=== PATIENT | female | born 1950 | race African-American/Black ===

== ENCOUNTER 2023-04-27 08:23 | Outpatient (AMB) | payer OTHER, SELFPAY ==
--- NOTE | 2023-04-27 08:31 | A.OFFVIS_ITS ---
Intake Vital Signs 04/27/23 08:33 Height 5 ft 5 in Weight 169 lb BMI 28.1 BP 160/74 H Blood Pressure Location Rt brachial Position Sitting Pulse 90 Pulse Source Pulse Oximeter Pulse Oximetry (%) 96 Oxygen Delivery Method Room Air Intake Visit Reasons: ENP-Dementia/Gait/Surred Speech-confirmed Intake Note: Patient presents for dementia,gait and speech evaluation. Patient states Im having A lot of issues walking. (son) I want to know if she had a stroke shes always been a working woman and very independent since her fall last year she's not the same, slurring words, she' very inbalance. she was given a medication for stroke but we were never informed if she had a stroke. Allergies CRAB Allergy (Intermediate, Uncoded 05/04/23 13:39) HIVES, RASH, STOMACH PAINS HPI HPI Comments History of Present Illness Details 72-yr-old female presents for neurologic al evaluation of gait difficulties and slurring speech. Accompanied by her son, Roly. She had a fall a year ago. She fell and hit her forehead. Since, she she has had progressive slurring of speech and gait difficulties. In the last 6 months, she has started to need to walk with a walker. She had another fall in Jan, which per hosp reports was r/t marijuana use- son states mom has always consumed marijuana- but now she uses 1/2 joint at bedtime for sleep as needed. Pt is right handed. ADL status: Needing more assist with dressing, slower. IADL status: Ind Fine-motor skills: Her writing is poor- shaky. Buttons/zippers- can do slow. Needs help to cut her own food. Voice changes: slurring, softer, but sometimes has to almost shout. Hyposmia: Intact Dysphagia: Has coughing with drinking liquids. No issues with solid food. Has not had ROVING MACHINE OPERATOR or MBS. Drooling: Some left sided drooling at night Orthostatic lightheadedness: Some lightheadedness- can persist for a few seconds Constipation: None Slowness: Overall slower Freezing episodes: Occasionally Tremor: Started in LUE w/ action, now has BUE and whole body tremor Stiffness: Feels rigid if she has been sitting for awhile Gait changes: When she stands up, she tends to lose her balance backwards. Her falls have been falling backwards or to the side. Sleep difficulty: More recently she has had difficulty sleep. Denies snoring or parasomnias. Memory impairment: Some STM lapses. Hallucinations: She has had a few episodes where she is waking up and talking to someone who is not there Usual exercise: Has a PT who comes to the house- will be ending soon. Other: She endorses headaches, blurry vision, diplopia, nausea. History of concussion/head injury? After the fall last year, had prolonged dizziness. History of neuroleptic (metoclopramide/antipsychotics) use? Denies History of psychiatric hospitalizations? None History of occupational chemical exposures? None Family history of movement disorders? None Family history of mood disorder or suicide? None 12/2021, [facility], Brain MRI wo: IMPRESSION: 1. No acute infarct. 2. Multifocal supratentorial white matter signal abnormality is nonspecific, but compatible with chronic microangiopathic/small vessel ischemic change. 01/2023, [facility], Head/Neck CTA IMPRESSION: 1. No acute intracranial large vessel occlusion. 2. No hemodynamically-significant stenosis of the extracranial internal carotid and vertebral arteries. 3. 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 ENT outpatient follow-up can be obtained. 01/2023, Head CT: IMPRESSION: 1. No acute intracranial abnormality. 2. No skull fracture. [facility] Medical History (Updated 05/07/23 @ 20:43 by MAINOR Alberto) Rheumatoid arthritis Cervical spinal stenosis HTN (hypertension) Depressive disorder Surgical History H/O: hysterectomy History of partial hysterectomy Family History Mother HTN (hypertension) Hyperlipidemia Father Cancer, colon Social History Alcohol intake: never Patient Tobacco Use Status: Current someday Tobacco user Review of Systems Const All systems reviewed & are unremarkable except as noted in HPI and below Physical Exam Vital Signs: Last Vital Signs Pulse 90 04/27/23 08:33 BP 160/74 H 04/27/23 08:33 Pulse Ox 96 04/27/23 08:33 Oxygen Delivery Method Room Air 04/27/23 08:33 BMI result Body Mass Index 28.1 Const General: cooperative and no acute distress HEENT Head: Yes normocephalic Resp Effort & Inspection: normal respiratory effort and able to speak in complete sentences Neuro Other: A&O Slurred speech Writing tremor Slow to stand, very short steps, needs to hold onto someone/walker. Psych Appearance: grossly normal Mental Status: mental status grossly normal Affect: normal affect Attitude: cooperative Thought process: Normal thought process present Assessment & Plan Assessment & Plan (1) Slurred speech: Code(s): R47.81 - Slurred speech (2) Gait difficulty: Code(s): R26.9 - Unspecified abnormalities of gait and mobility (3) Migraine without aura: Code(s): G43.009 - Migraine without aura, not intractable, without status migrainosus (4) Tremor: Code(s): R25.1 - Tremor, unspecified Plan Discussed in depth that pt's constellation of s/s do persist despite pt being weaned off many of the potentially sedating medications pt was previously on. Discussed that no acute stroke was identified at least on head imaging done in Jan 2023 at [facility]. Reviewed that medications, such as her labettalol and statin, are sued to tx HTN/HLD and thus are for stroke prevention. Pt advised to undergo brain MRI w/wo- to assess for secondary etiologies of slurred speech, gait changes, diplopia. Will refer pt to out-pt PT for vestibualr eval & Tx- may start once her home PT is completed. 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 Pt is not a candidate to try triptans d/t HTN and HLD. f/u on review of above and in 3 months in clinic or sooner prn Coding Level of Care Code New Pt Level 4 (02031) Diagnoses Slurred speech R47.81 Gait difficulty R26.9 Migraine without aura G43.009 Tremor R25.1
[2023-04-27 08:33] VITALS: BP 160/74; PULSE 90; O2SAT 96; BMI 28.1
== END 2023-04-27 10:01 | disposition home or self-care (01) ==
PROVIDERS: Visit Provider Nurse Practitioner Family
DX: R47.81 Slurred speech (principal); R26.9 Unspecified abnormalities of gait and mobility; G43.009 Migraine without aura, not intractable, without status migrainosus; R25.1 Tremor, unspecified
CPT/HCPCS: 99204

== ENCOUNTER → 2023-04-27 08:23 | Outpatient (BNVA) | payer OTHER, SELFPAY | PROVIDERS: Visit Provider Nurse Practitioner Family | DX: G43.009 Migraine without aura, not intractable, without status migrainosus (principal); R47.81 Slurred speech; R26.9 Unspecified abnormalities of gait and mobility; R25.1 Tremor, unspecified | CPT/HCPCS: 99202 ==

== ENCOUNTER 2023-05-04 13:29 | Outpatient (AMB) | payer OTHER, SELFPAY ==
--- NOTE | 2023-05-04 13:38 | HO.NEPHOV_ITS ---
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 Loader Operator Required: No Accompanied by: Self / Same As Patient Allergies CRAB Allergy (Intermediate, Uncoded 05/04/23 13:39) HIVES, RASH, STOMACH PAINS HPI HPI Comments History of Present Illness Details Elderly woman with HTN Here for follow up Tolerating Labetolol She did not tolerate Amlodipine due to edema Dizziness has improved Assessment & Plan Assessment & Plan (1) HTN (hypertension): Code(s): I10 - Essential (primary) hypertension Plan BP is sub optimal Stay on low salt diet Increase LABETOLOL to 200 mg BID Lab work ordered Orders: Orders Blood Urea Nitrogen 6 Weeks I10 - Essential (primary) hypertension Creatinine 6 Weeks I10 - Essential (primary) hypertension Calcium 6 Weeks I10 - Essential (primary) hypertension Electrolytes 6 Weeks I10 - Essential (primary) hypertension Medications: Changed From labetalol 100 mg PO BID To labetalol 200 mg (2 x 100 mg) PO BID 60 tabs 6RF Coding Level of Care Code Est Pt Level 3 (18626) Diagnoses HTN (hypertension) I10 PFSH Medical History (Updated 05/04/23 @ 14:01 by Dc Martin MD) HTN (hypertension) Depressive disorder Surgical History H/O: hysterectomy History of partial hysterectomy Family History Mother HTN (hypertension) Hyperlipidemia Father Cancer, colon Social History Alcohol intake: never Patient Tobacco Use Status: Current someday Tobacco user
[2023-05-04 13:41] VITALS: BP 162/90; PULSE 99; O2SAT 99; BMI 28.1
== END 2023-05-04 14:05 | disposition home or self-care (01) ==
LOC: HO.HKAS 13:29
PROVIDERS: PCP Internal Medicine; Visit Provider Internal Medicine Hypertension Specialist
DX: I12.9 Hypertensive chronic kidney disease with stage 1 through stage 4 chronic kidney disease, or unspecified chronic kidney disease (principal)
CPT/HCPCS: 99214

== ENCOUNTER → 2023-05-04 13:29 | Outpatient (BNVA) | payer OTHER, SELFPAY | PROVIDERS: PCP Internal Medicine; Visit Provider Internal Medicine Hypertension Specialist | DX: I12.9 Hypertensive chronic kidney disease with stage 1 through stage 4 chronic kidney disease, or unspecified chronic kidney disease (principal) | CPT/HCPCS: 99212 ==

== ENCOUNTER 2023-06-14 13:44 | Outpatient (AMB) | payer OTHER, SELFPAY ==
--- NOTE | 2023-06-14 13:50 | HO.NEPHOV ---
HPI HPI Comments History of Present Illness Details Elderly woman with HTN Here for follow up Tolerating Labetolol 200 mg BID She did not tolerate Amlodipine due to edema Dizziness has improved PFSH Medical History Rheumatoid arthritis Cervical spinal stenosis HTN (hypertension) Depressive disorder Surgical History H/O: hysterectomy History of partial hysterectomy Family History Mother HTN (hypertension) Hyperlipidemia Father Cancer, colon Social History Alcohol intake: never Patient Tobacco Use Status: Current someday Tobacco user Vital Signs 06/14/23 13:51 Height 5 ft 5 in Weight 177 lb BMI 29.5 BP 158/80 H Blood Pressure Location Lt brachial Position Sitting Pulse 80 Pulse Source Pulse Oximeter Pulse Oximetry (%) 95 Oxygen Delivery Method Room Air Physical Exam Vital Signs: Last Vital Signs Pulse 80 06/14/23 13:51 BP 158/80 H 06/14/23 13:51 Pulse Ox 95 06/14/23 13:51 Oxygen Delivery Method Room Air 06/14/23 13:51 BMI result Body Mass Index 29.5 Const General: comfortable Nutritional Appearance: well nourished Orientation/consciousness: patient oriented x3 HEENT Head: No normal to inspection Mouth: moist mucous membranes Neck Neck: Yes supple and Yes no JVD Resp Auscultation: clear to auscultation bilaterally, no rales and rub present Cardio Jugular venous distension: no JVD Palpation: no palpable S3 and no palpable S4 Heart sounds: no rubs GI Palpation (GI): Soft to palpation and nontender Percussion: No Fluid wave present General: Yes no CVA tenderness Back/Spine/Pelvis Back: no CVA tenderness Skin General skin exam: no rashes or lesions noted Neuro General: patient oriented x3 Extrem General: Yes no pedal edema and No clubbing Assessment & Plan Assessment & Plan (1) HTN (hypertension): Code(s): I10 - Essential (primary) hypertension Plan BP is still sub optimal Stay on low salt diet keep LABETOLOL 200 mg BID ADD NIFEDIPINE XL 30 mg QPM Labs pending Orders: Orders Electrolytes 3 Months I10 - Essential (primary) hypertension Blood Urea Nitrogen 3 Months I10 - Essential (primary) hypertension Creatinine 3 Months I10 - Essential (primary) hypertension Calcium 3 Months I10 - Essential (primary) hypertension Medications: New nifedipine ER 30 mg PO .evening 30 tabs 3RF Coding Level of Care Code Est Pt Level 3 (27476) Diagnoses HTN (hypertension) I10 Results Reviewed Nephrology Results: No Data to Display
[2023-06-14 13:51] VITALS: BP 158/80; PULSE 80; O2SAT 95; BMI 29.5
== END 2023-06-14 15:39 | disposition home or self-care (01) ==
LOC: HO.HKAS 13:44
PROVIDERS: PCP Internal Medicine; Visit Provider Internal Medicine Hypertension Specialist
DX: I10 Essential (primary) hypertension (principal)
CPT/HCPCS: 99213

== ENCOUNTER → 2023-06-14 13:44 | Outpatient (BNVA) | payer OTHER, SELFPAY | PROVIDERS: PCP Internal Medicine; Visit Provider Internal Medicine Hypertension Specialist | DX: I10 Essential (primary) hypertension (principal) | CPT/HCPCS: 99212 ==

== ENCOUNTER 2023-07-13 14:46 | Outpatient (AMB) | payer OTHER, SELFPAY ==
--- NOTE | 2023-07-13 14:46 | MHC.OFFVIS ---
Intake Intake Visit Reasons: F/u per Inessa #[phone] - Conf Intake Note: Patient presents for follow up I want her to check me because I need a speech therapist,my knee is also hurting me. Allergies CRAB Allergy (Intermediate, Uncoded 07/13/23 14:47) HIVES, RASH, STOMACH PAINS Medication List - Last Reconciled 07/13/23 by Inessa Wilder, MAINOR amitriptyline 25 mg PO BEDTIME calcium carbonate-vitamin D3 600 mg-10 mcg (400 unit) 1 tab PO BID hydroxyzine HCl mg PO labetalol 200 mg (2 x 100 mg) PO BID melatonin mg PO nifedipine ER 30 mg PO .evening omega-3 acid ethyl esters 1 cap PO DAILY ondansetron 4 mg PO Q6H PRN 30 days rosuvastatin 20 mg PO BEDTIME sulfasalazine PO ubrogepant (Ubrelvy) 50 - 100 mg (0.5 - 1 x 100 mg) PO ONCE PRN 30 days HPI HPI Comments History of Present Illness Details 72-yr-old female presents for f/u televideo visit, accompanied by her CORNER CUTTER MACHINE OPERATOR who helps w/ history and later her son joined. She saw ENT- pt states she was told she has a mass in the throat , her son states they were told her dizziness is stable. She saw her customer engagement specialist- her Labetolol was increased. She had a colonoscopy- per pt, was normal. Has not started PT yet. Did lois have brain MRI yet. Her speech is still slurred. She feels her memory is not great- difficulty with details. She is having difficulty walking- has to hold onto something when walking. She states that this is d/t knee pain since a fall last year. Her CORNER CUTTER MACHINE OPERATOR, notes that she needs the walker, as w/o it- she will go to the right and lose her balance. She has difficulty getting up from a chair- either has to try many times or someone has to help her get up. She is shaky when she gets up- in her hands. Her hands shake at rest. Denies hyposmia. Mild drooling. She is often dizzy- described as lightheaded. She does feel stiff overall. She feels anxious- this is newer for her. Denies hallucinations. Denies parasomnias. [facility] Medical History Rheumatoid arthritis Cervical spinal stenosis HTN (hypertension) Depressive disorder Surgical History H/O: hysterectomy History of partial hysterectomy Family History Mother HTN (hypertension) Hyperlipidemia Father Cancer, colon Social History Alcohol intake: never Patient Tobacco Use Status: Current someday Tobacco user Review of Systems Const All systems reviewed & are unremarkable except as noted in HPI and below Physical Exam Const General: cooperative and no acute distress Resp Effort & Inspection: normal respiratory effort and able to speak in complete sentences Neuro Other: A&O x's 3- mild STM lapses and some word finding difficulties, more so when anxious- ie name/location of her recent medical appointments. Anxious at times, easily relaxes. Dysarthritc. 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 Will check right knee x-ray, patient requests at [facility]. Will re-order out-pt PT eval & tx- at [facility] pe rpt request Refer for VEGETABLE FARM MANAGER eval & tx- at [facility]. Monitor tremor- consider movement eval in f/u Will request ENT notes Hold Ubrelvy 100mg prn for migarine headache for now. Pt is not a candidate to try triptans d/t HTN and HLD. f/u in 2-3 months or sooner prn. Orders: Orders XR knee RT 3V Today M25.561 - Pain in right knee Referrals Speech and Hearing Referral Q31.3 - Laryngocele, R13.10 - Dysphagia, unspecified, R47.81 - Slurred speech Telehealth Telehealth Location of provider rendering services: practice address Location of patient: address on file Patient Identification confirmed using: Name, : Yes Telehealth method: video Patient verbally consented to treatment: Yes Patient verbally consented to billing insurance company: Yes Patient informed of any privacy concerns related to visit: Yes Minutes spent on Phone/Video with Pt.: 31 Coding Level of Care Code Tele Est Pt Level 4 (37574) Diagnoses Dizziness R42 Slurred speech R47.81 Right knee pain M25.561 Laryngocele Q31.3 Difficulty swallowing R13.10 Tremor R25.1 Gait difficulty R26.9
== END 2023-07-14 13:21 | disposition home or self-care (01) ==
LOC: HO.HSMS 14:46
PROVIDERS: PCP Internal Medicine; Visit Provider Nurse Practitioner Family
DX: R42 Dizziness and giddiness (principal); R47.81 Slurred speech; M25.561 Pain in right knee; Q31.3 Laryngocele; R13.10 Dysphagia, unspecified; R25.1 Tremor, unspecified; R26.9 Unspecified abnormalities of gait and mobility
CPT/HCPCS: 99214

== ENCOUNTER → 2023-07-13 14:46 | Outpatient (BNVA) | payer OTHER, SELFPAY | PROVIDERS: PCP Internal Medicine; Visit Provider Nurse Practitioner Family ==

== ENCOUNTER 2023-08-09 14:33 | Outpatient (REF) | payer OTHER, SELFPAY ==
--- NOTE | ~2023-08-09 | MR_ITS ---
EXAMINATION: MR BRAIN WITHOUT AND WITH CONTRAST CLINICAL INFORMATION: Slurred speech COMPARISON: None TECHNIQUE: Multiplanar multisequence MR imaging of the brain was obtained without and following the administration of 7.5 mL Gadavist intravenous contrast. FINDINGS: There is no acute infarct on diffusion-weighted imaging. There is no intracranial hemorrhage on iron-sensitive imaging. No extra-axial collection or mass effect/herniation. Patchy periventricular and deep white matter T2 FLAIR hyperintensities consistent with moderate underlying microangiopathy. No hydrocephalus. The ventricles are normal in morphology and size. No abnormal parenchymal or extra-axial enhancement. 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 There is focal dural calcification/ossification along the right aspect of the posterior falx The major flow voids at the skull base are preserved. The midline structures are normal. The cerebellar tonsils are normally positioned. The craniocervical junction is normal. Marrow signal is within normal limits. The visualized soft tissues are without significant abnormality. No signal abnormality within the paranasal sinuses or within the mastoid air cells. MR/MR head/brain wo/w con IMPRESSION: 1. No acute infarct or other acute intracranial abnormality. 2. Moderate chronic white matter microangiopathy.
[2023-08-09] MEDS: gadobutroL 7.5 ML VIAL IVPUSH (15:38)
== END 2023-08-09 14:34 | disposition home or self-care (01) ==
LOC: HO.MRI 14:33
PROVIDERS: PCP Internal Medicine; Visit Provider Nurse Practitioner Family
DX: R47.81 Slurred speech (principal); H53.2 Diplopia; R26.9 Unspecified abnormalities of gait and mobility; R25.1 Tremor, unspecified; I10 Essential (primary) hypertension; Q31.3 Laryngocele
CPT/HCPCS: 70553; A9585

== ENCOUNTER 2023-09-08 09:36 | Outpatient (AMB) | payer OTHER, SELFPAY ==
--- NOTE | 2023-09-08 09:49 | MHC.OFFVIS ---
Intake Vital Signs 09/08/23 09:51 09/08/23 11:02 09/08/23 11:03 09/08/23 11:04 Height 5 ft 5 in Weight 168 lb BMI 28.0 BP 122/82 126/64 96/60 102/58 L Blood Pressure Location Rt brachial Rt brachial Rt brachial Rt brachial Position Sitting Supine Sitting Standing Pulse 81 68 71 76 Pulse Source Pulse Oximeter Pulse Oximeter Pulse Oximeter Pulse Oximeter Pulse Oximetry (%) 98 Oxygen Delivery Method Room Air Intake Visit Reasons: 3M follow up Intake Note: Patient presents for 3 month follow up. I had an MRI done at [facility], I fell last week and hit the back of my head Allergies CRAB Allergy (Intermediate, Uncoded 09/22/23 13:15) HIVES, RASH, STOMACH PAINS Medication List - Last Reconciled 09/08/23 by MAINOR Alberto amitriptyline 25 mg PO BEDTIME calcium carbonate-vitamin D3 600 mg-10 mcg (400 unit) 1 tab PO BID hydroxyzine HCl mg PO labetalol 200 mg (2 x 100 mg) PO BID melatonin mg PO nifedipine ER 30 mg PO .evening omega-3 acid ethyl esters 1 cap PO DAILY ondansetron 4 mg PO Q6H PRN 30 days rosuvastatin 20 mg PO BEDTIME sulfasalazine PO ubrogepant (Ubrelvy) 50 - 100 mg (0.5 - 1 x 100 mg) PO ONCE PRN 30 days HPI HPI Comments History of Present Illness Details 73-yr-old female presents for f/u visit, accompanied by her MARKETING EDUCATION TEACHER. Pt's son had called to move up this appt- as he had questions r/t her medications and whether or not pt has ever had a stroke. She continues to have dysarthria. She is doing VICE PRESIDENT BUSINESS & CORPORATE DEVELOPMENT- she is doing her VICE PRESIDENT BUSINESS & CORPORATE DEVELOPMENT exercises. She feels this has helped with her speech clarity. Can still have episodes of not being able to think of the word or say what she wants to say, and this can make her anxious. She has an ENT f/u for the throat mass. She is feeling room spinning dizziness when she moves, rolls over in bed, and when she stands up. She has a h/o vertigo, but this feels different- deeper than her typical vertigo. She can feel off-balance, tends to hold onto the montesinos. She has had recent falls. She feels this is r/t her medications. She does not check her home BP- but does have a home BP cuff. Her left hand and leg may cramp up. 08/22/23, MR/MR head/brain wo/w con IMPRESSION: 1. No acute infarct or other acute intracranial abnormality. 2. Moderate chronic white matter microangiopathy. [facility] Medical History Rheumatoid arthritis Cervical spinal stenosis HTN (hypertension) Depressive disorder Surgical History H/O: hysterectomy History of partial hysterectomy Family History Mother HTN (hypertension) Hyperlipidemia Father Cancer, colon Social History Alcohol intake: never Patient Tobacco Use Status: Current someday Tobacco user Physical Exam Vital Signs: Last Vital Signs Pulse 76 09/08/23 11:04 BP 102/58 L 09/08/23 11:04 Pulse Ox 98 09/08/23 09:51 Oxygen Delivery Method Room Air 09/08/23 09:51 BMI result Body Mass Index 28.0 Const General: cooperative and no acute distress Resp Effort & Inspection: normal respiratory effort and able to speak in complete sentences Neuro Other: A&O x's 3- mild STM lapses and some word finding difficulties, more so when anxious. Dysarthritc. Rigidity, decreased FFM and Foot taps- more so on left. Slow to stand, very short steps, needs to hold onto someone/walker Psych Appearance: grossly normal Mental Status: mental status grossly normal Speech and movement: Normal speech and movement present Affect: normal affect Attitude: cooperative Assessment & Plan Assessment & Plan (1) Slurred speech: Code(s): R47.81 - Slurred speech (2) Gait difficulty: Code(s): R26.9 - Unspecified abnormalities of gait and mobility (3) Tremor: Code(s): R25.1 - Tremor, unspecified (4) Diplopia: Code(s): H53.2 - Diplopia (5) Dizziness: Code(s): R42 - Dizziness and giddiness (6) Dysarthria: Code(s): R47.1 - Dysarthria and anarthria Plan Reviewed brain MRI results w/ pt: No acute infarct or other acute intracranial abnormality. Moderate chronic white matter microangiopathy. Discussed that her current anti-HTN med regimen is for stroke prevention, as uncontrolled HTN is risk factor for stroke. Reviewed in-office orthostic BP & HR- pt did have > 20mm Hg reduction in BP upon standing at 1 min w/o compensatory HR elevation. Check orthostatic BP & HR x's 3 times- pt's MARKETING EDUCATION TEACHER states she can do this at home- orthostatic BP/HR logs shared w/ pt/MARKETING EDUCATION TEACHER. Continue VICE PRESIDENT BUSINESS & CORPORATE DEVELOPMENT tx, exercises,a nd safe swallowing strategies- at [facility]. Pt advised to undergo DaTscan to assess for neurodegenerative dopaminergic process. Ubrelvy 100mg prn for migraine headache. Pt is not a candidate to try triptans d/t HTN and HLD. ? f/u in 3 months or sooner prn. Advised that if questions or concerns do come up, pt or her caregiver can call us to review their concerns. Coding Level of Care Code Est Pt Level 4 (52227) Diagnoses Slurred speech R47.81 Gait difficulty R26.9 Tremor R25.1 Diplopia H53.2 Dizziness R42 Dysarthria R47.1
[2023-09-08 09:51] VITALS: BP 122/82; PULSE 81; O2SAT 98; BMI 28.0
[2023-09-08 11:02] VITALS: BP 126/64; PULSE 68
[2023-09-08 11:03] VITALS: BP 96/60; PULSE 71
[2023-09-08 11:04] VITALS: BP 102/58; PULSE 76
== END 2023-09-08 14:08 | disposition home or self-care (01) ==
PROVIDERS: PCP Internal Medicine; Visit Provider Nurse Practitioner Family
DX: R47.81 Slurred speech (principal); R26.9 Unspecified abnormalities of gait and mobility; R25.1 Tremor, unspecified; H53.2 Diplopia; R42 Dizziness and giddiness; R47.1 Dysarthria and anarthria
CPT/HCPCS: 99214

== ENCOUNTER → 2023-09-08 09:36 | Outpatient (BNVA) | payer OTHER, SELFPAY | PROVIDERS: PCP Internal Medicine; Visit Provider Nurse Practitioner Family | DX: R47.81 Slurred speech (principal); R26.9 Unspecified abnormalities of gait and mobility; R25.1 Tremor, unspecified; R42 Dizziness and giddiness; R47.1 Dysarthria and anarthria; H53.2 Diplopia | CPT/HCPCS: 99212 ==

== ENCOUNTER 2023-09-13 14:32 | Outpatient (AMB) | payer OTHER, SELFPAY ==
[2023-09-13 14:33] VITALS: BP 138/64; PULSE 71; O2SAT 98; BMI 28.8
--- NOTE | 2023-09-13 14:33 | HO.NEPHOV ---
HPI HPI Comments History of Present Illness Details Elderly woman with HTN Here for follow up Tolerating Labetolol 200 mg BID She did not tolerate Amlodipine due to edema Dizziness has improved c/o Leg and knee pain and has arthritis PFSH Medical History Rheumatoid arthritis Cervical spinal stenosis HTN (hypertension) Depressive disorder Surgical History H/O: hysterectomy History of partial hysterectomy Family History Mother HTN (hypertension) Hyperlipidemia Father Cancer, colon Social History Alcohol intake: never Patient Tobacco Use Status: Current someday Tobacco user Vital Signs 09/13/23 14:33 Height 5 ft 5 in Weight 173 lb BMI 28.8 BP 138/64 Blood Pressure Location Lt brachial Position Sitting Pulse 71 Pulse Source Pulse Oximeter Pulse Oximetry (%) 98 Oxygen Delivery Method Room Air Physical Exam Vital Signs: Last Vital Signs Pulse 71 09/13/23 14:33 BP 138/64 09/13/23 14:33 Pulse Ox 98 09/13/23 14:33 Oxygen Delivery Method Room Air 09/13/23 14:33 BMI result Body Mass Index 28.8 Const General: comfortable Nutritional Appearance: well nourished Orientation/consciousness: patient oriented x3 HEENT Head: No normal to inspection Mouth: moist mucous membranes Neck Neck: Yes supple and Yes no JVD Resp Auscultation: clear to auscultation bilaterally, no rales and rub present Cardio Jugular venous distension: no JVD Palpation: no palpable S3 and no palpable S4 Heart sounds: no rubs GI Palpation (GI): Soft to palpation and nontender Percussion: No Fluid wave present General: Yes no CVA tenderness Back/Spine/Pelvis Back: no CVA tenderness Skin General skin exam: no rashes or lesions noted Neuro General: patient oriented x3 Extrem General: Yes no pedal edema and No clubbing Assessment & Plan Assessment & Plan (1) HTN (hypertension): Code(s): I10 - Essential (primary) hypertension Plan BP is better controlled. Stay low salt diet Keep LABETOLOL 200 mg BID Lab work done at [facility] - will track down Orders: Orders Comprehensive Met. Panel 4 Months I10 - Essential (primary) hypertension, N18.9 - Chronic kidney disease, unspecified Basic Metabolic Panel 4 Months I10 - Essential (primary) hypertension Coding Level of Care Code Est Pt Level 3 (83802) Diagnoses HTN (hypertension) I10 Results Reviewed Nephrology Results: No Data to Display
== END 2023-09-13 14:56 | disposition home or self-care (01) ==
PROVIDERS: PCP Internal Medicine; Visit Provider Internal Medicine Hypertension Specialist
DX: I10 Essential (primary) hypertension (principal)
CPT/HCPCS: 99213

== ENCOUNTER → 2023-09-13 14:32 | Outpatient (BNVA) | payer OTHER, SELFPAY | PROVIDERS: PCP Internal Medicine; Visit Provider Internal Medicine Hypertension Specialist | DX: I10 Essential (primary) hypertension (principal) | CPT/HCPCS: 99212 ==

== ENCOUNTER 2023-09-22 13:02 | Outpatient (AMB) | payer OTHER, SELFPAY ==
--- NOTE | 2023-09-22 13:14 | MHC.OFFVIS ---
Vital Signs 09/22/23 13:17 Height 5 ft 5 in Weight 173 lb BMI 28.8 BP 128/68 Blood Pressure Location Lt brachial Position Sitting Respiration 18 Pulse 89 Pulse Source Pulse Oximeter Pulse Oximetry (%) 98 Oxygen Delivery Method Room Air Intake Visit Reasons: Follow Up Intake Note: Pt presents for follow up for hospital discharge. Stem Shaper Required: No Allergies CRAB Allergy (Intermediate, Uncoded 09/22/23 13:15) HIVES, RASH, STOMACH PAINS HPI Comments Details: 73 y/o female patient presents for follow up of ER visit. Pt was evaluated for dysarthria and referred to speech therapy. Pt's son states that speech therapy sent her ER to r/o CVA. She had brain MRI done in ER. Pt is not sure what was diagnosed, but thinks that she had TIA. Brain MRI report reviewed, no acute findings. CT of brain result also no acute intracranial findings. CT neck angio result was no large vessel occlusion. No hemodynamically significant artherosclerotic stenosis. She also was evaluated for dizziness in the ER. She feeling room spinning dizziness. She has a h/o vertigo, but this feels different- deeper than her typical vertigo. She can feel off-balance, tends to hold onto the montesinos. However, she was using her sister's glasses and recommended to have repeat eye exam and use her own glasses. [facility] Medical History Rheumatoid arthritis Cervical spinal stenosis HTN (hypertension) Depressive disorder Surgical History H/O: hysterectomy History of partial hysterectomy Family History Mother HTN (hypertension) Hyperlipidemia Father Cancer, colon Social History Alcohol intake: never Patient Tobacco Use Status: Current someday Tobacco user Review of Systems Const All systems reviewed & are unremarkable except as noted in HPI and below Physical Exam Vital Signs: Last Vital Signs Pulse 89 09/22/23 13:17 Resp 18 09/22/23 13:17 BP 128/68 09/22/23 13:17 Pulse Ox 98 09/22/23 13:17 Oxygen Delivery Method Room Air 09/22/23 13:17 BMI result Body Mass Index 28.8 Const General: cooperative and no acute distress Resp Effort & Inspection: normal respiratory effort and able to speak in complete sentences Neuro Other: A&O x's 3- mild STM lapses and some word finding difficulties, more so when anxious. Dysarthritc. Rigidity, decreased FFM and Foot taps- more so on left. Slow to stand, very short steps, needs to hold onto someone/walker Psych Appearance: grossly normal Mental Status: mental status grossly normal Speech and movement: Normal speech and movement present Affect: normal affect Attitude: cooperative Assessment & Plan Assessment & Plan (1) Slurred speech: Code(s): R47.81 - Slurred speech Category: Medical (2) Gait difficulty: Code(s): R26.9 - Unspecified abnormalities of gait and mobility Category: Medical (3) Tremor: Code(s): R25.1 - Tremor, unspecified Category: Medical (4) Diplopia: Code(s): H53.2 - Diplopia Category: Medical (5) Dizziness: Code(s): R42 - Dizziness and giddiness Category: Medical (6) Dysarthria: Code(s): R47.1 - Dysarthria and anarthria Category: Medical Plan Advised patient to continue to follow up with speech therapy for dysarthria. Schedule for eye exam for new glasses. Encouraged patient to manage blood pressure well, increase PO fluid to prevent light headedness. Change position slowly to prevent dizziness and orthostatic hypotension. Scribe Plan - Not visible on output: Reviewed possible medication side effects, including but not limited to drowsiness, dizziness.
[2023-09-22 13:17] VITALS: BP 128/68; PULSE 89; RESP 18; O2SAT 98; BMI 28.8
== END 2023-09-22 13:56 | disposition home or self-care (01) ==
LOC: HO.HSMS 13:03
PROVIDERS: PCP Internal Medicine; Visit Provider Nurse Practitioner Family
DX: R47.81 Slurred speech (principal); R26.9 Unspecified abnormalities of gait and mobility; R25.1 Tremor, unspecified; H53.2 Diplopia; R42 Dizziness and giddiness; R47.1 Dysarthria and anarthria
CPT/HCPCS: 99214

== ENCOUNTER → 2023-09-22 13:02 | Outpatient (BNVA) | payer OTHER, SELFPAY | PROVIDERS: PCP Internal Medicine; Visit Provider Nurse Practitioner Family | DX: Z09 Encounter for follow-up examination after completed treatment for conditions other than malignant neoplasm (principal); R47.81 Slurred speech; R47.1 Dysarthria and anarthria; R42 Dizziness and giddiness; R26.9 Unspecified abnormalities of gait and mobility; R25.1 Tremor, unspecified; H53.2 Diplopia | CPT/HCPCS: 99212 ==

== ENCOUNTER 2023-10-27 13:37 | Outpatient (AMB) | payer OTHER, SELFPAY ==
--- NOTE | 2023-10-27 13:41 | MHC.OFFVIS ---
Vital Signs 10/27/23 13:43 Height 5 ft 5 in Weight 165 lb BMI 27.5 Pulse 87 Pulse Source Pulse Oximeter Pulse Oximetry (%) 98 Oxygen Delivery Method Room Air Intake Visit Reasons: F/u to disscuss Brain HUMBERTO Scan Intake Note: Patient follow up to discuss Brain HUMBERTO. Patient here for HUMBERTO [place] results Allergies CRAB Allergy (Intermediate, Uncoded 09/22/23 13:15) HIVES, RASH, STOMACH PAINS Medication List - Last Reconciled 10/27/23 by MAINOR Alberto ascorbic acid (vitamin C) (Vitamin C) PO calcium carbonate-vitamin D3 600 mg-10 mcg (400 unit) 1 tab PO BID ferrous sulfate 325 mg PO DAILY fluticasone propionate 50 mcg/actuation (Children's Flonase Allergy Relief) 1 spray intranasal DAILY hydroxyzine HCl mg PO labetalol 200 mg (2 x 100 mg) PO BID meclizine 12.5 mg PO TID melatonin mg PO BEDTIME PRN nifedipine 10 mg PO BID nifedipine ER 30 mg PO .evening omega-3 acid ethyl esters 1 cap PO DAILY rosuvastatin 20 mg PO BEDTIME sulfasalazine PO DAILY ubrogepant (Ubrelvy) 50 - 100 mg (0.5 - 1 x 100 mg) PO ONCE PRN 30 days HPI Comments Details: 73-yr-old female presents for f/u visit. Pt denies any significant interval medical history changes. Pt's reports that recently one of her home care nurses had her take extra meds, which worsened her dizziness. The family was able to clarify the updated med list, and pt is now on her usual meds and had been feeling better. DaTscan: Decreased activity in bilateral basal ganglia. Differential diagnosis includes Parkinson's disease, multiple system atrophy, progressive supranuclear palsy, dementia with Lewy Bodies, and cortical basal degeneration. ADL's: Needs some help Swallowing: She is working w/ the DEPOSIT CLERK- it helping some Hyposmia: Denies Drooling: At times Orthostatic lightheadedness: She has spinning dizziness upon standing Constipation: Denies Urinary symptoms: Urinary leakage- wears a pad at night Tremor: She notices shaking when standing, Dyskinesia: Denies Stiffness: Hands become stuck Gait changes: Using her walker Freezing: Denies. Her son- does notice this. Falls: She fell 3 weeks ago. She tripped over her own feet, fell to her knees, but family was able to block the fall furtehr. Mood: Anxious at times Hallucinations: Denies Memory: Not as good- she forgets little things Sleep: Not sleeping well. States just lays there and does not sleep. Does take cat naps. Exercise: She has a stepper or uses her bicycle at times. She was doing [facility]- has been held d/t rcenet, but staring in October again. [facility] Medical History Rheumatoid arthritis Cervical spinal stenosis HTN (hypertension) Depressive disorder Surgical History H/O: hysterectomy History of partial hysterectomy Family History Mother HTN (hypertension) Hyperlipidemia Father Cancer, colon Social History Alcohol intake: never Patient Tobacco Use Status: Current someday Tobacco user Review of Systems Const All systems reviewed & are unremarkable except as noted in HPI and below Physical Exam Vital Signs: Last Vital Signs Pulse 87 10/27/23 13:43 Pulse Ox 98 10/27/23 13:43 Oxygen Delivery Method Room Air 10/27/23 13:43 BMI result Body Mass Index 27.5 Const General: cooperative and no acute distress Resp Effort & Inspection: normal respiratory effort and able to speak in complete sentences Neuro Other: General: A&O x's 3 Expression: Decreased Voice: Dysarthria, worse when anxious Tremor: No tremor Tone: BUE L > R rigidity Dyskinesia: None FFM: Bradykinesia, L > R Foot taps: Bradykinesia, L > R Gait: Very wide base and slwo when standing- needs physical assist, once standing, short steps w/ very low floor clearance, steady w/ walker. Psych: Anxious at times. 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 Discussed that pt's slowly progressing s/s including gait changes, rigidity, bradykinesia, even memory and speech changes can be seen in degenerative movement d/o's. At this time, pt's symptoms seem most compatible w/ a Parkinson's dx. Will trial pt on a low dose CD-LD to see if these s/s are dopamine responsive. Reviewed potential s/e's. Concur w/ resuming PT. Continue DEPOSIT CLERK. Continue using walker. Info given on reliable movement d/o resources, such as the APDA. Continue to optimize CV risk factors. Monitor headaches. Medications: New carbidopa-levodopa 25-100 mg take w/ a cracker 30 minutes before breakfast and dinner, 0.5 - 1 tabs PO BID 60 tabs 3RF 30 days Coding Level of Care Code Est Pt Level 4 (39627) Diagnoses Dysarthria R47.1 Difficulty swallowing R13.10 Tremor R25.1 Migraine without aura G43.009 Laryngocele Q31.3
[2023-10-27 13:43] VITALS: PULSE 87; O2SAT 98; BMI 27.5
== END 2023-10-27 14:49 | disposition home or self-care (01) ==
PROVIDERS: PCP Internal Medicine; Visit Provider Nurse Practitioner Family
DX: R47.1 Dysarthria and anarthria (principal); R13.10 Dysphagia, unspecified; R25.1 Tremor, unspecified; G43.009 Migraine without aura, not intractable, without status migrainosus; Q31.3 Laryngocele
CPT/HCPCS: 99214

== ENCOUNTER → 2023-10-27 13:37 | Outpatient (BNVA) | payer OTHER, SELFPAY | PROVIDERS: PCP Internal Medicine; Visit Provider Nurse Practitioner Family | DX: R47.1 Dysarthria and anarthria (principal); R13.10 Dysphagia, unspecified; R25.1 Tremor, unspecified; G43.009 Migraine without aura, not intractable, without status migrainosus; Q31.3 Laryngocele | CPT/HCPCS: 99212 ==

== ENCOUNTER 2024-01-10 11:00 | Outpatient (AMB) | payer OTHER, SELFPAY ==
[2024-01-10 11:02] VITALS: BP 126/68; PULSE 89; O2SAT 96; BMI 27.3
--- NOTE | 2024-01-10 11:02 | HO.NEPHOV ---
Vital Signs 01/10/24 11:02 Height 5 ft 5 in Weight 164 lb BMI 27.3 BP 126/68 Blood Pressure Location Lt brachial Position Sitting Pulse 89 Pulse Source Pulse Oximeter Pulse Oximetry (%) 96 Oxygen Delivery Method Room Air Intake Visit Reasons: 4 mon follow up/ Conf Infrastructure Architect Required: No Accompanied by: JUVENILE DETENTION OFFICER Allergies CRAB Allergy (Intermediate, Uncoded 09/22/23 13:15) HIVES, RASH, STOMACH PAINS HPI Comments Details: Elderly woman with HTN Here for follow up Tolerating Labetolol 200 mg BID She did not tolerate Amlodipine due to edema Dizziness has improved c/o Leg and knee pain and has arthritis PFSH Medical History Rheumatoid arthritis Cervical spinal stenosis HTN (hypertension) Depressive disorder Surgical History H/O: hysterectomy History of partial hysterectomy Family History Mother HTN (hypertension) Hyperlipidemia Father Cancer, colon Social History Alcohol intake: never Patient Tobacco Use Status: Current someday Tobacco user Physical Exam Vital Signs: Last Vital Signs Pulse 89 01/10/24 11:02 BP 126/68 01/10/24 11:02 Pulse Ox 96 01/10/24 11:02 Oxygen Delivery Method Room Air 01/10/24 11:02 BMI result Body Mass Index 27.3 Results Reviewed Nephrology Results: No Data to Display Assessment & Plan Assessment & Plan (1) HTN (hypertension): Code(s): I10 - Essential (primary) hypertension Category: Medical Plan BP is better controlled. Stay low salt diet Keep LABETOLOL 200 mg BID Orders: Orders Basic Metabolic Panel 6 Months I10 - Essential (primary) hypertension Coding Level of Care Code Est Pt Level 3 (96059) Diagnoses HTN (hypertension) I10
== END 2024-01-10 11:23 | disposition home or self-care (01) ==
PROVIDERS: PCP Internal Medicine; Visit Provider Internal Medicine Hypertension Specialist
DX: I10 Essential (primary) hypertension (principal)
CPT/HCPCS: 99213

== ENCOUNTER → 2024-01-10 11:00 | Outpatient (BNVA) | payer OTHER, SELFPAY | PROVIDERS: PCP Internal Medicine; Visit Provider Internal Medicine Hypertension Specialist | DX: I10 Essential (primary) hypertension (principal); Z79.899 Other long term (current) drug therapy | CPT/HCPCS: 99212 ==

== ENCOUNTER 2024-05-07 11:27 | Outpatient (AMB) | payer OTHER, SELFPAY ==
--- NOTE | 2024-05-07 11:32 | A.OFFVIS_ITS ---
Vital Signs 05/07/24 11:33 Height 5 ft 5 in Weight 166 lb BMI 27.6 BP 118/66 Blood Pressure Location Lt brachial Position Sitting Pulse 93 Pulse Source Pulse Oximeter Pulse Oximetry (%) 98 Oxygen Delivery Method Room Air Intake Visit Reasons: 7 month F/U Oil Distributor Tender Required: No Accompanied by: Self / Same As Patient Allergies CRAB Allergy (Intermediate, Uncoded 09/22/23 13:15) HIVES, RASH, STOMACH PAINS Medication List - Last Reconciled 05/07/24 by MAINOR Alberto ascorbic acid (vitamin C) (Vitamin C) PO calcium carbonate-vitamin D3 600 mg-10 mcg (400 unit) 1 tab PO BID carbidopa-levodopa 25-100 mg 0.5 - 1 tabs PO BID 30 days ferrous sulfate 325 mg PO DAILY fluticasone propionate 50 mcg/actuation (Children's Flonase Allergy Relief) 1 spray intranasal DAILY hydroxyzine HCl mg PO labetalol 200 mg (2 x 100 mg) PO BID meclizine 12.5 mg PO TID melatonin mg PO BEDTIME PRN nifedipine ER 30 mg PO .evening omega-3 acid ethyl esters 1 cap PO DAILY rosuvastatin 20 mg PO BEDTIME sulfasalazine PO DAILY ubrogepant (Ubrelvy) 50 - 100 mg (0.5 - 1 x 100 mg) PO ONCE PRN 30 days HPI Comments Details: 73-yr-old female presents for f/u visit of Parkinson's- early, w/ positive DaTscan, headaches. Pt's primary concerns today: Pt reports she often feels drunk, off-balance, and dizzy. She would like to know which of her medications is causing this, as she feels when she wakes up she feels ok, but then she starts feeling dizzy after the nurse brings her her morning meds. She states she is falling a lot- the last fall was a week ago. She fell backwards in the bathroom while standing up and brushing her teeth. Never resumed PT. She does endorse blurry vision. She wears sunglasses inside d/t photophobia. Her last eye exam was 2 months ago. She states she can feel the ground when she is walking, but she is shuffling. She has been having a headache every other day. The headache is a throbbing holocranial a/w photophobia, increased dizziness, fatigue, activity intolerance. She has not yet tried Ubrelvy- states she did not know how to take it. PD meds: she states she tried CD-LD 25-100mg, unsure of effect but ran out. ADL's: Needs some help Swallowing: She states POST ACUTE CARE NURSE is asking for tx's- it helping some but she feels it is worsening. Hyposmia: Denies Drooling: At times Orthostatic lightheadedness: She is not sure. Maybe after she takes her morning meds. Tries not to drink too much to avoid voiding too often. Constipation: Denies Urinary symptoms: Voids 3-4 x's at night. Can feel like she will fall. Urinary leakage- wears a pad at night Tremor: She is not noticing any shaking. Dyskinesia: Denies Stiffness: Hands become stuck. Feels generally stiff. Gait changes: as above. Freezing: Denies. Her son- does notice this. Falls: as above Mood: Anxious at times Hallucinations: Denies Memory: Forgets little things Sleep: Not sleeping well. States just lays there and does not sleep. Does take cat naps. Exercise: She has a stepper or uses her bicycle at times. Previous work-up: 10/13/2023, DaTscan: Decreased activity in bilateral basal ganglia. Differential diagnosis includes Parkinson's disease, multiple system atrophy, progressive supranuclear palsy, dementia with Lewy Bodies, and cortical basal degeneration. 08/22/23, MR/MR head/brain wo/w conIMPRESSION: 1. No acute infarct or other acute intracranial abnormality. 2. Moderate chronic white matter microangiopathy. 12/2021, [facility], Brain MRI wo:IMPRESSION: 1. No acute infarct. 2. Multifocal supratentorial white matter signal abnormality is nonspecific, but compatible with chronic microangiopathic/small vessel ischemic change. 01/2023, [facility], Head/Neck CTAIMPRESSION: 1. No acute intracranial large vessel occlusion. 2. No hemodynamically-significant stenosis of the extracranial internal carotid and vertebral arteries. 3. 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 ENT outpatient follow-up can be obtained. 01/2023, Head CT:IMPRESSION: 1. No acute intracranial abnormality. 2. No skull fracture. [facility] Medical History Rheumatoid arthritis Cervical spinal stenosis HTN (hypertension) Depressive disorder Surgical History H/O: hysterectomy History of partial hysterectomy Family History Mother HTN (hypertension) Hyperlipidemia Father Cancer, colon Social History Alcohol intake: never Patient Tobacco Use Status: Current someday Tobacco user Physical Exam Vital Signs: Last Vital Signs Pulse 93 05/07/24 11:33 BP 118/66 05/07/24 11:33 Pulse Ox 98 05/07/24 11:33 Oxygen Delivery Method Room Air 05/07/24 11:33 BMI result Body Mass Index 27.6 Const General: cooperative and no acute distress Resp Effort & Inspection: normal respiratory effort and able to speak in complete sentences Neuro Other: General: A&O x's 3. Photophobic Expression: Decreased Voice: Dysarthria Tremor: Mild RUE psotural tremor Tone: BUE L > R rigidity Dyskinesia: None FFM: Bradykinesia Foot taps: Bradykinesia Gait: Wide base and slow when standing- needs physical assist, once standing, slight stoop, short steps w/ low floor clearance, steady w/ walker. Psych: Pleasant affect. Less anxious. Assessment & Plan Assessment & Plan (1) Tremor: Comment: DaTscan: Decreased activity in bilateral basal ganglia. Code(s): R25.1 - Tremor, unspecified Category: Medical (2) Dysarthria: Code(s): R47.1 - Dysarthria and anarthria Category: Medical (3) Difficulty swallowing: Code(s): R13.10 - Dysphagia, unspecified Category: Medical (4) Migraine without aura: Code(s): G43.009 - Migraine without aura, not intractable, without status migrainosus Category: Medical (5) Dizziness: Code(s): R42 - Dizziness and giddiness Category: Medical Plan For PD: Previous brain MRI and recent DaTscan results, showing decreased activity in bilateral basal ganglia. Pt's slowly progressing s/s including gait changes, rigidity, bradykinesia, even memory and speech changes can be seen in degenerative movement d/o's. At this time, pt's symptoms seem most compatible w/ a Parkinson's dx. Pt advised to: Increase fluids as tolerated. Resume CD-LD 25-100mg 1 tab bid. PT eval & tx for headache and dizziness. Continue POST ACUTE CARE NURSE exercises. Continue using walker. Continue to optimize CV risk factors- BP normotensive. f/u w/ nephrology as scheduled. For migraine w/o aura prevention: Start Ajovy 225mg/1.5ml autoinjector- injection 225mg subcutaneously once a month. Potential adverse effects of Ajovy include but are not limited to injection site reactions. Pt advised Ajovy will likely require insurance prior authorization. Ajovy should be refrigerated until 1 hr prior use. Once approved and available patient would like in office injection training. Continue Labetolol- used for HTN tx. Previous trials- Amitriptyline- not tolerated. For acute migarine w/o aura tx: Again trial Ubrogepant (Ubrelvy) 100mg tab, 1/2 - 1 tab (50-100mg) at onset of headache, may repeat in 2 hours. Max of 2 tabs (200mg) per 24 hours. May adjunct with OTC Tylenol 650-1000mg q 4-6 hours prn. Acute migraine tx contraindications: all triptans and DHE d/t HTN. Pt to follow-up in 3-6 months or sooner prn. Orders: Orders PT Evaluation and Treatment Today G43.009 - Migraine without aura, not intractable, without status migrainosus, R42 - Dizziness and giddiness Medications: New fremanezumab-vfrm (Ajovy) administer 225mg sc q month 225 mg (1.5 mL) subcut ONCE 30 days 1.5 mL 6RF Refilled carbidopa-levodopa 25-100 mg take w/ a cracker 30 minutes before breakfast and dinner, 0.5 - 1 tabs PO BID 30 days 60 tabs 6RF Coding Level of Care Code Est Pt Level 4 (79166) Diagnoses Tremor R25.1 Dysarthria R47.1 Difficulty swallowing R13.10 Migraine without aura G43.009 Dizziness R42
[2024-05-07 11:33] VITALS: BP 118/66; PULSE 93; O2SAT 98; BMI 27.6
== END 2024-05-07 12:18 | disposition home or self-care (01) ==
LOC: HO.HSMS 11:28
PROVIDERS: PCP Internal Medicine; Visit Provider Nurse Practitioner Family
DX: R25.1 Tremor, unspecified (principal); R47.1 Dysarthria and anarthria; R13.10 Dysphagia, unspecified; G43.009 Migraine without aura, not intractable, without status migrainosus; R42 Dizziness and giddiness
CPT/HCPCS: 99214

== ENCOUNTER → 2024-05-07 11:27 | Outpatient (BNVA) | payer OTHER, SELFPAY | PROVIDERS: PCP Internal Medicine; Visit Provider Nurse Practitioner Family | DX: G43.009 Migraine without aura, not intractable, without status migrainosus (principal); R25.1 Tremor, unspecified; R47.1 Dysarthria and anarthria; R42 Dizziness and giddiness; R13.10 Dysphagia, unspecified | CPT/HCPCS: 99212 ==

== ENCOUNTER 2024-07-24 11:04 | Outpatient (AMB) | payer OTHER, SELFPAY ==
--- NOTE | 2024-07-24 11:07 | HO.NEPHOV ---
Vital Signs 07/24/24 11:08 Height 5 ft 5 in Weight 167 lb BMI 27.8 BP 126/70 Blood Pressure Location Lt brachial Position Sitting Pulse 90 Pulse Source Pulse Oximeter Pulse Oximetry (%) 96 Oxygen Delivery Method Room Air Intake Visit Reasons: 6 mon follow up/ Conf Black Oxide Operator Required: No Accompanied by: Self / Same As Patient Allergies CRAB Allergy (Intermediate, Uncoded 09/22/23 13:15) HIVES, RASH, STOMACH PAINS Medication List - Last Reconciled 07/24/24 by Dc Martin MD ascorbic acid (vitamin C) (Vitamin C) PO calcium carbonate-vitamin D3 600 mg-10 mcg (400 unit) 1 tab PO BID carbidopa-levodopa 25-100 mg 0.5 - 1 tabs PO BID 30 days ferrous sulfate 325 mg PO DAILY fluticasone propionate 50 mcg/actuation (Children's Flonase Allergy Relief) 1 spray intranasal DAILY galcanezumab-gnlm (Emgality Pen) 120 mg subcut ONCE 30 days hydroxyzine HCl mg PO labetalol 200 mg (2 x 100 mg) PO BID meclizine 12.5 mg PO TID melatonin mg PO BEDTIME PRN nifedipine ER 30 mg PO .evening omega-3 acid ethyl esters 1 cap PO DAILY rosuvastatin 20 mg PO BEDTIME sulfasalazine PO DAILY ubrogepant (Ubrelvy) 50 - 100 mg (0.5 - 1 x 100 mg) PO ONCE PRN 30 days HPI Comments Details: Elderly woman with HTN Here for follow up Tolerating Labetolol 200 mg BID She did not tolerate Amlodipine due to edema Dizziness has improved c/o Leg and knee pain and has arthritis 07/24/24 She feels LAbetolol makes her pee a lot ! Overall BP is well controlled Renal function has been stable [facility] Medical History Rheumatoid arthritis Cervical spinal stenosis HTN (hypertension) Depressive disorder Surgical History H/O: hysterectomy History of partial hysterectomy Family History Mother HTN (hypertension) Hyperlipidemia Father Cancer, colon Social History (Reviewed 01/22/25 @ 11:10 by MARKELL Bearden Alcohol intake: never Patient Tobacco Use Status: Current someday Tobacco user Physical Exam Vital Signs: Last Vital Signs Pulse 90 07/24/24 11:08 BP 126/70 07/24/24 11:08 Pulse Ox 96 07/24/24 11:08 Oxygen Delivery Method Room Air 07/24/24 11:08 BMI result Body Mass Index 27.8 Results Reviewed Nephrology Results: No Data to Display Assessment & Plan Assessment & Plan (1) HTN (hypertension): Code(s): I10 - Essential (primary) hypertension Category: Medical Plan BP is well controlled. Stay low salt diet Keep LABETOLOL 200 mg BID I reassured her that LAbetolol does not affect her urination She insisted to change LAbetolol Thereore , at her request, I will stop Labetolol and Start Coreg 6.25 mg BID Dose can be titrated as needed Orders: Orders Basic Metabolic Panel 6 Months I10 - Essential (primary) hypertension Medications: New carvedilol (Coreg) must administer with a meal/food 6.25 mg PO BID 60 tabs 6RF Discontinued labetalol Discontinued Reason: Doctor's Order 200 mg (2 x 100 mg) PO BID 120 tabs 0RF Coding Level of Care Code Est Pt Level 4 (86219) Diagnoses HTN (hypertension) I10
[2024-07-24 11:08] VITALS: BP 126/70; PULSE 90; O2SAT 96; BMI 27.8
--- OUTSIDE RECORDS SUMMARY | 2024-07-24 12:35 | XMS_ITS | Encounter Summary ---
Author Organization [facility] Address [address] [place] [address] Care Team Providers Care Brush Polisher Name Role Phone Leslee Barnes MD Primary Care Provider [phone] Reason for Visit * Reason Onset Date Comments Request For Order(s) 07/19/2024 [facility] Care Cert 06/29/24-08/27/24 Plan Of Care Encounter Details Date Type Department Care Team (Late st Contact Info) Description 07/19/2024 Telephone Internal Medicine - [place] [address] [facility] [address] [place] [address] Do Jones MA Request For Order(s) ([facility] Care Cert 06/29/24-08/27/24 Plan Of Care /) Social History Tobacco Use Types Packs/Day Years Used Date Smoking Tobacco: Some Days Cigarettes Smokeless Tobacco: Never Alcohol Use Standard Drinks/Week Comments Not Currently 0 (1 standard drink = 0.6 oz pur e alcohol) Sex and Gender Information Value Date Recorded Sex Assigned at Not on file Gender Identity Not on file Sexual Orientation Not on file Job Start Date Occupation Industry Not on file Not on file Not on file documented as of this encounter Progress Notes * Do Jones MA - 07/23/2024 10:22 AM EST Scanned into chart and faxed to [facility] [phone] * Do Jones MA - 07/19/2024 9:39 AM EST [facility] 06/29/24-08/27/24 Plan Of Care Please sign & fax [phone] documented in this encounter Plan of Treatment Upcoming Encounters Date Type Department Care Team (Late st Contact Info) Description 08/08/2024 1:15 PM EST Office Visit Internal Medicine - [place] [address] [address] Caitlyn Smith NP [address] [address] 10/25/2024 1:30 PM EDT Office Visit [facility] Hematology Oncology [address] [place] [address] Lisa Perez PA [address] [place] [address] documented as of this encounter Visit Diagnoses Not on filedocumented in this encounter Care Teams Brush Polisher Relationship Specialty Start Date End Date Leslee Barnes MD [address] [phone] PCP - General Internal Medicine 12/15/21 documented as of this encounter
--- OUTSIDE RECORDS SUMMARY | 2024-07-24 12:35 | XMS_ITS | Clinical Summary ---
Author Organization [facility] Address [address] [address] [place] [address] Phone Care Team Providers Care Ecommerce Project Manager Name Role Phone Leslee Barnes MD Primary Care Provider [phone] Allergies Active Allergy Reactions Criticality Noted Date Comments Aspirin Other (see comments) 10/27/2020 Leflunomide Medium 03/17/2022 Rash Penicillins Other (see comments) 10/27/2020 Shellfish Allergy 03/17/2022 Medications acetaminophen (TYLENOL) 325 MG tablet Take 2 tablets by mouth 3 (three) times a day Active Calcium Carbonate-Vitam in D3 600-400 MG-UNIT tablet 09/21/2020 Acti ve clotrimazole-be tamethasone (LOTRISONE) cream 08/14/2020 Active coenzyme Q-10 100 MG capsule 08/28/2020 Acti ve Melatonin 10 MG tablet Take 1 tablet by mouth at bed time Active sulfaSALAzine (AZULFIDINE) 500 MG tablet 07/28/2020 Activ e rosuvastatin (CRESTOR) 20 MG tablet 10/27/2020 Active omega-3 acid ethyl esters (LOVAZA) 1 g capsule Take 2 g by mouth 2 (two) times a day Active Diclofenac Sodium 1 % gel 02/01/2021 Acti ve Multiple Vitamins-Iron (Tab-A-Peggy/Iro n) tablet 02/01/2021 Active meclizine (ANTIVERT) 12.5 MG tablet Take 12.5 mg by mouth in the morning and 12.5 mg at noon and 12.5 mg in the evening. 03/17/2022 Active labetalol (NORMODYNE) 100 MG tablet Take 1 tablet (100 mg total) by mouth in the morning and 1 tablet (100 mg total) in the evening. 60 tablet 11 04/27/2022 Active amitriptyline (ELAVIL) 25 MG tablet Take 25 mg by mouth every night Active Active Problems Problem Noted Date Diagnosed Date Essential hypertension 10/27/2020 Resolved Problems Problem Noted Date Diagnosed Date Resolved Date Increased blood pressure 10/27/202010/2020 Family History Medical History Relation Comments Cancer Father Heart disease Mother pace maker/ hear t disease Hypertension Mother Diabetes Sibling 1 Heart disease Sibling 2 Stroke Sibling 3 NC Relation Status Comments Father Mother Alive Sibling 1 Sibling 2 Sibling 3 Social History Tobacco Use Types Packs/Day Years Used Date Smoking Tobacco: Some Days Smokeless Tobacco: Never Tobacco Cessation:Ready to Q uit: Not Asked; Counseling Given: Not Answered Alcohol Use Standard Drinks/Week Comments Yes 0 (1 standard drink = 0.6 oz pure alcohol) Alcoholic Drinks/day: Occasional social drink Comments Unknown Sex and Gender Information Value Date Recorded Sex Assigned at Not on file Legal Sex Female 4:56 PM EST Gender Identity Not on file Sexual Orientation Not on file Last Filed Vital Signs Vital Sign Reading Time Taken Comments Blood Pressure 138/80 11/02/2022 4:01 PM EDT Pulse 66 11/02/2022 4:01 PM EDT Temperature - - Respiratory Rate - - Oxygen Saturation 98% 11/02/2022 4:01 PM EDT Inhaled Oxygen Concentration - - Weight 76.2 kg (168 lb) 11/02/2022 4:01 PM EDT Height 165.1 cm (5' 5 ) 11/02/2022 4:01 PM EDT Body Mass Index 27.96 11/02/2022 4:01 PM EDT Plan of Treatment Health Maintenance Due Date Last Done Comments Breast Cancer Screening 1950 Pneumococcal Vaccine: 65+ Ye ars (1 of 2 - PCV) 1956 Colorectal Cancer Screening: Annual FOBT 1999 Colorectal Cancer Screening: Colonoscopy 1999 Colorectal Cancer Screening: Sigmoidoscopy 1999 Influenza Vaccine (#1) 2024 Hepatitis B Vaccine Aged Out No longe r eligible based on patient's age to complete this topic Insurance [place] [address] ([id number]) [place] [address] ([id number]) Care Teams Ecommerce Project Manager Relationship Specialty Start Date End Date Leslee Barnes MD [address] [place] [phone] PCP - General Internal Medicine 04/27/22
--- OUTSIDE RECORDS SUMMARY | 2024-07-24 12:35 | XMS_ITS | Encounter Summary ---
Author Organization [facility] Address [address] [place] [address] Care Team Providers Care Area Safety Manager Name Role Phone Leslee Barnes MD Primary Care Provider [phone] Encounter Details Date Type Department Care Team (Late st Contact Info) Description 04/10/2024 4:43 PM EDT Hospital Encounter TH HISTORIC ENCOUNTERS EASTERN CONVERSION ONLY Leslee Barnes MD [address] [address] Social History Tobacco Use Types Packs/Day Years [...] as of this encounter Plan of Treatment Upcoming Encounters Date Type Department Care Team (Late st Contact Info) Description 08/08/2024 1:15 PM EST Office Visit Internal Medicine - [place] [address] [phone] Caitlyn Smith NP [address] [phone] 10/25/2024 1:30 PM EDT Office Visit [facility] Hematology Oncology [address] [place] [phone] Lisa Perez PA [address] [place] [address] documented as of this encounter Visit Diagnoses Not on filedocumented in this encounter Care Teams Area Safety Manager Relationship Specialty Start Date End Date Leslee Barnes MD [address] [phone] PCP - General Internal Medicine 12/15/21 documented as of this encounter
--- OUTSIDE RECORDS SUMMARY | 2024-07-24 12:35 | XMS_ITS | Encounter Summary ---
Author Organization [facility] Address [address] [place] [address] Care Team Providers Care Protection Manager Name Role Phone Leslee Barnes MD Primary Care Provider [phone] Encounter Details Date Type Department Care Team (Late st Contact Info) Description 04/26/2024 2:02 PM EDT Hospital Encounter TH HISTORIC ENCOUNTERS EASTERN CONVERSION ONLY Lisa Perez PA [address] [place] [address] Social History Tobacco Use Types Packs/Day Years [...] 04/12/2024 1:17 PM EDT Body Mass Index 27.29 04/12/2024 2:28 PM EDT documented in this encounter Progress Notes * Lisa Ana, PA - 04/26/2024 2:00 PM EDT Images from the original note were not included. Progress Notes by Lisa Perez PA-C at 04/26/2024 2:00 PM Author: Lisa Perez PA-C Service: -- Author Type: Physician Graphics Edit Technician Filed: 04/29/2024 11:59 AM Encounter Date: 04/26/2024 Status: Signed Crown Buffer: Lisa Perez PA-C (Physician Graphics Edit Technician) Cosigner: Deb Paige MD at 04/29/2024 12:12 [...] Take by mouth., Disp: , Rfl: ? [id number] Eth Est, Dietary, 1 g CAPS, Take [...] Barnes MD Sign: Lisa Perez PA-C Hematology/Oncology [facility] [phone] documented in this encounter Plan of Treatment Upcoming Encounters Date Type Department Care Team (Late st Contact Info) Description 08/08/2024 1:15 PM EST Office Visit Internal Medicine - [place] [address] [phone] Caitlyn Smith NP 175 [facility] [address] [place] [address] 10/25/2024 1:30 PM EDT Office Visit [facility] Hematology Oncology [address] [place] [phone] Lisa Perez PA [address] [place] [address] documented as of this encounter Procedures Procedure Name Priority Date/Time Associated Diagnosis Comments ..MISCELLANEOUS REFERENCE LAB TEST 04/26/2024 ..MISCELLANEOUS REFERENCE LAB TEST 04/26/2024 documented in this encounter Results * Miscellaneous reference lab test (04/26/2024) Provider Onbase MD LAB BLOOD ORDERABLES * Miscellaneous reference lab test (04/26/2024) Provider Onbase LAB BLOOD ORDERABLES documented in this encounter Visit Diagnoses Not on filedocumented in this encounter Care Teams Protection Manager Relationship Specialty Start Date End Date Leslee Barnes MD [address] [place] [phone] PCP - General Internal Medicine 12/15/21 documented as of this encounter
--- OUTSIDE RECORDS SUMMARY | 2024-07-24 12:35 | XMS_ITS | Encounter Summary ---
Author Organization [facility] Address [address] [place] [address] Care Team Providers Care Feather Curling Machine Operator Name Role Phone Leslee Barnes MD Primary Care Provider [phone] Encounter Details Date Type Department Care Team (Late st Contact Info) Description 04/12/2024 12:40 PM EDT Hospital Encounter TH HISTORIC ENCOUNTERS EASTERN CONVERSION ONLY Lisa Perez PA [address] [place] [address] Social History Tobacco Use Types Packs/Day Years [...] Perez PA-C Service: -- Author Type: Physician Road Hogger Operator Filed: 04/12/2024 2:08 PM Encounter Date: 04/12/2024 Status: Addendum Unindentured Apprentice: Lisa Perez PA-C (Physician Road Hogger Operator) Related Notes: Original Note by Lisa Perez PA-C (Physician Road Hogger Operator) filed at 04/12/2024 2:[address] [...] Take by mouth., Disp: , Rfl: ? [id number] Eth Est, Dietary, 1 g CAPS, Take [...] Lisa Perez PA-C Hematology/Oncology [facility] [phone] documented in this encounter Plan of Treatment Upcoming Encounters Date Type Department Care Team (Late st Contact Info) Description 08/08/2024 1:15 PM EST Office Visit Internal Medicine [facility] [address] [phone] Caitlyn Smith NP [address] [address] 10/25/2024 1:30 PM EDT Office Visit [facility] Hematology Oncology [address] [place] [phone] Lisa Perez PA [address] [place] [address] documented as of this encounter Procedures Procedure Name Priority Date/Time Associated Diagnosis Comments ..MISCELLANEOUS REFERENCE LAB TEST 04/12/2024 documented in this encounter Results * Miscellaneous reference lab test (04/12/2024) Provider Onbase LAB BLOOD ORDERABLES documented in this encounter Visit Diagnoses Not on filedocumented in this encounter Care Teams Feather Curling Machine Operator Relationship Specialty Start Date End Date Leslee Barnes MD [address] [phone] PCP - General Internal Medicine 12/15/21 documented as of this encounter
--- OUTSIDE RECORDS SUMMARY | 2024-07-24 12:35 | XMS_ITS | Encounter Summary ---
Author Organization [facility] Address [address] [place] [address] Care Team Providers Care Enterprise Engineer Name Role Phone Leslee Barnes MD Primary Care Provider [phone] Encounter Details Date Type Department Care Team (Late Contact Info) Description 04/26/2024 2:00 PM EDT Hospital Encounter TH HISTORIC ENCOUNTERS EASTERN CONVERSION ONLY Lisa Perez PA [address] [place] [address] Social History Tobacco Use Types Packs/Day Years [...] Encounters Date Type Department Care Team (Late Contact Info) Description 08/08/2024 1:15 PM EST Office Visit Internal Medicine - [place] [address] [phone] Caitlyn Smith NP [address] [address] 10/25/2024 1:30 PM EDT Office Visit [facility] Hematology Oncology [address] [place] [phone] Lisa Perez PA [address] [place] [address] documented as of this encounter Visit Diagnoses Not on filedocumented in this encounter Care Teams Enterprise Engineer Relationship Specialty Start Date End Date Leslee Branes MD [address] [phone] PCP - General Internal Medicine 12/15/21 documented as of this encounter
--- OUTSIDE RECORDS SUMMARY | 2024-07-24 12:35 | XMS_ITS | Encounter Summary ---
Author Organization [facility] Address [address] [place] [address] Care Team Providers Care Automatic Mounter Name Role Phone Leslee Barnes MD Primary Care Provider [phone] Encounter Details Date Type Department Care Team (Late st Contact Info) Description 07/08/2024 Telephone Internal Medicine [facility] [address] [phone] Leslee Barnes MD [address] [phone] Social History Tobacco Use Types Packs/Day Years [...] 1:15 PM EST Office Visit Internal Medicine [facility] [address] [phone] Caitlyn Smith NP [address] [address] 10/25/2024 1:30 PM EDT Office Visit [facility] Hematology Oncology [address] [place] [phone] Lisa Perez PA [address] [place] [address] documented as of this encounter Visit Diagnoses Not on filedocumented in this encounter Care Teams Automatic Mounter Relationship Specialty Start Date End Date Leslee Barnes MD [address] [phone] PCP - General Internal Medicine 12/15/21 documented as of this encounter
--- OUTSIDE RECORDS SUMMARY | 2024-07-24 12:35 | XMS_ITS | Clinical Summary ---
Author Organization [facility] Address [address] [place] [address] Care Team Providers Care Certified Ophthalmic Medical Technician Name Role Phone Leslee Barnes MD Primary Care Provider [phone] Allergies Active Allergy Reactions Criticality Noted Date Comments Aspirin 04/11/2024 Leflunomide Rash Low 04/11/2024 Penicillins 04/11/2024 Shellfish Allergy 04/11/2024 Medications Medication Sig Dispensed Refills Start Date End Date Status Calcium Carb-Cholecalciferol 600-10 MG-MCG TABS Take by mouth. 0 Ac tive acetaminophen (TYLENOL) 325 MG tablet Take 2 tablets (650 mg total) by mouth every 6 (six) hours as needed. 0 Active amitriptyline (ELAVIL) tablet 25 mg Take 1 tablet (25 mg total) by mouth every night at bedtime. 0 Active clotrimazole-betameth asone (LOTRISONE) cream Apply topically 2 (two) times a day. 0 Active Coenzyme Q10 100 MG capsule Take 100 mg by mouth daily. 0 Active Diclofenac Sodium 1 % GEL Apply topically. 0 Active labetalol (NORMODYNE) 100 MG tablet Take 1 tablet (100 mg total) by mouth 2 (two) times a day. 0 Active Melatonin 10 MG TABS Take by mouth. 0 Active MULTIPLE VITAMINS-IRON PO Take by mouth. 0 Acti ve Sdwls-9-[id number] Eth Est, Dietary, 1 g CAPS Take by mouth. 0 Act meme meclizine (ANTIVERT) 12.5 MG tablet Take 1 tablet (12.5 mg total) by mouth daily. 0 Active triamcinolone acetonide (KENALOG-40) 40 MG/ML injection Inject 1 mL (40 mg total) into the articular space once. 0 Active ascorbic acid (VITAMIN C) 250 MG tablet Take 1 tablet (250 mg total) by mouth daily. 0 Active ferrous sulfate 325 (65 FE) MG tablet Take 1 tablet (325 mg total) by mouth every morning with breakfast. 0 Active rosuvastatin (CRESTOR) tablet 20 mg Take 1 tablet (20 mg total) by mouth daily. 0 Active sulfaSALAzine (AZULFIDINE) 500 MG tablet Take 1 tablet (500 mg total) by mouth 2 (two) times a day. 0 Active Encounters Date Type Department Care Team Description 04/26/2024 2:00 PM EDT Follow-Up [facility] Oncology Services [address] [place] [address] Lisa Perez PA-C Anemia of chronic disease (Primary Dx); Rheumatoid arthritis with positive rheumatoid factor, involving unspecified site (HCC) 04/26/2024 Travel from Last 3 Months Social History Tobacco Use Types Packs/Day Years Used Date Smoking Tobacco: Some Days Cigarettes 0.3 Smokeless Tobacco: Never Tobacco Cessation:Ready to Q uit: Not Asked; Counseling Given: Not Answered Alcohol Use Standard Drinks/Week Comments Not Currently 0 (1 standard drink = 0.6 oz pur e alcohol) Sex and Gender Information Value Date Recorded Sex Assigned at Not on file Gender Identity Not on file Sexual Orientation Not on file Job Start Date Occupation Industry Not on file Not on file Not on file Last Filed Vital Signs Vital Sign Reading Time Taken Comments Blood Pressure 142/68 04/26/2024 2:12 PM EDT Pulse 84 04/26/2024 2:12 PM EDT Temperature 36.5 ??C (97.7 ??F) 04/26/2024 2:12 PM ED T Respiratory Rate - - Oxygen Saturation 100% 04/26/2024 2:12 PM EDT Inhaled Oxygen Concentration - - Weight 74.4 kg (164 lb) 04/26/2024 2:12 PM EDT Height 165.1 cm (5' 5 ) 04/12/2024 1:17 PM EDT Body Mass Index 27.29 04/12/2024 1:17 PM EDT Plan of Treatment Health Maintenance Due Date Last Done Comments Hepatitis C Screening 1950 Pneumococcal Vaccine (1 of 2 - PCV) 1956 Depression Screening 1962 Preventative Health Evaluation 1968 DTap / Tdap / Td (1 - Tdap) 1969 Colon Cancer Screening (Colonoscopy) 1995 Breast Cancer Screening (Mammogram) 2000 Shingrix-Zoster Vaccine (1 of 2) 2000 Fall Risk Assessment 2015 Osteoporosis Screening (DEXA Scan) 2015 COVID-19 Vaccine ( season) 2024 04/19/2022, 10/11/2021, 03/27/2021, Additional history exists Influenza Vaccine (#1) 2024 , 04/19/2022, 04/22/2019, Additional history exists RSV Adult > 60+ Yrs or (1 - 1-dose 75+ series) 2025 Hepatitis B Vaccines Aged Out No long er eligible based on patient's age to complete this topic RSV Ped < 20 months Aged Out No longe r eligible based on patient's age to complete this topic Care Teams Certified Ophthalmic Medical Technician Relationship Specialty Start Date End Date Leslee Barnes MD [address] [place] [phone] PCP - General Internal Medicine 01/29/24
--- OUTSIDE RECORDS SUMMARY | 2024-07-24 12:35 | XMS_ITS | Encounter Summary ---
Author Organization [facility] Address [address] [place] [address] Care Team Providers Care Bulk Loader Name Role Phone Leslee Barnes MD Primary Care Provider [phone] Encounter Details Date Type Department Care Team (Late Contact Info) Description 06/24/2024 Telephone Internal Medicine - [place] [address] [phone] Do Jones [place] Social History Tobacco Use Types Packs/Day Years [...] Progress Notes * Do Jones MA - 06/24/2024 10:28 AM EST Patient is all set with services start date 03/07/24 documented in this encounter Plan of Treatment Upcoming Encounters Date Type Department Care Team (Late Contact Info) Description 08/08/2024 1:15 PM EST Office Visit Internal Medicine [facility] [address] [phone] Caitlyn Smith NP [address] [address] 10/25/2024 1:30 PM EDT Office Visit [facility] Hematology Oncology [address] [place] [phone] Lisa Perez PA [address] [place] [address] documented as of this encounter Visit Diagnoses Not on filedocumented in this encounter Care Teams Bulk Loader Relationship Specialty Start Date End Date Leslee Barnes MD [address] [phone] PCP - General Internal Medicine 12/15/21 documented as of this encounter
--- OUTSIDE RECORDS SUMMARY | 2024-07-24 12:35 | XMS_ITS | Clinical Summary ---
Author Organization 175 [facility] Address [address] [place] [address] Phone Care Team Providers Care Social Worker Masters Name Role Phone Heena Barnes MD Primary Care Provider [phone] Allergies Active Allergy Reactions Criticality Noted Date Comments Aspirin Other 10/27/2020 Leflunomide Medium 03/17/2022 Rash Rash Penicillins Nausea And Vomiting,Other 10/27/2020 Shellfish Containing Products 03/28/2024 Medications Medication Sig Dispensed Refills Start Date End Date Status amitriptyline (ELAVIL) 25 mg tablet Take 1 tablet (25 mg total) by mouth. Active calcium carbonate-vit D3-min 600 mg calcium- 400 unit tablet 09/21/2020 Active clotrimazole-be tamethasone (LOTRISONE) 1-0.05 % cream 08/14/2020 Active diclofenac (VOLTAREN) 1 % topical gel 02/01/2021 Active ferrous sulfate 325 mg (65 mg elemental iron) tablet Take 1 tablet (325 mg total) by mouth 1 (one) time each day. 09/17/2023 03/30/20 25 Active labetaloL (NORMODYNE) 100 mg tablet Take 2 Tablets by mouth 2 times daily., Disp-60 Tablet, R-5, Historic From nephrology Aguila Castro 04/27/2022 Active meclizine (ANTIVERT) 12.5 mg tablet Take 1 tablet (12.5 mg total) by mouth. 03/17/2022 Active triamcinolone acetonide (KENALOG-40) 40 mg/mL injection Inject 1 mL (40 mg total) into the joint. 10/17/2023 Active underpads 30 X 36 pad 1 each by Not Applicable route. Incontinence Supply Disposable (Disposable Underpads 30 x36 ) Misc 1 Each by Does not apply route daily. 03/27/2024 Active petrolatum,whit e (BALMEX, PETROLATUM, TOP) Apply 1 each topically 1 (one) time each day. 03/27/2024 Active melatonin 10 mg tablet Take 1 tablet (10 mg total) by mouth. Active multivitamin with iron (MULTIPLE VITAMINS WITH IRON ORAL) Take by mouth. Active DICLOFENAC SODIUM TOP Diclofenac Sodium 1 % Cream Apply 4 g topically 2 times daily as needed for Other. 06/29/2023 Active sulfaSALAzine (AZULFIDINE) 500 mg tablet Take 1 tablet (500 mg total) by mouth 2 (two) times a day. 07/28/2020 Active multivitamin (Tab-A-Peggy) tablet Take 1 tablet by mouth 1 (one) time each day. Take 1 Tablet by mouth daily 30 tablet 2 07/04/2024 Active omega-3 acid ethyl esters (LOVAZA) 1 gram capsule Take 2 capsules (2 g total) by mouth 1 (one) time each day. 90 capsule 3 07/16/2024 Active ascorbic acid (Vitamin C) 250 mg tablet Take 1 tablet (250 mg total) by mouth 1 (one) time each day. for 90 days 30 tablet 07/16/2024 Active coenzyme Q-10 100 mg capsule Take 1 capsule (100 mg total) by mouth 1 (one) time each day. 90 capsule 3 07/16/2024 Active rosuvastatin (CRESTOR) 20 mg tablet Take 1 tablet (20 mg total) by mouth at bedtime. 60 tablet 1 07/17/2024 Active acetaminophen (TYLENOL) 325 mg tablet Take 2 tablets (650 mg total) by mouth every 8 (eight) hours if needed for mild pain. 30 tablet 1 07/23/2024 Active calcium carbonate-vitam in D 600 mg-10 mcg (400 unit) per tablet Take 1 tablet by mouth 2 (two) times a day. 60 tablet 1 07/23/2024 Active acetaminophen (TYLENOL) 325 mg tablet Take 2 tablets (650 mg total) by mouth every 8 (eight) hours if needed for mild pain. 02/07/2024 07/16/19 Discontinued(Reo rder) calcium carbonate-vitam in D 600 mg-10 mcg (400 unit) per tablet Take 1 tablet by mouth 2 (two) times a day. 02/24/2023 07/23/19 25 Discontinued(Reo rder) omega-3 acid ethyl esters (LOVAZA) 1 gram capsule Take 2 capsules (2 g total) by mouth. 07/16/19 Discontinued(Reo rder) rosuvastatin (CRESTOR) 20 mg tablet Take 1 tablet (20 mg total) by mouth at bedtime. 10/27/2020 07/17/19 25 Discontinued(Reo rder) coenzyme Q-10 100 mg capsule 08/28/2020 07/16/19 Discontinued(Reo rder) Tab-A-Peggy 400 mcg tablet Take 1 Tablet by mouth daily 03/25/2024 07/04/19 Discontinued Vitamin C 250 mg tablet TAKE 1 TABLET BY MOUTH DAILY FOR 90 DAYS. 30 tablet 05/20/2024 07/16/19 25 Discontinued(Reo rder) acetaminophen (TYLENOL) 325 mg tablet Take 2 tablets (650 mg total) by mouth every 8 (eight) hours if needed for mild pain. 30 tablet 1 07/16/2024 07/23/19 Discontinued(Reo rder) Active Problems Problem Noted Date Diagnosed Date Depression, unspecified 06/03/2024 Altered mental status, unspecified 06/03/2024 Other toxic encephalopathy 06/03/2024 Anxiety disorder, unspecified 06/03/2024 Rheumatoid arthritis, unspecified 06/03/2024 Essential (primary) hypertension 06/03/2024 Severe obesity 07/28/2023 Gait instability 07/18/2023 Primary osteoarthritis of left knee 07/18/2023 Primary osteoarthritis of right knee 07/18/2023 Hyperlipidemia 07/17/2023 Osteopenia 07/17/2023 Rheumatoid arthritis 07/17/2023 Cervical spinal stenosis 12/05/2022 Overview (03/28/2024): Last Assessment & Plan: Patient was seen back in December 2022, she had cervical stenosis and Dr. Funes recommended C5, C6 laminectomies. Patient did not want surgery at that time, follows up today to again go over symptoms, surgery discussion. She feels her dexterity is poor, balance progressively worsens, she had a fall a couple months ago, went to rehab. She used to have good handwriting, states now she cannot write well at all, this has been worsening for a year. Her son had noticed back around October last year she was having mental status changes, was groggy had slurred speech, was acting like a zombie. She had some meds discontinued, seem to improve, but still is not back to her baseline. He states she was very independent, interactive, fluent and 2 languages. She has become more dependent, getting help to pay bills, etc. She still has some slurred/slowed speech, patient states she still feels her thinking is slow, mild confusion at times.Patient was in the emergency room approximately 4 months ago after a fall, workup was negative for stroke, patient's son states she is having slurred speech since the fall, patient was referred to neurology and was supposed to get an updated brain MRI but has not yet gone for the appointment. I gave Dr. Inessa Wilder's number to the patient's son. Patient had cervical spine MRI in October 2022, I reviewed the MRI images in detail with the patient and her son on the computer, explained C5, C6 laminectomies, surgery, risk and benefits in detail, including but not limited to need for general anesthesia with risk of stroke or GA, risk for hematoma, infection, damage to the nerve roots or spinal cord, spinal fluid leak. Explained patient would have to use Hibiclens body wash preop. However patient first needs to see neurology, I asked patient's son Roly to call to schedule appointment as soon as possible. Patient would need medical clearance if she had recent stroke, it is unclear but some notes mention recent CVA. Patient also has had issues recently with dysphagia, barium swallow 07/06/2023 [facility] showed deep/laryngeal penetration occurring with thin barium only, no tati aspiration. She is going for speech therapy. All questions answered. Abnormal CT scan, neck 11/23/2022 Impairment of balance 11/23/2022 Essential hypertension 10/27/2020 Encounters Date Type Department Care Team Description 07/19/2024 Telephone Internal Medicine - [place] [address] [address] Do Jones [place] Request For Order(s) ([facility] Cert 06/29/24-08/27/24 Plan Of Care /) 07/08/2024 Telephone Internal [facility] [address] [phone] Heena Barnes MD 06/24/2024 Telephone Internal Medicine [address] [address] Do Jones [place] 06/05/2024 [place] [facility] [address] [phone] Heena Barnes MD DME 06/03/2024 Billing Patient Not Present [address] [address] Heena Barnes MD Depression, unspecified depression type (Primary Dx); Altered mental status, unspecified altered mental status type; Other toxic encephalopathy; Anxiety disorder, unspecified type; Rheumatoid arthritis, involving unspecified site, unspecified whether rheumatoid factor present ([facility]); Essential (primary) hypertension 05/21/2024 [place] [facility] [address] [phone] Heena Barnes MD [place]- faxed order 05/21/2024 [place] [facility] [address] [address] Heena Barnes MD Fitting for DME 05/10/2024 [place] [facility] [address] [address] Do Jones [place] Request For Order(s) ([facility] Cert 04/30/24-06/28/24 Plan Of Care ) 04/26/2024 2:02 PM EDT Hospital Encounter TH HISTORIC ENCOUNTERS EASTERN CONVERSION ONLY Lisa Perez PA 04/26/2024 2:00 PM EDT Hospital Encounter TH HISTORIC ENCOUNTERS [facility]ASTERN CONVERSION ONLY Lisa Perez PA from Last 3 Months Immunizations Name Administration Dates Next Due Influenza Quadravalent, MDCK , 0.5ml, preservative free (Flucelvax) 6mo and older 06/29/2023 Influenza trivalent, 0.5mL ( Fluad) 65yo and older 04/19/2022,04/22/2019,04/04/2016 Influenza trivalent, 0.5mL, preservative free (Fluarix; FluLaval; Fluzone) ages 6mo and older (Afluria) 3 years and older 04/10/2015 Influenza, Unspecified 04/11/2024 Pfizer (ages 12 & older) Bivalent, COVID-19 04/02 Surgical History Surgery Date Site/Laterality Comments HYSTERECTOMY 1991 PROCEDURE: HISTORICAL HYSTERECTOMY; COMMENT: Partial hysterectomy HYSTERECTOMY PROCEDURE:HYSTERECTOMY Medical History Medical History Date Comments Rheumatoid arthritis (CMS/HCC) D X:Rheumatoid arthritis (HCC) Essential (primary) hypertension DX:Essential (primary) hypertension Mixed hyperlipidemia DX:Mixed hy perlipidemia Hypertension DX:Hypertension Hyperlipidemia DX:Hyperlipidemi a Osteopenia DX:Osteopenia Cervical spinal stenosis DX:Cerv ical spinal stenosis Social History Tobacco Use Types Packs/Day Years [...] file Not on file Not on file Obstetrics History Last Filed Vital Signs Vital Sign Reading Time Taken Comments Blood Pressure 142/68 04/26/2024 2:12 PM EDT Sit ting Left arm Pulse 84 04/26/2024 2:12 PM EDT Temperature - - Respiratory Rate - - Oxygen Saturation - - Inhaled Oxygen Concentration - - Weight 74.4 kg (164 lb) 04/26/2024 2:12 PM EDT Height 165.1 cm (5' 5 ) 04/12/2024 2:28 PM EDT Body Mass Index 27.29 04/12/2024 2:28 PM EDT Plan of Treatment Upcoming Encounters Date Type Department Care Team (Late st Contact Info) Description 08/08/2024 1:15 PM EST Office Visit Internal Medicine - [place] 175 [facility] [address] [place] [phone] [place] 175 [facility] [address] [place] [address] 10/25/2024 1:30 PM EDT Office Visit [facility] Oncology [address] [place] [phone] Lisa Perez PA [address] [place] [address] Health Maintenance Due Date Last Done Comments Pneumococcal Vaccine: 65+ Years (1 of 2 - PCV) 1956 DTaP,Tdap,and Td Vaccines (1 - Tdap) 1969 Zoster Vaccines (1 of 2) 2000 RSV Immunization Patients 60+ Years Old (1 - Risk 60-74 years 1-dose series) 2010 Depression Screening 06/12/2022 Falls Risk Assessment 06/12/2022 Hepatitis C Screening 06/12/2022 Medicare Annual Wellness Visit 06/12/2022 Social Influencers of Health Screening 06/12/2022 COVID-19 Vaccine ( season) 2024 03/22/2023, 04/19/2022, 10/11/2021, Additional history exists Breast Cancer Screening 12/07/2024 12/08/19, 11/01/2021, 03/25/2020, Additional history exists Hypertension/CHF/CAD Annual BMP Blood Test 07/23/2025 07/23/2024, 03/05/2024, 03/05/2024 Cholesterol Screening (Lipid Panel) 09/10/2028 09/11/2023 Osteoporosis Screening (Bone Density Screening) 04/07/2032 04/07/2022, 01/11/2019 Colorectal Cancer Screening: Colonoscopy 06/08/2033 06/08/2023 Influenza Vaccine Completed 04/11/2024, , 04/19/2022, Additional history exists HIB Vaccines Aged Out No longer eligi ble based on patient's age to complete this topic HPV Vaccines Aged Out No longer eligi ble based on patient's age to complete this topic Hepatitis A Vaccines Aged Out No long er eligible based on patient's age to complete this topic Hepatitis B Vaccines Aged Out No long er eligible based on patient's age to complete this topic IPV Vaccines Aged Out No longer eligi ble based on patient's age to complete this topic MMR Vaccines Aged Out No longer eligi ble based on patient's age to complete this topic Meningococcal ACWY Vaccine Aged Out N o longer eligible based on patient's age to complete this topic RSV Immunization Patients Under 20 months Aged Out No longer eligible based on patient's age to complete this topic Varicella Vaccines Aged Out No longer eligible based on patient's age to complete this topic Procedures Procedure Name Priority Date/Time Associated Diagnosis Comments BASIC METABOLIC PANEL Routine 07/23/2024 1:01 PM EST Primary hypertension ..MISCELLANEOUS REFERENCE LAB TEST 04/26/2024 ..MISCELLANEOUS REFERENCE LAB TEST 04/26/2024 LIPID PANEL Routine 09/11/2023 COLONOSCOPY Routine 06/08/2023 [facility] SCREENING DIGITAL Routine 12/07/2022 11:16 AM EDT Encounter for screening mammogram for malignant neoplasm of breast [facility] DEXA AXIAL SKELETON Routine 04/07/2022 11:05 AM EDT Encounter for screening for osteoporosis from Last 3 Months or Most Recently Relevant to Health Maintenance Results * Basic metabolic panel (07/23/2024 1:01 PM EST) Sodium 140 133 - 145 mmol/L LAB CHEMISTRY METHOD 07/23/2024 2:33 PM EST [facility] Potassium 3.8 3.5 - 5.5 mmol/L LAB CHEMISTRY METHOD 07/23/2024 2:33 PM EST [facility] Chloride 108 96 - 110 mmol/L LAB CHEMISTRY METHOD 07/23/2024 2:33 PM EST [facility] CO2 28 21 - 32 mmol/L LAB CHEMISTRY METHOD 07/23/2024 2:33 PM EST [facility] Anion Gap 4 3 - 11 LAB CHEMISTRY METHOD 07/23/2024 2:33 PM [facility] Glucose 96 70 - 100 mg/dL LAB CHEMISTRY METHOD 07/23/2024 2:33 PM [facility] BUN 11 5 - 25 mg/dL LAB CHEMISTRY METHOD 07/23/2024 2:33 PM [facility] Creatinine 0.81 0.50 - 1.10 mg/dL LAB CHEMISTRY METHOD 07/23/2024 2:33 PM [facility] eGFR 77 >=60 mL/min/1. 73m2 LAB CHEMISTRY METHOD 07/23/2024 2:33 PM [facility] Comment:Calculation based on the??Chronic Kidney Disease Epidemiology Collaboration (CKD-EPI) equation refit??without adjustment for race. BUN/Creatinine Ratio 13.6 LAB CHEMISTRY METHOD 07/23/2024 2:33 PM [facility] Calcium 9.4 8.5 - 10.5 mg/dL LAB CHEMISTRY METHOD 07/23/2024 2:33 PM [facility] Blood Venous blood specimen / Unknown Venipuncture / Unknown 07/23/2024 1:01 PM EST 07/23/2024 1:01 PM EST Dc Martin MD LAB BLOOD ORDERABLES [facility] [address] [place] [address], * Miscellaneous reference lab test (04/26/2024) Only the most recent of2 resultswithin the time period is included. Provider Onbase LAB BLOOD ORDERABLES * Lipid panel (09/11/2023) LDL/HDL Ratio 3 0 - 4 Triglycerides 88 0 - 150 mg/dL Cholesterol 137 0 - 200 mg/dL HDL 55 40 mg/dL LDL Cholesterol 65 0 - 100 mg/dL Blood Venous blood specimen / Unknown Historical Provider LAB BLOOD ORDERAB LES * Hm Colonoscopy (06/08/2023) HM Colonoscopy No Interpretation , Abstracted Anatomical Region Laterality Modality Other Historical Provider [facility]TE[facility] E * BUZZ SCREENING DIGITAL (12/07/2022 11:16 AM EDT) Anatomical Region Laterality Modality Mammography 12/07/2022 10:1 7 AM EDT Narrative 12/07/2022 11:16 AM EDT [facility] Diagnostic Imaging Department [address] [place], [place] [id number] Patient: ??LINDA SAEG ?/Age/Sex: 1950 - 72 - F Unit#: ??[id number] ? Location/Status: ??SPDIMAM/REG CLI ? Mnemonic/Ordering Site: ??DIGSC/SPMAM Ordering Physician: ??HEENA BARNES MD Buzz Screening Digital - 12/07/22 - 1041 EXAM: Buzz Screening Digital EXAM DATE AND TIME: 12/07/2022 10:43 AM HISTORY: ??Screening. COMPARISON: ??11/01/21, 03/25/20, 02/19/19 TECHNIQUE: CC and MLO views of both breasts were obtained using full field digital mammography. Bilateral digital breast tomosynthesis was performed in the MLO projection. Computer aided detection with [employer] 7.2-H and [employer]ME[employer] 3D 3.1 was employed. TISSUE DENSITY: b. There are scattered areas of fibroglandular density. FINDINGS: No suspicious masses, grouped microcalcifications, or areas of architectural distortion are seen. Round asymmetries in the left breast remains stable, considered benign. The skin and vascularity are unremarkable. IMPRESSION: Stable mammographic appearance of the breasts. ??No evidence of malignancy is seen. A negative mammogram in the presence of a clinically suspicious palpable abnormality does not preclude the possibility of malignancy or alter the indications for biopsy. BI-RADS: ??Category 2: Benign RECOMMENDATION(S): 1: Routine screening mammogram BILATERAL in 1 year. [address]309, [address]207 3342F, 7025F Dictating Physician: ??SALIMA MARINA MD Electronically Signed by: ??SALIMA MARINA MD Dic Date/Time: ??12/07/22 1116 Sign date/Time: ??12/07/22 1116 Procedure Note Salima Marina MD - 08/04/2023 [facility] Diagnostic Imaging Department [address] [place] [address] Patient: SILAS SAGEKatia Mccain /Age/Sex: 1950 - 72 - F Unit#: [id number] Location/Status: [facility] CLI Mnemonic/Ordering Site: [facility] Ordering Physician: HEENA BARNES MD [facility] Screening Digital - 12/07/22 - 1041 EXAM: [facility] Screening Digital EXAM DATE AND TIME: 12/07/2022 10:43 AM HISTORY: Screening. COMPARISON: 11/01/21, 03/25/20, 02/19/19 TECHNIQUE: CC and MLO views of both breasts were obtained using fullfield digital mammography. Bilateral digital breast tomosynthesis was performedin the MLO projection. Computer aided detection with [employer] 7.2-H and[employer]ME[employer] 3D 3.1 was employed. TISSUE DENSITY: b. There are scattered areas of fibroglandular density. FINDINGS: No suspicious masses, grouped microcalcifications, or areas ofarchitectural distortion are seen. Round asymmetries in the left breast remainsstable, considered benign. The skin and vascularity are unremarkable. IMPRESSION: Stable mammographic appearance of the breasts. No evidence of malignancyis seen. A negative mammogram in the presence of a clinically suspicious palpable abnormality does not preclude the possibility of malignancy or alter the indications for biopsy. BI-RADS: Category 2: Benign RECOMMENDATION(S): 1: Routine screening mammogram BILATERAL in 1 year. 81319, 62066 3342F, 7025F Dictating Physician: SALIMA MARINA MD Electronically Signed by: SALIMA MARINA MD Dic Date/Time: 12/07/22 1116 Sign date/Time: 12/07/22 111 Heena Barnes MD IMG BI PROCEDURES * [facility] DEXA AXIAL SKELETON (04/07/2022 11:05 AM EDT) Anatomical Region Laterality Modality Mammography 04/07/2022 10:1 9 AM EDT Narrative 04/07/2022 11:05 AM EDT [facility] Diagnostic Imaging Department [address] [place] [id number] Patient: ??LINDA SAGE ?/Age/Sex: 1950 - 71 - F Unit#: ??[id number] ? Location/Status: ??SPDIMAM/REG CLI ? Mnemonic/Ordering Site: ??MAMDEXAAX/SPMAM Ordering Physician: ??HEENA BARNES MD Buzz Dexa Axial Skeleton - 04/07/221056 HISTORY: ??The patient is a 71-year-old postmenopausal female with clinical concern for metabolic bone disease. FINDINGS: ??Dual energy x-ray absorptiometry of the lumbar spine and femurs is performed. The mean bone mineral density at L1-2 is 1.151 gm/cm2 which is 99% of that of young normals and 115% of that of age matched controls. This yields a T- score of -0.1 and a Z-score of 1.3 and there is therefore no evidence of osteoporosis or osteopenia here. The mean bone mineral density of the femurs bilaterally is 0.964 gm/cm2 which is 96% of that of young normals and 115% of that of age matched controls. ??This yields a T-score of -0.3 and a Z-score of 1.0 and there is therefore no evidence of osteoporosis or osteopenia here. ??However, the T-score of the right femoral neck is -1.5 and that of the left femoral neck is -1.5 which is diagnostic of osteopenia. IMPRESSION: 1. Osteopenia. ??There has been an increase of 2.4% in bone mineral density in the lumbar spine since the prior examination of 01/11/2019. ??There has been a decrease of 4.0% in bone mineral density in the right femur and an increase of 3.7% in bone mineral density in the left femur. 2. FRAX analysis yields a 10-year probability of major osteoporotic fracture of 9.3% and a 10-year probability of hip fracture of 2.2%. Code 38783 Dictating Physician: ??DAVID RANDALL MD Electronically Signed by: ??DAVID RANDALL MD Dic Date/Time: ??04/07/22 110 Sign date/Time: ??04/07/22 1108 Procedure Note David Randall MD - 06/22/2022 [facility] Diagnostic Imaging Department [address] [place] [address] Patient: LINDA SAGE D.O.B./Age/Sex: 1950 - 71 - F Unit#: [id number] [facility] Ordering Physician: HEENA BARNES MD [facility] Dexa Axial Skeleton - 04/07/226 HISTORY: The patient is a 71-year-old postmenopausal female withclinical concern for metabolic bone disease. FINDINGS: Dual energy x-ray absorptiometry of the lumbar spine and femursis performed. The mean bone mineral density at L1-2 is 1.151 gm/cm2 which is99% of that of young normals and 115% of that of age matched controls. Thisyields a T- score of -0.1 and a Z-score of 1.3 and there is therefore no evidence of osteoporosis or osteopenia here. The mean bone mineral density of the femurs bilaterally is 0.964 gm/ls7fjyrb is 96% of that of young normals and 115% of that of age matched controls.This yields a T-score of -0.3 and a Z-score of 1.0 and there is therefore noevidence of osteoporosis or osteopenia here. However, the T-score of the rightfemoral neck is -1.5 and that of the left femoral neck is -1.5 which is diagnosticof osteopenia. IMPRESSION: 1. Osteopenia. There has been an increase of 2.4% in bone mineral densityin the lumbar spine since the prior examination of 01/11/2019. There has ophelia decrease of 4.0% in bone mineral density in the right femur and anincrease of 3.7% in bone mineral density in the left femur. 2. FRAX analysis yields a 10-year probability of major osteoporoticfracture of 9.3% and a 10-year probability of hip fracture of 2.2%. Code 27540 Dictating Physician: DAVID RANDALL MD Electronically Signed by: DAVID RANDALL MD Dic Date/Time: 04/07/22 1104 Sign date/Time: 04/07/22 1105 Heena Barnes MD IMG BI PROCEDURES from Last 3 Months or Most Recently Relevant to Health Maintenance Care Teams Social Worker Masters Relationship Specialty Start Date End Date Heena Barnes MD [address] [place] [address] [place] [address] PCP - General Internal Medicine 12/15/21
== END 2024-07-24 11:26 | disposition home or self-care (01) ==
PROVIDERS: PCP Internal Medicine; Visit Provider Internal Medicine Hypertension Specialist
DX: I10 Essential (primary) hypertension (principal)
CPT/HCPCS: 99214

== ENCOUNTER → 2024-07-24 11:04 | Outpatient (BNVA) | payer OTHER, SELFPAY | PROVIDERS: PCP Internal Medicine; Visit Provider Internal Medicine Hypertension Specialist | DX: I10 Essential (primary) hypertension (principal) | CPT/HCPCS: 99212 ==

== ENCOUNTER 2024-08-29 14:32 | Outpatient (AMB) | payer OTHER, SELFPAY ==
--- NOTE | 2024-08-29 14:34 | A.OFFVIS_ITS ---
Vital Signs 08/29/24 14:43 Height 5 ft 5 in Weight 163 lb BMI 27.1 BP 110/70 Blood Pressure Location Lt brachial Position Sitting Pulse 87 Pulse Source Pulse Oximeter Pulse Oximetry (%) 97 Oxygen Delivery Method Room Air Intake Visit Reasons: Follow up Intake Note: Patient presents follow up Tremor/migraine. PT report in chart Game Room Attendant Required: No Allergies CRAB Allergy (Intermediate, Uncoded 08/29/24 14:42) HIVES, RASH, STOMACH PAINS Medication List - Last Reconciled 08/29/24 by MAINOR Alberto ascorbic acid (vitamin C) (Vitamin C) PO calcium carbonate-vitamin D3 600 mg-10 mcg (400 unit) 1 tab PO BID carbidopa-levodopa 25-100 mg 0.5 - 1 tabs PO BID 30 days carvedilol (Coreg) 6.25 mg PO BID ferrous sulfate 325 mg PO DAILY fluticasone propionate 50 mcg/actuation (Children's Flonase Allergy Relief) 1 spray intranasal DAILY galcanezumab-gnlm (Emgality Pen) 120 mg subcut ONCE 30 days hydroxyzine HCl mg PO meclizine 12.5 mg PO TID melatonin mg PO BEDTIME PRN nifedipine ER 30 mg PO .evening omega-3 acid ethyl esters 1 cap PO DAILY rosuvastatin 20 mg PO BEDTIME sulfasalazine PO DAILY ubrogepant (Ubrelvy) 50 - 100 mg (0.5 - 1 x 100 mg) PO ONCE PRN 30 days HPI Comments Details: The patient is a 74-year-old female presenting with Parkinson's Disease- early, w/ positive DaTscan, and migraine headaches. She reports persistent dizziness, exacerbated by standing and walking, causing falls. Halving correspondence school teacher-prescribed medication did not alleviate dizziness. She experiences difficulty swallowing, requiring effort for solids and liquids, with chokings. 07/06/2023 M[facility] showed deep/laryngeal penetration occurring with thin barium only, no tati aspiration.? Daily assistance is necessary. Memory challenges and hallucinations present. Stiffness and freezing reported. Rheumatoid arthritis managed by roofing applicator. Bladder nocturia affects sleep, without day symptoms. Light sensitivity is noted, requiring sunglasses outdoors and currently worn indoors despite advice. No new headaches; Emgality injections have helped to stop throbbing migraine headache. Review of Systems- Neurological: Reports memory impairment. - Musculoskeletal: Reports stiffness affecting mobility. - ENT: Reports difficulty swallowing, worsened by all food types. - Ophthalmologic: Reports significant light sensitivity. - Urologic: Reports nocturia; denies daytime frequency. - General: Denies new headaches. - Psychological: Reports visual hallucinations. 05/07/2024 HPI: Pt's primary concerns today: Pt reports she often feels drunk, off-balance, and dizzy. She would like to know which of her medications is causing this, as she feels when she wakes up she feels ok, but then she starts feeling dizzy after the nurse brings her her morning meds. She states she is falling a lot- the last fall was a week ago. She fell backwards in the bathroom while standing up and brushing her teeth. Never resumed PT. She does endorse blurry vision. She wears sunglasses inside d/t photophobia. Her last eye exam was 2 months ago. She states she can feel the ground when she is walking, but she is shuffling. She has been having a headache every other day. The headache is a throbbing holocranial a/w photophobia, increased dizziness, fatigue, activity intolerance. She has not yet tried Ubrelvy- states she did not know how to take it. PD meds: she states she tried CD-LD 25-100mg, unsure of effect but ran out. ADL's: Needs some help Swallowing: She states MACHINE TECH is asking for tx's- it helping some but she feels it is worsening. Hyposmia: Denies Drooling: At times Orthostatic lightheadedness: She is not sure. Maybe after she takes her morning meds. Tries not to drink too much to avoid voiding too often. Constipation: Denies Urinary symptoms: Voids 3-4 x's at night. Can feel like she will fall. Urinary leakage- wears a pad at night Tremor: She is not noticing any shaking. Dyskinesia: Denies Stiffness: Hands become stuck. Feels generally stiff. Gait changes: as above. Freezing: Denies. Her son- does notice this. Falls: as above Mood: Anxious at times Hallucinations: Denies Memory: Forgets little things Sleep: Not sleeping well. States just lays there and does not sleep. Does take cat naps. Exercise: She has a stepper or uses her bicycle at times. Previous work-up: 10/13/2023, DaTscan: Decreased activity in bilateral basal ganglia. Differential diagnosis includes Parkinson's disease, multiple system atrophy, progressive supranuclear palsy, dementia with Lewy Bodies, and cortical basal degeneration. 08/22/23, MR/MR head/brain wo/w conIMPRESSION: 1. No acute infarct or other acute intracranial abnormality. 2. Moderate chronic white matter microangiopathy. 12/2021, [facility], Brain MRI wo:IMPRESSION: 1. No acute infarct. 2. Multifocal supratentorial white matter signal abnormality is nonspecific, but compatible with chronic microangiopathic/small vessel ischemic change. 01/2023, [facility], Head/Neck CTAIMPRESSION: 1. No acute intracranial large vessel occlusion. 2. No hemodynamically-significant stenosis of the extracranial internal carotid and vertebral arteries. 3. 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 ENT outpatient follow-up can be obtained. 01/2023, Head CT:IMPRESSION: 1. No acute intracranial abnormality. 2. No skull fracture. [facility] Medical History Rheumatoid arthritis Cervical spinal stenosis HTN (hypertension) Depressive disorder Surgical History H/O: hysterectomy History of partial hysterectomy Family History Mother HTN (hypertension) Hyperlipidemia Father Cancer, colon Social History Alcohol intake: never Patient Tobacco Use Status: Current someday Tobacco user Physical Exam Vital Signs: Last Vital Signs Pulse 87 08/29/24 14:43 BP 110/70 08/29/24 14:43 Pulse Ox 97 08/29/24 14:43 Oxygen Delivery Method Room Air 08/29/24 14:43 BMI result Body Mass Index 27.1 Const General: cooperative and no acute distress Resp Effort & Inspection: normal respiratory effort and able to speak in complete sentences Neuro Other: General: A&O x's 3. Photophobic Expression: Decreased Voice: Dysarthria- mildly improved today Tremor: Mild RUE postural tremor Tone: BUE L > R rigidity Dyskinesia: None FFM: Bradykinesia Foot taps: Bradykinesia Gait: Wide base and slow when standing- stands easier today once standing, slight stoop, short steps w/ low floor clearance, steady w/ walker. Psych: Pleasant affect. Less anxious. Assessment & Plan Assessment & Plan (1) Tremor: Comment: DaTscan: Decreased activity in bilateral basal ganglia. Code(s): R25.1 - Tremor, unspecified Category: Medical (2) Dysarthria: Code(s): R47.1 - Dysarthria and anarthria Category: Medical (3) Difficulty swallowing: Code(s): R13.10 - Dysphagia, unspecified Category: Medical (4) Migraine without aura: Code(s): G43.009 - Migraine without aura, not intractable, without status migrainosus Category: Medical (5) Dizziness: Code(s): R42 - Dizziness and giddiness Category: Medical (6) Nocturia: Code(s): R35.1 - Nocturia Category: Medical Plan Discussion Notes I discussed the ongoing management of Parkinson?s Disease and associated symptoms, emphasizing current medication adherence and strategic hydration to alleviate dizziness. Referrals to a urologist for nocturia and potential follow- up with speech therapy for swallowing issues were proposed. I proposed exploring eyewear options to mitigate light sensitivity. Stressed the importance of continuing discussions with rheumatology for arthritis management. Addressing memory and hallucination concerns, I advised on monitoring symptoms and considering medication adjustments. We reviewed the need for a comprehensive review of all medications and further observational plans for dizziness and stiffness. Patient was informed and verbally consented to the use of an ambient scribe for clinic note documentation during this visit. For PD: Previous brain MRI and recent DaTscan results, showing decreased activity in bilateral basal ganglia. Pt's slowly progressing s/s including gait changes, rigidity, bradykinesia, even memory and speech changes can be seen in degenerative movement d/o's. Pt has had a positive response to levodopa. At this time, pt's symptoms seem most compatible w/ a Parkinson's dx. * Stay hydrated during the day. * Continue CD-LD 25-100mg 1 tab bid. * Continue PT exercises. * Continue MACHINE TECH exercises. * Continue using walker. * Follow up with rheumatology for arthritis. * Continue to optimize CV risk factors, including follow-up w/ nephrology as scheduled. * Will request urology consult * Report any falls or significant changes in dizziness to healthcare providers. For migraine w/o aura prevention: Ajovy was denied by insurance. Continue Emgality 120mg sc monthly- as pt has had good clinical effect from use. Continue coreg/carvedilol- used for HTN tx. Previous trials- Amitriptyline- not tolerated. Labetolol- pt felt caused dizziness. For acute migraine w/o aura tx: Continue Ubrogepant (Ubrelvy) 100mg tab, 1/2 - 1 tab (50-100mg) at onset of headache, may repeat in 2 hours. Max of 2 tabs (200mg) per 24 hours. May adjunct with OTC Tylenol 650-1000mg q 4-6 hours prn. Acute migraine tx contraindications: all triptans and DHE d/t HTN. Pt to follow-up in 3-6 months or sooner prn. Orders: Referrals Urology Referral R35.0 - Frequency of micturition, R35.1 - Nocturia Coding Level of Care Code Est Pt Level 4 (65329) Complex EM visit Add On G2211 Diagnoses Tremor R25.1 Dysarthria R47.1 Difficulty swallowing R13.10 Migraine without aura G43.009 Dizziness R42 Nocturia R35.1
[2024-08-29 14:43] VITALS: BP 110/70; PULSE 87; O2SAT 97; BMI 27.1
--- OUTSIDE RECORDS SUMMARY | 2024-08-29 17:46 | XMS_ITS | Encounter Summary ---
Author Organization [facility] Address [address] [place] [address] Care Team Providers Care Registered Nurse Renal Name Role Phone Leslee Barnes MD Primary Care Provider [phone] Encounter Details Date Type Department Care Team (Late st Contact Info) Description 04/26/2024 2:02 PM EDT Hospital Encounter TH HISTORIC ENCOUNTERS [facility]ASTERN CONVERSION ONLY Lisa Perez PA [address] [place] [address] Social History Tobacco Use Types Packs/Day Years [...] this encounter Progress Notes * ROSHAN Sanchez - 04/26/2024 2:00 PM EDT Images from the original note were not included. Progress Notes by Lisa Perez PA-C at 04/26/2024 2:00 PM Author: Lisa Perez PA-C Service: -- Author Type: Physician Edi Architect Filed: 04/29/2024 11:59 AM Encounter Date: 04/26/2024 Status: Signed Restrooms Or Lounges Maid: Lisa Perez PA-C (Physician Edi Architect) Cosigner: Deb Paige MD at 04/29/2024 12:12 [...] Take by mouth., Disp: , Rfl: ? [id number] Eth Est, Dietary, 1 g CAPS, Take [...] MD Sign: Lisa Perez PA-C Hematology/Oncology [facility] [phone] documented in this encounter Plan of Treatment Upcoming Encounters Date Type Department Care Team (Late st Contact Info) Description 09/19/2024 2:00 PM EDT Evaluation [facility] Speech Therapy [address] [address] Mira Goode, MILLINERY SALESPERSON 10/09/2024 1:30 PM EDT Office Visit Internal Medicine - [place] [address] [facility] [address] [place] [address] Leslee Barnes MD 175 [facility] [address] [place] [address] 10/25/2024 1:30 PM EDT Office Visit [facility] Hematology Oncology [address] [place] [phone] Lisa Perez PA [address] [place] [address] documented as of this encounter Procedures Procedure Name Priority Date/Time Associated Diagnosis Comments ..MISCELLANEOUS REFERENCE LAB TEST 04/26/2024 ..MISCELLANEOUS REFERENCE LAB TEST 04/26/2024 documented in this encounter Results * Miscellaneous reference lab test (04/26/2024) Provider Onbase MD LAB BLOOD ORDERABLES Final Re sult * Miscellaneous reference lab test (04/26/2024) Provider Onbase MD LAB BLOOD ORDERABLES Final Re sult documented in this encounter Visit Diagnoses Not on filedocumented in this encounter Care Teams Registered Nurse Renal Relationship Specialty Start Date End Date Leslee Barnes MD [address] [phone] PCP - General Internal Medicine 12/15/21 documented as of this encounter
--- OUTSIDE RECORDS SUMMARY | 2024-08-29 17:46 | XMS_ITS | Encounter Summary ---
Author Organization [facility] Address [address] [place] [address] Phone Care Team Providers Care Lever Miller Name Role Phone Leslee Barnes MD Primary Care Provider [phone] Reason for Visit * Reason Onset Date Comments Med Refill 08/14/2024 Encounter Details Date Type Department Care Team ([facility] st Contact Info) Description 08/14/2024 Refill [facility] [address] [place] [phone] Tracy Berrios MA [address] [facility] [address] [place] [phone] Social History Tobacco Use Types Packs/Day Years Used Date Smoking Tobacco: Some Days Smokeless Tobacco: Never Alcohol Use Standard Drinks/Week Comments Yes 0 [...] on filedocumented in this encounter Care Teams Lever Miller Relationship Specialty Start Date End Date Leslee Barnes MD 175 [facility] [address] [place] [phone] PCP - General Internal Medicine 04/27/22 documented as of this encounter
--- OUTSIDE RECORDS SUMMARY | 2024-08-29 17:46 | XMS_ITS | Encounter Summary ---
Author Organization [facility] Address [address] [place] [address] Care Team Providers Care Costume Rental Clerk Name Role Phone Leslee Barnes MD Primary Care Provider [phone] Reason for Visit * Reason Comments Follow-up Encounter Details Date Type Department Care Team (Latest Contact Info) Description 08/08/2024 1:15 PM EST Office Visit Internal Medicine - [place] 175 [facility] 200 [place] [phone] Caitlyn Smith NP 175 [facility] 200 [place] [address] Anemia, unspecified type (Primary Dx); Multiple falls; Osteoarthritis of both knees, unspecified osteoarthritis type; Rheumatoid arthritis, involving unspecified site, unspecified whether rheumatoid factor present (CMS/[facility]); Cervical spinal stenosis; Essential (primary) hypertension; Gait instability; Slurred speech Social History Tobacco Use Types Packs/Day Years [...] Sign Reading Time Taken Comments Blood Pressure 128/69 08/08/2024 1:04 PM EST Pulse 93 08/08/2024 1:03 PM EST Temperature 36.4 ??C (97.5 ??F) 08/08/2024 1:03 PM ES T Respiratory Rate - - Oxygen Saturation 96% 08/08/2024 1:03 PM EST Inhaled Oxygen Concentration - - Weight 73.2 kg (161 lb 6.4 oz) 08/08/2024 1:03 P M EST Height 165.1 cm (5' 5 ) 08/08/2024 1:03 PM EST Body Mass Index 26.86 08/08/2024 1:03 PM EST documented in this encounter Progress Notes * Caitlyn Smith, [place] - 08/08/2024 1:15 PM EST CHIEF COMPLAINT: Follow-up IDENTIFIER: Linda Sage is a 74 y.o. old female. HPI: Hypertension, hyperlipidemia, gait instability, rheumatoid arthritis supposed to be on salfasalazine By , osteopenia, b/l knee osteoarthritis. - Linda is a 73-year-old female who presents today for a follow up visit. Endorses concerns about spikes in blood pressure, attributes it to stress. Taking labetalol 200 mg twice daily. Patient is following nephrology Dr. Martin, blood pressure is stable. - Seeing hematology in 2 months for anemia. - Degenerative disc disease present at L4-5 and L5-S1. Grade 1, 6.1 mm anterior spondylolisthesis of L3 and relative to L4. - Patient seems to be very unsteady, using a walker, speech is slurred, MRI brain seems to be negative. - Patient is following orthopedic for the bilateral knee arthritis - Following arthritis treatment center for rheumatoid arthritis, supposed to be on sulfasalazine per packing floor worker note, she is not sure if she is taking it. - Patient was recommended C5-C6 laminectomies by neurosurgery Dr. Funes, patient declined. Not following neurosurgery anymore. - Following neurology Meño Villagomez at [facility], notes not available to me to review. ROS: See HPI. 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 Anxiety disorder, unspecified 06/03/2024 Rheumatoid arthritis, unspecified (CMS/HCC) 06/03/2024 Essential (primary) hypertension 06/03/2024 Severe obesity ([facility]) 07/28/2023 Gait instability 07/18/2023 Primary osteoarthritis of left knee 07/18/2023 Primary osteoarthritis of right knee 07/18/2023 Hyperlipidemia 07/17/2023 Osteopenia 07/17/2023 Rheumatoid arthritis ([facility]) 07/17/2023 Cervical spinal stenosis 12/05/[address] scan, neck 11/23/2022 Impairment of balance 11/23/2022 Essential hypertension 10/27/2020 Past Surgical History: Procedure Laterality Date HYSTERECTOMY 1991 PROCEDURE: HISTORICAL HYSTERECTOMY; COMMENT: Partial hysterectomy HYSTERECTOMY PROCEDURE:HYSTERECTOMY SOCIAL HISTORY: Social History Tobacco Use Smoking status: Some Days Current packs/day: 0.25 Types: Cigarettes Smokeless tobacco: Never Substance Use Topics Alcohol use: Not Currently FAMILY HISTORY: No family history on file. No family status information on file. MEDICATIONS DISCONTINUED/REORDERED: There are no discontinued medications. ACTIVE MEDICATIONS: Outpatient Medications Marked as Taking for the 08/08/24 encounter (Office Visit) with Caitlyn Smith NP Medication Sig Dispense Refill acetaminophen (TYLENOL) 325 mg tablet Take 2 tablets (650 mg total) by mouth every 8 (eight) hours if needed for mild pain. 30 tablet 1 amitriptyline (ELAVIL) 25 mg tablet Take 1 tablet (25 mg total) by mouth. ascorbic acid (Vitamin C) 250 mg tablet Take 1 tablet (250 mg total) by mouth 1 (one) time each day. for 90 days 30 tablet 0 calcium carbonate-vit D3-min 600 mg calcium- 400 unit tablet calcium carbonate-vitamin D 600 mg-10 mcg (400 unit) per tablet Take 1 tablet by mouth 2 (two) times a day. 60 tablet 1 clotrimazole-betamethasone (LOTRISONE) 1-0.05 % cream coenzyme Q-10 100 mg capsule Take 1 capsule (100 mg total) by mouth 1 (one) time each day. 90 capsule 3 diclofenac (VOLTAREN) 1 % topical gel DICLOFENAC SODIUM TOP Diclofenac Sodium 1 % Cream Apply 4 g topically 2 times daily as needed for Other. ferrous sulfate 325 mg (65 mg elemental iron) tablet Take 1 tablet (325 mg total) by mouth 1 (one) time each day. labetaloL (NORMODYNE) 100 mg tablet Take 2 Tablets by mouth 2 times daily., Disp-60 Tablet, R-5, Historic From nephrology Dc Castro meclizine (ANTIVERT) 12.5 mg tablet Take 1 tablet (12.5 mg total) by mouth. melatonin 10 mg tablet Take 1 tablet (10 mg total) by mouth. multivitamin (Tab-A-Peggy) tablet Take 1 tablet by mouth 1 (one) time each day. Take 1 Tablet by mouth daily 30 tablet 2 multivitamin with iron (MULTIPLE VITAMINS WITH IRON ORAL) Take by mouth. omega-3 acid ethyl esters (LOVAZA) 1 gram capsule Take 2 capsules (2 g total) by mouth 1 (one) timeeach day. 90 capsule 3 petrolatum,white (BALMEX, PETROLATUM, TOP) Apply 1 each topically 1 (one) time each day. rosuvastatin (CRESTOR) 20 mg tablet Take 1 tablet (20 mg total) by mouth at bedtime. 60 tablet 1 sulfaSALAzine (AZULFIDINE) 500 mg tablet Take 1 tablet (500 mg total) by mouth 2 (two) times a day. triamcinolone acetonide (KENALOG-40) 40 mg/mL injection Inject 1 mL (40 mg total) into the joint. underpads 30 X 36 pad 1 each by Not Applicable route. Incontinence Supply Disposable (Disposable Underpads 30 x36 ) Misc 1 Each by Does not apply route daily. ALLERGIES: Allergies Allergen Reactions Leflunomide Rash Rash Aspirin Other Penicillins Nausea And Vomiting and Other Shellfish Containing Products PHYSICAL EXAM: Visit Vitals BP 128/69 (BP Location: Left arm, Patient Position: Sitting, BP Cuff Size: Adult) Pulse 93 Temp 36.4 ??C (97.5 ??F) (Temporal) Ht 1.651 m (65 ) Wt 73.2 kg (161 lb 6.4 oz) SpO2 96% BMI 26.86 kg/m?? Smoking Status Some Days BSA 1.81 m?? Physical Exam Constitutional: Appearance: Normal appearance. Cardiovascular: Rate and Rhythm: Normal rate and regular rhythm. Pulses: Normal pulses. Heart sounds: Normal heart sounds. Pulmonary: Effort: Pulmonary effort is normal. Breath sounds: Normal breath sounds. Neurological: Mental Status: She is alert and oriented to person, place, and time. Mental status is at baseline. Motor: Weakness present. Gait: Gait abnormal (Uses walker with seat.). Psychiatric: Mood and Affect: Mood normal. Speech: Speech is delayed and slurred. Behavior: Behavior is slowed. LABS/IMAGING: Appointment on 07/23/2024 Component Date Value Ref Range Status Sodium 07/23/2024 140 133 - 145 mmol/L Final Potassium 07/23/2024 3.8 3.5 - 5.5 mmol/L Final Chloride 07/23/2024 108 96 - 110 mmol/L Final CO2 07/23/2024 28 21 - 32 mmol/L Final Anion Gap 07/23/2024 4 3 - 11 Final Glucose 07/23/2024 96 70 - 100 mg/dL Final BUN 07/23/2024 11 5 - 25 mg/dL Final Creatinine 07/23/2024 0.81 0.50 - 1.10 mg/dL Final eGFR 07/23/2024 77 >=60 mL/min/1.73m2 Final BUN/Creatinine Ratio 07/23/2024 13.6 Final Calcium 07/23/2024 9.4 8.5 - 10.5 mg/dL Final Abstract on 05/16/2024 Component Date Value Ref Range Status HM Colonoscopy 06/08/2023 No Interpretation, Abstracted Final LDL/HDL Ratio 09/11/2023 3 0 - 4 Final Triglycerides 09/11/2023 88 0 - 150 mg/dL Final Cholesterol 09/11/2023 137 0 - 200 mg/dL Final HDL 09/11/2023 55 40 mg/dL Final LDL Cholesterol 09/11/2023 65 0 - 100 mg/dL Final Annual BMP Blood Test 03/05/2024 Abstracted Final Hemoglobin A1C 03/24/2022 5.6 6.5 % Final IMPRESSION: 1. Rheumatoid arthritis, involving unspecified site, unspecified whether rheumatoid factor present ([facility]) 2. Cervical spinal stenosis 3. Essential (primary) hypertension 4. Gait instability 5. Slurred speech 6. Multiple falls 7. Anemia, unspecified type PLAN: 1. Rheumatoid arthritis, involving unspecified site, unspecified whether rheumatoid factor present ([facility]) 2. Cervical spinal stenosis 3. Essential (primary) hypertension 4. Gait instability 5. Slurred speech 6. Multiple falls 7. Anemia, unspecified type 1. Anemia: Continue following up with hematology. 2. Multiple falls: Seeing physical therapy to improve gait. 3. Slurred speech: Following speech therapy. 4. Patient is following orthopedic for the bilateral knee arthritis 5. Rheumatoid arthritis : Following arthritis treatment center for rheumatoid arthritis, supposed to be on sulfasalazine per packing floor worker note, she is not sure if she is taking it 6. Cervical stenosis: Patient was recommended C5-C6 laminectomies by neurosurgery Dr. Funes, patient declined. Not following neurosurgery anymore. 7. Hypertension: Patient is following nephrology Dr. Martin, blood pressure is stable 8. Unsteady gait and slurred speech: Patient referred to home care. She requires more assistance athome. Following neurology Meño Villagomez at [facility], notes not available to me to review. Patient seems to be very unsteady, using a walker, speech is slurred, MRI brain seems to be negative. Recommend follow-up in 2 months. Advised the patient to call me if any problems. Patient understands the plan. Patient is in agreement with the plan. Caitlyn Smith NP on 08/08/2024 at 1:59 PM EST documented in this encounter Plan of Treatment Upcoming Encounters Date Type Department Care Team (Late st Contact Info) Description 09/19/2024 2:[address] [facility] Speech Therapy [address] [phone] Mira Goode, ROLL ICER 10/09/2024 1:30 PM EDT Office Visit Internal Medicine - [place] 175 [facility] 200 [place] [phone] Leslee Banres MD 175 [facility] 200 [place] [phone] 10/25/2024 1:30 PM EDT Office Visit [facility] Hematology Oncology [address] [place] [phone] Lisa Perez PA [address] [place] [address] documented as of this encounter Visit Diagnoses Diagnosis Anemia, unspecified type- Primary Multiple falls Osteoarthritis of both knees, unspecified osteoarthritis type Rheumatoid arthritis, involving unspecified site, unspecified whether rheumatoid factor present ([facility]) Cervical spinal stenosis Spinal stenosis in cervical region Essential (primary) hypertension Unspecified essential hypertension Gait instability Abnormality of gait Slurred speech Other speech disturbance documented in this encounter Care Teams Costume Rental Clerk Relationship Specialty Start Date End Date Leslee Barnes MD [address] [phone] PCP - General Internal Medicine 12/15/21 documented as of this encounter
--- OUTSIDE RECORDS SUMMARY | 2024-08-29 17:46 | XMS_ITS | Encounter Summary ---
Author Organization [facility] Address [address] [place] [address] Care Team Providers Care Back Facer Name Role Phone Leslee Barnes MD Primary Care Provider [phone] Reason for Visit * Reason Onset Date Comments Request For Order(s) 07/29/2024 [facility] Care - Order QHFX Encounter Details Date Type Department Care Team (Late st Contact Info) Description 07/29/2024 Telephone Internal Medicine - [place] 175 [facility] [address] [place] [address] Do Jones MA Request For Order(s) ([facility] - Order QHFX/) Social History Tobacco Use Types Packs/Day Years [...] Progress Notes * Do Jones MA - 08/01/2024 7:13 AM EST Scanned into chart and faxed to [facility] [phone] * Do Jones MA - 07/29/2024 11:37 AM EST [facility] - Order QHFX Please sign & fax [phone] documented in this encounter Plan of Treatment Upcoming Encounters Date Type Department Care Team (Late st Contact Info) Description 09/19/2024 2:00 PM EDT Evaluation [facility] Speech Therapy [address] [phone] Mira Goode, DEPUTY DIRECTOR OF NURSING 10/09/2024 1:30 PM EDT Office Visit Internal Medicine - [place] [address] [phone] Leslee Barnes MD [address] [phone] 10/25/2024 1:30 PM EDT Office Visit [facility] Hematology Oncology [address] [place] [phone] Lisa Perez PA [address] [place] [address] documented as of this encounter Visit Diagnoses Not on filedocumented in this encounter Care Teams Back Facer Relationship Specialty Start Date End Date Leslee Barnes MD [address] [phone] PCP - General Internal Medicine 12/15/21 documented as of this encounter
--- OUTSIDE RECORDS SUMMARY | 2024-08-29 17:46 | XMS_ITS | Encounter Summary ---
Author Organization [facility] Address [address] [place] [address] Care Team Providers Care Paper Counter Name Role Phone Leslee Barnes MD Primary Care Provider [phone] Reason for Referral * Consultation (Routine) - Authorized Specialty Diagnoses / Procedures Referred By Fei bryant Referred To Contact Speech Pathology / Speech Therapy Diagnoses Speech disturbance, unspecified type Leslee Barnes MD [address] [address] Phone: tel: fax: Referral ID Status Reason Start Date Expiration Date Visits Requested Visits Authorized [id number] Authorized Specialty Services Required 08/13/2024 08/13/2025 35 35 Reason for Visit * Reason Onset Date Comments [place] - Referral 08/13/2024 Encounter Details Date Type Department Care Team (Late st Contact Info) Description 08/13/2024 Telephone Internal Medicine - [place] [address] [address] Leslee Barnes MD 175 [facility] 200 [place] [address] [place] - Referral Social History Tobacco Use Types Packs/Day Years [...] as of this encounter Progress Notes * Leslee Barnes MD - 08/13/2024 10:05 PM EST Referral placed * Tamara Springer MA - 08/13/2024 10:48 AM EST Please advise requesting referral to speech therapy due to speech impediment * Fiorella Bourgeois - 08/13/2024 10:26 AM EST Patient called and requested a referral for speech therapy because of her speech impediment. Pleaseadvise. documented in this encounter Plan of Treatment Upcoming Encounters Date Type Department Care Team (Late st Contact Info) Description 09/19/2024 2:00 PM EDT Evaluation [facility] Speech Therapy [address] [phone] Mira Goode, WOODS BOSS 10/09/2024 1:30 PM EDT Office Visit Internal Medicine - [place] 175 [facility] 200 [place] [phone] Leslee Barnes MD [address] [phone] 10/25/2024 1:30 PM EDT Office Visit [facility] Hematology Oncology [address] [place] [phone] Lisa Perez PA [address] [place] [address] Scheduled Referrals Name Type Priority Associated Diagnoses Order Schedule Ambulatory referral to Speech Therapy Outpatient Referral Routine Speech disturbance, unspecified type 1 Occurrences starting 08/13/2024 until 08/13/2025 documented as of this encounter Visit Diagnoses Diagnosis Speech disturbance, unspecified type- Primary documented in this encounter Care Teams Paper Counter Relationship Specialty Start Date End Date Leslee Barnes MD [address] [phone] PCP - General Internal Medicine 12/15/21 documented as of this encounter
--- OUTSIDE RECORDS SUMMARY | 2024-08-29 17:46 | XMS_ITS | Encounter Summary ---
Author Organization [facility] Address [address] [place] [address] Care Team Providers Care Bottom Sander Name Role Phone Leslee Barnes MD Primary Care Provider [phone] Reason for Visit * Reason Onset Date Comments DME 08/08/2024 Encounter Details Date Type Department Care Team (Late st Contact Info) Description 08/08/2024 Telephone Internal Medicine - [place] [address] [facility] [address] [place] [phone] Leslee Barnes MD [address] [facility] [address] [place] [address] DME Social History Tobacco Use Types Packs/Day Years [...] as of this encounter Progress Notes * Irina Mathew [place] - 08/13/2024 8:04 AM EST Faxed to [employer] [phone] * Irina Mathew [place] - 08/09/2024 8:41 AM EST Pended. Shopping cart is not covered by insurance. * Cherry Ryan - 08/08/2024 4:45 PM EST Name of Product: commode , shopping cart Specific information about product # Needed 1 Reason patient is asking for this supply? Has a lot of falls can barley walk Have you received this supply before? If yes , when?: no. Has Patient been seen in the last 6 months yes If NO, Please book appt before DME can be ordered Have you discussed the need for this supply with a provider at a recent visit? Yes today If yes, with who and when? No Child Life Appt necessary When completed, SHIPPING ADDRESS: [address] [place] [phone] Have you told the patient it will take 7-10 days for completion of this request? yes documented in this encounter Plan of Treatment Upcoming Encounters Date Type Department Care Team (Late st Contact Info) Description 09/19/2024 2:00 PM EDT Evaluation [facility] Speech Therapy 175 [facility] [address] [place] [address] Mira Goode, BOAT HOIST OPERATOR 10/09/2024 1:30 PM EDT Office Visit Internal Medicine - [place] 175 [facility] 200 [place] [phone] Leslee Barnes MD 175 [facility] 200 [place] [phone] 10/25/2024 1:30 PM EDT Office Visit [facility] Hematology Oncology [address] [place] [phone] Lisa Perez PA [address] [place] [address] documented as of this encounter Visit Diagnoses Diagnosis Osteoarthritis of both knees, unspecified osteoarthritis type- Primary Gait instability Abnormality of gait documented in this encounter Orders General Supply Count Last Ordered Date First Or dered Date COMMODE CHAIR 1 08/12/2024 documented in this encounter Care Teams Bottom Sander Relationship Specialty Start Date End Date Leslee Barnes MD 175 [facility] 200 [place] [address] PCP - General Internal Medicine 12/15/21 documented as of this encounter
--- OUTSIDE RECORDS SUMMARY | 2024-08-29 17:46 | XMS_ITS | Encounter Summary ---
Author Organization [facility] Address [address] [place] [address] Care Team Providers Care Charm Filter Operator Helper Name Role Phone Leslee Barnes MD Primary Care Provider Reason for Visit * Reason Onset Date Comments Request For Order(s) 08/15/2024 [facility] Care - Order [id number] Encounter Details Date Type Department Care Team (Late st Contact Info) Description 08/15/2024 Telephone Internal Medicine - [place] 175 [facility] [address] [place] [address] Do Jones MA Request For Order(s) ([facility] - Order K1BM/) Social History Tobacco Use Types Packs/Day Years [...] Progress Notes * Do Jones MA - 08/19/2024 8:14 AM EST Scanned into chart and faxed to [facility] [phone] * Do Jones MA - 08/15/2024 12:08 PM EST [facility] - Order K1BM Please sign & fax [phone] documented in this encounter Plan of Treatment Upcoming Encounters Date Type Department Care Team (Late st Contact Info) Description 09/19/2024 2:[address] [facility] Speech Therapy [address] [phone] Mira Goode, MOUTHPIECE MAKER 10/09/2024 1:30 PM EDT Office Visit Internal Medicine - [place] [address] [phone] Leslee Barnes MD [address] [phone] 10/25/2024 1:30 PM EDT Office Visit [facility] Hematology Oncology [address] [place] [phone] Lisa Perez PA [address] [place] [address] documented as of this encounter Visit Diagnoses Not on filedocumented in this encounter Care Teams Charm Filter Operator Helper Relationship Specialty Start Date End Date Leslee Barnes MD [address] [phone] PCP - General Internal Medicine 12/15/21 documented as of this encounter
--- OUTSIDE RECORDS SUMMARY | 2024-08-29 17:46 | XMS_ITS | Encounter Summary ---
Author Organization [facility] Address [address] [place] [address] Care Team Providers Care Client Development Manager Name Role Phone Leslee Barnes MD Primary Care Provider [phone] Encounter Details Date Type Department Care Team (Late st Contact Info) Description 04/12/2024 12:40 PM EDT Hospital Encounter TH HISTORIC ENCOUNTERS EASTERN CONVERSION ONLY Lisa Perez PA [address] [place] [address] Social History Tobacco Use Types Packs/Day Years [...] Perez PA-C Service: -- Author Type: Physician Construction Helper Filed: 04/12/2024 2:08 PM Encounter Date: 04/12/2024 Status: Addendum Linux Consultant: Lisa Perez PA-C (Physician Construction Helper) Related Notes: Original Note by Lisa Perez PA-C (Physician Construction Helper) filed at 04/12/2024 2:[address] [...] Take by mouth., Disp: , Rfl: ? [id number] Eth Est, Dietary, 1 g CAPS, Take [...] brain imaging studies. She does have a historyof multiple TIAs though. She has been referred to speech therapy. Lisa Perez PA-C Cc: Leslee Barnes MD Sign: Lisa Perez PA-C Hematology/Oncology [facility] [phone] documented in this encounter Plan of Treatment Upcoming Encounters Date Type Department Care Team (Late st Contact Info) Description 09/19/2024 2:00 PM EDT Evaluation [facility] Speech Therapy [address] [phone] Mira Goode, PASTE MIXER 10/09/2024 1:30 PM EDT Office Visit Internal Medicine - [place] 175 [facility] 200 [place] [phone] Leslee Barnes MD 175 [facility] 200 [place] [phone] 10/25/2024 1:30 PM EDT Office Visit [facility] Hematology Oncology [address] [place] [phone] Lisa Perez PA [address] [place] [address] documented as of this encounter Procedures Procedure Name Priority Date/Time Associated Diagnosis Comments ..MISCELLANEOUS REFERENCE LAB TEST 04/12/2024 documented in this encounter Results * Miscellaneous reference lab test (04/12/2024) us Provider Onbase LAB BLOOD ORDERABLES Final Re sult documented in this encounter Visit Diagnoses Not on filedocumented in this encounter Care Teams Client Development Manager Relationship Specialty Start Date End Date Leslee Barnes MD [address] [place] [phone] PCP - General Internal Medicine 12/15/21 documented as of this encounter
--- OUTSIDE RECORDS SUMMARY | 2024-08-29 17:46 | XMS_ITS | Encounter Summary ---
Author Organization [facility] Address [address] [place] [address] Care Team Providers Care Carrier Associate Name Role Phone Leslee Barnes MD Primary Care Provider [phone] Reason for Visit * Reason Onset Date Comments Request For Order(s) 08/28/2024 [facility] Care - Order 21X6 Encounter Details Date Type Department Care Team (Late st Contact Info) Description 08/28/2024 Telephone Internal Medicine - [place] 175 [facility] [address] [place] [address] Do Jones [place] Request For Order(s) ([facility] - Order 21X6/) Social History Tobacco Use Types Packs/Day Years [...] Progress Notes * Do Jones MA - 08/29/2024 8:17 AM EST Scanned into chart and faxed to [facility] [phone] * Do Jones MA - 08/28/2024 8:08 AM EST [facility] - Order 21X6 Please sign & fax [phone] documented in this encounter Plan of Treatment Upcoming Encounters Date Type Department Care Team (Late st Contact Info) Description 09/19/2024 2:00 PM EDT Evaluation [facility] Speech Therapy [address] [phone] Mira Goode, MEAT STUFFER 10/09/2024 1:30 PM EDT Office Visit Internal Medicine - [place] [address] [phone] Leslee Barnes MD [address] [phone] 10/25/2024 1:30 PM EDT Office Visit [facility] Hematology Oncology [address] [place] [phone] Lisa Perez PA [address] [place] [address] documented as of this encounter Visit Diagnoses Not on filedocumented in this encounter Care Teams Carrier Associate Relationship Specialty Start Date End Date Leslee Barnes MD [address] [phone] PCP - General Internal Medicine 12/15/21 documented as of this encounter
--- OUTSIDE RECORDS SUMMARY | 2024-08-29 17:46 | XMS_ITS | Clinical Summary ---
Author Organization 175 [facility] Address [address] [place] [address] Phone Care Team Providers Care Molecular Modeler Name Role Phone Heena Barnes MD Primary Care Provider [phone] Allergies Active Allergy Reactions Criticality Noted Date Comments Aspirin Other 10/27/2020 Leflunomide Medium 03/17/2022 Rash Rash Penicillins Nausea And Vomiting,Other 10/27/2020 Shellfish Containing Products 03/28/2024 Medications amitriptyline (ELAVIL) 25 mg tablet Take 1 tablet (25 mg total) by mouth. Active calcium carbonate-vit D3-min 600 mg calcium- 400 unit tablet 1 Active clotrimazole-b etamethasone (LOTRISONE) 1-0.05 % cream 1 Active diclofenac (VOLTAREN) 1 % topical gel 1 Active ferrous sulfate 325 mg (65 mg elemental iron) tablet Take 1 tablet (325 mg total) by mouth 1 (one) time each day. 4 03/30/20 25 Active labetaloL (NORMODYNE) 100 mg tablet Take 2 Tablets by mouth 2 times daily., Disp-60 Tablet, R-5, Historic From nephrology Chang Castro 2 Active meclizine (ANTIVERT) 12.5 mg tablet Take 1 tablet (12.5 mg total) by mouth. 2 Active triamcinolone acetonide (KENALOG-40) 40 mg/mL injection Inject 1 mL (40 mg total) into the joint. 4 Active underpads 30 X 36 pad 1 each by Not Applicable route. Incontinence Supply Disposable (Disposable Underpads 30 x36 ) Misc 1 Each by Does not apply route daily. 4 Active petrolatum,whi te (BALMEX, PETROLATUM, TOP) Apply 1 each topically 1 (one) time each day. 4 Active melatonin 10 mg tablet Take 1 tablet (10 mg total) by mouth. Active multivitamin with iron (MULTIPLE VITAMINS WITH IRON ORAL) Take by mouth. Acti ve DICLOFENAC SODIUM TOP Diclofenac Sodium 1 % Cream Apply 4 g topically 2 times daily as needed for Other. 3 Active sulfaSALAzine (AZULFIDINE) 500 mg tablet Take 1 tablet (500 mg total) by mouth 2 (two) times a day. 1 Active omega-3 acid ethyl esters (LOVAZA) 1 gram capsule Take 2 capsules (2 g total) by mouth 1 (one) time each day. 90 capsule 3 5 Active coenzyme Q-10 100 mg capsule Take 1 capsule (100 mg total) by mouth 1 (one) time each day. 90 capsule 3 5 Active rosuvastatin (CRESTOR) 20 mg tablet Take 1 tablet (20 mg total) by mouth at bedtime. 60 tablet 1 5 Active acetaminophen (TYLENOL) 325 mg tablet Take 2 tablets (650 mg total) by mouth every 8 (eight) hours if needed for mild pain. 30 tablet 1 5 Active calcium carbonate-portillo min D 600 mg-10 mcg (400 unit) per tablet Take 1 tablet by mouth 2 (two) times a day. 60 tablet 1 5 Active multivitamin (Tab-A-Peggy) tablet Take 1 tablet by mouth 1 (one) time each day. Take 1 Tablet by mouth daily 30 tablet 2 5 Active ascorbic acid (Vitamin C) 250 mg tablet Take 1 tablet (250 mg total) by mouth 1 (one) time each day. for 90 days 30 tablet 2 5 Active multivitamin (Tab-A-Peggy) tablet Take 1 tablet by mouth 1 (one) time each day. Take 1 Tablet by mouth daily 30 tablet 2 5 08/12/19 25 Discontinu ed(Reorder ) ascorbic acid (Vitamin C) 250 mg tablet Take 1 tablet (250 mg total) by mouth 1 (one) time each day. for 90 days 30 tablet 5 08/12/19 25 Discontinu ed(Reorder ) Active Problems Problem Noted Date Diagnosed Date [...] general anesthesia with risk of stroke or MT, risk for hematoma, infection, damage to the [...] Encounters Date Type Department Care Team Description 08/28/2024 Telephone Internal Medicine [address] [phone] Do Jones [place] Request For Order(s) ([facility] - Order 21X6/) 08/26/2024 Telephone Internal Medicine [address] [address] Heena Barnes MD VNA 08/15/2024 Telephone Internal Medicine [address] [phone] Do Jones [place] Request For Order(s) ([facility] - Order K1BM/) 08/13/2024 Telephone Internal Medicine [address] [phone] Heena Barnes MD [place] - Referral 08/08/2024 1:15 PM EST Office Visit Internal Medicine [address] [address] Caitlyn Smith NP Anemia, unspecified type (Primary Dx); Multiple falls; Osteoarthritis of both knees, unspecified osteoarthritis type; Rheumatoid arthritis, involving unspecified site, unspecified whether rheumatoid factor present ([facility]); Cervical spinal stenosis; Essential (primary) hypertension; Gait instability; Slurred speech 08/08/2024 [facility] [address] [address] Heena Barnes MD DME 07/29/2024 [facility] [address] [phone] Do Jones [place] Request For Order(s) ([facility] - Order QHFX/) 07/19/2024 [facility] [address] [phone] Do Jones [place] Request For Order(s) ([facility] Cert 06/29/24-08/27/24 Plan Of Care /) 07/08/2024 [facility] [address] [phone] Heena Barnes MD 06/24/2024 Telephone Internal Medicine [address] [address] Do Jones [place] 06/05/2024 Telephone Internal Medicine [address] [address] Heena Barnes MD DME 06/03/2024 Billing Patient Not Present Internal [address] [phone] Heena Barnes MD Depression, unspecified depression type (Primary Dx); Altered mental status, unspecified altered mental status type; Other toxic encephalopathy; Anxiety disorder, unspecified type; Rheumatoid arthritis, involving unspecified site, unspecified whether rheumatoid factor present ([facility]); Essential (primary) hypertension from Last 3 Months Immunizations Name Administration [...] on file Sexual Orientation Not on file Obstetrics History Last Filed [...] Mass Index 26.86 08/08/2024 1:03 PM EST Plan of Treatment Upcoming Encounters Date Type Department Care Team (Late st Contact Info) Description 09/19/2024 2:00 PM EDT Evaluation [facility] Speech Therapy 175 [facility] [address] [place] [phone] Mira Goode, MANAGER OF NETWORK 10/09/2024 1:30 PM EDT Office Visit Internal Medicine - [place] 175 [facility] 200 [place] [phone] Heena Barnes MD 175 [facility] 200 [place] [phone] 10/25/2024 1:30 PM EDT Office Visit [facility] Hematology Oncology [address] [place] [phone] Lisa Perez PA [address] [place] [address] Health Maintenance Due Date Last Done Comments DTaP,Tdap,and Td Vaccines (1 - Tdap) 1969 Pneumococcal Vaccine: 50+ Years (1 of 2 - PCV) 1969 Zoster Vaccines (1 of 2) 2000 [...] patient's age to complete this topic Meningococcal B Vacine Aged Out No lo nger eligible based on patient's age to complete this topic RSV Immunization Patients Under 20 months Aged Out No longer eligible based on patient's age to complete this topic Varicella Vaccines Aged Out No longer eligible based on patient's age to complete this topic Procedures Procedure Name Priority Date/Time Associated Diagnosis Comments BASIC METABOLIC PANEL Routine 07/23/2024 1:01 PM EST Primary hypertension LIPID PANEL Routine 09/11/2023 COLONOSCOPY Routine 06/08/2023 [facility] SCREENING DIGITAL Routine 12/07/2022 11:16 AM EDT Encounter for screening mammogram for malignant neoplasm of breast [facility] DEXA AXIAL SKELETON Routine 04/07/2022 11:05 AM EDT Encounter for screening for osteoporosis from Last 3 Months or Most Recently Relevant to Health Maintenance Results * Basic metabolic panel (07/23/2024 1:01 PM EST) Sodium 140 133 - 145 mmol/L LAB CHEMISTRY METHOD 07/23/2024 2:33 PM EST [facility] Potassium 3.8 3.5 - 5.5 mmol/L LAB CHEMISTRY METHOD 07/23/2024 2:33 PM EST [facility] Chloride 108 96 - 110 mmol/L LAB CHEMISTRY METHOD 07/23/2024 2:33 PM [facility] CO2 28 21 - 32 mmol/L LAB CHEMISTRY METHOD 07/23/2024 2:33 PM [facility] Anion Gap 4 3 - 11 LAB CHEMISTRY METHOD 07/23/2024 2:33 PM [facility] Glucose 96 70 - 100 mg/dL LAB CHEMISTRY METHOD 07/23/2024 2:33 PM [facility] BUN 11 5 - 25 mg/dL LAB CHEMISTRY METHOD 07/23/2024 2:33 PM [facility] Creatinine 0.81 0.50 - 1.10 mg/dL LAB CHEMISTRY METHOD 07/23/2024 2:33 PM [facility] eGFR 77 >=60 mL/min/1. 73m2 LAB CHEMISTRY METHOD 07/23/2024 2:33 PM [facility] Comment:Calculation based on the??Chronic Kidney Disease Epidemiology Collaboration (CKD-EPI) equation refit??without adjustment for race. BUN/Creatinine Ratio 13.6 LAB CHEMISTRY METHOD 07/23/2024 2:33 PM [facility] Calcium 9.4 8.5 - 10.5 mg/dL LAB CHEMISTRY METHOD 07/23/2024 2:33 PM [facility] Blood Venous blood specimen / Unknown Venipuncture / Unknown 07/23/2024 1:01 PM EST 07/23/2024 1:01 PM EST Dc Martin MD LAB BLOOD ORDERABL ES Final Result [facility] [address] [place] [address], * Lipid panel (09/11/2023) LDL/HDL Ratio 3 0 - 4 Triglycerides 88 0 - 150 mg/dL Cholesterol 137 0 - 200 mg/dL HDL 55 >=40 mg/dL LDL Cholesterol 65 0 - 100 mg/dL Blood Venous blood specimen / Unknown Historical Provider LAB BLOOD ORDERABLES Mariana l Result * Colonoscopy (06/08/2023) Colonoscopy No Interpretation , Abstracted Anatomical Region Laterality Modality Other Historical Provider HEALTH MAINTENANCE Final Result * BUZZ SCREENING DIGITAL (12/07/2022 11:16 AM EDT) Anatomical Region Laterality Modality Mammography 12/07/2022 10:1 7 AM EDT Narrative 12/07/2022 11:16 AM EDT [facility] Diagnostic Imaging Department [address] [place] [address] Patient: ??LINDA SAGE ?/Age/Sex: 1950 - 72 - F Unit#: ??[id number] ? Location/Status: ??SPDIMAM/REG CLI ? Mnemonic/Ordering Site: [...] the MLO projection. Computer aided detection with SafedoX 7.2-H and [employer] 3D 3.1 was employed. TISSUE DENSITY: b. [...] Routine screening mammogram BILATERAL in 1 year. 39394, 84971 3342F, 7014F Dictating Physician: ??SALIMA MARINA MD Electronically Signed by: ??SALIMA MARINA MD Dic Date/Time: ??12/07/22 1116 Sign date/Time: ??12/07/22 1116 Procedure Note Salima Marina MD - 08/04/2023 [facility] Diagnostic Imaging Department [address] [place], [place] [id number] Patient: SHIRINLINDA /Age/Sex: 1950 - 72 - F Unit#: [id number] [facility]onic/Ordering Site: [facility] Ordering Physician: HEENA BARNES MD [facility] Screening Digital - 12/07/22 - 1041 EXAM: [facility] Screening Digital EXAM DATE AND TIME: 12/07/2022 10:43 AM HISTORY: Screening. COMPARISON: 11/01/21, 03/25/20, 02/19/19 TECHNIQUE: CC and MLO views of both breasts were obtained using fullfield digital mammography. Bilateral digital breast tomosynthesis was performedin the MLO projection. Computer aided detection with SafedoX 7.2-H and[employer]ik[employer] 3D 3.1 was employed. TISSUE DENSITY: b. [...] Routine screening mammogram BILATERAL in 1 year. 58497, 06519 3342F, 7025F Dictating Physician: SALIMA MARINA MD Electronically Signed by: SALIMA MARINA MD Dic Date/Time: 12/07/22 1116 Sign date/Time: 12/07/22 1116 Heena Barnes MD IMG BI PROCEDURES Final Result * [facility] DEXA AXIAL SKELETON (04/07/2022 11:05 AM EDT) Anatomical Region Laterality Modality Mammography 04/07/2022 10:1 9 AM EDT Narrative 04/07/2022 11:05 AM EDT [facility] Diagnostic Imaging Department [address] [place] [id number] Patient: ??LINDA SAGE ?/Age/Sex: 1950 - 71 - F Unit#: ??[id number] ? Location/Status: ??SPDIMAM/REG CLI ? Mnemonic/Ordering Site: [...] probability of hip fracture of 2.2%. Code 65858 Dictating Physician: ??DAVID RANDALL MD Electronically Signed by: ??DAVID RANDALL MD Dic Date/Time: ??04/07/22 1104 Sign date/Time: ??04/07/22 1105 Procedure Note David Randall MD - 06/22/2022 [facility] Diagnostic Imaging Department [address] [place] [address] Patient: LINDA SAGE Kalyn /Age/Sex: 1950 71 - F Unit#: [id number] Location/Status: [facility] Mnemonic/[facility] Ordering Physician: HEENA BARNES MD Buzz Dexa Axial Skeleton - 04/07/22 4210 HISTORY: The patient is a 71-year-old postmenopausal [...] density of the femurs bilaterally is 0.964 gm/bb8coypi is 96% of that of young normals [...] probability of hip fracture of 2.2%. Code 63249 Dictating Physician: DAVID RANDALL MD Electronically Signed by: DAVID RANDALL MD Dic Date/Time: 04/07/22 1104 Sign date/Time: 04/07/22 110 Heena Barnes MD IMG BI PROCEDURES Final Result from Last 3 Months or Most Recently Relevant to Health Maintenance Insurance [facility] MEDICARE Member Subscriber Plan / Payer (Ef fective 2021-Present) Name:Linda Sage Relation to Subscriber:Self Name:Linda Sage Payer ID:[id number] Group ID:[id number] Type:Not on file Address: [facility] [address] [address] Care Teams Molecular Modeler Relationship Specialty Start Date End Date Heena Barnes MD [address] [address] PCP - General Internal Medicine 12/15/21
--- OUTSIDE RECORDS SUMMARY | 2024-08-29 17:46 | XMS_ITS | Encounter Summary ---
Author Organization [facility] Address [address] [place] [address] Care Team Providers Care Pattern Chain Maker Supervisor Name Role Phone Leslee Barnes MD Primary Care Provider [phone] Encounter Details Date Type Department Care Team (Late st Contact Info) Description 04/10/2024 4:43 PM EDT Hospital Encounter TH HISTORIC ENCOUNTERS EASTERN CONVERSION ONLY Leslee Barnes MD 175 [facility] 200 [place] [address] Social History Tobacco Use Types Packs/Day [...] Department Care Team (Late Contact Info) Description 09/19/2024 2:00 PM EDT [facility] 175 [facility] 350 [place] [address] Mira Goode, DRENCHER 10/09/2024 1:30 PM EDT Office Visit Internal Medicine - [place] 175 [facility] 200 [place] [address] Leslee Barnes MD [address] [phone] 10/25/2024 1:30 PM EDT Office Visit [facility] Hematology Oncology [address] [place] [phone] Lisa Perez PA [address] [place] [address] documented as of this encounter Visit Diagnoses Not on filedocumented in this encounter Care Teams Pattern Chain Maker Supervisor Relationship Specialty Start Date End Date Leslee Barnes MD [address] [phone] PCP - General Internal Medicine 12/15/21 documented as of this encounter
--- OUTSIDE RECORDS SUMMARY | 2024-08-29 17:46 | XMS_ITS | Clinical Summary ---
Author Organization [facility] Address [address] [place] [address] Care Team Providers Care Facilities Administrator Name Role Phone Leslee Barnes MD Primary Care Provider [phone] Allergies Active Allergy Reactions Criticality Noted Date [...] PO Take by mouth. 0 Acti ve Jvgmb-2-Efdk Eth Est, Dietary, 1 g CAPS Take [...] 2 (two) times a day. 0 Active Social History Tobacco Use Types Packs/Day Years [...] Additional history exists Influenza Vaccine (#1) 2024 3, 04/19/2022, 04/22/2019, Additional history exists RSV Adult > 60+ Yrs or (1 - 1-dose 75+ series) 2025 Hepatitis B Vaccines Aged Out No long er eligible based on patient's age to complete this topic RSV Ped < 20 months Aged Out No longe r eligible based on patient's age to complete this topic Care Teams Facilities Administrator Relationship Specialty Start Date End Date Leslee Barnes MD [address] [place] [phone] PCP - General Internal Medicine 01/29/24
--- OUTSIDE RECORDS SUMMARY | 2024-08-29 17:46 | XMS_ITS | Encounter Summary ---
Author Organization [facility] Address [address] [place] [address] Care Team Providers Care Ground Water Contractor Name Role Phone Leslee Barnes MD Primary Care Provider [phone] Reason for Visit * Reason Onset Date Comments VNA 08/26/2024 Encounter Details Date Type Department Care Team (Late st Contact Info) Description 08/26/2024 Telephone Internal Medicine - [place] [address] [facility] [address] [place] [phone] Leslee Barnes MD [address] [facility] [address] [place] [phone] VNA Social History Tobacco Use Types Packs/Day Years [...] as of this encounter Progress Notes * Susan Forbes RN - 08/26/2024 4:29 PM EST [facility] [phone] spoke to her Gave verbal orders for SN * Cherry Ryan - 08/26/2024 3:18 PM EST [facility] called and requested verbal orders for prison services for the patient. Please advise Cb# [phone] documented in this encounter Plan of Treatment Upcoming Encounters Date Type Department Care Team (Late st Contact Info) Description 09/19/2024 2:00 PM EDT Evaluation [facility] Speech Therapy [address] [phone] Mira Goode, CRAYON PAINTER 10/09/2024 1:30 PM EDT Office Visit Internal Medicine - [place] 175 [facility] 200 [place] [phone] Leslee Barnes MD [address] [phone] 10/25/2024 1:30 PM EDT Office Visit [facility] Hematology Oncology [address] [place] [phone] Lisa Perez PA [address] [place] [address] documented as of this encounter Visit Diagnoses Not on filedocumented in this encounter Care Teams Ground Water Contractor Relationship Specialty Start Date End Date Leslee Barnes MD [address] [phone] PCP - General Internal Medicine 12/15/21 documented as of this encounter
--- OUTSIDE RECORDS SUMMARY | 2024-08-29 17:46 | XMS_ITS | Encounter Summary ---
Author Organization [facility] Address [address] [place] [address] Care Team Providers Care Liquid Hydrogen Plant Operator Name Role Phone Leslee Barnes MD Primary Care Provider [phone] Encounter Details Date Type Department Care Team (Late Contact Info) Description 07/08/2024 Telephone Internal Medicine [facility] 175 [facility] 200 [place] [phone] Leslee Barnes MD 175 [facility] 200 [place] [address] Social History Tobacco Use Types [...] Info) Description 09/19/2024 2:00 PM EDT Evaluation [facility] Speech Therapy 175 [facility] [address] [place] [address] Mira Goode, CAREER DISCOVERY TEACHER 10/09/2024 1:30 PM EDT Office Visit Internal Medicine [facility] 175 [facility] 200 [place] [address] Leslee Barnes MD [address] [phone] 10/25/2024 1:30 PM EDT Office Visit [facility] Hematology Oncology [address] [place] [phone] Lisa Perez PA [address] [place] [address] documented as of this encounter Visit Diagnoses Not on filedocumented in this encounter Care Teams Liquid Hydrogen Plant Operator Relationship Specialty Start Date End Date Leslee Barnes MD [address] [phone] PCP - General Internal Medicine 12/15/21 documented as of this encounter
--- OUTSIDE RECORDS SUMMARY | 2024-08-29 17:46 | XMS_ITS | Encounter Summary ---
Author Organization [facility] Address [address] [place] [address] Care Team Providers Care Talent Associate Name Role Phone Leslee Barnes MD Primary Care Provider [phone] Encounter Details Date Type Department Care Team (Late st Contact Info) Description 04/26/2024 2:00 PM EDT Hospital Encounter TH HISTORIC ENCOUNTERS EASTERN CONVERSION ONLY Lisa Perez PA [address] [place] [address] Social History Tobacco Use Types Packs/Day Years [...] Info) Description 09/19/2024 2:00 PM EDT Evaluation [facility] 175 [facility] 350 [place] [address] Mira Goode, FLOWER ARRANGER 10/09/2024 1:30 PM EDT Office Visit Internal Medicine - [place] 175 [facility] [address] [place] [address] Leslee Barnes MD 175 [facility] 200 [place] [phone] 10/25/2024 1:30 PM EDT Office Visit [facility] Hematology Oncology [address] [place] [phone] Lisa Perez PA [address] [place] [address] documented as of this encounter Visit Diagnoses Not on filedocumented in this encounter Care Teams Talent Associate Relationship Specialty Start Date End Date Leslee Barnes MD 175 [facility] 200 [place] [phone] PCP - General Internal Medicine 12/15/21 documented as of this encounter
--- OUTSIDE RECORDS SUMMARY | 2024-08-29 17:46 | XMS_ITS | Clinical Summary ---
Author Organization [facility] Address [address] [address] [place] [address] Phone Care Team Providers Care Planting Supervisor Name Role Phone Leslee Barnes MD Primary Care Provider [phone] Allergies Active Allergy Reactions Criticality Noted Date [...] Date Resolved Date Increased blood pressure 10/27/202010/2020 Encounters Date Type Department Care Team Description 08/14/2024 Refill [facility] [address] [facility] [address] [place] [address] Tracy Berrios MA from Last 3 Months Family History Medical History Relation Comments Cancer Father Heart disease Mother pace maker/ hear t disease Hypertension Mother Diabetes Sibling 1 Heart disease Sibling 2 Stroke Sibling 3 [place] Relation Status Comments Father Mother Alive Sibling [...] Breast Cancer Screening 1950 Pneumococcal Vaccine: 65+ Years (1 of 2 - PCV) 1956 Colorectal Cancer Screening: Annual FOBT 1999 Colorectal Cancer Screening: Colonoscopy 1999 Colorectal Cancer Screening: Sigmoidoscopy 1999 Influenza Vaccine Completed 04/11/2024, , 04/19/2022, Additional history exists Hepatitis B Vaccine Aged Out No longe r eligible based on patient's age to complete this topic Insurance [facility] ([id number]) [facility] ([id number]) Care Teams Planting Supervisor Relationship Specialty Start Date End Date Leslee Barnes MD [address] [phone] PCP - General Internal Medicine 04/27/22
== END 2024-08-29 15:29 | disposition home or self-care (01) ==
PROVIDERS: PCP Internal Medicine; Visit Provider Nurse Practitioner Family
DX: R25.1 Tremor, unspecified (principal); R47.1 Dysarthria and anarthria; R13.10 Dysphagia, unspecified; G43.009 Migraine without aura, not intractable, without status migrainosus; R42 Dizziness and giddiness; R35.1 Nocturia
CPT/HCPCS: 99214; G2211

== ENCOUNTER → 2024-08-29 14:32 | Outpatient (BNVA) | payer OTHER, SELFPAY | PROVIDERS: PCP Internal Medicine; Visit Provider Nurse Practitioner Family | DX: R25.1 Tremor, unspecified (principal); R47.1 Dysarthria and anarthria; R42 Dizziness and giddiness; R35.1 Nocturia; R13.10 Dysphagia, unspecified; G43.009 Migraine without aura, not intractable, without status migrainosus | CPT/HCPCS: 99212 ==

== ENCOUNTER 2024-10-24 12:07 | Outpatient (AMB) | payer OTHER, SELFPAY ==
--- NOTE | 2024-10-24 13:03 | A.OFFVIS_ITS ---
Intake Visit Reasons: nocturia Intake Note: New Patient presents for initial visit for nocturia Urology Medications: none Blood Thinner: none PVR: 204ml's Manager Of Warehouse Required: No Accompanied by: Self / Same As Patient Allergies CRAB Allergy (Intermediate, Uncoded 10/24/24 13:40) HIVES, RASH, STOMACH PAINS Medication List - Last Reconciled 10/24/24 by MAINOR Nguyen-MEGHNA ascorbic acid (vitamin C) (Vitamin C) PO calcium carbonate-vitamin D3 600 mg-10 mcg (400 unit) 1 tab PO BID carbidopa-levodopa 25-100 mg 0.5 - 1 tabs PO BID 30 days carvedilol (Coreg) 6.25 mg PO BID ferrous sulfate 325 mg PO DAILY fluticasone propionate 50 mcg/actuation (Children's Flonase Allergy Relief) 1 spray intranasal DAILY galcanezumab-gnlm (Emgality Pen) 120 mg subcut ONCE 30 days hydroxyzine HCl mg PO melatonin mg PO BEDTIME PRN nifedipine ER 30 mg PO .evening omega-3 acid ethyl esters 1 cap PO DAILY rosuvastatin 20 mg PO BEDTIME sulfasalazine PO DAILY ubrogepant (Ubrelvy) 50 - 100 mg (0.5 - 1 x 100 mg) PO ONCE PRN 30 days HPI Comments Details: Linda is a very pleasant 74-year-old female patient of Dr. Barnes. ?She has a past medical history of rheumatoid arthritis, depression, cervical spinal stenosis, and hypertension. She presents to the office today as a new patient for nocturia. In discussion with the patient today she reports having followed up with her PCP in discussing ongoing issues with nocturia over the last 5-8 months at which time recommendations were made for urology referral for further assessment evaluation. In office urinalysis results reviewed with the patient today PVR 204 mL. She otherwise denies any urinary issues throughout the day. She denies urinary urgency, urinary frequency, incontinence, hematuria, dysuria, foul smelling urine, changes to urinary stream, flank pain, fever, and or chills. We discussed potential causes of nocturia as well as incomplete bladder emptying as evidenced by today's postvoid residual. She denies any history of sleep apnea and or snoring. We discussed obtaining retroperitoneal ultrasound for further assessment evaluation. We also discussed lifestyle modifications such as double voiding to assist with decreasing postvoid residuals. Plan An ultrasound of the kidneys and bladder will be conducted to exclude anatomical issues. We will re-evaluate the bladder's residual urine numbers at the next visit to assess effectiveness, potentially considering pharmacotherapy if non- invasive techniques are insufficient. Patient was informed and verbally consented to the use of an ambient scribe for clinic note documentation during this visit. Discussion Notes I discussed with the patient the possibility that her nocturnal urinary symptoms are due to incomplete bladder emptying. The recommendation is to initially try double voiding and limiting fluids prior to bed to see if it alleviates symptoms. We discussed the potential risks and benefits, with the patient expressing understanding and a preference for trying lifestyle modifications first. An ultrasound study of her bladder is planned to investigate further any structural causes. We will follow up to compare bladder volumes over time, a ssessing if surgical or medical interventions are warranted later. REPLACED BY [facility] Medical History Rheumatoid arthritis Cervical spinal stenosis HTN (hypertension) Depressive disorder Surgical History H/O: hysterectomy History of partial hysterectomy Family History Mother HTN (hypertension) Hyperlipidemia Father Cancer, colon Social History Alcohol intake: never Patient Tobacco Use Status: Current someday Tobacco user Review of Systems Const All systems reviewed & are unremarkable except as noted in HPI and below Physical Exam Const General: cooperative, healthy appearing, comfortable, no acute distress, well developed, alert and awake Orientation/consciousness: patient oriented x3 Limitations: ambulation with walker HEENT Head: Yes normal to inspection, Yes normocephalic and Yes atraumatic Ears: hearing grossly normal bilaterally Eyes General: appearance normal, both eyes and all related structures Neck Neck: Yes normal visual inspection and Yes trachea midline Chest Chest palpation & inspection: normal inspection of the chest Resp Effort & Inspection: normal respiratory effort and able to speak in complete sentences Cardio Rate: regular rate GI Inspection: Yes normal to inspection General: Yes no CVA tenderness Back/Spine/Pelvis Back: no CVA tenderness Skin General skin exam: no rashes or lesions noted Neuro General: patient oriented x3 Extrem General: Yes normal to inspection Psych Appearance: grossly normal and well kempt Mental Status: mental status grossly normal Speech and movement: Normal speech and movement present and Clear speech present Affect: normal affect Attitude: cooperative Thought process: Normal thought process present Thought content: Normal thought content present Insight: Fair insight present (Psych) Judgement: Fair judgement present (Psych) Office Procedures Post Void Residual Post Residual Void Post Void Residual (PVR): 204 [id number]-[id number] Void Residual by ultrasound Results AMB Urinalysis, Automated UA Leukoctes 0 Bam/uL Last Edit by Sravnikupi on 10/24/24 13:28 UA Nitrite Last Edit by Sravnikupi on 10/24/24 13:28 UA Urobilinogen 0.2 mg/dL Last Edit by Sravnikupi on 10/24/24 13:28 UA Protein 0 mg/dL Last Edit by Sravnikupi on 10/24/24 13:28 UA pH 7.0 Last Edit by Sravnikupi on 10/24/24 13:28 UA Blood 0 Jareth/uL Last Edit by Sravnikupi on 10/24/24 13:28 UA Specific Lamar 1.010 Last Edit by Sravnikupi on 10/24/24 13:28 UA Ketone Negative Last Edit by Sravnikupi on 10/24/24 13:28 UA Bilirubin 0 mg/dL Last Edit by Sravnikupi on 10/24/24 13:28 UA Glucose 0 mg/dL Last Edit by Sravnikupi on 10/24/24 13:28 Results Reviewed Results Reviewed: Laboratory Last Values Urine pH (Auto) 7.0 10/24/24 13:26 Specific Lamar (Auto) 1.010 10/24/24 13:26 Urine Protein (Auto) 0 mg/dL 10/24/24 13:26 Glucose (UA)(Auto) 0 mg/dL 10/24/24 13:26 Urine Ketones (Auto) Negative 10/24/24 13:26 Urine Blood (Auto) 0 Jareth/uL 10/24/24 13:26 Urine Bilirubin (Auto) 0 mg/dL 10/24/24 13:26 Urine Urobilinogen (Auto) 0.2 mg/dL 10/24/24 13:26 Leukocyte Esterase (Auto) 0 Bam/uL 10/24/24 13:26 Assessment & Plan Assessment & Plan (1) Nocturia: Code(s): R35.1 - Nocturia Category: Medical (2) Incomplete bladder emptying: Code(s): R33.9 - Retention of urine, unspecified Category: Medical Plan In office urinalysis results reviewed with the patient today; as noted above. PVR 204 mL We discussed potential causes of nocturia as well as further treatment options and risks and benefits of these treatment options We discussed incomplete bladder emptying We discussed double voiding to assist We discussed importance of limiting fluids 2-3 hours prior to bed to decrease episodes of nocturia. Will obtain retroperitoneal ultrasound for further assessment evaluation. Follow-up in 1-3 months with PVR and imaging; or sooner with any issues, concerns, and or questions. Orders: Orders US retroperitoneal comp Today R33.9 - Retention of urine, unspecified, R35.1 - Nocturia AMB Post Void Residual by ultrasound Today R35.0 - Frequency of micturition AMB Urinalysis Automated Today Z13.9 - Encounter for screening, unspecified Patient Instructions: The patient had an opportunity to ask questions regarding the treatment plan. All questions were answered. Physical exam, labs, and imaging were discussed and reviewed in detail. As well as risks, benefits, and discussion of treatment choices. No major barriers to understanding were identified. The patient expressed understanding and agreement with the above treatment plan. The patient was made aware they should contact our office by phone for worsening of their current condition, the appearance of new symptoms, or with any questions or concerns. Compliance is encouraged with any medications and follow up testing that is ordered. It is a privilege to be allowed the opportunity to participate in? your urological care.? Again, if you have any questions or concerns If you have any questions or concerns please do not hesitate to contact me. The office is [phone]. This note is constructed using voice recognition software. While every effort has been made to ensure accuracy peer educator errors may have been included. Yours sincerely, LINDSEY Nguyen Coding Level of Care Code New Pt Level 3 (72720) Diagnoses Nocturia R35.1 Incomplete bladder emptying R33.9 CPT Codes Post Residual Void - PVR CPT Code: 11575-[id number] Void Residual by ultrasound ([id number])
--- OUTSIDE RECORDS SUMMARY | 2024-10-24 14:23 | XMS_ITS | Clinical Summary ---
Author Organization [facility] Address [address] [facility] [address] [place] [address] Phone Care Team Providers Care Immigration Attorney Name Role Phone Leslee Barnes MD Primary Care Provider [phone] Allergies Active Allergy Reactions Criticality Noted Date [...] 08/14/2024 Refill [facility] [address] [facility] [address] [place] [address] Tracy Berrios MA from Last 3 Months Family History Medical History Relation Comments Cancer Father Heart disease Mother pace maker/ hear t disease Hypertension Mother Diabetes Sibling 1 Heart disease Sibling 2 Stroke Sibling 3 [place] Relation Status Comments Father Mother Alive Sibling [...] Comments Breast Cancer Screening 1950 Pneumococcal Vaccine: 50+ Years (1 of 2 - PCV) 1969 Colorectal Cancer Screening: Annual FOBT 1999 Colorectal Cancer Screening: Colonoscopy 1999 Colorectal Cancer Screening: Sigmoidoscopy 1999 Influenza Vaccine Completed 04/11/2024, , 04/19/2022, Additional history exists Hepatitis B Vaccine Aged Out No longe r eligible based on patient's age to complete this topic [place] [address] ([id number]) [facility] ([id number]) Care Teams Immigration Attorney Relationship Specialty Start Date End Date Leslee Barnes MD [address] [facility] [address] [place] [phone] PCP - General Internal Medicine 04/27/22
--- OUTSIDE RECORDS SUMMARY | 2024-10-24 14:24 | XMS_ITS | Encounter Summary ---
Author Organization [facility] Address [address] [place] [address] Care Team Providers Care Robotics Technologist Name Role Phone Leslee Barnes MD Primary Care Provider [phone] Reason for Referral * Consultation (Routine) - Pending Review Specialty Diagnoses / Procedures Referred By Fei bryant Referred To Contact Neurology Diagnoses Gait instability Slurred speech Dizziness Caitlyn Smith NP [address] [address] Phone: tel: fax: Referral ID Status Reason Start Date Expiration Date Visits Requested Visits Authorized [id number] Pending Review Specialty Services Required 10/24/2024 10/24/2025 1 1 Reason for Visit * Reason Comments Follow-up Encounter Details Date Type Department Care Team (Late st Contact Info) Description 10/24/2024 11:00 AM EDT Office Visit Internal Medicine - [place] [address] [phone] Caitlyn Smith NP [address] [address] Rheumatoid arthritis, involving unspecified site, unspecified whether rheumatoid factor present (CMS/HCC V24, CMS/HCC V28) (Primary Dx); Cervical spinal stenosis; Essential (primary) hypertension; Gait instability; Slurred speech; Dizziness; Wheezing Social History Tobacco Use Types Packs/Day Years [...] Sign Reading Time Taken Comments Blood Pressure 120/60 10/24/2024 11:19 AM EDT Pulse 115 10/24/2024 11:19 AM EDT Temperature 36.4 ??C (97.5 ??F) 10/24/2024 11:19 AM E DT Respiratory Rate - - Oxygen Saturation 98% 10/24/2024 11:19 AM EDT Inhaled Oxygen Concentration - - Weight 71.7 kg (158 lb) 10/24/2024 11:19 AM EDT Height 165.1 cm (5' 5 ) 10/24/2024 11:19 AM EDT Body Mass Index 26.29 10/24/2024 11:19 AM EDT documented in this encounter Ordered Prescriptions Prescription Sig Dispense Quantity Refills Last Filled Start Date End Date albuterol HFA (Ventolin HFA) 90 mcg/actuation inhalerIndications :Wheezing Inhale 2 puffs by mouth every 4 (four) hours if needed for wheezing or shortness of breath. 8 g 5 10/24/2024 documented in this encounter Progress Notes * Caitlyn Smith NP - 10/24/2024 11:00 AM EDT CHIEF COMPLAINT: Follow-up IDENTIFIER: Linda Sage is a 74 y.o. old female. HPI: back in December 2022, she had cervical stenosis and Dr. Funes recommended C5, C6 laminectomies. Patient did not want surgery at that time.Hypertension, hyperlipidemia, gait instability, rheumatoid arthritis supposed to be on salfasalazine By , osteopenia, b/l knee osteoarthritis. - Linda is a 74-year-old female who presents today for frequent falls, thinks it may be due to hermedication but cannot say which one. Medications were reviewed, she does not want to increase the dose of meclizine for dizziness. Requesting to see neurology to evaluate for Parkinson's disease. - Discussed hydration throughout the day. However, patient expressed that when she drinks too much water, she has to get up around 6 times a night to void, which disrupts her sleep. It is very difficult for her to get up and go to the bathroom so frequently because her gait is extremely unstable. ROS: See HPI. 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 Anxiety disorder, unspecified 06/03/2024 Rheumatoid arthritis, unspecified ([facility] V24, [facility] V28) 06/03/2024 Essential (primary) hypertension 06/03/2024 Severe obesity ([facility] V24, [facility] V28) 07/28/2023 Gait instability 07/18/2023 Primary osteoarthritis of left knee 07/18/2023 Primary osteoarthritis of right knee 07/18/2023 Hyperlipidemia 07/17/2023 Osteopenia 07/17/2023 Rheumatoid arthritis ([facility] V24, [facility] V28) 07/17/2023 Cervical spinal stenosis 12/05/[address] scan, neck 11/23/2022 Impairment of balance 11/23/2022 Essential hypertension 10/27/2020 Past Surgical History: Procedure Laterality Date HYSTERECTOMY 1992 PROCEDURE: HISTORICAL HYSTERECTOMY; COMMENT: Partial hysterectomy HYSTERECTOMY PROCEDURE:HYSTERECTOMY SOCIAL HISTORY: Social History Tobacco Use Smoking status: Some Days Current packs/day: 0.25 Types: Cigarettes Smokeless tobacco: Never Substance Use Topics Alcohol use: Not Currently FAMILY HISTORY: No family history on file. No family status information on file. MEDICATIONS DISCONTINUED/REORDERED: There are no discontinued medications. ACTIVE MEDICATIONS: Outpatient Medications Marked as Taking for the 10/24/24 encounter (Office Visit) with Caitlyn Smith NP [...] day. for 90 days 30 tablet 2 calcium carbonate-vit D3-min 600 mg calcium- 400 [...] 2 times daily as needed for Other. FeroSuL 325 mg (65 mg iron) tablet TAKE 1 TABLET BY MOUTH ONCE DAILY 30 tablet 1 meclizine (ANTIVERT) 12.5 mg tablet Take 1 tablet (12.5 mg total) by mouth. melatonin 10 mg tablet Take 1 tablet (10 mg total) by mouth. multivitamin (Tab-A-Peggy) tablet Take 1 tablet by mouth 1 (one) time each day. Take 1 Tablet by mouth daily 30 tablet 2 multivitamin with iron (MULTIPLE VITAMINS WITH IRON ORAL) Take by mouth. NIFEdipine (ADALAT CC) 30 mg 24 hr tablet Take 1 tablet (30 mg total) by mouth 1 (one) time each day before breakfast. 90 tablet 3 omega-3 acid ethyl esters (LOVAZA) 1 gram [...] Containing Products PHYSICAL EXAM: Visit Vitals BP 120/60 (BP Location: Right arm, Patient Position: Sitting, BP Cuff Size: Adult) Pulse (!) 115 Temp 36.4 ??C (97.5 ??F) (Temporal) Ht 1.651 m (65 ) Wt 71.7 kg (158 lb) SpO2 98% BMI 26.29 kg/m?? Smoking Status Some Days BSA 1.79 m?? Physical Exam Constitutional: Appearance: Normal appearance. Cardiovascular: Rate and Rhythm: Normal rate and regular rhythm. Pulses: Normal pulses. Heart sounds: Normal heart sounds. Pulmonary: Effort: Pulmonary effort is normal. Breath sounds: Wheezing present. Neurological: Mental Status: She is alert and oriented to person, place, and time. Motor: Weakness (uses walker with seat) present. Gait: Gait abnormal (Patient struggled getting up from the chair displaying balance issues). Psychiatric: Mood and Affect: Mood normal. Behavior: Behavior normal. LABS/IMAGING: Appointment on 07/23/2024 Component Date Value [...] - 200 mg/dL Final HDL 09/11/2023 55 >=40 mg/dL Final LDL Cholesterol 09/11/2023 65 0 - 100 mg/dL Final Annual BMP Blood Test 03/05/2024 Abstracted Final Hemoglobin A1C 03/24/2022 5.6 <=6.5 % Final IMPRESSION: 1. Rheumatoid arthritis, involving unspecified site, unspecified whether rheumatoid factor present ([facility] V24, [facility] V28) 2. Cervical spinal stenosis 3. Essential (primary) hypertension 4. Gait instability 5. Slurred speech 6. Dizziness 7. Wheezing PLAN: 1. Rheumatoid arthritis, involving unspecified site, unspecified whether rheumatoid factor present ([facility] V24, [facility] V28) 2. Cervical spinal stenosis 3. Essential (primary) hypertension 4. Gait instability Ambulatory referral to Neurology 5. Slurred speech Ambulatory referral to Neurology 6. Dizziness Ambulatory referral to Neurology 7. Wheezing albuterol HFA (Ventolin HFA) 90 mcg/actuation inhaler Rheumatoid arthritis: following arthritis treatment jay for rheumatoid arthritis, supposed to beon sulfasalazine per helicopter engineer note, she is not sure if she is taking it 2. Cervical stenosis: patient was recommended C5-C6 laminectomies by neurosurgery Dr. Funes, patient declined. Not following neurosurgery anymore 3. Hypertension: patient is following nephrology Dr. Martin, blood pressure is stable 4. Unsteady gait, dizziness, slurred speech: patient referred to neurology to be evaluated for Parkinson's disease. Patient seems to be very unsteady, using a walker, speech is slurred, MRI brain seems to be negative. Declined increase in meclizine. 5. Wheezing: take albuterol inhaler as needed. Colonoscopy June 2023. Mammogram December 2022. Patient scheduled to follow up with PCP next month. Advised the patient to call me if any problems. Patient understands the plan. Patient is in agreement with the plan. Caitlyn Smith NP on 10/24/2024 at 12:33 PM EDT documented in this encounter Plan of Treatment Upcoming Encounters Date Type Department Care Team (Late st Contact Info) Description 10/25/2024 1:30 PM EDT Office Visit [facility] Hematology Oncology [address] [place] [phone] Lisa Perez PA [address] [place] [address] 11/20/2024 1:00 PM EDT Office Visit Orthopedic Surgery - [place] [address] [phone] Wandy Aviles NP [address] [address] 11/21/2024 1:00 PM EDT Office Visit Internal Medicine - [place] [address] [phone] Leslee Barnes MD [address] [phone] Scheduled Referrals Name Type Priority Associated Diagnoses Order Schedule Ambulatory referral to Neurology Outpatient Referral Routine Gait instability Slurred speech Dizziness 1 Occurrences starting 10/24/2024 until 10/24/2025 documented as of this encounter Visit Diagnoses Diagnosis Rheumatoid arthritis, involving unspecified site, unspecified whether rheumatoid factor present ([facility] V24, [facility] V28)- Primary Cervical spinal stenosis Spinal stenosis in cervical region Essential (primary) hypertension Unspecified essential hypertension Gait instability Abnormality of gait Slurred speech Other speech disturbance Dizziness Dizziness and giddiness Wheezing documented in this encounter Care Teams Robotics Technologist Relationship Specialty Start Date End Date Leslee Barnes MD [address] [phone] PCP - General Internal Medicine 12/15/21 documented as of this encounter
--- OUTSIDE RECORDS SUMMARY | 2024-10-24 14:24 | XMS_ITS | Clinical Summary ---
Author Organization 175 [facility] Address 175 [place] [address] Phone Care Team Providers Care Economic Development Director Name Role Phone Heena Barnes MD Primary Care Provider [phone] Allergies Active Allergy Reactions Criticality Noted Date [...] (VOLTAREN) 1 % topical gel 1 Active meclizine (ANTIVERT) 12.5 mg tablet Take [...] each day. 90 capsule 3 5 Active acetaminophen (TYLENOL) 325 mg tablet [...] 90 days 30 tablet 2 5 Active FeroSuL 325 mg (65 mg iron) tablet TAKE 1 TABLET BY MOUTH ONCE DAILY 30 tablet 1 5 Active rosuvastatin (CRESTOR) 20 mg tablet Take 1 tablet (20 mg total) by mouth at bedtime. 60 tablet 1 5 Active NIFEdipine (ADALAT CC) 30 mg 24 hr tablet Take 1 tablet (30 mg total) by mouth 1 (one) time each day before breakfast. 90 tablet 3 5 Active albuterol HFA (Ventolin HFA) 90 mcg/actuation inhalerIndicat ions:Wheezing Inhale 2 puffs by mouth every 4 (four) hours if needed for wheezing or shortness of breath. 8 g 5 5 10/25/19 Active labetaloL (NORMODYNE) 100 mg tablet Take 2 Tablets by mouth 2 times daily., Disp-60 Tablet, R-5, Historic From nephrology Chang Castro 2 10/10/19 Discontinu ed( ) rosuvastatin (CRESTOR) 20 mg tablet Take 1 tablet (20 mg total) by mouth at bedtime. 60 tablet 1 5 10/10/19 Discontinu ed(Reorder ) NIFEdipine (ADALAT CC) 30 mg 24 hr tablet Take 1 tablet (30 mg total) by mouth 1 (one) time each day before breakfast. 5 10/10/19 Discontinu ed(Reorder ) Active Problems Problem Noted Date Diagnosed Date Depression, unspecified 06/03/2024 Altered mental status, unspecified 06/03/2024 Other toxic encephalopathy 06/03/2024 Anxiety disorder, unspecified 06/03/2024 Rheumatoid arthritis, unspec ified ([facility] V24, [facility] V28) 06/03/2024 Essential (primary) hypertension 06/03/2024 Severe obesity ([facility] V24, [facility] V28) 2023 Gait instability 07/18/2023 Primary osteoarthritis of left knee 07/18/2023 Primary osteoarthritis of right knee 07/18/2023 Hyperlipidemia 07/17/2023 Osteopenia 07/17/2023 Rheumatoid arthritis ([facility] V24, [facility] V28) 07/17/2023 Cervical spinal stenosis 12/05/2022 Overview (03/28/2024): [...] general anesthesia with risk of stroke or SC, risk for hematoma, infection, damage to the [...] Encounters Date Type Department Care Team Description 10/24/2024 11:00 AM EDT Office Visit Internal Medicine - [address] [place] [address] Caitlyn Smith NP Rheumatoid arthritis, involving unspecified site, unspecified whether rheumatoid factor present ([facility] V24, [facility] V28) (Primary Dx); Cervical spinal stenosis; Essential (primary) hypertension; Gait instability; Slurred speech; Dizziness; Wheezing 10/15/2024 Telephone Internal Medicine - [place] [address] [address] Heena Barnes MD Hypotension 10/09/2024 1:30 PM EDT Office Visit Internal Medicine [address] [address] Heena Barnes MD Chronic pain of right knee (Primary Dx); Mixed hyperlipidemia; Essential hypertension; Rheumatoid arthritis, involving unspecified site, unspecified whether rheumatoid factor present (CMS/HCC V24, CMS/HCC V28); Depression, unspecified depression type 10/09/2024 Telephone Internal Medicine [address] [phone] Court [place] 10/08/2024 Telephone Internal Medicine [address] [address] Heena Barnes MD [place]: Referral 10/02/2024 Telephone Internal Medicine [address] [address] Heena Barnes MD Prior Auth 09/19/2024 Telephone Internal [address] [address] Do Jones [place] Request For Order(s) (/[facility] - Order [id number]/) 09/10/2024 Telephone Internal Medicine [address] [address] Do Jones [place] Request For Order(s) ([facility] - Order [id number]/) 09/05/2024 Telephone Internal Medicine [address] [address] Heena Barnes MD Referral 09/02/2024 Telephone Internal [address] [address] Do Jones [place] Request For Order(s) ([facility] Cert 08/28/24-10/26/24 Plan Of Care /) 08/28/2024 Telephone Internal Medicine [address] [phone] Do Jones [place] Request For Order(s) ([facility] - Order [id number]/) 08/26/2024 Telephone Internal [address] [phone] Heena Barnes MD VNA 08/15/2024 Telephone Internal Medicine [address] [address] Do Jones [place] Request For Order(s) ([facility] - Order [id number]/) 08/13/2024 [place] Internal [address] [address] Heena Barnes MD [place] - Referral 08/08/2024 1:15 PM EST Office Visit Internal Medicine [address] [phone] Caitlyn Smith NP Anemia, unspecified type (Primary Dx); Multiple falls; Osteoarthritis of both knees, unspecified osteoarthritis type; Rheumatoid arthritis, involving unspecified site, unspecified whether rheumatoid factor present (CMS/HCC V24, CMS/HCC V28); Cervical spinal stenosis; Essential (primary) hypertension; Gait instability; Slurred speech 08/08/2024 [place] Internal Medicine [address] [phone] Heena Barnes MD DME 07/29/2024 Telephone Internal Medicine [address] [phone] Do Jones [place] Request For Order(s) ([facility] - Order QHFX/) from Last 3 Months Immunizations Name Administration [...] History Medical History Date Comments Rheumatoid arthritis (CMS/HC C V24, CMS/HCC V28) DX:Rheumatoid arthritis (HCC ) Essential (primary) hypertension DX:Essential (primary) hypertension Mixed hyperlipidemia DX:Mixed hy perlipidemia Hypertension DX:Hypertension Hyperlipidemia DX:Hyperlipidemi a Osteopenia DX:Osteopenia Cervical spinal stenosis DX:Cerv ical spinal stenosis Social History Tobacco Use Types Packs/Day Years Used Date Smoking Tobacco: Some Days Cigarettes Smokeless Tobacco: Never Tobacco Cessation:Ready to Q [...] Mass Index 26.29 10/24/2024 11:19 AM EDT Plan of Treatment Upcoming Encounters Date Type Department Care Team (Late st Contact Info) Description 10/25/2024 1:30 PM EDT Office Visit [facility] Hematology Oncology [address] [place] [phone] Lisa Perez PA [address] [place] [address] 11/20/2024 1:00 PM EDT Office Visit Orthopedic Surgery - [place] [address] [phone] Wandy Aviles NP 175 [facility] [address] [place] [address] 11/21/2024 1:00 PM EDT Office Visit Internal Medicine - [place] 175 [facility] 200 [place] [phone] Heena Barnes MD [address] [phone] Health Maintenance Due Date Last Done Comments DTaP,Tdap,and Td Vaccines (1 - Tdap) 1969 Pneumococcal Vaccine: 50+ Years (1 of 2 - PCV) 1969 Zoster Vaccines (1 of 2) 2000 RSV Immunization Adult Patients (1 - Risk 60-74 years 1-dose series) [...] age to complete this topic Meningococcal B Vaccine Aged Out No l onger eligible based on patient's age to complete [...] LIPID PANEL Routine 09/11/2023 COLONOSCOPY Routine 06/08/2023 [facility] SCREENING DIGITAL Routine 12/07/2022 11:16 AM EDT Encounter for screening mammogram for malignant neoplasm of breast [facility] DEXA AXIAL SKELETON Routine 04/07/2022 11:05 AM EDT Encounter for screening for osteoporosis from Last 3 Months or Most Recently Relevant to Health Maintenance Results * Basic metabolic panel (07/23/2024 1:01 PM EST) Sodium 140 133 - 145 mmol/L LAB CHEMISTRY METHOD 07/23/2024 2:33 PM EST [facility] Potassium 3.8 3.5 - 5.5 mmol/L LAB CHEMISTRY METHOD 07/23/2024 2:33 PM [facility] Chloride 108 96 - 110 mmol/L LAB CHEMISTRY METHOD 07/23/2024 2:33 PM [facility] CO2 28 21 - 32 mmol/L LAB CHEMISTRY METHOD 07/23/2024 2:33 PM [facility] Anion Gap 4 3 - 11 LAB CHEMISTRY METHOD 07/23/2024 2:33 PM [facility] Glucose 96 70 - 100 mg/dL LAB CHEMISTRY METHOD 07/23/2024 2:33 PM [facility] BUN 11 5 - 25 mg/dL LAB CHEMISTRY METHOD 07/23/2024 2:33 PM [facility] Creatinine 0.81 0.50 - 1.10 mg/dL LAB CHEMISTRY METHOD 07/23/2024 2:33 PM [facility] eGFR 77 >=60 mL/min/1. 73m2 LAB CHEMISTRY METHOD 07/23/2024 2:33 PM [facility] Comment:Calculation based on the??Chronic Kidney Disease Epidemiology Collaboration (CKD-EPI) equation refit??without adjustment for race. BUN/Creatinine Ratio 13.6 LAB CHEMISTRY METHOD 07/23/2024 2:33 PM [facility] Calcium 9.4 8.5 - 10.5 mg/dL LAB CHEMISTRY METHOD 07/23/2024 2:33 PM [facility] Blood Venous blood specimen / Unknown Venipuncture / Unknown 07/23/2024 1:01 PM EST 07/23/2024 1:01 PM EST Dc Martin MD LAB BLOOD ORDERABL ES Final Result [facility] [address] [place] [address], [place] [phone] * Lipid panel (09/11/2023) LDL/HDL Ratio 3 [...] AM EDT Narrative 12/07/2022 11:16 AM EDT [facility] Diagnostic Imaging Department [address] [place] [address] Patient: ??LINDA SAGE ?/Age/Sex: 1950 - 72 - F Unit#: ??[id number] ? Location/Status: ??SPDIMAM/REG CLI ? Mnemonic/Ordering Site: ??DIGSC/SPMAM Ordering Physician: ??HEENA BARNES MD Buzz Screening Digital - 12/07/221041 EXAM: Buzz Screening Digital EXAM DATE AND TIME: 12/07/2022 10:43 AM HISTORY: ??Screening. COMPARISON: ??11/01/21, 03/25/20, 02/19/19 TECHNIQUE: CC and MLO views of both breasts were obtained using full field digital mammography. Bilateral digital breast tomosynthesis was performed in the MLO projection. Computer aided detection with FamilyID 7.2-H and [facility] 3D 3.1 was employed. TISSUE DENSITY: b. [...] Routine screening mammogram BILATERAL in 1 year. 59433, 46772 3342F, 7025F Dictating Physician: ??SALIMA MARINA MD Electronically Signed by: ??SALIMA MARINA MD Dic Date/Time: ??12/07/22 1116 Sign date/Time: ??12/07/22 1116 Procedure Note Salima Marina MD - 08/04/2023 [facility] Diagnostic Imaging Department [address] [place], [place] [id number] Patient: SHIRINLINDA L /Age/Sex: 1950 - 72 - F Unit#: [id number] [facility] Ordering Physician: HEENA BARNES MD [facility] Screening Digital - 12/07/22 - 1042 EXAM: [facility] Screening Digital EXAM DATE AND TIME: 12/07/2022 10:43 AM HISTORY: Screening. COMPARISON: 11/01/21, 03/25/20, 02/19/19 TECHNIQUE: CC and MLO views of both breasts were obtained using fullfield digital mammography. Bilateral digital breast tomosynthesis was performedin the MLO projection. Computer aided detection with FamilyID 7.2-H and[facility] 3D 3.1 was employed. TISSUE DENSITY: b. [...] Routine screening mammogram BILATERAL in 1 year. 25025, 13367 3342F, 7025F Dictating Physician: SALIMA MARINA MD Electronically Signed by: SALIMA MARINA MD Dic Date/Time: 12/07/22 1116 Sign date/Time: 12/07/22 1116 us Heena Barnes MD IMG BI PROCEDURES Final Result * [facility] DEXA AXIAL SKELETON (04/07/2022 11:05 AM EDT) Anatomical Region Laterality Modality Mammography 04/07/2022 10:1 9 AM EDT Narrative 04/07/2022 11:05 AM EDT [facility] Diagnostic Imaging Department [address] [place] [address] Patient: ??LINDA SAGE ?/Age/Sex: 1950 71 - F Unit#: ??[id number] ? Location/Status: ??SPDIMAM/REG CLI ? Mnemonic/Ordering Site: ??MAMDEXAAX/SPMAM Ordering Physician: ??HEENA BARNES MD [facility] Dexa Axial Skeleton - 04/07/221056 HISTORY: ??The [...] probability of hip fracture of 2.2%. Code 92890 Dictating Physician: ??DAVID PERRY MD Electronically Signed by: ??DAVID PERRY MD Dic Date/Time: ??04/07/22 1104 Sign date/Time: ??04/07/22 1105 Procedure Note David Perry MD - 06/22/2022 [facility] Diagnostic Imaging Department [address] [place], [place] [address] Patient: LINDA SAGE Kalyn /Age/Sex: 1950 - 71 - F Unit#: [id number] Location/Status: [facility] Mnemonic[facility] Ordering Physician: HEENA BARNES MD Buzz Dexa Axial Skeleton - 04/07/22 - 3260 HISTORY: The patient is a 71-year-old postmenopausal [...] density of the femurs bilaterally is 0.964 gm/wl5oihgj is 96% of that of young normals [...] probability of hip fracture of 2.2%. Code 47436 Dictating Physician: DAVID PERRY MD Electronically Signed by: DAVID PERRY MD Dic Date/Time: 04/07/22 1104 Sign date/Time: 04/07/22 1105 Heena Barnes MD IMG BI PROCEDURES Final Result from Last 3 Months or Most Recently Relevant to Health Maintenance Insurance [facility] MEDICARE Member Subscriber Plan / Payer (Ef fective 2021-Present) Name:Linda Sage Relation to Subscriber:Self Name:Linda Sage Payer ID:[id number] Group ID:[id number] Type:Not on file Address: [address] [place] [address] Care Teams Economic Development Director Relationship Specialty Start Date End Date Heena Barnes MD [address] [place] [phone] PCP - General Internal Medicine 12/15/21
--- OUTSIDE RECORDS SUMMARY | 2024-10-24 14:24 | XMS_ITS | Encounter Summary ---
Author Organization [facility] Address [address] [place] [address] Care Team Providers Care Cat Hooker Name Role Phone Leslee Barnes MD Primary Care Provider [phone] Encounter Details Date Type Department Care Team (Late st Contact Info) Description 04/26/2024 2:00 PM EDT Hospital Encounter TH HISTORIC ENCOUNTERS EASTERN CONVERSION ONLY Lisa Perez PA [address] [place] [address] Social History Tobacco Use Types Packs/Day Years [...] Description 10/25/2024 1:30 PM EDT Office Visit [facility] Hematology Oncology [address] [place] [phone] Lisa Perez PA [address] [place] [address] 11/20/2024 1:00 PM EDT Office Visit Orthopedic Surgery - [place] 250 175 [facility] 250 [place] [address] Wandy Aviles NP [address] [address] 11/21/2024 1:00 PM EDT Office Visit Internal Medicine - [place] 175 [facility] 200 [place] [phone] Leslee Barnes MD [address] [address] documented as of this encounter Visit Diagnoses Not on filedocumented in this encounter Care Teams Cat Hooker Relationship Specialty Start Date End Date Leslee Barnes MD [address] [phone] PCP - General Internal Medicine 12/15/21 documented as of this encounter
--- OUTSIDE RECORDS SUMMARY | 2024-10-24 14:24 | XMS_ITS | Clinical Summary ---
Author Organization [facility] Address [address] [place] [address] Care Team Providers Care Legal Officer Name Role Phone Leslee Barnes MD Primary Care Provider [phone] Allergies Active Allergy Reactions Criticality Noted Date [...] PO Take by mouth. 0 Acti ve Gztrs-3-Ftvq Eth Est, Dietary, 1 g CAPS Take [...] age to complete this topic Care Teams Legal Officer Relationship Specialty Start Date End Date Leslee Barnes MD [address] [place] [address] PCP - General Internal Medicine 01/29/24
--- OUTSIDE RECORDS SUMMARY | 2024-10-24 14:24 | XMS_ITS | Encounter Summary ---
Author Organization [facility] Address [address] [place] [address] Care Team Providers Care Sales Director Name Role Phone Leslee Barnes MD Primary Care Provider [phone] Encounter Details Date Type Department Care Team (Late st Contact Info) Description 04/12/2024 12:40 PM EDT Hospital Encounter TH HISTORIC ENCOUNTERS EASTERN CONVERSION ONLY Lisa Perez PA [address] [place] [address] Social History Tobacco Use Types Packs/Day Years [...] Perez PA-C Service: -- Author Type: Physician Sewing Machine Assembler Filed: 04/12/2024 2:08 PM Encounter Date: 04/12/2024 Status: Addendum Hand Braille Transcriber: Lisa Perez PA-C (Physician Sewing Machine Assembler) Related Notes: Original Note by Lisa Perez PA-C (Physician Sewing Machine Assembler) filed at 04/12/2024 2:[address] [...] Take by mouth., Disp: , Rfl: ? Dhfph-5-Jqug Eth Est, Dietary, 1 g CAPS, Take [...] MD Sign: Lisa Perez PA-C Hematology/Oncology [facility] [phone] documented in this encounter Plan of Treatment Upcoming Encounters Date Type Department Care Team (Late st Contact Info) Description 10/25/2024 1:30 PM EDT Office Visit [facility] Hematology Oncology [address] [place] [phone] Lisa Perez PA [address] [place] [address] 11/20/2024 1:00 PM EDT Office Visit Orthopedic Surgery - [place] [address] [phone] Wandy Aviles NP [address] [address] 11/21/2024 1:00 PM EDT Office Visit Internal Medicine - [place] [address] [phone] Leslee Barnes MD [address] [phone] documented as of this encounter Procedures Procedure Name Priority Date/Time Associated Diagnosis Comments ..MISCELLANEOUS REFERENCE LAB TEST 04/12/2024 documented in this encounter Results * Miscellaneous reference lab test (04/12/2024) us Provider Onbase MD LAB BLOOD ORDERABLES Final Re sult documented in this encounter Visit Diagnoses Not on filedocumented in this encounter Care Teams Sales Director Relationship Specialty Start Date End Date Leslee Barnes MD [address] [place] [phone] PCP - General Internal Medicine 12/15/21 documented as of this encounter
--- OUTSIDE RECORDS SUMMARY | 2024-10-24 14:24 | XMS_ITS | Encounter Summary ---
Author Organization [facility] Address [address] [place] [address] Care Team Providers Care Infection Control Preventionist Name Role Phone Leslee Barnes MD Primary Care Provider [phone] Reason for Visit * Reason Onset Date Comments Hypotension 10/15/2024 Encounter Details Date Type Department Care Team (Late st Contact Info) Description 10/15/2024 Telephone Internal Medicine - [place] [address] [facility] [address] [place] [phone] Leslee Barnes MD [address] [facility] [address] [place] [address] Hypotension Social History Tobacco Use Types Packs/Day Years [...] as of this encounter Progress Notes * Mally Moreland RN - 10/16/2024 9:01 AM EDT Call to pt # [phone], spoke w/ pt's son Roly. 2 days ago a [facility] RN came to the house to give the pt her medications and take her vitals - the pt says the BP was low, but is unsure what the actual number was, says the BP was at 10 but the son didn't know what that meant and the pt did not give any further information The pt says the BP was normal yesterday, does not know the numbers. Says the pt is having ongoing issues with some dizziness over the past couple months. Back on 10/09 did have an appt w/ Dr. Barnes and BP was normal 130s/70s The son wants to have the pt's medications changed. I told him we can't do anything without any actual information. He is going to call the [facility] and get the numbers. I told him the pt has an appt coming up 10/24 with Caitlyn and that a larger med rec can be done during that appt with discussion aboutany meds that can be d/c'd, as he wants to review all of her medications. He says he will call backwith the BP numbers * Susan Forbes RN - 10/15/2024 11:52 AM EDT Call to pt # [phone], this number is busy. Called pt # [phone] , left message to call back * Cherry Ryan - 10/15/2024 11:49 AM EDT Patients patient care manager called and is very concerned about patient BP because it has been dangerously low and he does not know If it is due to the medication changes and is worried. Please advise Cb# [phone] documented in this encounter Plan of Treatment Upcoming Encounters Date Type Department Care Team (Late st Contact Info) Description 10/25/2024 1:30 PM EDT Office Visit [facility] Hematology Oncology [address] [place] [phone] Lisa Perez PA [address] [place] [address] 11/20/2024 1:00 PM EDT Office Visit Orthopedic Surgery - [place] [address] [phone] Wandy Aviles NP [address] [address] 11/21/2024 1:00 PM EDT Office Visit Internal Medicine - [place] [address] [phone] eLslee Barnes MD [address] [phone] documented as of this encounter Visit Diagnoses Not on filedocumented in this encounter Care Teams Infection Control Preventionist Relationship Specialty Start Date End Date Leslee Barnes MD [address] [phone] PCP - General Internal Medicine 12/15/21 documented as of this encounter
--- OUTSIDE RECORDS SUMMARY | 2024-10-24 14:24 | XMS_ITS | Encounter Summary ---
Author Organization [facility] Address [address] [place] [address] Care Team Providers Care Boring And Filling Machine Operator Name Role Phone Leslee Barnes MD Primary Care Provider [phone] Encounter Details Date Type Department Care Team (Late st Contact Info) Description 04/10/2024 4:43 PM EDT Hospital Encounter TH HISTORIC ENCOUNTERS EASTERN CONVERSION ONLY Leslee Barnes MD 175 [facility] [address] [place] [phone] Social History Tobacco Use Types Packs/Day Years [...] 10/25/2024 1:30 PM EDT Office Visit [facility] Hematology Oncology [address] [place] [phone] Lisa Perez PA [address] [place], [place] [phone] 11/20/2024 1:00 PM EDT Office Visit Orthopedic Surgery [facility] [address] [phone] Wandy Aviles NP [address] [address] 11/21/2024 1:00 PM EDT Office Visit Internal Medicine - [place] 175 [facility] 200 [place] [address] Leslee Barnes MD [address] [phone] documented as of this encounter Visit Diagnoses Not on filedocumented in this encounter Care Teams Boring And Filling Machine Operator Relationship Specialty Start Date End Date Leslee Barnes MD [address] [phone] PCP - General Internal Medicine 12/15/21 documented as of this encounter
--- OUTSIDE RECORDS SUMMARY | 2024-10-24 14:24 | XMS_ITS | Encounter Summary ---
Author Organization [facility] Address [address] [place] [address] Care Team Providers Care Mortgage Loan Officer Name Role Phone Leslee Barnes MD Primary Care Provider [phone] Encounter Details Date Type Department Care Team (Late st Contact Info) Description 04/26/2024 2:02 PM EDT Hospital Encounter TH HISTORIC ENCOUNTERS EASTERN CONVERSION ONLY Lisa Perez PA [address] [place] [address] Social History Tobacco Use Types Packs/Day Years [...] Perez PA-C Service: -- Author Type: Physician Emu Farmer Filed: 04/29/2024 11:59 AM Encounter Date: 04/26/2024 Status: Signed Supervisor Counseling And Guidance: Lisa Perez PA-C (Physician Emu Farmer) Cosigner: Deb Paige MD at 04/29/2024 12:12 [...] Take by mouth., Disp: , Rfl: ? Zndsy-2-Ezwj Eth Est, Dietary, 1 g CAPS, Take [...] MD Sign: Lisa Perez PA-C Hematology/Oncology [facility] [phone] documented in this encounter Plan of Treatment Upcoming Encounters Date Type Department Care Team (Late st Contact Info) Description 10/25/2024 1:30 PM EDT Office Visit [facility] Hematology Oncology [address] [place] [phone] Lisa Perez PA [address] [place] [address] 11/20/2024 1:00 PM EDT Office Visit Orthopedic Surgery - [place] [address] [phone] Wandy Aviles NP [address] [phone] 11/21/2024 1:00 PM EDT Office Visit Internal Medicine - [place] 175 [facility] [address] [place] [phone] Leslee Barnes MD 175 [facility] [address] [place] [phone] documented as of this encounter Procedures Procedure Name Priority Date/Time Associated Diagnosis Comments ..MISCELLANEOUS REFERENCE LAB TEST 04/26/2024 ..MISCELLANEOUS REFERENCE LAB TEST 04/26/2024 documented in this encounter Results * Miscellaneous reference lab test (04/26/2024) us Provider Onbase MD LAB BLOOD ORDERABLES Final Re sult * Miscellaneous reference lab test (04/26/2024) us Provider Onbase MD LAB BLOOD ORDERABLES Final Re sult documented in this encounter Visit Diagnoses Not on filedocumented in this encounter Care Teams Mortgage Loan Officer Relationship Specialty Start Date End Date Leslee Barnes MD [address] [phone] PCP - General Internal Medicine 12/15/21 documented as of this encounter
== END 2024-10-24 13:59 | disposition home or self-care (01) ==
LOC: HO.HUSH 12:07
PROVIDERS: PCP Internal Medicine; Visit Provider Nurse Practitioner Family
DX: R35.1 Nocturia (principal); R33.9 Retention of urine, unspecified; Z13.9 Encounter for screening, unspecified
CPT/HCPCS: 99203

== ENCOUNTER → 2024-10-24 12:07 | Outpatient (BNVA) | payer OTHER, SELFPAY | PROVIDERS: PCP Internal Medicine; Visit Provider Nurse Practitioner Family | DX: R35.1 Nocturia (principal); R33.9 Retention of urine, unspecified | CPT/HCPCS: 51798; 81003; 99202 ==

== ENCOUNTER 2024-11-19 13:30 | Outpatient (AMB) | payer OTHER, SELFPAY ==
[2024-11-19 13:34] VITALS: BP 144/76; PULSE 83; O2SAT 98; BMI 27.1
--- NOTE | 2024-11-19 13:34 | MHC.OFFVIS ---
Vital Signs 11/19/24 13:34 Height 5 ft 5 in Weight 163 lb BMI 27.1 BP 144/76 H Blood Pressure Location Rt brachial Position Sitting Pulse 83 Pulse Source Pulse Oximeter Pulse Oximetry (%) 98 Oxygen Delivery Method Room Air Intake Visit Reasons: Follow Up 6mo Intake Note: Patient presents 6 month follow up for migraines/tremors. 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 Required: No Accompanied by: Self / Same As Patient Allergies CRAB Allergy (Intermediate, Uncoded 11/19/24 13:39) HIVES, RASH, STOMACH PAINS Medication List - Last Reconciled 11/19/24 by MAINOR Alberto ascorbic acid (vitamin C) (Vitamin C) PO calcium carbonate-vitamin D3 600 mg-10 mcg (400 unit) 1 tab PO BID carbidopa-levodopa 25-100 mg 0.5 - 1 tabs PO BID 30 days carvedilol (Coreg) 6.25 mg PO BID ferrous sulfate 325 mg PO DAILY fluticasone propionate 50 mcg/actuation (Children's Flonase Allergy Relief) 1 spray intranasal DAILY galcanezumab-gnlm (Emgality Pen) 120 mg subcut ONCE 30 days hydroxyzine HCl mg PO melatonin mg PO BEDTIME PRN nifedipine ER 30 mg PO .evening omega-3 acid ethyl esters 1 cap PO DAILY rosuvastatin 20 mg PO BEDTIME sulfasalazine PO DAILY ubrogepant (Ubrelvy) 50 - 100 mg (0.5 - 1 x 100 mg) PO ONCE PRN 30 days HPI Comments Details: 74-year-old female presenting for follow-up of Parkinson's Disease- early, w/ positive DaTscan, and migraine headaches. Patient reports she had [facility] ER eval a few days ago- after falling and hitting her head in her bathroom- she had been standing brushing her teeth when she became lightheaded and fell to the floor. ER workup including head CT was unremarkable. Her gait appeared unsteady, and Ear note indicates that patient was advised to have subacute rehab tx. However, patient states she was discharged home with home care services instead. She continues to have chronic dizziness. She previously denied orthostatic dizziness, but today states that the dizziness is worse when she stands up. She states that a nurse asked her to ask us about having a tilt-table test. Her BP treatment was changed from labetalol to carvedilol in July. BP is 144/76 today. She states she takes about 2 16-20 oz bottles of fluid per day- tries to avoid drinking more, to avoid urinary frequency. Patient's primary concern today is bothersome nocturia. She has recently seen [facility] urology, who has ordered additional workup to be completed. Patient today does endorse snoring, fragmented sleep, and now daytime sleepiness. She has not previously had a sleep study. She continues to need assistance with ADLs She experiences difficulty swallowing with solids and liquids- she is trying to use safe swallowing strategies, she is always eating in an upright position. 07/06/2023 [facility] showed deep/laryngeal penetration occurring with thin barium only, no tati aspiration.? She continues to have stiffness. She continues to have some memory issues and hallucinations. Rheumatoid arthritis managed by video control engineer. Patient reports that she did not receive her Emgality injection last month, and since her migraine attacks have increased to 3 times per week. She does continue to be photophobic, and does continue to wear sunglasses throughout the day. She is using Ubrelvy with generally good effect. 05/07/2024 HPI: Pt's primary concerns today: Pt reports she often feels drunk, off-balance, and dizzy. She would like to know which of her medications is causing this, as she feels when she wakes up she feels ok, but then she starts feeling dizzy after the nurse brings her her morning meds. She states she is falling a lot- the last fall was a week ago. She fell backwards in the bathroom while standing up and brushing her teeth. Never resumed PT. She does endorse blurry vision. She wears sunglasses inside d/t photophobia. Her last eye exam was 2 months ago. She states she can feel the ground when she is walking, but she is shuffling. She has been having a headache every other day. The headache is a throbbing holocranial a/w photophobia, increased dizziness, fatigue, activity intolerance. She has not yet tried Ubrelvy- states she did not know how to take it. PD meds: she states she tried CD-LD 25-100mg, unsure of effect but ran out. ADL's: Needs some help Swallowing: She states INCOME TAX INVESTIGATOR is asking for tx's- it helping some but she feels it is worsening. Hyposmia: Denies Drooling: At times Orthostatic lightheadedness: She is not sure. Maybe after she takes her morning meds. Tries not to drink too much to avoid voiding too often. Constipation: Denies Urinary symptoms: Voids 3-4 x's at night. Can feel like she will fall. Urinary leakage- wears a pad at night Tremor: She is not noticing any shaking. Dyskinesia: Denies Stiffness: Hands become stuck. Feels generally stiff. Gait changes: as above. Freezing: Denies. Her son- does notice this. Falls: as above Mood: Anxious at times Hallucinations: Denies Memory: Forgets little things Sleep: Not sleeping well. States just lays there and does not sleep. Does take cat naps. Exercise: She has a stepper or uses her bicycle at times. Previous work-up: 10/13/2023, DaTscan: Absence of activity is noted within the putamen bilaterally. Additionally, decreased activity seen in the right caudate nucleus. Impression: Decreased activity in bilateral basal ganglia. Differential diagnosis includes Parkinson's disease, multiple system atrophy, progressive supranuclear palsy, dementia with Lewy Bodies, and cortical basal degeneration. 08/22/23, MR/MR head/brain wo/w conIMPRESSION: 1. No acute infarct or other acute intracranial abnormality. 2. Moderate chronic white matter microangiopathy. 12/2021, [facility], Brain MRI wo:IMPRESSION: 1. No acute infarct. 2. Multifocal supratentorial white matter signal abnormality is nonspecific, but compatible with chronic microangiopathic/small vessel ischemic change. 01/2023, [facility], Head/Neck CTAIMPRESSION: 1. No acute intracranial large vessel occlusion. 2. No hemodynamically-significant stenosis of the extracranial internal carotid and vertebral arteries. 3. 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 ENT outpatient follow-up can be obtained. 01/2023, Head CT:IMPRESSION: 1. No acute intracranial abnormality. 2. No skull fracture. [facility] Medical History Rheumatoid arthritis Cervical spinal stenosis HTN (hypertension) Depressive disorder Surgical History H/O: hysterectomy History of partial hysterectomy Family History Mother HTN (hypertension) Hyperlipidemia Father Cancer, colon Social History Alcohol intake: never Patient Tobacco Use Status: Current someday Tobacco user Physical Exam Vital Signs: Last Vital Signs Pulse 83 11/19/24 13:34 BP 144/76 H 11/19/24 13:34 Pulse Ox 98 11/19/24 13:34 Oxygen Delivery Method Room Air 11/19/24 13:34 BMI result Body Mass Index 27.1 Const General: cooperative and no acute distress Resp Effort & Inspection: normal respiratory effort and able to speak in complete sentences Neuro Other: General: A&O x's 3. Photophobic Expression: Decreased Voice: Dysarthria- less noticeable today Tremor: Mild RUE postural tremor Tone: BUE L > R rigidity Dyskinesia: None FFM: Bradykinesia Foot taps: Bradykinesia Gait: Standing and gait overall better today. Wide base and slow to stand, slight stoop, short steps w/ low floor clearance, steady w/ walker. Psych: Pleasant affect. No noticeable anxiety symptoms. Assessment & Plan Assessment & Plan (1) Parkinson's disease without dyskinesia: Comment: Positive DaTSCAN Code(s): G20.A1 - Parkinson's disease without dyskinesia, without mention of fluctuations Category: Medical Qualifiers: Fluctuating manifestations: without fluctuating manifestations Qualified Code(s): G20.A1 - Parkinson's disease without dyskinesia, without mention of fluctuations (2) Dizziness: Code(s): R42 - Dizziness and giddiness Category: Medical (3) Nocturia: Code(s): R35.1 - Nocturia Category: Medical (4) Excessive daytime sleepiness: Code(s): G47.19 - Other hypersomnia Category: Medical (5) Snoring: Code(s): R06.83 - Snoring Category: Medical (6) Sleep difficulties: Code(s): G47.9 - Sleep disorder, unspecified Category: Medical (7) Tremor: Comment: DaTscan: Decreased activity in bilateral basal ganglia. Code(s): R25.1 - Tremor, unspecified Category: Medical (8) Dysarthria: Code(s): R47.1 - Dysarthria and anarthria Category: Medical (9) Difficulty swallowing: Code(s): R13.10 - Dysphagia, unspecified Category: Medical Qualifiers: Dysphagia type: unspecified Qualified Code(s): R13.10 - Dysphagia, unspecified (10) Migraine without aura: Code(s): G43.009 - Migraine without aura, not intractable, without status migrainosus Category: Medical Qualifiers: Intractability: not intractable Status migrainosus presence: without status migrainosus Qualified Code(s): G43.009 - Migraine without aura, not intractable, without status migrainosus Plan For recent fall secondary to lightheadedness: Reviewed interval [facility] ER notes, head CT results unremarkable. Patient encouraged to increase fluid intake to at least 64 oz per day, however limiting fluids 2-3 hours before bedtime. Patient advised to undergo in-lab PSG to assess for sleep apnea, which if present, may be contributing to nocturia symptoms. Continue to stand slowly. We will reach out to nephrology, to see if they would consider ordering a 24 hour blood pressure monitor, rather than tilt-table testing, as I am not confident she would tolerate this well. For PD: Previous brain MRI and DaTscan results, showing decreased activity in bilateral basal ganglia. Pt's slowly progressing s/s including gait changes, rigidity, bradykinesia, memory and speech changes. Pt has had a positive response to levodopa. Continue CD-LD 25-100mg 1 tab bid. Continue PT exercises. Continue INCOME TAX INVESTIGATOR exercises. Again emphasized importance of staying hydrated during the day. Continue to stand slowly and walk with walker. Continue to optimize CV risk factors, including follow-up w/ nephrology as scheduled. Follow-up with urology as scheduled Follow-up with Rheumatology for arthritis as scheduled Report any falls or significant changes in dizziness to healthcare providers. For migraine w/o aura prevention: Resume Emgality 120mg sc monthly- as pt has had good clinical effect from use- and unfortunately migraine frequency has increased since she did not receive Emgality injection last month. Continue coreg/carvedilol- used for HTN tx. Previous trials- Amitriptyline- not tolerated. Labetolol- pt felt caused dizziness. For acute migraine w/o aura tx: Continue Ubrogepant (Ubrelvy) 100mg tab, 1/2 - 1 tab (50-100mg) at onset of headache, may repeat in 2 hours. Max of 2 tabs (200mg) per 24 hours. May adjunct with OTC Tylenol 650-1000mg q 4-6 hours prn. Acute migraine tx contraindications: all triptans and DHE d/t variable in uncontrolled HTN. Pt to follow-up in 3-6 months or sooner prn. Orders: Orders RT PSG in-lab sleep study 11/19/24 R35.1 - Nocturia, G47.19 - Other hypersomnia, R06.83 - Snoring, G47.9 - Sleep disorder, unspecified Medications: Changed From carbidopa-levodopa 25-100 mg take w/ a cracker 30 minutes before breakfast and dinner, 0.5 - 1 tabs PO BID 30 days 60 tabs 6RF To carbidopa-levodopa 25-100 mg take w/ a cracker 30 minutes before breakfast and dinner, 0.5 - 1 tabs PO BID 60 tabs 6RF 30 days Refilled galcanezumab-gnlm (Emgality Pen) maintenance dose of 120 mg subcu q.month. 120 mg subcut ONCE 1 mL 6RF 30 days Coding Level of Care Code Est Pt Level 4 (05334) Diagnoses Parkinson's disease without dyskinesia or fluctuating manifestations G20.A1 Fluctuating manifestations: without fluctuating manifestations Dizziness R42 Nocturia R35.1 Excessive daytime sleepiness G47.19 Snoring R06.83 Sleep difficulties G47.9 Tremor R25.1 Dysarthria R47.1 Dysphagia, unspecified type R13.10 Dysphagia type: unspecified Migraine without aura and without status migrainosus, not intractable G43.009 Intractability: not intractable Status migrainosus presence: without status migrainosus [place] Sleepiness Scale Questions Sitting and reading: high chance of dozing Watching TV: high chance of dozing Sitting inactive in a theater, movie etc.: slight chance of dozing As a passenger in a car for an hour without break: would never doze Lying down in the afternoon when circumstances permit: high chance of dozing Sitting and talking to someone: would never doze Sitting quietly after lunch without alcohol: high chance of dozing In a car, while stopped for a few minutes in the traffic: would never doze ESS < 10: normal, ESS > 12: pathologic: 13
--- OUTSIDE RECORDS SUMMARY | 2024-11-19 14:40 | XMS_ITS | Clinical Summary ---
Author Organization [facility] Address [address] [facility] [address] [place] [address] Phone Care Team Providers Care Business Applications Analyst Name Role Phone Leslee Barnes MD Primary Care Provider Allergies Active Allergy Reactions Criticality Noted Date [...] Heart disease Sibling 2 Stroke Sibling 3 [place] Relation Status Comments Father Mother Alive Sibling [...] patient's age to complete this topic [place] [address] ([id number]) [facility] ([id number]) Care Teams Business Applications Analyst Relationship Specialty Start Date End Date Leslee Barnes MD [address] [place] [phone] PCP - General Internal Medicine 04/27/22
--- OUTSIDE RECORDS SUMMARY | 2024-11-19 14:40 | XMS_ITS | Encounter Summary ---
Author Organization [facility] Address [address] [place] [address] Care Team Providers Care Auto Body Service Mechanic Name Role Phone Leslee Barnes MD Primary Care Provider [phone] Encounter Details Date Type Department Care Team (Late st Contact Info) Description 04/10/2024 4:43 PM EDT Hospital Encounter TH HISTORIC ENCOUNTERS EASTERN CONVERSION ONLY Leslee Barnes MD 175 [facility] [address] [place] [phone] Social History Tobacco Use Types Packs/Day Years [...] Department Care Team (Late Contact Info) Description 11/20/2024 1:00 PM EDT Office Visit Orthopedic Surgery - [place] 250 175 [facility] 250 [place] [phone] Wandy Aviles NP 175 [facility] [address] [place] [address] 11/21/2024 1:00 PM EDT Office Visit Internal Medicine - [place] [address] [phone] Leslee Barnes MD [address] [phone] documented as of this encounter Visit Diagnoses Not on filedocumented in this encounter Care Teams Auto Body Service Mechanic Relationship Specialty Start Date End Date Leslee Barnes MD [address] [phone] PCP - General Internal Medicine 12/15/21 documented as of this encounter
--- OUTSIDE RECORDS SUMMARY | 2024-11-19 14:40 | XMS_ITS | Clinical Summary ---
Author Organization [facility] Address [address] [place] [address] Phone Care Team Providers Care Foot And Ankle Surgeon Name Role Phone Heena Barnes MD Primary Care Provider [phone] Allergies Active Allergy Reactions Criticality Noted Date Comments Aspirin Other 10/27/2020 Leflunomide Medium 03/17/2022 Rash Rash Penicillins Nausea And Vomiting,Other 10/27/2020 Shellfish Containing Products 03/28/2024 Medications amitriptyline (ELAVIL) 25 mg tablet Take 1 tablet (25 mg total) by mouth. Active calcium carbonate-vit D3-min 600 mg calcium- 400 unit tablet 09/22/19 21 Active clotrimazole-b etamethasone (LOTRISONE) 1-0.05 % cream 08/14/19 21 Active diclofenac (VOLTAREN) 1 % topical gel 02/02/20 21 Active meclizine (ANTIVERT) 12.5 mg tablet Take 1 tablet (12.5 mg total) by mouth 3 (three) times a day if needed for dizziness. 03/17/20 22 Active triamcinolone acetonide (KENALOG-40) 40 mg/mL injection Inject 1 mL (40 mg total) into the joint. 10/17/19 24 Active underpads 30 X 36 pad 1 each by Not Applicable route. Incontinence Supply Disposable (Disposable Underpads 30 x36 ) Misc 1 Each by Does not apply route daily. 03/27/20 24 Active petrolatum,whi te (BALMEX, PETROLATUM, TOP) Apply 1 each topically 1 (one) time each day. 03/27/20 24 Active melatonin 10 mg tablet Take 1 tablet (10 mg total) by mouth. Active multivitamin with iron (MULTIPLE VITAMINS WITH IRON ORAL) Take by mouth. Acti ve DICLOFENAC SODIUM TOP Diclofenac Sodium 1 % Cream Apply 4 g topically 2 times daily as needed for Other. 06/29/20 23 Active sulfaSALAzine (AZULFIDINE) 500 mg tablet Take 1 tablet (500 mg total) by mouth 2 (two) times a day. 07/28/19 21 Active omega-3 acid ethyl esters (LOVAZA) 1 gram capsule Take 2 capsules (2 g total) by mouth 1 (one) time each day. 90 capsule 3 07/16/19 25 Active coenzyme Q-10 100 mg capsule Take 1 capsule (100 mg total) by mouth 1 (one) time each day. 90 capsule 3 07/16/19 25 Active acetaminophen (TYLENOL) 325 mg tablet Take 2 tablets (650 mg total) by mouth every 8 (eight) hours if needed for mild pain. 30 tablet 1 07/23/19 25 Active calcium carbonate-portillo min D 600 mg-10 mcg (400 unit) per tablet Take 1 tablet by mouth 2 (two) times a day. 60 tablet 1 07/23/19 25 Active ascorbic acid (Vitamin C) 250 mg tablet Take 1 tablet (250 mg total) by mouth 1 (one) time each day. for 90 days 30 tablet 2 08/12/19 25 Active FeroSuL 325 mg (65 mg iron) tablet TAKE 1 TABLET BY MOUTH ONCE DAILY 30 tablet 1 09/17/19 25 Active rosuvastatin (CRESTOR) 20 mg tablet Take 1 tablet (20 mg total) by mouth at bedtime. 60 tablet 1 10/10/19 25 Active NIFEdipine (ADALAT CC) 30 mg 24 hr tablet Take 1 tablet (30 mg total) by mouth 1 (one) time each day before breakfast. 90 tablet 3 10/10/19 25 Active albuterol HFA (Ventolin HFA) 90 mcg/actuation inhalerIndicat ions:Wheezing Inhale 2 puffs by mouth every 4 (four) hours if needed for wheezing or shortness of breath. 8 g 5 10/25/19 25 026 Active Daily-Peggy, with folic acid, 400 mcg tablet TAKE 1 TABLET BY MOUTH ONCE DAILY 30 tablet 2 11/13/19 25 Active multivitamin (Tab-A-Peggy) tablet Take 1 tablet by mouth 1 (one) time each day. 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 Anxiety disorder, unspecified 06/03/2024 Rheumatoid arthritis, unspec ified ([facility] V24, [facility] V28) 06/03/2024 Essential (primary) hypertension 06/03/2024 Severe obesity ([facility] V24, [facility] V28) 2023 Gait instability 07/18/2023 Primary osteoarthritis of left knee 07/18/2023 Primary osteoarthritis of right knee 07/18/2023 Hyperlipidemia 07/17/2023 Osteopenia 07/17/2023 Rheumatoid arthritis ([facility] V24, [facility] V28) 07/17/2023 Cervical spinal stenosis 12/05/2022 Overview [...] general anesthesia with risk of stroke or IN, risk for hematoma, infection, damage to the [...] Encounters Date Type Department Care Team Description 11/19/2024 Telephone Internal Medicine - [address] [phone] Court Marie [place] verbal orders 11/13/2024 9:04 PM EDT - 11/14/2024 11:00 AM EDT Emergency [facility] Emergency [address] [place] [address] Michael Zayas, DO Fall, initial encounter (Primary Dx); Weakness Discharge Disposition: Home-Health Care [facility] [place] [place] 10/24/2024 11:00 AM EDT Office Visit Internal Medicine - [address] [phone] Caitlyn Smith NP Rheumatoid arthritis, involving unspecified site, unspecified whether rheumatoid factor present ([facility] V24, [facility] V28) (Primary Dx); Cervical spinal stenosis; Essential (primary) hypertension; Gait instability; Slurred speech; Dizziness; Wheezing 10/24/2024 Telephone Internal Medicine [address] [phone] Do Jones [place] Request For Order(s) ([facility] Cert 10/27/24-12/25/24 Plan Of Care /) 10/15/2024 Telephone Internal Medicine [address] [phone] Heena Barnes MD Hypotension 10/09/2024 1:30 PM EDT Office Visit Internal [address] [phone] Heena Barnes MD Chronic pain of right knee (Primary Dx); Mixed hyperlipidemia; Essential hypertension; Rheumatoid arthritis, involving unspecified site, unspecified whether rheumatoid factor present (CMS/HCC V24, CMS/HCC V28); Depression, unspecified depression type 10/09/2024 Telephone Internal Medicine [address] [phone] [address] Marie [place] 10/08/2024 Telephone Internal Medicine [address] [phone] Heena Barnes MD [place]: Referral 10/02/2024 Telephone Internal [address] [phone] Heena Barnes MD Prior Auth 09/19/2024 Telephone Internal Medicine [address] [phone] Do Jones [place] Request For Order(s) (/[facility] - Order [id number]/) 09/10/2024 Telephone Internal Medicine [address] [phone] Do Jones [place] Request For Order(s) ([facility] - Order [id number]/) 09/05/2024 Telephone Internal Medicine [address] [phone] Heena Barnes MD Referral 09/02/2024 Telephone Internal Medicine [address] [phone] Do Jones [place] Request For Order(s) ([facility] Cert 08/28/24-10/26/24 Plan Of Care /) 08/28/2024 Telephone Internal Medicine [address] [phone] Do Jones [place] Request For Order(s) ([facility] - Order [id number]/) 08/26/2024 Telephone Internal Medicine [address] [phone] Heena Barnes MD VNA from Last 3 Months Immunizations Name Administration [...] Surgical History Surgery Date Site/Laterality Comments HYSTERECTOMY 1992 PROCEDURE: HISTORICAL HYSTERECTOMY; COMMENT: Partial [...] Sign Reading Time Taken Comments Blood Pressure 132/59 11/14/2024 7:58 AM EDT Pulse 64 11/14/2024 7:58 AM EDT Temperature 37.1 ??C (98.7 ??F) 11/14/2024 12:34 AM E DT Respiratory Rate 18 11/14/2024 7:58 AM EDT Oxygen Saturation 99% 11/14/2024 7:58 AM EDT Inhaled Oxygen Concentration - - Weight 74.8 kg (165 lb) 11/13/2024 9:14 PM EDT Height 165.1 cm (5' 5 ) 11/13/2024 9:14 PM EDT Body Mass Index 27.46 11/13/2024 9:14 PM EDT Plan of Treatment Upcoming Encounters Date Type Department Care Team (Late st Contact Info) Description 11/20/2024 1:00 PM EDT Office Visit Orthopedic Surgery - [place] [id number] [phone] Wandy Aviles NP [address] [phone] 11/21/2024 1:00 PM EDT Office Visit Internal Medicine - [place] [address] [phone] Heena Barnes MD [address] [phone] Health Maintenance Due Date Last Done Comments [...] history exists Hypertension/CHF/CAD Annual BMP Blood Test 11/13/2025 11/13/2024, 07/23/2024, 03/05/2024, Additional history exists Cholesterol Screening (Lipid Panel) 09/10/2028 09/11/2023 Osteoporosis [...] Procedure Name Priority Date/Time Associated Diagnosis Comments ECG ANNOTATED 11/15/2024 XR CHEST 2 VIEWS STAT 11/14/2024 3:03 AM EDT GARRETT URINE CULTURE TUBE STAT 11/14/2024 2:57 AM EDT URINALYSIS WITH REFLEX MICROSCOPIC AND CULTURE STAT 11/14/2024 2:57 AM EDT URINALYSIS WITH REFLEX MICROSCOPIC AND CULTURE STAT 11/14/2024 2:57 AM EDT CULTURE URINE STAT 11/14/2024 2:57 AM EDT ECG 12-LEAD STAT 11/14/2024 12:35 AM EDT TROPONIN I HIGH SENSITIVITY STAT 11/14/2024 12:20 AM EDT TROPONIN I HIGH SENSITIVITY STAT 11/13/2024 10:[address] HEAD WO CONTRAST STAT 11/13/2024 1 0:[address] CERVICAL SPINE WO CONTRAST STAT 11/13/2024 10:30 PM EDT CREATINE KINASE STAT Add-on 11/13/2024 10:21 PM EDT CBC WITH AUTO DIFFERENTIAL STAT 11/13/2024 10:21 PM EDT MAGNESIUM STAT 11/13/2024 10:21 PM EDT BASIC METABOLIC PANEL STAT 11/13/2024 10:21 PM EDT CBC AND DIFFERENTIAL STAT 11/13/2024 10:21 PM EDT ECG 12-LEAD STAT 11/13/2024 9:35 PM EDT LIPID PANEL Routine 09/11/2023 [facility] COLONOSCOPY Routine 06/08/2023 [facility] SCREENING DIGITAL Routine 12/07/2022 11:16 AM EDT Encounter for screening mammogram for malignant neoplasm of breast [facility] DEXA AXIAL SKELETON Routine 04/07/2022 11:05 AM EDT Encounter for screening for osteoporosis from Last 3 Months or Most Recently Relevant to Health Maintenance Results * ECG-Annotated (11/15/2024) us Provider Onbase ECG ORDERABLES Final Result * XR Chest 2 Views (11/14/2024 3:03 AM EDT) Anatomical Region Laterality Modality Body Radiographic Bisi ging 11/14/2024 9:12 AM EDT Impressions 11/14/2024 9:13 AM EDT No evidence of active pulmonary disease. No significant change from the prior study. -------- FINAL REPORT -------- Dictated By: Daryl Snow Dictated Date: 11/14/2024 09:12 ET Assigned Physician: Daryl Snow Reviewed and Electronically Signed By: Daryl Snow Signed Date: 11/14/2024 09:13 ET Workstation ID: [id number] Transcribed By: Self Edit Transcribed Date: 11/14/2024 09:12 ET Narrative 11/14/2024 9:13 AM EDT INDICATION: Syncope FINDINGS: Two views of the chest were obtained. Compared to multiple prior studies most recent from February 20, 2024. Lung mccallum are clear. Cardiomediastinal silhouette is normal in size and shape. Bony structures are within normal limits for the patient's age. Procedure Note Daryl Snow MD - 11/14/2024 INDICATION: Syncope FINDINGS: Two views of the chest were obtained. Compared to multiple priorstudies most recent from February 20, 2024. Lung mccallum are clear. Cardiomediastinal silhouette is normal in size and shape. Bony structures are within normal limits for the patient's age. IMPRESSION: No evidence of active pulmonary disease. No significant change from theprior study. -------- FINAL REPORT -------- Dictated By: Daryl Snow Dictated Date: 11/14/2024 09:12 ET Assigned Physician: Daryl Snow Reviewed and Electronically Signed By: Daryl Snow Signed Date: 11/14/2024 09:13 ET Workstation ID: [id number] Transcribed By: Self Edit Transcribed Date: 11/14/2024 09:12 ET us Dario ISLAS IMG XR PROCEDURES Final R esult * (ABNORMAL) Urinalysis with reflex microscopic and culture (11/14/2024 2:57 AM EDT) Specific [place] Urine 1.014 1.003 - 1.030 LAB URINALYSIS - AUTOMATED METHOD 11/14/2024 4:23 AM [facility] pH, Urine 7.0 5.0 - 8.0 pH LAB URINALYSIS - AUTOMATED METHOD 11/14/2024 4:23 AM [facility] Leukocytes, Urine Trace(A) Negative LAB URINALYSIS - AUTOMATED METHOD 11/14/2024 4:23 AM [facility] Nitrite, Urine Negative Negative LAB URINALYSIS - AUTOMATED METHOD 11/14/2024 4:23 AM [facility] Protein, Urine Negative <=Trace mg/dL LAB URINALYSIS - AUTOMATED METHOD 11/14/2024 4:23 AM [facility] Glucose, Urine Negative Negative mg/dL LAB URINALYSIS - AUTOMATED METHOD 11/14/2024 4:23 AM [facility] Ketones, Urine Negative Negative mg/dL LAB URINALYSIS - AUTOMATED METHOD 11/14/2024 4:23 AM [facility] Urobilinogen, Urine 0.2 0.2 - 1.0 mg/dL LAB URINALYSIS - AUTOMATED METHOD 11/14/2024 4:23 AM [facility] Bilirubin, Urine Negative Negative LAB URINALYSIS - AUTOMATED METHOD 11/14/2024 4:23 AM [facility] Blood, Urine Negative Negative LAB URINALYSIS - AUTOMATED METHOD 11/14/2024 4:23 AM EDT [facility] RBC, Urine 0.6 0 - 4 /HPF LAB URINALYSIS - AUTOMATED METHOD 11/14/2024 4:23 AM EDT [facility] WBC, Urine 0.7 0 - 4 /HPF LAB URINALYSIS - AUTOMATED METHOD 11/14/2024 4:23 AM EDT [facility] Squamous Epithelial, Urine 7 0 - 60 /LPF LAB URINALYSIS - AUTOMATED METHOD 11/14/2024 4:23 AM EDT [facility] Bacteria, Urine Negative Negative /HPF LAB URINALYSIS - AUTOMATED METHOD 11/14/2024 4:23 AM EDT [facility] Hyaline Casts, Urine 0.4 0 - 3 /LPF LAB URINALYSIS - AUTOMATED METHOD 11/14/2024 4:23 AM T [facility] Urine Urine specimen obtained by clean catch procedure / Unknown Non-blood Collection / Unknown 11/14/2024 2:57 AM EDT 11/14/2024 3:53 AM EDT us Dario ISLAS LAB URINE ORDERABLES Mariana l Result Performing Organization Address City/[facility]/ZIP Co de Phone Number [facility] [address] [place] [address], [place] [phone] * Garrett urine culture tube (11/14/2024 2:57 AM EDT) Extra Tube Hold for add-ons. 11/14/2024 5:01 AM EDT [facility] Comment:Auto resulted. Urine Urine specimen obtained by clean catch procedure / Unknown Non-blood Collection / Unknown 11/14/2024 2:57 AM EDT 11/14/2024 3:52 AM EDT Dario ISLAS LAB URINE ORDERABLES Mariana l Result [facility] [address] [place] [address], [place] [phone] * Culture urine (11/14/2024 2:57 AM EDT) Pathologist [facility] Culture, Urine 10,000-49,000 CFU/mL Mixed urogenital yeimi, no uropathogens present. Suggest repeat specimen if clinically indicated. 11/15/2024 10:03 AM EDT [facility] Urine Urine specimen obtained by clean catch procedure / Unknown Non-blood Collection / Unknown 11/14/2024 2:57 AM EDT 11/14/2024 4:23 AM EDT Dario ISLAS LAB MICROBIOLOGY - GENERA L ORDERABLES Final Result Performing Organization Address [facility] de Phone Number [facility] [address] [place] [address], [place] [phone] * ECG 12 lead (11/14/2024 12:35 AM EDT) Only the most recent of2 resultswithin the time period is included. Ventricular Rate ECG 64 BPM GEMUSE Atrial Rate 64 BPM GEMUSE P-R Interval 182 ms GEMUSE QRS Duration 68 ms GEMUSE Q-T Interval 408 ms GEMUSE QTc 420 ms GEMUSE P Wave [place] 58 degrees GEMUSE R [place] 50 degrees GEMUSE T [place] 39 degrees GEMUSE ECG Interpretation Normal sinus rhythm Normal ECG When compared with ECG of 13-NOV-2024 21:35, (unconfirmed) No significant change was found Confirmed by PETAR SEARS ([id number]) on 11/14/2024 11:19:12 AM GEMUSE 11/14/2024 12:3 5 AM EDT 11/14/2024 11:19 AM EDT Dario ISLAS ECG ORDERABLES Final Res ult Performing Organization Address [facility] de Phone Number GEMUSE * Troponin I high sensitivity (NOW and then in 1 hour) (11/14/2024 12:20 AM EDT) Only the most recent of2 resultswithin the time period is included. High Sensitivity Troponin I 6 <=54 ng/L LAB CHEMISTRY METHOD 11/14/2024 1:08 AM EDT [facility] Blood Venous blood specimen / Unknown Venipuncture / Unknown 11/14/2024 12:20 AM EDT 11/14/2024 12:36 AM EDT Narrative [facility] - 11/14/2024 1:08 AM EDT High levels of biotin in samples may falsely decrease hsTroponin values. ??Use caution when interpreting hsTroponin results in patients taking biotin who exhibit renal impairment (eGFR <60) or in patients taking more than 20 mg/day of biotin. us Dario ISLAS LAB BLOOD ORDERABLES Mariana hemphill Result [facility] [address] [place] [address], * CT Cervical Spine wo Contrast (11/13/2024 10:30 PM EDT) Anatomical Region Laterality Modality Spine, C-spine Computed Tomogra phy 11/14/2024 12:0 2 AM EDT Impressions 11/14/2024 12:02 AM EDT 1. No acute findings. 2. Multilevel degenerative changes. This document has been electronically signed by: Trinidad Schrader MD on 11/14/2024 00:02:20 Narrative 11/14/2024 12:02 AM EDT INDICATION: Polytrauma, critical, head/C-spine injury suspected CT cervical spine without contrast Comparison: None Findings: Cervical alignment is maintained. No subluxation. Vertebral body height is maintained. No acute fracture in the cervical spine. Craniocervical junction is intact. Multilevel degenerative disc disease and facet arthropathy especially at C4-5, C5-6 and C6-7 levels resulting mild foraminal stenosis. Prevertebral soft tissues within normal limits Mild cystic change in right lung apex. Procedure Note Trinidad Schrader MD - 11/14/2024 INDICATION: Polytrauma, critical, head/C-spine injury suspected CT cervical spine without contrast Comparison: None Findings: Cervical alignment is maintained. No subluxation. Vertebral body height is maintained. No acute fracture in the cervical spine. Craniocervical junction is intact. Multilevel degenerative disc disease and facet arthropathy especially at C4-5, C5-6 and C6-7 levels resulting mild foraminal stenosis. Prevertebral soft tissues within normal limits Mild cystic change in right lung apex. IMPRESSION: 1. No acute findings. 2. Multilevel degenerative changes. This document has been electronically signed by: Trinidad Schrader MD on 11/14/2024 00:02:20 Michael Zayas DO IMG CT PROCEDURES Final Res ult * CT Head wo Contrast (11/13/2024 10:30 PM EDT) Anatomical Region Laterality Modality Head and Neck Computed Tomogra phy 11/14/2024 12:0 6 AM EDT Impressions 11/14/2024 12:06 AM EDT 1. No acute intracranial findings. This document has been electronically signed by: Trinidad Schrader MD on 11/14/2024 00:06:39 Narrative 11/14/2024 12:06 AM EDT INDICATION: Polytrauma, critical, head/C-spine injury suspected CT head without contrast Comparison: None Findings: No intra-axial mass, midline shift, hydrocephalus, or acute hemorrhage. No significant atrophy. Mild nonspecific supratentorial white matter hypodensities most suggestive of chronic small-vessel ischemic changes. Atherosclerotic vascular disease. There is no sinus or mastoid fluid. The orbits are unremarkable. There is no acute skull fracture. Procedure Note Trinidad Schrader MD - 11/14/2024 INDICATION: Polytrauma, critical, head/C-spine injury suspected CT head without contrast Comparison: None Findings: No intra-axial mass, midline shift, hydrocephalus, or acute hemorrhage. No significant atrophy. Mild nonspecific supratentorial white matter hypodensities most suggestive of chronic small-vessel ischemic changes. Atherosclerotic vascular disease. There is no sinus or mastoid fluid. The orbits are unremarkable. There is no acute skull fracture. IMPRESSION: 1. No acute intracranial findings. This document has been electronically signed by: Trinidad Schrader MD on 11/14/2024 00:06:39 Michael Ramsay Chana DO IMG CT PROCEDURES Final Res ult * (ABNORMAL) CBC auto differential (11/13/2024 10:21 PM EDT) WBC 6.2 4.8 - 10.8 K/mcL LAB HEMETOLOGY METHOD [facility] RBC 3.30(L) 3.80 - 4.80 M/mcL LAB HEMETOLOGY METHOD 11/13[facility]2024 11[facility] Hemoglobin 10.2(L) 11.5 - 16.0 g/dL LAB HEMETOLOGY METHOD 11/13/2024 11:[facility] Hematocrit 29.1(L) 35.0 - 47.0 % LAB HEMETOLOGY METHOD 11/13/2024 11:[facility] MCV 89.0 79.0 - 98.0 FL LAB HEMETOLOGY METHOD 11/13/2024 11:[facility] MCH 31.2 27.0 - 32.0 pcg LAB HEMETOLOGY METHOD 11/13/2024 11:[facility] MCHC 35.1 32.0 - 37.0 g/dL LAB HEMETOLOGY METHOD 11/13/2024 11:15 [facility] RDW 14.8 11.0 - 15.0 % LAB HEMETOLOGY METHOD 11/13/2024 11:[facility] Platelets 212 130 - 400 K/mcL LAB HEMETOLOGY METHOD 11/13/2024 11:15 PM EDT [facility] MPV 10.2 7.0 - 11.0 FL LAB HEMETOLOGY METHOD 11/13[facility]2024 11[facility] NRBC 0.0 <1.0 % LAB HEMETOLOGY METHOD 11/13/2024 11:15 PM [facility] NRBC Absolute 0.00 <0.10 K/mcL LAB HEMETOLOGY METHOD 11/13/2024 11:15 PM [facility] Neutrophils Relative 47.5 % LAB HEMETOLOGY METHOD 11/13/2024 11:15 PM [facility] Lymphocytes Relative 42.5 % LAB HEMETOLOGY METHOD 11/13/2024 11:15 PM [facility] Monocytes Relative 7.3 % LAB HEMETOLOGY METHOD 11/13/2024 11:15 PM [facility] Eosinophils Relative 1.9 % LAB HEMETOLOGY METHOD 11/13/2024 11:15 PM [facility] Basophils Relative 0.6 % LAB HEMETOLOGY METHOD 11/13/2024 11:15 PM [facility] Immature Granulocytes Relative 0.2 % LAB HEMETOLOGY METHOD 11/13/2024 11:15 PM [facility] Neutrophils Absolute 2.93 1.50 - 7.00 K/mcL LAB HEMETOLOGY METHOD 11/13[facility]2024 [facility] Lymphocytes Absolute 2.62 1.00 - 5.00 K/mcL LAB HEMETOLOGY METHOD 11/13/2024 11[facility] Monocytes Absolute 0.45 0.20 - 1.00 K/mcL LAB HEMETOLOGY METHOD 11/13/2024 11:15 PM [facility] Eosinophils Absolute 0.12 0.00 - 0.50 K/mcL LAB HEMETOLOGY METHOD 11/13/2024 11:15 PM EDT [facility] Basophils Absolute 0.04 0.00 - 0.20 K/[facility] LAB HEMETOLOGY METHOD 11/13/2024 11:15 PM EDT [facility] Immature Granulocytes Absolute 0.01 0.00 - 0.03 K/[facility] LAB HEMETOLOGY METHOD 11/13/2024 11:15 PM EDT [facility] Blood Venous blood specimen / Unknown Venipuncture / Unknown 11/13/2024 10:21 PM EDT 11/13/2024 11:10 PM EDT Michael Zayas DO LAB BLOOD ORDERABLES Final Result Performing Organization Address [facility]/ZIP Co de Phone Number [facility] [address] [place] [address], [place] [phone] * (ABNORMAL) Magnesium (11/13/2024 10:21 PM EDT) Magnesium 1.8(L) 1.9 - 2.6 mg/dL LAB CHEMISTRY METHOD 11/13/2024 11:42 PM EDT [facility] Blood Venous blood specimen / Unknown Venipuncture / Unknown 11/13/2024 10:21 PM EDT 11/13/2024 11:10 PM EDT Michael Zayas DO LAB BLOOD ORDERABLES Final Result [facility] [address] [place] [address], [place] [phone] * Creatine kinase (11/13/2024 10:21 PM EDT) Total CK 206 22 - 269 unit/L LAB CHEMISTRY METHOD 11/13/2024 11:42 PM EDT [facility] Blood Venous blood specimen / Unknown Venipuncture / Unknown 11/13/2024 10:21 PM EDT 11/13/2024 11:10 PM EDT us Dario ISLAS LAB BLOOD ORDERABLES Mariana hemphill Result [facility] [address] [place] [address], [place] [phone] * (ABNORMAL) Basic metabolic panel (11/13/2024 10:21 PM EDT) Sodium 144 133 - 145 mmol/L LAB CHEMISTRY METHOD 11/13/2024 11:49 PM EDT [facility] Potassium 3.6 3.5 - 5.5 mmol/L LAB CHEMISTRY METHOD 11/13/2024 11:49 PM [facility] Chloride 112(H) 96 - 110 mmol/L LAB CHEMISTRY METHOD 11/13/2024 11:49 PM [facility] CO2 27 21 - 32 mmol/L LAB CHEMISTRY METHOD 11/13/2024 11:49 PM [facility] Anion Gap 5 3 - 11 LAB CHEMISTRY METHOD 11/13/2024 11:49 PM [facility] Glucose 85 70 - 100 mg/dL LAB CHEMISTRY METHOD 11/13/2024 11:49 PM [facility] BUN 19 5 - 25 mg/dL LAB CHEMISTRY METHOD 11/13/2024 11:49 PM [facility] Creatinine 0.77 0.50 - 1.10 mg/dL LAB CHEMISTRY METHOD 11/13/2024 11:49 PM [facility] eGFR 81 >=60 mL/min/1. 73m2 LAB CHEMISTRY METHOD 11/13/2024 11:49 PM [facility] Comment:Calculation based on the Chronic Kidney Disease Epidemiology Collaboration (CKD-EPI) equation refit without adjustment for race. BUN/Creatinine Ratio 24.7 LAB CHEMISTRY METHOD 11/13/2024 11:49 PM EDT [facility] Calcium 8.3(L) 8.5 - 10.5 mg/dL LAB CHEMISTRY METHOD 11/13/2024 11:49 PM EDT [facility] Blood Venous blood specimen / Unknown Venipuncture / Unknown 11/13/2024 10:21 PM EDT 11/13/2024 11:10 PM EDT Michael Zayas DO LAB BLOOD ORDERABLES Final Result [facility] [address] [place] [address], * Lipid panel (09/11/2023) LDL/HDL Ratio 3 0 - 4 Triglycerides 88 0 - 150 mg/dL Cholesterol 137 0 - 200 mg/dL HDL 55 >=40 mg/dL LDL Cholesterol 65 0 - 100 mg/dL Blood Venous blood specimen / Unknown Historical Provider LAB BLOOD ORDERABLES Mariana l Result * Colonoscopy (06/08/2023) Pathologist [facility] Colonoscopy No Interpretation , Abstracted Anatomical Region Laterality Modality Other Historical Provider HEALTH MAINTENANCE Final Result * BUZZ SCREENING DIGITAL (12/07/2022 11:16 AM EDT) Anatomical Region Laterality Modality Mammography 12/07/2022 10:1 7 AM EDT Narrative 12/07/2022 11:16 AM EDT [facility] Diagnostic Imaging Department [address] [place] [address] [id number] Patient: ??LINDA SAGE ?/Age/Sex: 1950 - 72 - F Unit#: ??[id number] ? Location/Status: ??SPDIMAM/REG CLI ? Mnemonic/Ordering Site: ??DIGSC/SPMAM Ordering Physician: ??HEENA BARNES MD [facility] Screening Digital - 12/07/22 - 104 EXAM: [facility] Screening Digital EXAM DATE AND TIME: 12/07/2022 10:43 AM HISTORY: ??Screening. COMPARISON: ??11/01/21, 03/25/20, 02/19/19 TECHNIQUE: CC and MLO views of both breasts were obtained using full field digital mammography. Bilateral digital breast tomosynthesis was performed in the MLO projection. Computer aided detection with [employer] 7.2-H and [employer] 3D 3.1 was employed. TISSUE DENSITY: b. [...] Routine screening mammogram BILATERAL in 1 year. 22088, 17852 3342F, 7025F Dictating Physician: ??SALIMA MARINA MD Electronically Signed by: ??SALIMA MARINA MD Dic Date/Time: ??12/07/22 1116 Sign date/Time: ??12/07/22 1116 Procedure Note Salima Marina MD - 08/04/2023 [facility] Diagnostic Imaging Department [address] [place] [id number] Patient: LINDA SAGE Kayln /Age/Sex: 1950 - 72 - F Unit#: [id number] [facility]/Ordering [facility] Ordering Physician: HEENA BARNES MD [facility] Screening Digital - 12/07/22 - 1042 EXAM: [facility] Screening Digital EXAM DATE AND TIME: 12/07/2022 10:43 AM HISTORY: Screening. COMPARISON: 11/01/21, 03/25/20, 02/19/19 TECHNIQUE: CC and MLO views of both breasts were obtained using fullfield digital mammography. Bilateral digital breast tomosynthesis was performedin the MLO projection. Computer aided detection with [employer] 7.2-H and[employer] 3D 3.1 was employed. TISSUE DENSITY: b. [...] Routine screening mammogram BILATERAL in 1 year. 83357, 05440 3342F, 7021F Dictating Physician: SALIMA MARINA MD Electronically Signed by: SALIMA MARINA MD Dic Date/Time: 12/07/22 1116 Sign date/Time: 12/07/22 1116 Heena Barnes MD IMG BI PROCEDURES Final Result * [facility] DEXA AXIAL SKELETON (04/07/2022 11:05 AM EDT) Anatomical Region Laterality Modality Mammography 04/07/2022 10:1 9 AM EDT Narrative 04/07/2022 11:05 AM EDT [facility] Diagnostic Imaging Department [address] [place] [id number] Patient: ??SHIRINLINAD L ?/Age/Sex: 1950 - 71 - F Unit#: ??[id number] ? Location/Status: ??SPDIMAM/REG CLI ? Mnemonic/Ordering Site: ??MAMDEXAAX/SPMAM Ordering Physician: ??HEENA BARNSE MD [facility] Dexa Axial Skeleton - 04/07/222 HISTORY: ??The patient is a 71-year-old postmenopausal [...] probability of hip fracture of 2.2%. Code 94532 Dictating Physician: ??DAVID PERRY MD Electronically Signed by: ??DAVID PERRY MD Dic Date/Time: ??04/07/22 1104 Sign date/Time: ??04/07/22 1105 Procedure Note David Perry MD - 06/22/2022 [facility] Diagnostic Imaging Department [address] [place] [address] Patient: LINDA SAGE D.O.B./Age/Sex: 1950 - 71 - F Unit#: [id number] Location/Status: SPDIMAM/REG CLI [facility] Ordering Physician: HEENA BARNES MD [facility] Dexa Axial Skeleton - 04/07/221056 HISTORY: The patient is a 71-year-old postmenopausal [...] density of the femurs bilaterally is 0.964 gm/ed8evnlx is 96% of that of young normals [...] probability of hip fracture of 2.2%. 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 Do not modify or discontinue any currently active code status orders. Care Teams Foot And Ankle Surgeon Relationship Specialty Start Date End Date Heena Barnes MD [address] [place] [phone] PCP - General Internal Medicine 12/15/21
--- OUTSIDE RECORDS SUMMARY | 2024-11-19 14:40 | XMS_ITS | Encounter Summary ---
Author Organization [facility] Address [address] [place] [address] Care Team Providers Care President & Ceo Name Role Phone Leslee Barnes MD Primary Care Provider [phone] Reason for Referral * Home Health (Routine) - Closed Specialty Diagnoses / Procedures Referred By Fei bryant Referred To Contact Home Health Services Michael Zayas DO [address] [place] [address] Phone: tel: fax: [address] [place] [address] Phone: tel: fax: Referral ID Status Reason Start Date Expiration Date V isits Requested Visits Authorized [id number] Closed Consult and Treat 11/14/2024 11/14/2025 1 1 Reason for Visit * Reason Comments Weakness - Generalized Encounter Details Date Type Department Care Team (Late st Contact Info) Description 11/13/2024 9:04 PM EDT - 11/14/2024 11:00 AM EDT Emergency [facility] Emergency [address] [place] [address] Michael Zayas DO [address] [place] [address] Fall, initial encounter (Primary Dx); Weakness Discharge Disposition: Home-Health Care Svc Social History Tobacco Use Types Packs/Day Years [...] Mass Index 27.46 11/13/2024 9:14 PM EDT documented in this encounter Discharge Instructions * Attachments The following attachments cannot be sent through Care Everywhere. * Fall Prevention (Tajik) documented in this encounter Medications at Time of Discharge acetaminophen (TYLENOL) 325 mg tablet Take 2 tablets (650 mg total) by mouth every 8 (eight) hours if needed for mild pain. 30 tablet 1 07/23/2024 albuterol HFA (Ventolin HFA) 90 mcg/actuation inhalerIndicatio ns:Wheezing Inhale 2 puffs by mouth every 4 (four) hours if needed for wheezing or shortness of breath. 8 g 5 10/24/2024 amitriptyline (ELAVIL) 25 mg tablet Take 1 tablet (25 mg total) by mouth. ascorbic acid (Vitamin C) 250 mg tablet Take 1 tablet (250 mg total) by mouth 1 (one) time each day. for 90 days 30 tablet 2 08/12/2024 calcium carbonate-vit D3-min 600 mg calcium- 400 unit tablet 09/21/2020 calcium carbonate-vitami n D 600 mg-10 mcg (400 unit) per tablet Take 1 tablet by mouth 2 (two) times a day. 60 tablet 1 07/23/2024 clotrimazole-bet amethasone (LOTRISONE) 1-0.05 % cream 08/14/2020 coenzyme Q-10 100 mg capsule Take 1 capsule (100 mg total) by mouth 1 (one) time each day. 90 capsule 3 07/16/2024 Daily-Peggy, with folic acid, 400 mcg tablet TAKE 1 TABLET BY MOUTH ONCE DAILY 30 tablet 2 11/12/2024 diclofenac (VOLTAREN) 1 % topical gel 02/01/2021 DICLOFENAC SODIUM TOP Diclofenac Sodium 1 % Cream Apply 4 g topically 2 times daily as needed for Other. 06/29/2023 FeroSuL 325 mg (65 mg iron) tablet TAKE 1 TABLET BY MOUTH ONCE DAILY 30 tablet 1 09/16/2024 meclizine (ANTIVERT) 12.5 mg tablet Take 1 tablet (12.5 mg total) by mouth 3 (three) times a day if needed for dizziness. 03/17/2022 melatonin 10 mg tablet Take 1 tablet (10 mg total) by mouth. multivitamin with iron (MULTIPLE VITAMINS WITH IRON ORAL) Take by mouth. NIFEdipine (ADALAT CC) 30 mg 24 hr tablet Take 1 tablet (30 mg total) by mouth 1 (one) time each day before breakfast. 90 tablet 3 10/09/2024 omega-3 acid ethyl esters (LOVAZA) 1 gram capsule Take 2 capsules (2 g total) by mouth 1 (one) time each day. 90 capsule 3 07/16/2024 petrolatum,white (BALMEX, PETROLATUM, TOP) Apply 1 each topically 1 (one) time each day. 03/27/2024 rosuvastatin (CRESTOR) 20 mg tablet Take 1 tablet (20 mg total) by mouth at bedtime. 60 tablet 1 10/09/2024 sulfaSALAzine (AZULFIDINE) 500 mg tablet Take 1 tablet (500 mg total) by mouth 2 (two) times a day. 07/28/2020 triamcinolone acetonide (KENALOG-40) 40 mg/mL injection Inject 1 mL (40 mg total) into the joint. 10/17/2023 underpads 30 X 36 pad 1 each by Not Applicable route. Incontinence Supply Disposable (Disposable Underpads 30 x36 ) Misc 1 Each by Does not apply route daily. 03/27/2024 documented as of this encounter Discharge Disposition Disposition Code Departure Means Destination Comment s Home-Health Care Svc documented in this encounter Progress Notes * Michael Zayas DO - 11/14/2024 9:46 AM EDT ED Course as of 11/14/24 0947 Gladis November 14, 2024 0606 I received transfer of care and sign of this patient approximately 300 hours pending completion of workup. This is a 74-year-old female presenting status post fall with head strike, has had multiple recent falls over the last month. Negative imaging, negative laboratory workup. Not orthostatic. Chest x- ray is unremarkable. She unfortunately was unable to ambulate steadily with ambulatory trial, recommended that she stay on a subacute hold. Patient does confirm that she is a full code. [EN] 0946 Case management complete. Patient will go home with [facility] [] ED Course User Index [EN] ROSHAN Read [MC] Michael Zayas DO Clinical Impressions as of 11/14/24 0947 Fall, initial encounter Weakness Discharge 1. Fall, initial encounter 2. Weakness Procedures * Jenny Nuno RN - 11/14/2024 9:45 AM EDT 11/14/24 0944 ED Transition Plan ED Transition Plan Home with Home Care Anticipated Discharge Needs Home Health RN;PT Transportation Transportation at discharge Family Final Discharge Disposition Home Health Care Services ([facility]) Per PT Chantal recommendation is home PT. Pt will discharge home with services through [facility] for SN, PT visits. Updated pts son Roly Stallings he will provide transportation home between 11-12 pm today. 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 Updated Dr. Zayas and nurse requesteda F2F be completed. * Chantal Germain, PT - 11/14/2024 8:45 AM EDT [facility] Physical Therapy Evaluation & Treatment PT Discharge Recommendations: Home PT Staff Recommendations for safe patient handling: supervision with walker Modified [place] Scale Score: AM-PAC 6 Clicks Scoring Form: Unable: 1 A Lot: 2 A Little: 3 None: 4 How much difficulty does the patient currently have? Turning over in bed (including adjustment of bedclothes, sheets, and blankets) [] [] [] [x] Sitting down on and standing up from a chair with arms (wheelchair, bedside commode etc [] [] [] [x] Moving from lying on back to sitting on the side of the bed [] [] [] [x] How much help from another person does the patient currently need? Moving to and from a bed to a chair ( including a wheelchair) [] [] [] [x] To walk in hospital room [] [] [x] [] Climbing 3-5 steps with a railing [x] [] [] [] Score: 20 /24 score indicates the pt is appropriate for discharge home with therapy recommendation above Precautions Medical Precautions: Fall Risk Safety Interventions: Call yu within reach, ID band on RUE Weight Bearing Status: Full LUE Weight Bearing Status: Full RLE Weight Bearing Status: Full LLE Weight Bearing Status: Full Fall prevention education provided including use of call light in hospital, use of appropriate assistive device, safe mobility techniques, and safety measures at home. PT Received On: 11/14/24 PT Start Time: 0845 PT Stop Time: 15 PT Time Calculation (min): 30 min General Family/Caregiver Present: No Precautions Medical Precautions: Fall Risk Safety Interventions: Call yu within reach, ID band on RUE Weight Bearing Status: Full LUE Weight Bearing Status: Full RLE Weight Bearing Status: Full LLE Weight Bearing Status: Full Cognition Overall Cognitive Status: Within Functional Limits Arousal/Alertness: Appropriate responses to stimuli Orientation Level: Oriented X4 Following Commands: Follows all commands and directions without difficulty Hearing: Intact Vision: the pt reports decreased vision B eyes 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 female admitted to [facility] on 11/13/2024. Patient Active Problem List Diagnosis Abnormal CT scan, neck Cervical spinal stenosis Essential hypertension Gait instability Hyperlipidemia Impairment of balance Osteopenia Primary osteoarthritis of left knee Primary osteoarthritis of right knee Rheumatoid arthritis ([facility] V24, [facility] V28) Severe obesity ([facility] V24, [facility] V28) Depression, unspecified Altered mental status, unspecified Other toxic encephalopathy Anxiety disorder, unspecified Rheumatoid arthritis, unspecified ([facility] V24, [facility] V28) Essential (primary) hypertension Past Medical History: Diagnosis Date Cervical spinal stenosis DX:Cervical spinal stenosis Essential (primary) hypertension DX:Essential (primary) hypertension Hyperlipidemia DX:Hyperlipidemia Hypertension DX:Hypertension Mixed hyperlipidemia DX:Mixed hyperlipidemia Osteopenia DX:Osteopenia Rheumatoid arthritis ([facility] V24, [facility] V28) DX:Rheumatoid arthritis ([facility]) Past Surgical History: Procedure Laterality Date HYSTERECTOMY 1991 PROCEDURE: HISTORICAL HYSTERECTOMY; COMMENT: Partial hysterectomy HYSTERECTOMY PROCEDURE:HYSTERECTOMY Social History Home Living Environment: Home Living Type of Home: Apartment Lives With: Alone Home Adaptive Equipment: Walker - rolling Home Layout: One level Home Access: Elevator Prior Function Level of Gray: Independent with mobility and functional transfers Ambulation Status: Household ambulator Receives Help From: Family, building attendant (She states she has a 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 : No 11/14/24 0845 PT Last Visit PT Received On 11/14/24 General Family/Caregiver Present No PT Time Calculation PT Start Time 0845 PT Stop Time 0915 PT Time Calculation (min) 30 min Precautions Medical Precautions Fall Risk Safety Interventions Call yu within reach;ID band on RUE Weight Bearing Status Full LUE Weight Bearing Status Full RLE Weight Bearing Status Full LLE Weight Bearing Status Full Cognition Overall Cognitive Status WFL Arousal/Alertness Appropriate responses to stimuli Orientation Level Oriented X4 Following Commands Follows all commands and directions without difficulty Home Living Type of Home Apartment Lives With Alone Home Adaptive Equipment Walker - rolling Home Layout One level Home Access Elevator Prior Function Level of Gray Independent with mobility and functional transfers Ambulation Status Household ambulator Receives Help From Family;building attendant (She states she has a 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 No Which is your dominant hand? Right Static Sitting Balance Static Sitting-Level of Assistance Independent Static Sitting-Balance Support Feet supported Dynamic Sitting Balance Dynamic Sitting-Level of Assistance Independent Dynamic Sitting-Balance Forward lean Dynamic Sitting-Balance Support Feet supported;No upper extremity supported Static Standing Balance Static Standing-Level of Assistance Supervision Static Standing-Balance Support Right upper extremity supported;Left upper extremity supported Dynamic Standing Balance Dynamic Standing-Level of Assistance Supervision Dynamic Standing-Balance Ambulation Dynamic Standing-Balance Support Right upper extremity supported;Left upper extremity supported Bed Mobility Sitting to Lying Assistance Independent Lying to Sitting Assistance Independent Transfers Sit to Stand Assistance Supervision Chair/Bed to Chair/Bed Transfer Assistance Supervision (cues to keep feet within the parameters of the walker) Toilet Transfer Assistance Modified independent Transfer Comments the pt needed ot use the bathroom and she was able to transfer to the toilet withno assistance. She would only squat over the toilet . She was able to complete all clothign management and hygiene with no UE support and no loss of balance Ambulation Walking Assistance Supervision Walking Deficit (the pt appears ot have mild ataxia in B LE with minimal knee flexion during the gait cycle. She needs cues to keep her feet within the parameters of the walker during ambulation especially during turns.) Device Rolling walker Distance Ambulated (ft) 40 (she was able to amb 40' x 2) RUE Assessment RUE Assessment Impaired LUE Assessment LUE Assessment Impaired LUE Assessment Comments B UE strength grossly 3-/5 RLE Assessment RLE Assessment Impaired LLE Assessment LLE Assessment Impaired LLE Assessment Comments strength grossly 4/5 and mild decrease in gross coordination PT Assessment PT Assessment Results Decreased strength;Decreased endurance Prognosis Good Evaluation/Treatment Tolerance Patient tolerated treatment well Medical Staff Made Aware Yes Plan PT Discharge Recommendations Home PT PT - Evaluation Status Complete PT Evaluation Time Entry PT Evaluation (Moderate) Time Entry 30 Treatment performed during evaluation: None performed ADDITIONAL COMMENTS: Chart reviewed. RN clears pt for session. Pt agrees to participate and presented in supine upon PT arrival. All lines in place. Gait belt utilized throughout treatment to maximize safety. Medical precautions observed appropriately. Initiated education on the importance of PT, bed mobility safety, Transfer Safety, Ambulation Safety , Therapy Plan of Care, Home Safety, Energy Conservations strategies, and importance of OOB activity . Pt verbalized understanding. EXIT STATUS: Session ended with patient supine, tray table and call light within reach, and RN made aware. Physical Therapy Assessment/Plan Linda Sage is a 74 y.o. female admitted to [facility] on 11/13/2024 for No admission diagnoses are documented for this encounter. Pt performed bed mobility Independent, HOB elevated, Transfers with Supervision, FWW and ambulates Supervision with FWW 40 ft .PT recommends Home PT when me dically stable for safe discharge and to optimize functional mobility and independence. Goals Education Documentation Mobility Training, taught by Chantal Germain PT at 11/14/2024 10:43 AM. Learner: Patient Readiness: Eager Method: Explanation Response: Verbalizes Understanding Comment: Discussed home with home PT servcies and the pt is in agreement Education Comments No comments found. Chantal Germain PT * Jenny Nuno RN - 11/14/2024 8:17 AM EDT 11/14/24 0816 Initial Transition Plan Initial Transition Plan Home Health Care Discharge Planning Contact (Name, Phone #, Relationship) for DC Planning Roly Stallings son [phone] Living Arrangements Alone Type of Residence Private residence (apartment with elevator access) Assistive Devices Walker;Cane Support Systems Children Medication Coverage Has Med Coverage Under Insurance Plan Yes Medication Affordability No concerns related to payment for meds Anticipated Discharge Needs Home Health RN;PT Met with pt in regards to discharge planning, demographics, PCP, insurance reviewed. Pt is not a . Reports daily SN visits from [facility]. 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 Provided pt list of area facilities. Pt reports she would want a facility close to [facility] if rehab is needed. * Lucina Calderon RN - 11/13/2024 9:08 PM EDT BIBA, from home, per EMS, patient lives alone at her apartment and has visiting nurse comes everyday. Family noted that patient had a fall earlier at unknown time. Family then called 911, a non-associate professor of literacy came to check on the patient and found that patient had slurred speech with unsteady gait, concerning for a stroke, the staff then called 911. Upon EMS arrival, patient stated that she had a fall, landed on the back of the head, denies LOC, was able to get herself up. EMS was able to call patient family en route and family stated that patient has slurred speech at baseline. Patient A&Ox3 per EMS. Patient c/o headache. * ROSHAN Loya - 11/13/2024 8:56 PM EDT [facility] Emergency Department Encounter Note Patient Name: Linda Sage Initial Evaluation: 11/13/2024 : 1950 Patient's PCP: Leslee Barnes MD Emergency Physician: ROSHAN Field History of Present Illness Chief Complaint: Chief Complaint Patient presents with Weakness - Generalized HPI: Linda is a pleasant 74-year-old female with documented history of HTN, HLD, RA, osteopenia, cervical spinal stenosis, chronically slurred speech; presents for evaluation s/p fall. States she was standing in the bathroom looking at the mirror when she suddenly felt lightheaded and fell to the floor. Reports head strike, uncertain regarding LOC. Uncertain as to how long she was on the floor but reports she got herself up. Per EMS report, EMS discussed patient's condition over the phone with family who report her slurredspeech to be chronic. Patient herself only reports a generalized headache without present lightheadedness, dizziness, visual changes or loss. Denies any chest pain or dyspnea preceding or following the incident. No documented history of anticoagulation. ROS: I have performed a ROS with the pertinent positives and negatives documented in the history ofpresent illness. Previous History Past Medical History: Diagnosis Date Cervical spinal stenosis DX:Cervical spinal stenosis Essential (primary) hypertension DX:Essential (primary) hypertension Hyperlipidemia DX:Hyperlipidemia Hypertension DX:Hypertension Mixed hyperlipidemia DX:Mixed hyperlipidemia Osteopenia DX:Osteopenia Rheumatoid arthritis ([facility]24, [facility] V28) DX:Rheumatoid arthritis ([facility]) Past Surgical History: Procedure Laterality Date HYSTERECTOMY 1991 PROCEDURE: HISTORICAL HYSTERECTOMY; COMMENT: Partial hysterectomy HYSTERECTOMY PROCEDURE:HYSTERECTOMY Social History Tobacco Use Smoking status: Some Days Current packs/day: 0.25 Types: Cigarettes Smokeless tobacco: Never Substance Use Topics Alcohol use: Not Currently Drug use: Never No family history on file. is allergic to leflunomide, aspirin, penicillins, and shellfish containing products. No current facility-administered medications on file prior to encounter. Current Outpatient Medications on File Prior to Encounter Medication Sig Dispense Refill acetaminophen (TYLENOL) 325 mg tablet Take 2 tablets (650 mg total) by mouth every 8 (eight) hours if needed for mild pain. 30 tablet 1 albuterol HFA (Ventolin HFA) 90 mcg/actuation inhaler Inhale 2 puffs by mouth every 4 (four) hours if needed for wheezing or shortness of breath. 8 g 5 amitriptyline (ELAVIL) 25 mg tablet Take 1 tablet (25 mg total) by mouth. (Patient not taking: Reported on 11/14/2024) ascorbic acid (Vitamin C) 250 mg tablet [...] (one) time each day. 90 capsule 3 Daily-Peggy, with folic acid, 400 mcg tablet TAKE 1 TABLET BY MOUTH ONCE DAILY 30 tablet 2 diclofenac (VOLTAREN) 1 % topical gel DICLOFENAC SODIUM TOP Diclofenac Sodium 1 % Cream Apply 4 g topically 2 times daily as needed for Other. FeroSuL 325 mg (65 mg iron) tablet TAKE 1 TABLET BY MOUTH ONCE DAILY 30 tablet 1 meclizine (ANTIVERT) 12.5 mg tablet Take 1 tablet (12.5 mg total) by mouth 3 (three) times a day ifneeded for dizziness. melatonin 10 mg tablet Take 1 tablet (10 mg total) by mouth. multivitamin with iron (MULTIPLE VITAMINS WITH IRON [...] total) by mouth 2 (two) times a day.(Patient not taking: Reported on 11/14/2024) triamcinolone acetonide (KENALOG-40) 40 mg/mL injection Inject 1 mL (40 mg total) into the joint. (Patient not taking: Reported on 11/14/2024) underpads 30 X 36 pad 1 each by Not Applicable route. Incontinence Supply Disposable (Disposable Underpads 30 x36 ) Misc 1 Each by Does not apply route daily. (Patient not taking: Reported on 11/14/2024) [DISCONTINUED] multivitamin (Tab-A-Peggy) tablet Take 1 tablet by mouth 1 (one) time each day. Take 1 Tablet by mouth daily 30 tablet 2 Physical Exam ED Triage Vitals [11/13/242122] Temp Heart Rate Resp BP 37.1 ??C (98.7 ??F) 65 18 125/68 SpO2 Temp Source Heart Rate Source Patient Position 98 % Oral Monitor Lying BP Location FiO2 (%) Left arm -- GENERAL: Non-toxic appearing, no acute distress. SKIN: [place], warm, dry. HEENT: EOMI. NECK: Supple, full ROM. CARDIOVASCULAR: Heart regular rate and rhythm. No discernible MRG. PULMONARY: Breathing adequately on room air. CTAB. ABDOMINAL: Soft, nondistended, nontender throughout. MUSCULOSKELETAL: RUE: Nontender to palpation about the length of the limb. Nonpainful and purposeful movements alongall aspects. Grossly NVI. LUE: Nontender to palpation about the length of the limb. Nonpainful and purposeful movements alongall aspects. Grossly NVI. RLE: Nontender to palpation about the length of the limb. Nonpainful and purposeful movements alongall aspects. Calf supple/nontender. Active dorsiflexion/plantarflexion ability. Grossly NVI. LLE: Nontender to palpation about the length of the limb. Nonpainful and purposeful movements alongall aspects. Calf supple/nontender. Active dorsiflexion/plantarflexion ability. Grossly NVI. NEURO: AOx3 PSYCHIATRIC: Normal affect, fluid speech, good eye contact and appropriate demeanor. Results Labs Reviewed BASIC METABOLIC PANEL - Abnormal Result Value Sodium 144 Potassium 3.6 Chloride 112 (*) CO2 27 Anion Gap 5 Glucose 85 BUN 19 Creatinine 0.77 eGFR 81 BUN/Creatinine Ratio 24.7 Calcium 8.3 (*) MAGNESIUM - Abnormal Magnesium 1.8 (*) CBC WITH AUTO DIFFERENTIAL - Abnormal WBC 6.2 RBC 3.30 (*) Hemoglobin 10.2 (*) Hematocrit 29.1 (*) MCV 89.0 MCH 31.2 MCHC 35.1 RDW 14.8 Platelets 212 MPV 10.2 NRBC 0.0 NRBC Absolute 0.00 Neutrophils Relative 47.5 Lymphocytes Relative 42.5 Monocytes Relative 7.3 Eosinophils Relative 1.9 Basophils Relative 0.6 Immature Granulocytes Relative 0.2 Neutrophils Absolute 2.93 Lymphocytes Absolute 2.62 Monocytes Absolute 0.45 Eosinophils Absolute 0.12 Basophils Absolute 0.04 Immature Granulocytes Absolute 0.01 URINALYSIS WITH REFLEX MICROSCOPIC AND CULTURE - Abnormal Specific [place] Urine 1.014 pH, Urine 7.0 Leukocytes, Urine Trace (*) Nitrite, Urine Negative Protein, Urine Negative Glucose, Urine Negative Ketones, Urine Negative Urobilinogen, Urine 0.2 Bilirubin, Urine Negative Blood, Urine Negative RBC, Urine 0.6 WBC, Urine 0.7 Squamous Epithelial, Urine 7 Bacteria, Urine Negative Hyaline Casts, Urine 0.4 TROPONIN I HIGH SENSITIVITY - Normal High Sensitivity Troponin I 7 Narrative: High levels of biotin in samples may falsely decrease hsTroponin values. Use caution when interpreting hsTroponin results in patients taking biotin who exhibit renal impairment (eGFR <60) or in patients taking more than 20 mg/day of biotin. TROPONIN I HIGH SENSITIVITY - Normal High Sensitivity Troponin I 6 Narrative: High levels of biotin in samples may falsely decrease hsTroponin values. Use caution when interpreting hsTroponin results in patients taking biotin who exhibit renal impairment (eGFR <60) or in patients taking more than 20 mg/day of biotin. CREATINE KINASE - Normal Total CK 206 CULTURE URINE CBC AND DIFFERENTIAL Narrative: The following orders were created for panel order CBC and differential. Procedure Abnormality Status --------- ------ CBC auto differential[[id number]] Abnormal Final result Please view results for these tests on the individual orders. URINALYSIS WITH REFLEX MICROSCOPIC AND CULTURE Narrative: The following orders were created for panel order Urinalysis with reflex microscopic and culture. Procedure Abnormality Status --------- ------ Urinalysis with reflex ...[[id number]] Abnormal Final result Garrett urine culture tube[[id number]] Final result Please view results for these tests on the individual orders. Abnormal Labs Reviewed BASIC METABOLIC PANEL - Abnormal; Notable for the following components: Result Value Chloride 112 (*) Calcium 8.3 (*) All other components within normal limits MAGNESIUM - Abnormal; Notable for the following components: Magnesium 1.8 (*) All other components within normal limits CBC WITH AUTO DIFFERENTIAL - Abnormal; Notable for the following components: RBC 3.30 (*) Hemoglobin 10.2 (*) Hematocrit 29.1 (*) All other components within normal limits URINALYSIS WITH REFLEX MICROSCOPIC AND CULTURE - Abnormal; Notable for the following components: Leukocytes, Urine Trace (*) All other components within normal limits XR Chest 2 Views Final Result No evidence of active pulmonary disease. No significant change from the prior study. -------- FINAL REPORT -------- Dictated By: Daryl Snow Dictated Date: 11/14/2024 09:12 ET Assigned Physician: Daryl Snow Reviewed and Electronically Signed By: Daryl Snow Signed Date: 11/14/2024 09:13 ET Workstation ID: [id number] Transcribed By: Self Edit Transcribed Date: 11/14/2024 09:[address] Cervical Spine wo Contrast Final Result 1. No acute findings. 2. Multilevel degenerative changes. This document has been electronically signed by: Trinidad Schrader MD on 11/14/2024 00:02:20 CT Head wo Contrast Final Result 1. No acute intracranial findings. This document has been electronically signed by: Trinidad Schrader MD on 11/14/2024 00:06:39 I have discussed the incidental/abnormal imaging and/or lab abnormalities with the patient and haveinstructed them the need for further evaluation and workup with their primary care doctor. I have provided the patient with a paper copy of the abnormality. The laboratory results, imaging results and other diagnostic exam results were reviewed in the EMR. EKG Interpretation Critical Care Time None Differential Diagnosis Syncope Near syncope Closed head injury Intracranial hemorrhage ACS/NJ Bacterial pneumonia UTI Metabolic derangement Orthostasis Dehydration ? Medical Decision Making ED Course as of 11/14/241729 Gladis November 14, 2024 0606 I received transfer of care and sign of this patient approximately 300 hours pending completion of workup. This is a 74-year-old female presenting status post fall with head strike, has had multiple recent falls over the last month. Negative imaging, negative laboratory workup. Not orthostatic. Chest x- ray is unremarkable. She unfortunately was unable to ambulate steadily with ambulatory trial, recommended that she stay on a subacute hold. Patient does confirm that she is a full code. [EN] 4005 Case management complete. Patient will go [facility] with [facility] [] ED Course User Index [EN] ROSHAN Read [MC] Michael Zayas, Clinical Impressions as of 11/14/241729 Fall, initial encounter Weakness Medications sodium chloride 0.9 % bolus 500 mL (0 mL intravenous Stopped 11/14/24 0842) magnesium oxide (MAG-OX) tablet 400 mg (400 mg oral Given 11/14/24 0235) Procedures Procedures Diagnosis 1. Fall, initial encounter 2. Weakness Disposition Discharge ED Prescriptions None Physician Attestation Electronically signed by ROSHAN Field PA 11/13/242244 ROSHAN Loya 11/14/241729 Cosigned by Renaldo Da Silva MD at 11/15/2024 3:53 PM EDT Associated attestation - Renaldo Da Silva MD - 11/15/2024 3:53 PM EDT I have reviewed and I agree with the Nurse practitioner's/Physician engineer second assistant's note and plan by ROSHAN Loya dated 11/13/2024, except as noted: None Renaldo Da Silva MD 11/15/24 3:53 PM EDT documented in this encounter Plan of Treatment Upcoming Encounters Date Type Department Care Team (Late st Contact Info) Description 11/20/2024 1:00 PM EDT Office Visit Orthopedic Surgery - [place] [address] [phone] Wandy Aviles NP [address] [address] 11/21/2024 1:00 PM EDT Office Visit Internal Medicine - [place] 175 [facility] 200 [place] [address] Leslee Barnes MD [address] [facility] [address] [place] [address] Scheduled Referrals Name Type Priority Associated Diagnoses Order Schedule Ambulatory referral to Home Health Outpatient Referral Routine Expected: 11/14/2024, Expires: 11/14/2025 documented as of this encounter Procedures Procedure Name Priority Date/Time Associated Diagnosis Comments ECG ANNOTATED 11/15/2024 XR CHEST 2 VIEWS STAT 11/14/2024 3:03 AM EDT URINALYSIS WITH REFLEX MICROSCOPIC AND CULTURE STAT 11/14/2024 2:57 AM EDT GARRETT URINE CULTURE TUBE STAT 11/14/2024 2:57 AM EDT URINALYSIS WITH REFLEX MICROSCOPIC AND CULTURE STAT 11/14/2024 2:57 AM EDT CULTURE URINE STAT 11/14/2024 2:57 AM EDT ECG 12-LEAD STAT 11/14/2024 12:35 AM EDT TROPONIN I HIGH SENSITIVITY STAT 11/14/2024 12:20 AM EDT TROPONIN I HIGH SENSITIVITY STAT 11/13/2024 10:[address] CERVICAL SPINE WO CONTRAST STAT 11/13/2024 10:[address] HEAD WO CONTRAST STAT 11/13/2024 1 0:30 PM EDT CBC WITH AUTO DIFFERENTIAL STAT 11/13/2024 10:21 PM EDT CBC AND DIFFERENTIAL STAT 11/13/2024 10:21 PM EDT MAGNESIUM STAT 11/13/2024 10:21 PM EDT CREATINE KINASE STAT Add-on 11/13/2024 10:21 PM EDT BASIC METABOLIC PANEL STAT 11/13/2024 10:21 PM EDT ECG 12-LEAD STAT 11/13/2024 9:35 PM EDT documented in this encounter Results * ECG-Annotated (11/15/2024) us Provider Onbase MD ECG ORDERABLES Final Result * XR Chest [...] Signed Date: 11/14/2024 09:13 ET Workstation ID: [id number] Transcribed By: Self Edit Transcribed Date: 11/14/2024 [...] Signed Date: 11/14/2024 09:13 ET Workstation ID: [id number] Transcribed By: Self Edit Transcribed Date: 11/14/2024 09:12 ET Dario ISLAS IMG XR PROCEDURES Final R esult * Culture urine (11/14/2024 2:57 AM EDT) Culture, Urine 10,000-49,000 CFU/mL Mixed urogenital yeimi, no uropathogens present. Suggest repeat specimen if clinically indicated. 11/15/2024 10:03 AM EDT [facility] Urine Urine specimen obtained by clean catch procedure / Unknown Non-blood Collection / Unknown 11/14/2024 2:57 AM EDT 11/14/2024 4:23 AM EDT Dario ISLAS LAB MICROBIOLOGY - GENERA L ORDERABLES Final Result Performing Organization Address [facility]/ZIP Co de Phone Number [facility] [address] [place] [address], [place] [phone] * Garrett urine culture tube (11/14/2024 2:57 AM EDT) [facility] Extra Tube Hold for add-ons. 11/14/2024 5:01 AM EDT [facility] Comment:Auto resulted. Urine Urine specimen obtained by clean catch procedure / Unknown Non-blood Collection / Unknown 11/14/2024 2:57 AM EDT 11/14/2024 3:52 AM EDT [facility] LAB URINE ORDERABLES Mariana l Result Performing Organization Address [facility]/ZIP Co de Phone Number [facility] [address] [place] [address], [place] [phone] * (ABNORMAL) Urinalysis with reflex microscopic and culture (11/14/2024 2:57 AM EDT) [facility] Specific [place]berg Urine 1.014 1.003 - 1.030 LAB URINALYSIS - AUTOMATED METHOD 11/14/2024 4:23 AM [facility] pH, Urine 7.0 5.0 - 8.0 pH LAB URINALYSIS - AUTOMATED METHOD 11/14/2024 4:23 AM [facility] Leukocytes, Urine Trace(A) Negative LAB URINALYSIS - AUTOMATED METHOD 11/14/2024 4:23 AM [facility] Nitrite, Urine Negative Negative LAB URINALYSIS - AUTOMATED METHOD 11/14/2024 4:23 AM [facility] Protein, Urine Negative <=Trace mg/dL LAB URINALYSIS - AUTOMATED METHOD 11/14/2024 4:23 AM [facility] Glucose, Urine Negative Negative mg/dL LAB URINALYSIS - AUTOMATED METHOD 11/14/2024 4:23 AM [facility] Ketones, Urine Negative Negative mg/dL LAB URINALYSIS - AUTOMATED METHOD 11/14/2024 4:23 AM [facility] Urobilinogen, Urine 0.2 0.2 - 1.0 mg/dL LAB URINALYSIS - AUTOMATED METHOD 11/14/2024 4:23 AM [facility] Bilirubin, Urine Negative Negative LAB URINALYSIS - AUTOMATED METHOD 11/14/2024 4:23 AM [facility] Blood, Urine Negative Negative LAB URINALYSIS - AUTOMATED METHOD 11/14/2024 4:23 AM [facility] RBC, Urine 0.6 0 - 4 /HPF LAB URINALYSIS - AUTOMATED METHOD 11/14/2024 4:23 AM [facility] WBC, Urine 0.7 0 - 4 /HPF LAB URINALYSIS - AUTOMATED METHOD 11/14/2024 4:23 AM [facility] Squamous Epithelial, Urine 7 0 - 60 /LPF LAB URINALYSIS - AUTOMATED METHOD 11/14/2024 4:23 AM [facility] Bacteria, Urine Negative Negative /HPF LAB URINALYSIS - AUTOMATED METHOD 11/14/2024 4:23 AM [facility] Hyaline Casts, Urine 0.4 0 - 3 /LPF LAB URINALYSIS - AUTOMATED METHOD 11/14/2024 4:23 AM [facility] Urine Urine specimen obtained by clean catch procedure / Unknown Non-blood Collection / Unknown 11/14/2024 2:57 AM EDT 11/14/2024 3:53 AM EDT us [facility] URINE ORDERABLES Mariana l Result [facility] [address] [place] [address], [place] [phone] * ECG 12 lead (11/14/2024 12:35 AM EDT) Pathologist [facility] Ventricular Rate ECG 64 BPM GEMUSE Atrial Rate 64 BPM GEMUSE P-R Interval 182 ms GEMUSE QRS Duration 68 ms GEMUSE Q-T Interval 408 ms GEMUSE QTc 420 ms GEMUSE P Wave Malvern 58 degrees GEMUSE R [place] 50 degrees GEMUSE T [place] 39 degrees GEMUSE ECG Interpretation Normal sinus rhythm Normal ECG When compared with ECG of 13-NOV-2024 21:35, (unconfirmed) No significant change was found Confirmed by PETAR SEARS ([id number]) on 11/14/2024 11:19:12 AM GEMUSE 11/14/2024 12:3 5 AM EDT 11/14/2024 11:19 AM EDT us Dario ISLAS ECG ORDERABLES Final Res ult Performing Organization Address [facility]/ZIP Co de Phone Number GEMUSE * Troponin I high sensitivity (NOW and then in 1 hour) (11/14/2024 12:20 AM EDT) [facility] High Sensitivity Troponin I 6 <=54 ng/L LAB CHEMISTRY METHOD 11/14/2024 1:08 AM EDT [facility] Blood Venous blood specimen / Unknown Venipuncture / Unknown 11/14/2024 12:20 AM EDT 11/14/2024 12:36 AM EDT Narrative [facility] - 11/14/2024 1:08 AM EDT High levels of biotin in samples may falsely decrease hsTroponin values. ??Use caution when interpreting hsTroponin results in patients taking biotin who exhibit renal impairment (eGFR <60) or in patients taking more than 20 mg/day of biotin. [facility] LAB BLOOD ORDERABLES Mariana l Result Performing Organization Address City/[facility]/ZIP Co de Phone Number [facility] [address] [place] [address], [place] [phone] * Troponin I high sensitivity (NOW and then in 1 hour) (11/13/2024 10:57 PM EDT) High Sensitivity Troponin I 7 <=54 ng/L LAB CHEMISTRY METHOD 11/13/2024 11:36 PM EDT [facility] Blood Venous blood specimen / Unknown Venipuncture / Unknown 11/13/2024 10:57 PM EDT 11/13/2024 11:10 PM EDT Narrative [facility] - 11/13/2024 11:36 PM EDT High levels of biotin in samples may falsely decrease hsTroponin values. ??Use caution when interpreting hsTroponin results in patients taking biotin who exhibit renal impairment (eGFR <60) or in patients taking more than 20 mg/day of biotin. [facility] LAB BLOOD ORDERABLES Mariana hemphill Result [facility] [address] [place] [address], [place] [phone] * CT Head wo Contrast (11/13/2024 10:30 [...] Trinidad Schrader MD on 11/14/2024 00:06:39 Michael Zayas DO IMG CT PROCEDURES Final Res ult * CT Cervical Spine wo Contrast (11/13/2024 10:30 PM EDT) Anatomical Region Laterality Modality Spine, C-spine Computed Tomogra phy 11/14/2024 12:0 2 AM EDT Impressions 11/14/2024 12:02 AM EDT 1. No acute findings. 2. Multilevel degenerative changes. This document has been electronically signed by: Trinidad Schrdaer MD on 11/14/2024 00:02:20 Narrative 11/14/2024 12:02 [...] IMG CT PROCEDURES Final Res ult * Creatine kinase (11/13/2024 10:21 PM EDT) [facility] Total CK 206 22 - 269 unit/L LAB CHEMISTRY METHOD 11/13/2024 11:42 PM EDT [facility] Blood Venous blood specimen / Unknown Venipuncture / Unknown 11/13/2024 10:21 PM EDT 11/13/2024 11:10 PM EDT [facility] LAB BLOOD ORDERABLES Mariana l Result [facility] [address] [place] [address], [place] [phone] * (ABNORMAL) CBC auto differential (11/13/2024 10:21 PM EDT) [facility] WBC 6.2 4.8 - 10.8 K/mcL LAB HEMETOLOGY METHOD 11/13/2024 11:15 PM EDT [facility] RBC 3.30(L) 3.80 - 4.80 M/mcL LAB HEMETOLOGY METHOD 11/13/2024 11:15 PM EDT [facility] Hemoglobin 10.2(L) 11.5 - 16.0 g/dL LAB HEMETOLOGY METHOD 11/13/2024 11:15 PM EDT [facility] Hematocrit 29.1(L) 35.0 - 47.0 % LAB HEMETOLOGY METHOD 11/13/2024 11:[facility] MCV 89.0 79.0 - 98.0 FL LAB HEMETOLOGY METHOD 11/13/2024 11:15 PM [facility] MCH 31.2 27.0 - 32.0 pcg LAB HEMETOLOGY METHOD 11/13/2024 11:15 PM [facility] MCHC 35.1 32.0 - 37.0 g/dL LAB HEMETOLOGY METHOD 11/13/2024 11:15 PM [facility] RDW 14.8 11.0 - 15.0 % LAB HEMETOLOGY METHOD 11/13/2024 11:15 PM [facility] Platelets 212 130 - 400 K/mcL LAB HEMETOLOGY METHOD 11/13/2024 11:15 PM [facility] MPV 10.2 7.0 - 11.0 FL LAB HEMETOLOGY METHOD 11/13/2024 11:15 PM [facility] NRBC 0.0 <1.0 % LAB HEMETOLOGY METHOD 11/13/2024 11:15 PM [facility] NRBC Absolute 0.00 <0.10 K/mcL LAB HEMETOLOGY METHOD 11/13/2024 11:15 PM [facility] Neutrophils Relative 47.5 % LAB HEMETOLOGY METHOD 11/13/2024 11:15 PM [facility] Lymphocytes Relative 42.5 % LAB HEMETOLOGY METHOD 11/13/2024 11:15 PM [facility] Monocytes Relative 7.3 % LAB HEMETOLOGY METHOD 11/13/2024 11:15 PM [facility] Eosinophils Relative 1.9 % LAB HEMETOLOGY METHOD 11/13/2024 11:15 PM [facility] Basophils Relative 0.6 % LAB HEMETOLOGY METHOD 11/13/2024 11:15 PM EDT [facility] Immature Granulocytes Relative 0.2 % LAB HEMETOLOGY METHOD 11/13/2024 11:15 PM EDT [facility] Neutrophils Absolute 2.93 1.50 - 7.00 K/[facility] LAB HEMETOLOGY METHOD 11/13/2024 11:15 PM EDT [facility] Lymphocytes Absolute 2.62 1.00 - 5.00 K/mcL LAB HEMETOLOGY METHOD 11/13/2024 11:15 PM EDT [facility] Monocytes Absolute 0.45 0.20 - 1.00 K/[facility] LAB HEMETOLOGY METHOD 11/13/2024 11:15 PM EDT [facility] Eosinophils Absolute 0.12 0.00 - 0.50 K/[facility] LAB HEMETOLOGY METHOD 11/13/2024 11:15 PM EDT [facility] Basophils Absolute 0.04 0.00 - 0.20 K/mcL LAB HEMETOLOGY METHOD 11/13/2024 11:15 PM EDT [facility] Immature Granulocytes Absolute 0.01 0.00 - 0.03 K/mcL LAB HEMETOLOGY METHOD 11/13/2024 11:15 PM EDT [facility] Blood Venous blood specimen / Unknown Venipuncture / Unknown 11/13/2024 10:21 PM EDT 11/13/2024 11:10 PM EDT Michael Zayas DO LAB BLOOD ORDERABLES Final Result [facility] [address] [place] [address], * (ABNORMAL) Magnesium (11/13/2024 10:21 PM EDT) Magnesium 1.8(L) 1.9 - 2.6 mg/dL LAB CHEMISTRY METHOD 11/13/2024 11:42 PM EDT [facility] Blood Venous blood specimen / Unknown Venipuncture / Unknown 11/13/2024 10:21 PM EDT 11/13/2024 11:10 PM EDT Michael Sobia Zayas DO LAB BLOOD ORDERABLES Final Result [facility] [address] [place] [address], * (ABNORMAL) Basic metabolic panel (11/13/2024 10:21 PM EDT) Sodium 144 133 - 145 mmol/L LAB CHEMISTRY METHOD 11/13/2024 11:49 PM [facility] Potassium 3.6 3.5 - 5.5 mmol/L LAB CHEMISTRY METHOD 11/13/2024 11:49 PM [facility] Chloride 112(H) 96 - 110 mmol/L LAB CHEMISTRY METHOD 11/13/2024 11:49 PM [facility] CO2 27 21 - 32 mmol/L LAB CHEMISTRY METHOD 11/13/2024 11:49 PM [facility] Anion Gap 5 3 - 11 LAB CHEMISTRY METHOD 11/13/2024 11:49 PM [facility] Glucose 85 70 - 100 mg/dL LAB CHEMISTRY METHOD 11/13/2024 11:49 PM [facility] BUN 19 5 - 25 mg/dL LAB CHEMISTRY METHOD 11/13/2024 11:49 PM [facility] Creatinine 0.77 0.50 - 1.10 mg/dL LAB CHEMISTRY METHOD 11/13/2024 11:49 PM [facility] eGFR 81 >=60 mL/min/1. 73m2 LAB CHEMISTRY METHOD 11/13/2024 11:49 PM [facility] Comment:Calculation based on the Chronic Kidney Disease Epidemiology Collaboration (CKD-EPI) equation refit without adjustment for race. BUN/Creatinine Ratio 24.7 LAB CHEMISTRY METHOD 11/13/2024 11:49 PM EDT [facility] Calcium 8.3(L) 8.5 - 10.5 mg/dL LAB CHEMISTRY METHOD 11/13/2024 11:49 PM EDT [facility] Blood Venous blood specimen / Unknown Venipuncture / Unknown 11/13/2024 10:21 PM EDT 11/13/2024 11:10 PM EDT Michael Zayas DO LAB BLOOD ORDERABLES Final Result [facility] [address] [place] [address], [place] [phone] * ECG 12 lead (11/13/2024 9:35 PM EDT) Ventricular Rate ECG 63 BPM GEMUSE Atrial Rate 63 BPM GEMUSE P-R Interval 170 ms GEMUSE QRS Duration 86 ms GEMUSE Q-T Interval 394 ms GEMUSE QTc 403 ms GEMUSE P Wave Malvern 33 degrees GEMUSE R [place] 31 degrees GEMUSE T [place] 29 degrees GEMUSE ECG Interpretation Normal sinus rhythm Normal ECG When compared with ECG of 20-FEB-2024 01:04, No significant change was found Confirmed by PETAR SEARS ([id number]) on 11/14/2024 11:18:46 AM GEMUSE 11/13/2024 9:35 PM EDT 11/14/2024 11:18 AM EDT us Michael Zayas DO ECG ORDERABLES Final Resul t GEMUSE documented in this encounter Visit Diagnoses Diagnosis Fall, initial encounter- Primary Weakness Other malaise and fatigue documented in this encounter Administered Medications Inactive Administered Medications - up to 3 most recent administrations Medication Order MAR Action Action Date Dose Rate Site enoxaparin (LOVENOX) injection 40 mg 40 mg, subcutaneous, Daily, First dose on Gladis 11/14/24 at 0900, For 7 days, Indication: VTE/PE Prophylaxis Given 11/14/2024 9:48 AM EDT 40 mg Left Lower Abdomen magnesium oxide (MAG-OX) tablet 400 mg 400 mg, oral, Once, On Gladis 11/14/24 at 0122, For 1 dose Given 11/14/2024 2:35 AM EDT 400 mg sodium chloride 0.9 % bolus 500 mL 500 mL, intravenous, at 1,000 mL/hr, Administer over 30 Minutes, Once, On Mon11/13/24 at 2242, For 1 dose New Bag 11/13/2024 11:16 PM EDT 500 mL 1000 mL/hr documented in this encounter Active and Recently Administered Medications Times are shown in EDT. Scheduled Medication Order 11/12/2024 11/13/2024 11/14/2024 atorvastatin (LIPITOR) tablet 20 mg 20 mg, oral, Nightly, First dose on Gladis 11/14/24 at 2100 enoxaparin (LOVENOX) injection 40 mg 40 mg, subcutaneous, Daily, First dose on Gladis 11/14/24 at 0900, For 7 days, Indication: VTE/PE Prophylaxis 0948 (Given - Provid er: Mira Singer RN) magnesium oxide (MAG-OX) tablet 400 mg (COMPLETED) 400 mg, oral, Once, On [place]is 11/14/24 at 0122, For 1 dose 0235 (Given - Provid er: Chip Pfeiffer RN) melatonin tablet 10.5 mg 10.5 mg (rounded from 10 mg), oral, Nightly, First dose on Gladis 11/14/24 at 2100 NIFEdipine XL (PROCARDIA XL) 24 hr tablet 30 mg 30 mg, oral, Every morning before breakfast, First dose on Mon11/15/24 at 0700, Do not crush, chew, or split. sodium chloride 0.9 % bolus 500 mL (COMPLETED) 500 mL, intravenous, at 1,000 mL/hr, Administer over 30 Minutes, Once, On Mon11/13/24 at 2242, For 1 dose 2316 (New Bag - Provider: Chip Pfeiffer, EDIN) 0842 (Stopped - Provider: Mira Singer RN) PRN Medication Order 11/12/2024 11/13/2024 11/14/2024 albuterol 2.5 mg /3 mL (0.083 %) nebulizer solution 2.5 mg 2.5 mg, nebulization, Every 8 hours PRN, wheezing, Starting on Gladis 11/14/24 at 0913 documented in this encounter Orders Medications Ordered That Jose Eduardo ht Not Have Been Administered Count Last Ordered Date First Ordered Date albuterol 2.5 mg /3 mL (0.08 3 %) nebulizer solution 2.5 mg 1 11/14/2024 atorvastatin (LIPITOR) tablet 20 mg 1 11/14 melatonin tablet 10.5 mg 1 11/14/2024 NIFEdipine XL (PROCARDIA XL) 24 hr tablet 30 mg 1 11/14/2024 Nursing Count Last Ordered Date First Orde red Date ORTHOSTATIC BLOOD PRESSURE 1 11/13/2024 VITAL SIGNS 1 11/13/2024 documented in this encounter Care Teams President & Ceo Relationship Specialty Start Date End Date Leslee Barnes MD [address] [phone] PCP - General Internal Medicine 12/15/21 documented as of this encounter
--- OUTSIDE RECORDS SUMMARY | 2024-11-19 14:41 | XMS_ITS | Clinical Summary ---
Author Organization [facility] Address [address] [place] [address] Care Team Providers Care Manager Of Quality Name Role Phone Leslee Barnes MD Primary Care Provider [phone] Allergies Active Allergy Reactions Criticality Noted Date [...] PO Take by mouth. 0 Acti ve [id number] Eth Est, Dietary, 1 g CAPS Take [...] age to complete this topic Care Teams Manager Of Quality Relationship Specialty Start Date End Date Leslee Barnes MD [address] [place] [address] PCP - General Internal Medicine 01/29/24
--- OUTSIDE RECORDS SUMMARY | 2024-11-19 14:41 | XMS_ITS | Encounter Summary ---
Author Organization [facility] Address [address] [place] [address] Care Team Providers Care Stencil Maker Name Role Phone Leslee Barnes MD Primary Care Provider Encounter Details Date Type Department Care Team (Late st Contact Info) Description 04/26/2024 2:00 PM EDT Hospital Encounter TH HISTORIC ENCOUNTERS EASTERN CONVERSION ONLY Lisa Perez PA [address] [place] [address] Social History Tobacco Use Types Packs/Day Years [...] PM EDT Office Visit Orthopedic Surgery - [place] [address] [phone] Wandy Aviles NP [address] [address] 11/21/2024 1:00 PM EDT Office Visit Internal Medicine - [place] 175 [facility] [address] [place] [phone] Leslee Barnes MD 175 [facility] [address] [place] [phone] documented as of this encounter Visit Diagnoses Not on filedocumented in this encounter Care Teams Stencil Maker Relationship Specialty Start Date End Date Leslee Barnes MD 175 [facility] [address] [place] [phone] PCP - General Internal Medicine 12/15/21 documented as of this encounter
--- OUTSIDE RECORDS SUMMARY | 2024-11-19 14:41 | XMS_ITS | Encounter Summary ---
Author Organization [facility] Address [address] [place] [address] Care Team Providers Care Modern Dancer Name Role Phone Leslee Barnes MD Primary Care Provider [phone] Encounter Details Date Type Department Care Team (Late st Contact Info) Description 04/26/2024 2:02 PM EDT Hospital Encounter TH HISTORIC ENCOUNTERS EASTERN CONVERSION ONLY Lisa Perez PA [address] [place] [address] Social History Tobacco Use Types Packs/Day Years [...] Perez PA-C Service: -- Author Type: Physician Conductor Pullman Filed: 04/29/2024 11:59 AM Encounter Date: 04/26/2024 Status: Signed Radio Communications Mechanician: Lisa Perez PA-C (Physician Conductor Pullman) Cosigner: Deb Paige MD at 04/29/2024 12:12 [...] Take by mouth., Disp: , Rfl: ? [id number]-8-[id number] Eth Est, Dietary, 1 g CAPS, Take [...] MD Sign: Lisa Perez PA-C Hematology/Oncology [facility] [phone] documented in this encounter Plan of Treatment Upcoming Encounters Date Type Department Care Team (Late st Contact Info) Description 11/20/2024 1:00 PM EDT Office Visit Orthopedic Surgery - [place] [address] [phone] Wandy Aviles NP [address] [address] 11/21/2024 1:00 PM EDT Office Visit Internal Medicine - [place] 175 [facility] 200 [place] [phone] Leslee Barnes MD [address] [phone] documented as of this encounter Procedures Procedure [...] on filedocumented in this encounter Care Teams Modern Dancer Relationship Specialty Start Date End Date Leslee Barnes MD [address] [place] [phone] PCP - General Internal Medicine 12/15/21 documented as of this encounter
--- OUTSIDE RECORDS SUMMARY | 2024-11-19 14:41 | XMS_ITS | Encounter Summary ---
Author Organization [facility] Address [address] [place] [address] Care Team Providers Care Manager Customer Service Name Role Phone Leslee Barnes MD Primary Care Provider [phone] Reason for Visit * Reason Onset Date Comments Hypotension 10/15/2024 Encounter Details Date Type Department Care Team (Late st Contact Info) Description 10/15/2024 Telephone Internal Medicine - [place] [address] [place] [phone] Leslee Barnes MD [address] [place] [address] Hypotension Social History Tobacco Use [...] 9:01 AM EDT Call to pt # [phone], spoke w/ pt's son Roly. 2 days [...] 11:52 AM EDT Call to pt # [phone], this number is busy. Called pt # [phone] , left message to call back * Cherry Ryan - 10/15/2024 11:49 AM EDT Patients care professional called and is very concerned about patient BP because it has been dangerously low and he does not know If it is due to the medication changes and is worried. Please advise Cb# [phone] documented in this encounter Plan of Treatment Upcoming Encounters Date Type Department Care Team (Late st Contact Info) Description 11/20/2024 1:00 PM EDT Office Visit Orthopedic Surgery - [place] [address] [phone] Wandy Aviles NP [address] [address] 11/21/2024 1:00 PM EDT Office Visit Internal Medicine - [place] [address] [phone] Leslee Barnes MD [address] [phone] documented as of this encounter Visit Diagnoses Not on filedocumented in this encounter Care Teams Manager Customer Service Relationship Specialty Start Date End Date Leslee Barnes MD [address] [phone] PCP - General Internal Medicine 12/15/21 documented as of this encounter
--- OUTSIDE RECORDS SUMMARY | 2024-11-19 14:41 | XMS_ITS | Encounter Summary ---
Author Organization [facility] Address [address] [place] [address] Care Team Providers Care Extension Course Counselor Name Role Phone Leslee Barnes MD Primary Care Provider [phone] Reason for Visit * Reason Onset Date Comments verbal orders 11/19/2024 Encounter Details Date Type Department Care Team (Late st Contact Info) Description 11/19/2024 Telephone Internal Medicine - [place] [address] [address] [place] [address] [address] Marie [place] verbal orders Social History Tobacco Use Types Packs/Day Years [...] Progress Notes * Susan Forbes RN - 11/19/2024 11:45 AM EDT Call to Ronda from [facility] # [phone], spoke to her [facility] 11/14 for fall at home due to lightheadedness Gave verbal orders for home PT * Court Marie MA - 11/19/2024 11:41 AM EDT Ronda from [facility] called for verbal orders for home care PT therapy? Pls advise? documented in this encounter Plan of Treatment Upcoming Encounters Date Type Department Care Team (Late st Contact Info) Description 11/20/2024 1:00 PM EDT Office Visit Orthopedic Surgery - [place] [address] [phone] Wandy Aviles NP [address] [address] 11/21/2024 1:00 PM EDT Office Visit Internal Medicine - [place] [address] [phone] Leslee Barnes MD [address] [phone] documented as of this encounter Visit Diagnoses Not on filedocumented in this encounter Care Teams Extension Course Counselor Relationship Specialty Start Date End Date Leslee Barnes MD [address] [phone] PCP - General Internal Medicine 12/15/21 documented as of this encounter
--- OUTSIDE RECORDS SUMMARY | 2024-11-19 14:41 | XMS_ITS | Encounter Summary ---
Author Organization [facility] Address [address] [place] [address] Care Team Providers Care Art Gilder Name Role Phone Leslee Barnes MD Primary Care Provider [phone] Encounter Details Date Type Department Care Team (Late st Contact Info) Description 04/12/2024 12:40 PM EDT Hospital Encounter TH HISTORIC ENCOUNTERS EASTERN CONVERSION ONLY Lisa Perez PA [address] [place] [address] Social History Tobacco Use Types Packs/Day Years [...] Perez PA-C Service: -- Author Type: Physician Db2 Dba Filed: 04/12/2024 2:08 PM Encounter Date: 04/12/2024 Status: Addendum Glass Cutting Machine Feeder: Lisa Perez PA-C (Physician Db2 Dba) Related Notes: Original Note by Lisa Perez PA-C (Physician Db2 Dba) filed at 04/12/2024 2:[address] [...] has history of gait imbalance. She also reportsongoing dizziness and fatigue. She has an appointment [...] Take by mouth., Disp: , Rfl: ? Stfri-9-Olnh Eth Est, Dietary, 1 g CAPS, Take [...] Sign: Lisa Perez PA-C Hematology/Oncology [facility] [phone] documented in this encounter Plan of Treatment Upcoming Encounters Date Type Department Care Team (Late st Contact Info) Description 11/20/2024 1:00 PM EDT Office Visit Orthopedic Surgery - [place] [address] [phone] Wandy Aviles NP [address] [address] 11/21/2024 1:00 PM EDT Office Visit Internal Medicine - [place] [address] [phone] Leslee Barnes MD [address] [phone] documented as of this encounter Procedures Procedure Name Priority Date/Time Associated Diagnosis Comments ..MISCELLANEOUS REFERENCE LAB TEST 04/12/2024 documented in this encounter Results * Miscellaneous reference lab test (04/12/2024) us Provider Onbase LAB BLOOD ORDERABLES Final Re sult documented in this encounter Visit Diagnoses Not on filedocumented in this encounter Care Teams Art Gilder Relationship Specialty Start Date End Date Leslee Barnes MD [address] [place] [phone] PCP - General Internal Medicine 12/15/21 documented as of this encounter
== END 2024-11-19 14:44 | disposition home or self-care (01) ==
LOC: HO.HSMS 13:30
PROVIDERS: PCP Internal Medicine; Visit Provider Nurse Practitioner Family
DX: G20.A1 Parkinson's disease without dyskinesia, without mention of fluctuations (principal); R42 Dizziness and giddiness; R35.1 Nocturia; G47.19 Other hypersomnia; R06.83 Snoring; G47.9 Sleep disorder, unspecified; R25.1 Tremor, unspecified; R47.1 Dysarthria and anarthria; R13.10 Dysphagia, unspecified; G43.009 Migraine without aura, not intractable, without status migrainosus
CPT/HCPCS: 99214

== ENCOUNTER → 2024-11-19 13:30 | Outpatient (BNVA) | payer OTHER, SELFPAY | PROVIDERS: PCP Internal Medicine; Visit Provider Nurse Practitioner Family | DX: G20.A1 Parkinson's disease without dyskinesia, without mention of fluctuations (principal); G47.19 Other hypersomnia; G47.9 Sleep disorder, unspecified; R42 Dizziness and giddiness; R35.1 Nocturia; R06.83 Snoring; R47.1 Dysarthria and anarthria; R13.10 Dysphagia, unspecified; G43.009 Migraine without aura, not intractable, without status migrainosus | CPT/HCPCS: 99212 ==

== ENCOUNTER → 2024-11-27 13:34 | Outpatient (BNVA) | payer OTHER, SELFPAY | PROVIDERS: PCP Internal Medicine; Visit Provider Internal Medicine Hypertension Specialist ==

== ENCOUNTER → 2024-12-03 14:37 | Outpatient (BNVA) | payer OTHER, SELFPAY | PROVIDERS: PCP Internal Medicine; Visit Provider Internal Medicine Hypertension Specialist ==

== ENCOUNTER → 2024-12-04 14:07 | Outpatient (BNVA) | payer OTHER, SELFPAY | PROVIDERS: PCP Internal Medicine; Visit Provider Internal Medicine Hypertension Specialist | DX: Z01.30 Encounter for examination of blood pressure without abnormal findings (principal) | CPT/HCPCS: 93786; 93788 ==

== ENCOUNTER → 2025-01-06 19:30 | Outpatient (REF) | payer OTHER, SELFPAY | LOC: HO.SL 19:30 | PROVIDERS: PCP Hospitalist; Visit Provider Nurse Practitioner Family | DX: G47.19 Other hypersomnia (principal); R35.1 Nocturia; R06.83 Snoring; Z53.9 Procedure and treatment not carried out, unspecified reason | CPT/HCPCS: 95810 ==

== ENCOUNTER → 2025-01-06 19:30 | Outpatient (BNV) | payer OTHER, SELFPAY | PROVIDERS: PCP Hospitalist; Visit Provider Psychiatry & Neurology Neurology | DX: R06.83 Snoring (principal); G47.19 Other hypersomnia; R35.1 Nocturia | CPT/HCPCS: 95810 ==

== ENCOUNTER 2025-01-27 14:21 | Outpatient (REF) | payer OTHER, SELFPAY ==
--- OUTSIDE RECORDS SUMMARY | 2025-01-27 15:05 | XMS_ITS | Clinical Summary ---
Author Organization [facility] Address [address] [address] [place] [address] Phone Care Team Providers Care Construction Administrator Name Role Phone Leslee Barnes MD Primary Care Provider [phone] Allergies Active Allergy Reactions Criticality Noted Date [...] Heart disease Sibling 2 Stroke Sibling 3 [place] Relation Status Comments Father Mother Alive Sibling [...] Cancer Screening: Sigmoidoscopy 1999 Influenza Vaccine (#1) 2025 , 06/29/2023, 04/19/2022, Additional history exists Hepatitis B Vaccine Aged Out No longe r eligible based on patient's age to complete this topic Insurance ([id number]) [facility] ([id number]) Care Teams Construction Administrator Relationship Specialty Start Date End Date Leslee Barnes MD [address] [place] [phone] PCP - General Internal Medicine 04/27/22
--- OUTSIDE RECORDS SUMMARY | 2025-01-27 15:05 | XMS_ITS | Clinical Summary ---
Author Organization 175 [facility] Address [address] [place] [address] Phone Care Team Providers Care Ambulance Driver Paramedic Name Role Phone Heena Barnes MD Primary Care Provider [phone] Allergies Active Allergy Reactions Criticality Noted Date Comments Aspirin Other 10/27/2020 Leflunomide Medium 03/17/2022 Rash Rash Penicillins Nausea And Vomiting,Other 10/27/2020 Shellfish Containing Products 03/28/2024 Medications amitriptyline (ELAVIL) 25 mg tablet Take 1 tablet (25 mg total) by mouth. Active calcium carbonate-vit D3-min 600 mg calcium- 400 unit tablet 09/22/19 21 Active clotrimazole-b etamethasone (LOTRISONE) 1-0.05 % cream 08/14/19 21 Active meclizine (ANTIVERT) 12.5 mg tablet [...] pain. 30 tablet 1 07/23/19 25 Active rosuvastatin (CRESTOR) 20 mg tablet [...] DAILY 30 tablet 2 11/13/19 25 Active ascorbic acid (VITAMIN C) 250 mg tablet TAKE 1 TABLET BY MOUTH ONCE DAILY 30 tablet 2 12/03/19 25 Active FeroSuL 325 mg (65 mg iron) tablet TAKE 1 TABLET BY MOUTH ONCE DAILY 30 tablet 1 12/03/19 25 Active diclofenac (VOLTAREN) 1 % topical gel Apply 4 g topically 2 (two) times a day. 100 g 1 12/26/19 25 Active calcium carbonate-portillo min D 600 mg-10 mcg (400 unit) per tablet Take 1 tablet by mouth 2 (two) times a day. 60 tablet 1 01/14/20 25 Active calcium carbonate-portillo min D 600 mg-10 mcg (400 unit) per tablet Take 1 tablet by mouth 2 (two) times a day. 60 tablet 1 07/23/19 25 025 Discontinued Active Problems Problem Noted Date Diagnosed Date Depression, unspecified 06/03/2024 Altered mental status, unspecified 06/03/2024 Other toxic encephalopathy 06/03/2024 Anxiety disorder, unspecified 06/03/2024 Rheumatoid arthritis, unspec ified ([facility] V24, [facility] V28) 06/03/2024 Essential (primary) hypertension 06/03/2024 Severe obesity ([facility] V24, [facility] V28) 2023 Gait instability 07/18/2023 Primary osteoarthritis of left knee 07/18/2023 Primary osteoarthritis of right knee 07/18/2023 Hyperlipidemia 07/17/2023 Osteopenia 07/17/2023 Rheumatoid arthritis ([facility] V24, [facility] V28) 07/17/2023 Cervical spinal stenosis 12/05/2022 Overview [...] general anesthesia with risk of stroke or [place], risk for hematoma, infection, damage to the [...] Encounters Date Type Department Care Team Description 01/21/2025 Telephone Internal Medicine - [address] [phone] Do Jones [place] Request For Order(s) ([facility] - Order MGZW/) 01/20/2025 Telephone Internal Medicine - [address] [phone] Heena Barnes MD ER follow up 01/07/2025 2:24 AM EDT - 01/07/2025 8:36 AM EDT Emergency [facility] Emergency [address] [place] [phone] Dung Magallon MD Acute COVID-19 (Primary Dx) Discharge Disposition: Home or Self Care 12/31/[address] [facility] 175 [facility] [address] [place] [phone] Irina Mathew [place] Form (RMV) 12/25/[address] [facility] [address] [phone] Heena Barnes MD 12/24/[address] [facility] [address] [phone] [address] Marie [place] verbal orders 12/02/2024 Telephone Internal [facility] [address] [phone] Do Jones [place] Request For Order(s) ([facility] - Order 98GN/) 11/19/2024 [place] [facility] [address] [phone] [address] Marie [place] verbal orders 11/13/2024 9:04 PM EDT - 11/14/2024 11:00 AM EDT Emergency [facility] Emergency [address] [place] [address] Michael Zayas, DO Fall, initial encounter (Primary Dx); Weakness Discharge Disposition: Home-Health Care Svc from Last 3 Months Immunizations Name Administration [...] Sign Reading Time Taken Comments Blood Pressure 118/69 01/07/2025 8:30 AM EDT Pulse 82 01/07/2025 8:30 AM EDT Temperature 37 C (98.6 F) 01/07/2025 8:30 AM EDT Respiratory Rate 18 01/07/2025 8:30 AM EDT Oxygen Saturation 97% 01/07/2025 8:30 AM EDT Inhaled Oxygen Concentration - - Weight 74.8 kg (165 lb) 11/13/2024 9:14 PM EDT Height 165.1 cm (5' 5 ) 11/13/2024 9:14 PM EDT Body Mass Index 27.46 11/13/2024 9:14 PM EDT Plan of Treatment Health Maintenance Due Date Last Done Comments DTaP,Tdap,and Td Vaccines (1 - Tdap) 1969 Pneumococcal Vaccine: 50+ Years (1 of 2 - PCV) 1969 Zoster Vaccines (1 of 2) 2000 RSV Immunization Adult Patients (1 - Risk 60-74 years 1-dose series) 2010 Hepatitis C Screening 06/12/2022 Medicare Annual Wellness Visit 06/12/2022 Social Influencers of Health Screening 06/12/2022 COVID-19 Vaccine ( season) 2024 03/22/2023, 04/19/2022, 10/11/2021, Additional history exists Depression Screening 07/03/2024 Breast Cancer Screening 12/07/2024 12/08/19, 11/01/2021, 03/25/2020, Additional history exists Influenza Vaccine (#1) 2025 , 06/29/2023, 04/19/2022, Additional history exists Hypertension/CHF/CAD Annual BMP Blood Test 11/13/2025 11/13/2024, 07/23/2024, 03/05/2024, Additional history exists Falls Risk Assessment 01/07/2026 01/07/2025 Cholesterol Screening (Lipid Panel) 09/10/2028 09/11/2023 Osteoporosis Screening (Bone Density Screening) 04/07/2032 04/07/2022, 01/11/2019 Colorectal Cancer Screening: Colonoscopy 06/08/2033 06/08/2023 HIB Vaccines Aged Out No longer eligi [...] Procedure Name Priority Date/Time Associated Diagnosis Comments XR CHEST 2 VIEWS STAT 01/07/2025 6:21 AM EDT RESPIRATORY VIRUS PANEL MOLECULAR STUDY STAT 01/07/2025 3:01 AM EDT ECG ANNOTATED 11/15/2024 XR CHEST 2 VIEWS [...] 9:35 PM EDT LIPID PANEL Routine 09/11/2023 COLONOSCOPY Routine 06/08/2023 [facility] SCREENING DIGITAL Routine 12/07/2022 11:16 AM EDT Encounter for screening mammogram for malignant neoplasm of breast [facility] DEXA AXIAL SKELETON Routine 04/07/2022 11:05 AM EDT Encounter for screening for osteoporosis from Last 3 Months or Most Recently Relevant to Health Maintenance Results * XR Chest 2 Views (01/07/2025 6:21 AM EDT) Only the most recent of2 resultswithin the time period is included. Anatomical Region Laterality Modality Body Radiographic Bisi ging 01/07/2025 8:00 AM EDT Impressions 01/07/2025 8:01 AM EDT Impression: Stable radiographic appearance of the chest. No active pulmonary process identified. Telerad PA ([id number]) -------- FINAL REPORT -------- Dictated By: Salima Marina Dictated Date: 01/07/2025 08:00 ET Assigned Physician: Salima Marina Reviewed and Electronically Signed By: Salima Marina Signed Date: 01/07/2025 08:01 ET Workstation ID: [id number] Transcribed By: Self Edit Transcribed Date: 01/07/2025 08:00 ET Narrative 01/07/2025 8:01 AM EDT History: Dyspnea. Comparison: 11/14/24, 12/26/23 Findings: Upright AP and lateral views. The cardiac silhouette remains normal in size. Atherosclerotic calcification of the thoracic aorta is seen. Hilar and mediastinal contours are stable. The pulmonary vascularity is within normal limits. The lungs are clear. The costophrenic angles are sharp. Thoracic vertebral endplate spurring is seen. Procedure Note Salima Marina MD - 01/07/2025 History: Dyspnea. Comparison: 11/14/24, 12/26/23 Findings: Upright AP and lateral views. The cardiac silhouette remains normal insize. Atherosclerotic calcification of the thoracic aorta is seen. Hilarand mediastinal contours are stable. The pulmonary vascularity is withinnormal limits. The lungs are clear. The costophrenic angles are sharp. Thoracic vertebral endplate spurring is seen. IMPRESSION: Impression: Stable radiographic appearance of the chest. No active pulmonary processidentified. Telerad PA ([id number]) -------- FINAL REPORT -------- Dictated By: Salima Marina Dictated Date: 01/07/2025 08:00 ET Assigned Physician: Salima Marina Reviewed and Electronically Signed By: Salima Marina Signed Date: 01/07/2025 08:01 ET Workstation ID: [id number] Transcribed By: Self Edit Transcribed Date: 01/07/2025 08:00 ET Dung Magallon MD IMG XR PROCEDURES Final Result * (ABNORMAL) Respiratory virus panel molecular study (01/07/2025 3:01 AM EDT) Pathologist [facility] Adenovirus Detection by PCR Not Detected Not Detected LAB MICROBIOLOGY METHOD 01/07/2025 4:38 AM EDT [facility] Influenza A PCR Not Detected Not Detected LAB MICROBIOLOGY METHOD 01/07/2025 4:38 AM EDT [facility] Influenza B PCR Not Detected Not Detected LAB MICROBIOLOGY METHOD 01/07/2025 4:38 AM EDT [facility] Coronavirus 229E Not Detected Not Detected LAB MICROBIOLOGY METHOD 01/07/2025 4:38 AM EDT [facility] Coronavirus HKU1 Not Detected Not Detected LAB MICROBIOLOGY METHOD 01/07/2025 4:38 AM EDT [facility] Coronavirus OC43 Not Detected Not Detected LAB MICROBIOLOGY METHOD 01/07/2025 4:38 AM EDT [facility] Coronavirus NL63 Not Detected Not Detected LAB MICROBIOLOGY METHOD 01/07/2025 4:38 AM EDT [facility] Parainfluenza Virus 1 Not Detected Not Detected LAB MICROBIOLOGY METHOD 01/07/2025 4:38 AM EDT [facility] Parainfluenza Virus 2 Not Detected Not Detected LAB MICROBIOLOGY METHOD 01/07/2025 4:38 AM EDT [facility] Parainfluenza Virus 3 Not Detected Not Detected LAB MICROBIOLOGY METHOD 01/07/2025 4:38 AM EDT [facility] Parainfluenza Virus 4 Not Detected Not Detected LAB MICROBIOLOGY METHOD 01/07/2025 4:38 AM EDT [facility] RSV PCR Not Detected Not Detected LAB MICROBIOLOGY METHOD 01/07/2025 4:38 AM EDT [facility] Human Metapneumovirus A and B Not Detected Not Detected LAB MICROBIOLOGY METHOD 01/07/2025 4:38 AM EDT [facility] Rhinovirus/Entero virus Not Detected Not Detected LAB MICROBIOLOGY METHOD 01/07/2025 4:38 AM EDT [facility] Bordetella pertussis Not Detected Not Detected LAB MICROBIOLOGY METHOD 01/07/2025 4:38 AM EDT [facility] Bordetella parapertussis Not Detected Not Detected LAB MICROBIOLOGY METHOD 01/07/2025 4:38 AM EDT [facility] Mycoplasma pneumo by PCR Not Detected Not Detected LAB MICROBIOLOGY METHOD 01/07/2025 4:38 AM EDT [facility] Chlamydia pneumoniae Not Detected Not Detected LAB MICROBIOLOGY METHOD 01/07/2025 4:38 AM EDT [facility] SARS COV-2 Detected(A ) Not Detected LAB MICROBIOLOGY METHOD 01/07/2025 4:38 AM EDT [facility] Swab Both anterior nares / Unknown Non-blood Collection / Unknown 01/07/2025 3:01 AM EDT 01/07/2025 3:17 AM EDT [facility] - 01/07/2025 4:38 AM EDT Testing was performed using the [employer] Respiratory Pathogen PCR Assay. All results must be correlated with the clinical findings. Results should not be used as the sole basis for diagnosis. False Negative results may occur from the presence of sequence variants in the region targeted by the assay or the presence of inhibitors. Results may be affected by concurrent antiviral/antimicrobial therapy or levels of organisms that are below the limit of detection. us Dung Magallon MD LAB MICROBIOLOGY - GENERAL LEYLA ELDRIDGE Final Result [facility] [address] [place] [address], [place] [phone] * ECG-Annotated (11/15/2024) us Provider Onbase MD ECG ORDERABLES Final Result * (ABNORMAL) Urinalysis with reflex microscopic and culture (11/14/2024 2:57 AM EDT) Specific [place] Urine 1.014 1.003 - 1.030 LAB URINALYSIS - AUTOMATED METHOD 11/14/2024 4:23 AM [facility] pH, Urine 7.0 5.0 - 8.0 pH LAB URINALYSIS - AUTOMATED METHOD 11/14/2024 4:23 AM [facility] Leukocytes, Urine Trace(A) Negative LAB URINALYSIS - AUTOMATED METHOD 11/14/2024 4:23 AM [facility] Nitrite, Urine Negative Negative LAB URINALYSIS - AUTOMATED METHOD 11/14/2024 4:23 AM [facility] Protein, Urine Negative <=Trace mg/dL LAB URINALYSIS - AUTOMATED METHOD 11/14/2024 4:23 AM [facility] Glucose, Urine Negative Negative mg/dL LAB URINALYSIS - AUTOMATED METHOD 11/14/2024 4:23 AM [facility] Ketones, Urine Negative Negative mg/dL LAB URINALYSIS - AUTOMATED METHOD 11/14/2024 4:23 AM [facility] Urobilinogen, Urine 0.2 0.2 - 1.0 mg/dL LAB URINALYSIS - AUTOMATED METHOD 11/14/2024 4:23 AM [facility] Bilirubin, Urine Negative Negative LAB URINALYSIS - AUTOMATED METHOD 11/14/2024 4:23 AM [facility] Blood, Urine Negative Negative LAB URINALYSIS - AUTOMATED METHOD 11/14/2024 4:23 AM [facility] RBC, Urine 0.6 0 - 4 /HPF LAB URINALYSIS - AUTOMATED METHOD 11/14/2024 4:23 AM EDT [facility] WBC, Urine 0.7 0 - 4 /HPF LAB URINALYSIS - AUTOMATED METHOD 11/14/2024 4:23 AM EDT [facility] Squamous Epithelial, Urine 7 0 - 60 /LPF LAB URINALYSIS - AUTOMATED METHOD 11/14/2024 4:23 AM EDT [facility] Bacteria, Urine Negative Negative /HPF LAB URINALYSIS - AUTOMATED METHOD 11/14/2024 4:23 AM EDT [facility] Hyaline Casts, Urine 0.4 0 - 3 /LPF LAB URINALYSIS - AUTOMATED METHOD 11/14/2024 4:[facility] Urine Urine specimen obtained by clean catch procedure / Unknown Non-blood Collection / Unknown 11/14/2024 2:57 AM EDT 11/14/2024 3:53 AM EDT Dario ISLAS LAB URINE ORDERABLES Mariana l Result [facility] [address] [place] [address], [place] [phone] * Garrett urine culture tube (11/14/2024 2:57 AM EDT) Extra Tube Hold for add-ons. 11/14/2024 5:01 AM EDT [facility] Comment:Auto resulted. Urine Urine specimen obtained by clean catch procedure / Unknown Non-blood Collection / Unknown 11/14/2024 2:57 AM EDT 11/14/2024 3:52 AM EDT Dario ISLAS LAB URINE ORDERABLES Mariana l Result [facility] [address] [place] [address], [place] [phone] * Culture urine (11/14/2024 2:57 AM EDT) Culture, Urine 10,000-49,000 CFU/mL Mixed urogenital yeimi, no uropathogens present. Suggest repeat specimen if clinically indicated. 11/15/2024 10:03 AM EDT [facility] Urine Urine specimen obtained by clean catch procedure / Unknown Non-blood Collection / Unknown 11/14/2024 2:57 AM EDT 11/14/2024 4:23 AM EDT Dario ISLAS LAB MICROBIOLOGY - GENERA L ORDERABLES Final Result Performing Organization Address City/[facility]/ZIP Co de Phone Number [facility] [address] [place] [address], [place] [phone] * ECG 12 lead (11/14/2024 12:35 AM EDT) Only the most recent of2 resultswithin the time period is included. Ventricular Rate ECG 64 BPM GEMUSE Atrial Rate 64 BPM GEMUSE P-R Interval 182 ms GEMUSE QRS Duration 68 ms GEMUSE Q-T Interval 408 ms GEMUSE QTc 420 ms GEMUSE P Wave [place] 58 degrees GEMUSE R [place] 50 degrees GEMUSE T [place] 39 degrees GEMUSE ECG Interpretation Normal sinus rhythm Normal ECG When compared with ECG of 13-NOV-2024 21:35, (unconfirmed) No significant change was found Confirmed by PETAR SEARS ([id number]) on 11/14/2024 11:19:12 AM GEMUSE 11/14/2024 12:3 5 AM EDT 11/14/2024 11:19 AM EDT Dario ISLAS ECG ORDERABLES Final Res ult GEMUSE * Troponin I high sensitivity (NOW and then in 1 hour) (11/14/2024 12:20 AM EDT) Only the most recent of2 resultswithin the time period is included. High Sensitivity Troponin I 6 <=54 ng/L LAB CHEMISTRY METHOD 11/14/2024 1:08 AM EDT [facility] Blood Venous blood specimen / Unknown Venipuncture / Unknown 11/14/2024 12:20 AM EDT 11/14/2024 12:36 AM EDT Narrative [facility] - 11/14/2024 1:08 AM EDT High levels of biotin in samples may falsely decrease hsTroponin values. Use caution when interpreting hsTroponin results in patients taking biotin who exhibit renal impairment (eGFR <60) or in patients taking more than 20 mg/day of biotin. us Dario ISLAS LAB BLOOD ORDERABLES Mariana hemphill Result [facility] [address] [place] [address], * CT Cervical Spine wo Contrast (11/13/2024 [...] by: Trinidad Schrader MD on 11/14/2024 00:02:20 us Michael Zayas DO IMG CT PROCEDURES Final [...] LAB HEMETOLOGY METHOD 11/13/2024 11:15 PM EDT [facility] RBC 3.30(L) 3.80 - 4.80 M/mcL LAB HEMETOLOGY METHOD 11/13/2024 11:[facility] Hemoglobin 10.2(L) 11.5 - 16.0 g/dL LAB HEMETOLOGY METHOD 11/13/2024 11:15 PM [facility] Hematocrit 29.1(L) 35.0 - 47.0 % LAB HEMETOLOGY METHOD 11/13/2024 11:15 PM [facility] MCV 89.0 79.0 - 98.0 FL LAB HEMETOLOGY METHOD 11/13/2024 11:15 PM [facility] MCH 31.2 27.0 - 32.0 pcg LAB HEMETOLOGY METHOD 11/13/2024 11:15 PM [facility] MCHC 35.1 32.0 - 37.0 g/dL LAB HEMETOLOGY METHOD 11/13/2024 11:15 PM [facility] RDW 14.8 11.0 - 15.0 % LAB HEMETOLOGY METHOD 11/13/2024 11:15 PM [facility] Platelets 212 130 - 400 K/mcL LAB HEMETOLOGY METHOD 11/13/2024 11:15 PM [facility] MPV 10.2 7.0 - 11.0 FL LAB HEMETOLOGY METHOD 11/13/2024 11:15 PM EDT [facility] NRBC 0.0 <1.0 % LAB HEMETOLOGY METHOD 11/13/2024 11:15 PM [facility] NRBC Absolute 0.00 <0.10 K/mcL LAB HEMETOLOGY METHOD 11/13/2024 11:15 PM [facility] Neutrophils Relative 47.5 % LAB HEMETOLOGY METHOD 11/13/2024 11:15 PM [facility] Lymphocytes Relative 42.5 % LAB HEMETOLOGY METHOD 11/13/2024 11:15 PM [facility] Monocytes Relative 7.3 % LAB HEMETOLOGY METHOD 11/13/2024 11:15 PM [facility] Eosinophils Relative 1.9 % LAB HEMETOLOGY METHOD 11/13/2024 11:15 PM [facility] Basophils Relative 0.6 % LAB HEMETOLOGY METHOD 11/13/2024 11:15 PM [facility] Immature Granulocytes Relative 0.2 % LAB HEMETOLOGY METHOD 11/13/2024 11:15 PM [facility] Neutrophils Absolute 2.93 1.50 - 7.00 K/mcL LAB HEMETOLOGY METHOD 11/13/2024 11:15 PM [facility] Lymphocytes Absolute 2.62 1.00 - 5.00 K/mcL LAB HEMETOLOGY METHOD 11/13/2024 11:15 PM [facility] Monocytes Absolute 0.45 0.20 - 1.00 K/mcL LAB HEMETOLOGY METHOD 11/13/2024 11:15 PM [facility] Eosinophils Absolute 0.12 0.00 - 0.50 K/mcL LAB HEMETOLOGY METHOD 11/13/2024 11:15 PM [facility] Basophils Absolute 0.04 0.00 - 0.20 K/mcL LAB HEMETOLOGY METHOD 11/13/2024 11:15 PM EDT [facility] Immature Granulocytes Absolute 0.01 0.00 - 0.03 K/[facility] LAB HEMETOLOGY METHOD 11/13/2024 11:15 PM EDT [facility] Blood Venous blood specimen / Unknown Venipuncture / Unknown 11/13/2024 10:21 PM EDT 11/13/2024 11:10 PM EDT [facility] BLOOD ORDERABLES Final Result Performing Organization Address City/[facility]/ZIP Co de Phone Number [facility] [address] [place] [address], [place] [phone] * (ABNORMAL) Magnesium (11/13/2024 10:21 PM EDT) Magnesium 1.8(L) 1.9 - 2.6 mg/dL LAB CHEMISTRY METHOD 11/13/2024 11:42 PM EDT [facility] Blood Venous blood specimen / Unknown Venipuncture / Unknown 11/13/2024 10:21 PM EDT 11/13/2024 11:10 PM EDT Michael Sobia Zayas LAB BLOOD ORDERABLES Final Result [facility] [address] [place] [address], [place] [phone] * Creatine kinase (11/13/2024 10:21 PM EDT) Total CK 206 22 - 269 unit/L LAB CHEMISTRY METHOD 11/13/2024 11:42 PM EDT [facility] Blood Venous blood specimen / Unknown Venipuncture / Unknown 11/13/2024 10:21 PM EDT 11/13/2024 11:10 PM EDT us Dario ISLAS LAB BLOOD ORDERABLES Mariana l Result [facility] [address] [place] [address], * (ABNORMAL) Basic metabolic panel (11/13/2024 10:21 PM EDT) Sodium 144 133 - 145 mmol/L LAB CHEMISTRY METHOD 11/13/2024 11:49 PM EDT [facility] Potassium 3.6 3.5 - 5.5 mmol/L LAB CHEMISTRY METHOD 11/13/2024 11:49 PM [facility] Chloride 112(H) 96 - 110 mmol/L LAB CHEMISTRY METHOD 11/13/2024 11:49 PM [facility] CO2 27 21 - 32 mmol/L LAB CHEMISTRY METHOD 11/13/2024 11:49 PM [facility] Anion Gap 5 3 - 11 LAB CHEMISTRY METHOD 11/13/2024 11:49 PM [facility] Glucose 85 70 - 100 mg/dL LAB CHEMISTRY METHOD 11/13/2024 11:49 PM [facility] BUN 19 5 - 25 mg/dL LAB CHEMISTRY METHOD 11/13/2024 11:49 PM [facility] Creatinine 0.77 0.50 - 1.10 mg/dL LAB CHEMISTRY METHOD 11/13/2024 11:49 PM [facility] eGFR 81 >=60 mL/min/1. 73m2 LAB CHEMISTRY METHOD 11/13/2024 11:49 PM [facility] Comment:Calculation based on the Chronic Kidney Disease Epidemiology Collaboration (CKD-EPI) equation refit without adjustment for race. BUN/Creatinine Ratio 24.7 LAB CHEMISTRY METHOD 11/13/2024 11:49 PM [facility] Calcium 8.3(L) 8.5 - 10.5 mg/dL LAB CHEMISTRY METHOD 11/13/2024 11:49 PM EDT [facility] Blood Venous blood specimen / Unknown Venipuncture / Unknown 11/13/2024 10:21 PM EDT 11/13/2024 11:10 PM EDT Michael Zayas DO LAB BLOOD ORDERABLES Final Result [facility] [address] [place] [address], * Lipid panel (09/11/2023) LDL/HDL Ratio 3 [...] AM EDT Narrative 12/07/2022 11:16 AM EDT [facility] Diagnostic Imaging Department [address] [place] [id number] Patient: LINDA SAGE Kalyn /Age/Sex: 1950 - 72 - F Unit#: [id number] Location/Status: SPDIMAM/REG CLI Mnemonic/Ordering Site: [facility] Ordering Physician: HEENA BARNES MD [facility] Screening Digital - 12/07/221041 EXAM: Buzz Screening Digital EXAM DATE AND TIME: 12/07/2022 10:43 AM HISTORY: Screening. COMPARISON: 11/01/21, 03/25/20, 02/19/19 TECHNIQUE: CC and MLO views of both breasts were obtained using full field digital mammography. Bilateral digital breast tomosynthesis was performed in the MLO projection. Computer aided detection with [employer] 7.2-H and [employer] 3D 3.1 was employed. TISSUE DENSITY: b. There are scattered areas of fibroglandular density. FINDINGS: No suspicious masses, grouped microcalcifications, or areas of architectural distortion are seen. Round asymmetries in the left breast remains stable, considered benign. The skin and vascularity are unremarkable. IMPRESSION: Stable mammographic appearance of the breasts. No evidence of malignancy is seen. A negative mammogram in the presence of a clinically suspicious palpable abnormality does not preclude the possibility of malignancy or alter the indications for biopsy. BI-RADS: Category 2: Benign RECOMMENDATION(S): 1: Routine screening mammogram BILATERAL in 1 year. [id number], [id number], [id number] Dictating Physician: SALIMA MARINA MD Electronically Signed by: SALIMA MARINA MD Dic Date/Time: 12/07/22 1116 Sign date/Time: 12/07/22 111 Procedure Note Salima Marina MD - 08/04/2023 [facility] Diagnostic Imaging Department [address] [place] [address] [id number] Patient: LINDA SAGE /Age/Sex: 1950 - 72 - F Unit#: [id number] Location/Status: SPDIMAM/REG CLI Mnemonic/Ordering Site: [facility] Ordering Physician: HEENA BARNES MD [facility] Screening Digital - 12/07/22 - 1042 EXAM: [facility] Screening Digital EXAM DATE AND TIME: 12/07/2022 10:43 AM HISTORY: Screening. COMPARISON: 11/01/21, 03/25/20, 02/19/19 TECHNIQUE: CC and MLO views of both breasts were obtained using fullfield digital mammography. Bilateral digital breast tomosynthesis was performedin the MLO projection. Computer aided detection with [employer] 7.2-H and[employer] 3D 3.1 was employed. TISSUE DENSITY: b. [...] Routine screening mammogram BILATERAL in 1 year. 12185, 05023 3342F, 7006F Dictating Physician: SALIMA MARINA MD Electronically Signed by: SALIMA MARINA MD Dic Date/Time: 12/07/22 1116 Sign date/Time: 12/07/22 1116 us Heena Barnes MD IMG BI PROCEDURES Final Result * BUZZ DEXA AXIAL SKELETON (04/07/2022 11:05 AM EDT) Anatomical Region Laterality Modality Mammography 04/07/2022 10:1 9 AM EDT Narrative 04/07/2022 11:05 AM EDT [facility] Diagnostic Imaging Department [address] [place], [place] [id number] Patient: LINDA SAGE Kalyn /Age/Sex: 1950 - 71 - F Unit#: [id number] [facility] Ordering Physician: HEENA BARNES MD [facility] Dexa Axial Skeleton - 04/07/221056 HISTORY: The patient is a 71-year-old postmenopausal female with clinical concern for metabolic bone disease. FINDINGS: Dual [...] of age matched controls. This yields a T-score of -0.3 and a Z-score of 1.0 and there is therefore no evidence of osteoporosis or osteopenia here. However, the T-score of the right femoral neck is -1.5 and that of the left femoral neck is -1.5 which is diagnostic of osteopenia. IMPRESSION: 1. Osteopenia. There has been an increase of 2.4% in bone mineral density in the lumbar spine since the prior examination of 01/11/2019. There has been a decrease of 4.0% in bone mineral density in the right femur and an increase of 3.7% in bone mineral density in the left femur. 2. FRAX analysis yields a 10-year probability of major osteoporotic fracture of 9.3% and a 10-year probability of hip fracture of 2.2%. Code 00717 Dictating Physician: DAVID PERRY MD Electronically Signed by: DAVID PERRY MD Dic Date/Time: 04/07/221103 Sign date/Time: 04/07/22 110 Procedure Note David Perry MD - 06/22/2022 [facility] Diagnostic Imaging Department [address] [place] [address] Patient: SILAS SAGEKatia Hemphill /Age/Sex: 1950 - 71 - F Unit#: [id number] Location/Status: [facility]/REG CLI Mnemonic[facility] Ordering Physician: HEENA BARNES MD Buzz Dexa Axial Skeleton - 04/07/22 - 1057 HISTORY: The patient is a 71-year-old postmenopausal [...] density of the femurs bilaterally is 0.964 gm/[id number] is 96% of that of young normals [...] probability of hip fracture of 2.2%. Code 87136 Dictating Physician: DAVID PERRY MD Electronically Signed by: DAVID PERRY MD Dic Date/Time: 04/07/22 1104 Sign date/Time: 04/07/22 110 Heena Barnes MD IMG BI PROCEDURES Final Result from Last 3 Months or Most Recently Relevant to Health Maintenance Additional Health Concerns Infection Onset Date Last Indicated COVID-19 01/07/2025 01/07/2025 Insurance [facility] MEDICARE Member Subscriber Plan / Payer (Ef fective 2021-Present) Name:Linda Sage Relation to Subscriber:Self Name:Linda Sage Payer ID:[id number] Group ID:[id number] Type:Not on file Address: [place] [address] [address] [id number] Advance Directives Documents on File Type Date Recorded Patient Building Mover Expl anation Advance Directives and Livin g [...] currently active code status orders. Care Teams Ambulance Driver Paramedic Relationship Specialty Start Date End Date Heena Barnes MD [address] [place] [address] [address] [place] [id number] PCP - General Internal Medicine 12/15/21
--- OUTSIDE RECORDS SUMMARY | 2025-01-27 15:06 | XMS_ITS | Data Portability ---
Author Organization [facility] Address [address] [place] [address] Care Team Providers Care Mangle Tender Name Role Phone HIM CCA OTHER HEENA BRUMFIELD Primary Care Provider [phone] Assessment Encounter Date Assessment Date Assessment LastModified by Organization Details LastModified Time 11/13/2024 11/13/2024 As noted, we dilia murdock called to see this patient regarding concerns of fall. Evaluation in the field was performed by my minute clerk colleague, as noted above, I provided real-time direction and supervision for this visit. The evaluation revealed 74y F wth symptoms concerning for CVA and no caregiver present. Patient referred to ER by medic, discussed only after patient departed due to medic working to secure access to son, ambulance. VSS exhibit hypertension, CBG wnl, neg FAST. Patient transported by ambulance. Son, who placed referral, was not reachable by medic. CRC alerted. Impression: fall, slurred speech, dysequilibrium Plan: ER referral Primary care, consider ER follow up atilhou Not available 11/13/2024 21:01:02 Plan of Treatment Reminders Order Date Submit Date Provider Last Modified By Organization Details Last Modified Time Details Appointments None recorded. Lab None recorded. Referral None recorded. Procedures None recorded. Surgeries None recorded. Imaging None recorded. Medication Orders acetaminoph en 500 mg tablet 2023 024 [facility], [address] [facility], [facility] [address], [place], [place], [phone], 13:22:47 Patient TargetsNo targets recorded. Patient InstructionsNo instructions recorded. Reason for Referral None Reported. Medical Equipment None Reported. Allergies Allergen ID Allergen Name Allergen Category Reaction Reaction Severity Criticality Documentation Date Start Date Code Code System Note Provider Name and Address Organization Details Recorded Time 21473 Product containin g penicilli n (product) medicatio n Not available Not available Not available 09/27/2024 86389 8001 SNOMED Not Available [facility] - production 11:03:09 Medications Name Sig Start Date Stop Date Status Note LastModified by Organization Details LastModified Time acetaminophen 325 mg tablet active Not Available Not Available No t Available sulfasalazine 500 mg tablet active Not Available Not Available No t Available meclizine 12.5 mg tablet active Not Available Not Available Not Available melatonin 3 mg tablet active Not Available Not Available Not Available nifedipine ER 30 mg tablet,extended release active Not Available Not Available Not Available acetaminophen 500 mg tablet Take 2 tablet (s) every 6 hours by oral route. active Not Available Not Available No t Available amitriptyline 25 mg tablet active Not Available Not Available No t Available ferrous sulfate 325 mg (65 mg iron) tablet active Not Available Not Available Not Available hydroxyzine HCl 25 mg tablet active Not Available Not Available Not Available Vitamin C 250 mg tablet active Not Available Not Available Not Available labetalol 100 mg tablet active Not Available Not Available Not Available ferrous sulfate 325 mg (65 mg iron) tablet,delayed release active Not Available Not Available Not Available carbidopa 25 mg-levodopa 100 mg tablet active Not Available Not Available No t Available ondansetron 4 mg disintegrating tablet active Not Available Not Available Not Available fluticasone propionate 50 mcg/actuation nasal spray,suspension active Not Available Not Avail able Not Available loratadine 10 mg tablet active Not Available Not Available Not Available Co Q-10 100 mg capsule active Not Available Not Available Not Available cyclobenzaprine 5 mg tablet active Not Available Not Available No t Available rosuvastatin 20 mg tablet active Not Available Not Available No t Available Fish Oil 340 mg-1,000 mg capsule active Not Available Not Available Not Available omega-3 fatty acids-fish oil 300 mg-1,000 mg capsule active Not Available Not Available Not Available calcium 600 mg (as carbonate)-vitami n D3 10 mcg (400 unit) tablet active Not Available Not Available Not Available omega 0-kxm-mhp-fish oil 1,000 mg (120 mg-180 mg) capsule active Not Available Not Available Not Available Ubrelvy 100 mg tablet active Not Available Not Available Not Available Tab-A-Peggy 400 mcg tablet active Not Available Not Available N ot Available omega-3 300 mg-dha 120 mg-epa 180 mg-fish oil 1,000 mg capsule active Not Available Not Avail able Not Available Vitals Date Recorded Respiratory rate Body temperature Heart rate Oxygen saturation Oxygen saturation in Arterial blood by Pulse oximetry Systolic And Diastolic Provider Name and Address Organization Details Last Updated DateTime 5 18 /min 98.5 [degF] 92 /min 99 % 99 % 150/90 mm[Hg] Not Available [facility] - production 5 14:40:03 Date Recorded Body temperature Respiratory rate Heart rate Oxygen saturation Oxygen saturation in Arterial blood by Pulse oximetry Systolic And Diastolic Provider Name and Address Organization Details Last Updated DateTime 5 98 [degF] 18 /min 67 /min 99 % 99 % 164/98 mm[Hg] Not Available [employer] - production 5 20:11:58 Date Recorded Respiratory rate Heart rate Body weight Body temperature Oxygen saturation Oxygen saturation in Arterial blood by Pulse oximetry Systolic And Diastolic Provider Name and Address Organization Details Last Updated DateTime 4 16 /min 76 /min 65821.7 2 g 97.4 [degF] 97 % 97 % 140/69 mm[Hg] Not Available [facility] - production 4 13:09:48 Social History None recorded. Functional Status None recorded. Mental Status None recorded. Family History Nothing Reported. Medical History No medical history recorded. Gynecological HistoryNo gynecological history recorded. Obstetrics History GPAL:G 0 P 0 0 0 0 Past Encounters Encounter ID Performer Location Encounter Start Date Encounter Closed Date Diagnosis/Indication Diagnosis SNOMED-CT Code Diagnosis ICD10 Code Diagnosis Note [id number] Clement Fitzpatrick MD Main - [facility] [phone] 03/31/2024 13:09:46 10/17/2024 20:15:57 Accidental fall W19.XXXA This 73-year-ol d female had a mechanical fall earlier without obvious injuries. I prescribed Tylenol prn pain. She will follow-up with her PCP regarding any ongoing symptoms. The patient agreed with this plan. [id number] Penelope Bonilla MD Main - [facility] [phone] 09/27/2024 14:40:01 09/27/2024 21:28:27 Fall W19.XXXA 74 year old female ambulates with a cane, being evaluated after a mechanical fall last night where she hurt her R hip and knee. Patient reports was able to get up right after the fall, and has been able to walk, but feeling sore at the R knee and lateral side of her hip. Patient has not taken any medication s for this. Patient denies LOC or head strike, fell on her bottom. Exam notable for normal vital signs, no deformity or edema of lower extremitie s, full ROM knees and hips bilaterall y. Presentati on consistent with mechanical fall with minor injuries, no safety concerns or resultant disability noted. Recommend tylenol/ib uprofen as needed, FU outpatient team if worsening, or persistent symptoms beyond next week. I have reviewed and agree with the assessment and plan as documented by the minute clerk. I provided real-time medical direction for this encounter and was immediatel y available to provide additional phone-base d assistance as needed. We discussed the diagnostic uncertaint y of home visits and associated risks. We discussed the need to seek care urgently/e mergently in the setting of any new or worsening symptoms. [id number] Elaine Lara MD [facility] - [facility] [address] [place] [phone] 11/13/2024 20:11:55 11/13/2024 21:31:05 Loss of equilibrium 69383290 R42 Slurred speech 803680435 R47.81 Health Concerns Section Related Observation LastModified by Organization Detai ls LastModified Time None Recorded Concern Status LastModified by Organization Details LastModified Time None Recorded Advance Directives Directive None Recorded Payers Insurance Date Sequence Insurance Name Policy Number Policy Suarez Covered Member ID Suarez Member ID Guarantor Name 11/13/2024 1 [facility] - DOS ON OR AFTER 2022 - DUAL ELIGIBLE - [facility] OPTIONS AND ONE C[employer] (MEDICARE REPLACEMENT/ADV ANTAGE - HMO) Linda Sage [id number] Linda Sage OBGysusan Episode No OBEpisode recorded.
--- OUTSIDE RECORDS SUMMARY | 2025-01-27 15:06 | XMS_ITS | Clinical Summary ---
Author Organization [facility] Address [address] [place] [address] Care Team Providers Care Body Finisher Name Role Phone Leslee Barnes MD Primary Care Provider [phone] Allergies Active Allergy Reactions Criticality Noted Date [...] PO Take by mouth. 0 Acti ve Wqyed-9-Cqiz Eth Est, Dietary, 1 g CAPS Take [...] 84 04/26/2024 2:12 PM EDT Temperature 36.5 C (97.7 F) 04/26/2024 2:12 PM EDT Respiratory Rate - - Oxygen Saturation 100% [...] 03/27/2021, Additional history exists Influenza Vaccine (#1) 2025 , 04/19/2022, 04/22/2019, Additional history exists RSV Adult > 60+ Yrs or (1 - 1-dose 75+ series) 2025 Hepatitis B Vaccines Aged Out No long er eligible based on patient's age to complete this topic RSV Ped < 20 months Aged Out No longe r eligible based on patient's age to complete this topic Care Teams Body Finisher Relationship Specialty Start Date End Date Leslee Barnes MD [address] [place] [address] PCP - General Internal Medicine 01/29/24
[2025-01-27 17:47] LABS: Anion Gap 16 (12-20); Blood Urea Nitrogen 10 mg/dL (9-16); Calcium 9.9 mg/dL (8.4-10.2); Carbon Dioxide 26 mmol/L (22-29); Chloride 105 mmol/L (96-108); Estimated Glomerular Filt Rate > 60; Potassium 3.6 mmol/L (3.3-5.1); Sodium 143 mmol/L (135-145)
== END 2025-01-27 14:22 | disposition home or self-care (01) ==
LOC: HO.HKASLDS 14:21
PROVIDERS: Visit Provider Internal Medicine Hypertension Specialist
DX: I10 Essential (primary) hypertension (principal)
CPT/HCPCS: 36415; 80048

== ENCOUNTER 2025-02-11 13:58 | Outpatient (AMB) | payer OTHER, SELFPAY ==
--- NOTE | 2025-02-11 13:56 | A.OFFVIS_ITS ---
Intake Visit Reasons: Dizziness, med concerns ([phone] call) Intake Note: Patient presents as a telehealth visit today for dizziness and medication concerns. Editor Publications Required: No Accompanied by: Self / Same As Patient Allergies CRAB Allergy (Intermediate, Uncoded 02/11/25 13:56) HIVES, RASH, STOMACH PAINS Medication List - Last Reconciled 02/11/25 by MAINOR Alberto ascorbic acid (vitamin C) (Vitamin C) PO calcium carbonate-vitamin D3 600 mg-10 mcg (400 unit) 1 tab PO BID carbidopa-levodopa 25-100 mg 0.5 - 1 tabs PO BID 30 days carvedilol (Coreg) 6.25 mg PO BID ferrous sulfate 325 mg PO DAILY fluticasone propionate 50 mcg/actuation (Children's Flonase Allergy Relief) 1 spray intranasal DAILY galcanezumab-gnlm (Emgality Pen) 120 mg subcut ONCE 30 days hydroxyzine HCl mg PO melatonin mg PO BEDTIME PRN nifedipine ER 30 mg PO .evening omega-3 acid ethyl esters 1 cap PO DAILY rosuvastatin 20 mg PO BEDTIME sulfasalazine PO DAILY ubrogepant (Ubrelvy) 50 - 100 mg (0.5 - 1 x 100 mg) PO ONCE PRN 30 days HPI Comments Details: 74-year-old female presenting for urgent telephone visit per patient request for worsening dizziness which she attributes to her medications, in setting of Parkinson's Disease- early, w/ positive DaTscan, and migraine headaches. Patient is unable to utilize the [employer] technology today. Patient states that she is having worsening dizziness, which she thinks is due to her medication. She states that the dizziness is preventing her from being able to walk. However, the patient also notes that she has just gotten into her QA AUDITOR's car after leaving [facility]. Patient and her QA AUDITOR confirmed that the patient was able to walk through [facility] with her walker. QA AUDITOR states she would like to bring her to [facility] to encourage physical activity. Patient did undergo 24 24-hour BP monitor recording-formal report pending. Patient states that she has reduced her fluid intake to 2 16-oz bottles of water per day to reduce her symptoms of nocturia. She had a urology consult months ago, but has not had a follow-up yet. She did recently undergo an in-lab sleep study on 01/06/2025, the results of which were limited as the patient had URI symptoms and was transported to the ER; thus, less than 2 hours of sleep were recorded. However, during time that sleep was recorded, the AHI was 1.3 per hour, REM AHI was 6.3 per hour, average SpO2 90%, O2 alvaro 85% with SpO2 under 88% times 23.8 minutes, as well as a periodic limb movement of sleep index of 88 per hour with an PLMS arousal index of 18 per hour. Patient endorses a history of anemia. 11/19/2024, previous HPI: Patient reports she had [facility] ER eval a few days ago- after falling and hitting her head in her bathroom- she had been standing brushing her teeth when she became lightheaded and fell to the floor. ER workup including head CT was unremarkable. Her gait appeared unsteady, and Ear note indicates that patient was advised to have subacute rehab tx. However, patient states she was discharged home with home care services instead. She continues to have chronic dizziness. She previously denied orthostatic dizziness, but today states that the dizziness is worse when she stands up. She states that a nurse asked her to ask us about having a tilt-table test. Her BP treatment was changed from labetalol to carvedilol in July. BP is 144/76 today. She states she takes about 2 16-20 oz bottles of fluid per day- tries to avoid drinking more, to avoid urinary frequency. Patient's primary concern today is bothersome nocturia. She has recently seen [facility] urology, who has ordered additional workup to be completed. Patient today does endorse snoring, fragmented sleep, and now daytime sleepiness. She has not previously had a sleep study. She continues to need assistance with ADLs She experiences difficulty swallowing with solids and liquids- she is trying to use safe swallowing strategies, she is always eating in an upright position. 07/06/2023 [facility] showed deep/laryngeal penetration occurring with thin barium only, no tati aspiration.? She continues to have stiffness. She continues to have some memory issues and hallucinations. Rheumatoid arthritis managed by pellet preparation operator. Patient reports that she did not receive her Emgality injection last month, and since her migraine attacks have increased to 3 times per week. She does continue to be photophobic, and does continue to wear sunglasses throughout the day. She is using Ubrelvy with generally good effect. 05/07/2024 HPI: Pt's primary concerns today: Pt reports she often feels drunk, off-balance, and dizzy. She would like to know which of her medications is causing this, as she feels when she wakes up she feels ok, but then she starts feeling dizzy after the nurse brings her her morning meds. She states she is falling a lot- the last fall was a week ago. She fell backwards in the bathroom while standing up and brushing her teeth. Never resumed PT. She does endorse blurry vision. She wears sunglasses inside d/t photophobia. Her last eye exam was 2 months ago. She states she can feel the ground when she is walking, but she is shuffling. She has been having a headache every other day. The headache is a throbbing holocranial a/w photophobia, increased dizziness, fatigue, activity intolerance. She has not yet tried Ubrelvy- states she did not know how to take it. PD meds: she states she tried CD-LD 25-100mg, unsure of effect but ran out. ADL's: Needs some help Swallowing: She states AIR QUALITY MANAGER is asking for tx's- it helping some but she feels it is worsening. Hyposmia: Denies Drooling: At times Orthostatic lightheadedness: She is not sure. Maybe after she takes her morning meds. Tries not to drink too much to avoid voiding too often. Constipation: Denies Urinary symptoms: Voids 3-4 x's at night. Can feel like she will fall. Urinary leakage- wears a pad at night Tremor: She is not noticing any shaking. Dyskinesia: Denies Stiffness: Hands become stuck. Feels generally stiff. Gait changes: as above. Freezing: Denies. Her son- does notice this. Falls: as above Mood: Anxious at times Hallucinations: Denies Memory: Forgets little things Sleep: Not sleeping well. States just lays there and does not sleep. Does take cat naps. Exercise: She has a stepper or uses her bicycle at times. Previous work-up: 10/13/2023, DaTscan: Absence of activity is noted within the putamen bilaterally. Additionally, decreased activity seen in the right caudate nucleus. Impression: Decreased activity in bilateral basal ganglia. Differential diagnosis includes Parkinson's disease, multiple system atrophy, progressive supranuclear palsy, dementia with Lewy Bodies, and cortical basal degeneration. 08/22/23, MR/MR head/brain wo/w conIMPRESSION: 1. No acute infarct or other acute intracranial abnormality. 2. Moderate chronic white matter microangiopathy. 12/2021, [facility], Brain MRI wo:IMPRESSION: 1. No acute infarct. 2. Multifocal supratentorial white matter signal abnormality is nonspecific, but compatible with chronic microangiopathic/small vessel ischemic change. 01/2023, [facility], Head/Neck CTAIMPRESSION: 1. No acute intracranial large vessel occlusion. 2. No hemodynamically-significant stenosis of the extracranial internal carotid and vertebral arteries. 3. 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 ENT outpatient follow-up can be obtained. 01/2023, Head CT:IMPRESSION: 1. No acute intracranial abnormality. 2. No skull fracture. [facility] Medical History Rheumatoid arthritis Cervical spinal stenosis HTN (hypertension) Depressive disorder Surgical History H/O: hysterectomy History of partial hysterectomy Family History Mother HTN (hypertension) Hyperlipidemia Father Cancer, colon Social History Alcohol intake: never Patient Tobacco Use Status: Current someday Tobacco user Physical Exam Const General: cooperative and no acute distress Resp Effort & Inspection: normal respiratory effort and able to speak in complete sentences Neuro Other: General: A&O x's 3. Photophobic Expression: Decreased Voice: Dysarthria- less noticeable today Tremor: Mild RUE postural tremor Tone: BUE L > R rigidity Dyskinesia: None FFM: Bradykinesia Foot taps: Bradykinesia Gait: Standing and gait overall better today. Wide base and slow to stand, s light stoop, short steps w/ low floor clearance, steady w/ walker. Psych: Pleasant affect. No noticeable anxiety symptoms. Telehealth Telehealth Telehealth Platform: [facility] Location of provider rendering services: practice address Location of patient: address on file Patient Identification confirmed using: Name, : Yes Telehealth method: voice only Patient verbally consented to treatment: Yes Patient verbally consented to billing insurance company: Yes Patient informed of any privacy concerns related to visit: Yes Minutes spent on Phone/Video with Pt.: 21 Assessment & Plan Assessment & Plan (1) Dizziness: Code(s): R42 - Dizziness and giddiness Category: Medical (2) Anemia: Code(s): D64.9 - Anemia, unspecified Category: Medical Qualifiers: Anemia type: unspecified type Qualified Code(s): D64.9 - Anemia, unspecified (3) Periodic limb movements of sleep: Code(s): G47.61 - Periodic limb movement disorder Category: Medical (4) Parkinson's disease without dyskinesia: Comment: Positive DaTSCAN Code(s): G20.A1 - Parkinson's disease without dyskinesia, without mention of fluctuations Category: Medical Qualifiers: Fluctuating manifestations: without fluctuating manifestations Qualified Code(s): G20.A1 - Parkinson's disease without dyskinesia, without mention of fluctuations (5) Nocturia: Code(s): R35.1 - Nocturia Category: Medical (6) Sleep difficulties: Code(s): G47.9 - Sleep disorder, unspecified Category: Medical (7) Tremor: Comment: DaTscan: Decreased activity in bilateral basal ganglia. Code(s): R25.1 - Tremor, unspecified Category: Medical (8) Dysarthria: Code(s): R47.1 - Dysarthria and anarthria Category: Medical (9) Migraine without aura: Code(s): G43.009 - Migraine without aura, not intractable, without status migrainosus Category: Medical Qualifiers: Status migrainosus presence: without status migrainosus Intractability: not intractable Qualified Code(s): G43.009 - Migraine without aura, not intractable, without status migrainosus Plan For report of worsening dizziness and previous fall secondary to lightheadedness: Patient advised that reducing her daily fluid intake to 32 oz, especially in the hot summer weather, is likely exacerbating her dizziness symptoms. Patient again encouraged to increase fluid intake to at least 64 oz per day, however limiting fluids 2-3 hours before bedtime. We have attempted to reschedule in-lab PSG to assess for sleep apnea, which if present, may be contributing to nocturia symptoms. * However, son had called, stating that they can not do this at this time due to transportation issues. Continue to stand slowly. We will request 24 hour BP monitor report. Check labs for common etiologies of dizziness, and periodic limb movements of sleep, which maybe contributing to patient's nocturia symptoms. Follow-up with urology as scheduled. Continue plan below as follows For PD: Previous brain MRI and DaTscan results, showing decreased activity in bilateral basal ganglia. Pt's slowly progressing s/s including gait changes, rigidity, bradykinesia, memory and speech changes. Pt has had a positive response to levodopa. * Continue CD-LD 25-100mg 1 tab bid. * Continue PT exercises. * Continue AIR QUALITY MANAGER exercises. * Again emphasized importance of staying hydrated during the day. * Continue to stand slowly and walk with walker. * Continue to optimize CV risk factors, including follow-up w/ nephrology as scheduled. * Follow-up with urology as scheduled * Follow-up with Rheumatology for arthritis as scheduled * Report any falls or significant changes in dizziness to healthcare providers. For migraine w/o aura prevention: Resume Emgality 120mg sc monthly- as pt has had good clinical effect from use- and unfortunately migraine frequency has increased since she did not receive Emgality injection last month. Continue coreg/carvedilol- used for HTN tx. Previous trials- Amitriptyline- not tolerated. Labetolol- pt felt caused dizziness. For acute migraine w/o aura tx: Continue Ubrogepant (Ubrelvy) 100mg tab, 1/2 - 1 tab (50-100mg) at onset of headache, may repeat in 2 hours. Max of 2 tabs (200mg) per 24 hours. May adjunct with OTC Tylenol 650-1000mg q 4-6 hours prn. Acute migraine tx contraindications: all triptans and DHE d/t variable in uncontrolled HTN. Pt to follow-up in 3-6 months or sooner prn. Orders: Orders Complete Blood Count Auto Diff Today D64.9 - Anemia, unspecified, G47.61 - Periodic limb movement disorder, M06.9 - Rheumatoid arthritis, unspecified, R25.1 - Tremor, unspecified, R42 - Dizziness and giddiness Vitamin B12 and Folate Today D64.9 - Anemia, unspecified, G47.61 - Periodic limb movement disorder, M06.9 - Rheumatoid arthritis, unspecified, R25.1 - Tremor, unspecified, R42 - Dizziness and giddiness Vitamin B1 Today D64.9 - Anemia, unspecified, E51.9 - Thiamine deficiency, unspecified, G47.61 - Periodic limb movement disorder, M06.9 - Rheumatoid arthritis, unspecified, R25.1 - Tremor, unspecified, R42 - Dizziness and giddiness TSH reflex Free T4 Today D64.9 - Anemia, unspecified, G47.61 - Periodic limb movement disorder, M06.9 - Rheumatoid arthritis, unspecified, R25.1 - Tremor, unspecified, R42 - Dizziness and giddiness C Reactive Protein Today D64.9 - Anemia, unspecified, G47.61 - Periodic limb movement disorder, M06.9 - Rheumatoid arthritis, unspecified, R25.1 - Tremor, unspecified, R42 - Dizziness and giddiness Ceruloplasmin Today D64.9 - Anemia, unspecified, G47.61 - Periodic limb movement disorder, M06.9 - Rheumatoid arthritis, unspecified, R25.1 - Tremor, unspecified, R42 - Dizziness and giddiness Comprehensive Taylor. Panel Fast Today D64.9 - Anemia, unspecified, G47.61 - Periodic limb movement disorder, M06.9 - Rheumatoid arthritis, unspecified, R25.1 - Tremor, unspecified, R42 - Dizziness and giddiness Ferritin Today D64.9 - Anemia, unspecified, G47.61 - Periodic limb movement disorder, M06.9 - Rheumatoid arthritis, unspecified, R25.1 - Tremor, unspec ified, R42 - Dizziness and giddiness IRON PROFILE Today D64.9 - Anemia, unspecified, G47.61 - Periodic limb movement disorder, M06.9 - Rheumatoid arthritis, unspecified, R25.1 - Tremor, unspecified, R42 - Dizziness and giddiness Vitamin B6 Today D64.9 - Anemia, unspecified, G47.61 - Periodic limb movement disorder, M06.9 - Rheumatoid arthritis, unspecified, R25.1 - Tremor, unspecified, R42 - Dizziness and giddiness Vitamin D 25-OH (D2 and D3) Today D64.9 - Anemia, unspecified, E55.9 - Vitamin D deficiency, unspecified, G47.61 - Periodic limb movement disorder, M06.9 - Rheumatoid arthritis, unspecified, R25.1 - Tremor, unspecified, R42 - Dizziness and giddiness Erythrocyte Sedimentation Rate Today D64.9 - Anemia, unspecified, G47.61 - Periodic limb movement disorder, M06.9 - Rheumatoid arthritis, unspecified, R25.1 - Tremor, unspecified, R42 - Dizziness and giddiness Coding Level of Care Code Tele [facility] Pt Level 4 ([id number]) Diagnoses Dizziness R42 Anemia, unspecified type D64.9 Anemia type: unspecified type Periodic limb movements of sleep G47.61 Parkinson's disease without dyskinesia or fluctuating manifestations G20.A1 Fluctuating manifestations: without fluctuating manifestations Nocturia R35.1 Sleep difficulties G47.9 Tremor R25.1 Dysarthria R47.1 Migraine without aura and without status migrainosus, not intractable G43.009 Status migrainosus presence: without status migrainosus Intractability: not intractable
--- OUTSIDE RECORDS SUMMARY | 2025-02-11 14:59 | XMS_ITS | Clinical Summary ---
Author Organization 175 [facility] Address [address] [place] [address] Phone Care Team Providers Care Photogrammetric Stereo Compiler Name Role Phone Heena Barnes MD Primary Care Provider [phone] Allergies Active Allergy Reactions Criticality Noted Date [...] (two) times a day. 07/28/19 21 Active coenzyme Q-10 100 mg capsule Take 1 capsule (100 mg total) by mouth 1 (one) time each day. 90 capsule 3 07/16/19 25 Active acetaminophen (TYLENOL) 325 mg tablet Take 2 tablets (650 mg total) by mouth every 8 (eight) hours if needed for mild pain. 30 tablet 1 07/23/19 25 Active NIFEdipine (ADALAT CC) 30 mg [...] DAILY 30 tablet 2 12/03/19 25 Active diclofenac (VOLTAREN) 1 % topical gel Apply 4 g topically 2 (two) times a day. 100 g 1 12/26/19 25 Active calcium carbonate-portillo min D 600 mg-10 mcg (400 unit) per tablet Take 1 tablet by mouth 2 (two) times a day. 60 tablet 1 01/14/20 25 Active rosuvastatin (CRESTOR) 20 mg tablet TAKE 1 TABLET BY MOUTH AT BEDTIME 30 tablet 3 02/11/20 25 Active omega-3 acid ethyl esters (LOVAZA) 1 gram capsule TAKE 2 CAPSULES BY MOUTH ONCE DAILY 90 capsule 3 02/11/20 25 Active FeroSuL 325 mg (65 mg iron) tablet TAKE 1 TABLET BY MOUTH ONCE DAILY 30 tablet 1 08/11/20 25 Active omega-3 acid ethyl esters (LOVAZA) 1 gram capsule Take 2 capsules (2 g total) by mouth 1 (one) time each day. 90 capsule 3 07/16/19 025 Discontinued calcium carbonate-portillo min D 600 mg-10 mcg (400 unit) per tablet Take 1 tablet by mouth 2 (two) times a day. 60 tablet 1 07/23/19 25 025 Discontinued rosuvastatin (CRESTOR) 20 mg tablet Take 1 tablet (20 mg total) by mouth at bedtime. 60 tablet 1 10/10/19 25 025 Discontinued FeroSuL 325 mg (65 mg iron) tablet TAKE 1 TABLET BY MOUTH ONCE DAILY 30 tablet 1 12/03/19 025 Discontinued Active Problems Problem Noted Date Diagnosed Date Depression, unspecified 06/03/2024 Altered mental status, unspecified 06/03/2024 Other toxic encephalopathy 06/03/2024 Anxiety disorder, unspecified 06/03/2024 Rheumatoid arthritis, unspec ified ([facility] V24, [facility] V28) 06/03/2024 Essential (primary) hypertension 06/03/2024 Severe obesity ([facility] V24, [facility] V28) 2023 Gait instability 07/18/2023 Primary osteoarthritis of left knee 07/18/2023 Primary osteoarthritis of right knee 07/18/2023 Hyperlipidemia 07/17/2023 Osteopenia 07/17/2023 Rheumatoid arthritis ([facility] V24, [facility] V28) 07/17/2023 Cervical spinal stenosis 12/05/2022 Overview [...] general anesthesia with risk of stroke or ME, risk for hematoma, infection, damage to the [...] Encounters Date Type Department Care Team Description 02/10/2025 Telephone Internal Medicine [facility] [address] [address] Heena Barnes MD Dizziness 02/05/2025 Telephone Internal Medicine [facility] 175 [facility] [address] [place] [address] Heena Barnes MD FYI: vna 01/28/2025 Telephone Internal Medicine [facility] 175 [facility] [address] [place] [address] Heena Barnes MD 01/27/2025 3:00 PM EDT Office Visit Internal Medicine [address] [address] Heena Barnes MD Essential (primary) hypertension (Primary Dx); Severe obesity (CMS/HCC V24, CMS/HCC V28); Rheumatoid arthritis, involving unspecified site, unspecified whether rheumatoid factor present (CMS/HCC V24, CMS/HCC V28); Mixed hyperlipidemia; Hypomagnesemia; Primary osteoarthritis of right knee; Blurry vision 01/21/2025 Telephone Internal Medicine [address] [address] Do Jones [place] Request For Order(s) ([facility] [place] - Order [id number]/) 01/20/2025 Telephone Internal Medicine [address] [address] Heena Barnes MD ER follow up 01/07/2025 2:24 AM EDT - 01/07/2025 8:36 AM EDT Emergency [facility] Emergency [address] [place] [address] Dung Magallon MD Acute COVID-19 (Primary Dx) Discharge Disposition: Home or Self Care 12/31/2024 Telephone Internal Medicine [address] [address] Irina Mathew [place] Form (RMV) 12/25/2024 Telephone Internal Medicine [address] [address] Heena Barnes MD 12/24/2024 Telephone Internal Medicine [address] [address] Court Marie [place] verbal orders 12/02/2024 Telephone Internal Medicine [address] [address] Do Jones [place] Request For Order(s) ([facility] [place] - Order [id number]/) 11/19/2024 Telephone Internal Medicine - [place] 175 [facility] [address] [place] [address] Court Marie [place] verbal orders 11/13/2024 9:04 PM EDT - 11/14/2024 11:00 AM EDT Emergency [facility] Emergency [address] [place] [address] Michael Zayas, DO Fall, initial encounter (Primary [...] Sign Reading Time Taken Comments Blood Pressure 128/82 01/27/2025 3:08 PM EDT Pulse 91 01/27/2025 3:08 PM EDT Temperature 36.9 C (98.4 F) 01/27/2025 3:08 PM EDT Respiratory Rate 18 01/27/2025 3:08 PM EDT Oxygen Saturation 98% 01/27/2025 3:08 PM EDT Inhaled Oxygen Concentration - - Weight 70.8 kg (156 lb) 01/27/2025 3:08 PM EDT Height 157.5 cm (5' 2 ) 01/27/2025 3:08 PM EDT Body Mass Index 28.53 01/27/2025 3:08 PM EDT Plan of Treatment Health Maintenance [...] 2025 , 06/29/2023, 04/19/2022, Additional history exists Falls Risk Assessment 01/07/2026 01/07/2025 Hypertension/CHF/CAD Annual BMP Blood Test 01/27/2026 01/27/2025, 11/13/2024, 07/23/2024, Additional history exists Cholesterol Screening (Lipid Panel) 09/10/2028 09/11/2023 Osteoporosis Screening (Bone Density Screening) 04/07/2032 04/07/2022, 01/11/2019 Colorectal Cancer Screening: Colonoscopy 06/08/2033 06/08/2023 Depression Screening Completed 01/27/2025 HIB Vaccines Aged Out No longer eligi [...] Procedure Name Priority Date/Time Associated Diagnosis Comments CBC WITH AUTO DIFFERENTIAL Routine 01/27/2025 3:40 PM EDT Severe obesity (CMS/HCC V24, CMS/HCC V28) Essential (primary) hypertension Rheumatoid arthritis, involving unspecified site, unspecified whether rheumatoid factor present (CMS/HCC V24, CMS/HCC V28) Mixed hyperlipidemia MAGNESIUM Routine 01/27/2025 3:40 PM EDT Hypomagnesemia CBC AND DIFFERENTIAL Routine 01/27/2025 3:40 PM EDT Severe obesity (CMS/HCC V24, CMS/HCC V28) Essential (primary) hypertension Rheumatoid arthritis, involving unspecified site, unspecified whether rheumatoid factor present (CMS/HCC V24, CMS/HCC V28) Mixed hyperlipidemia COMPREHENSIVE METABOLIC PANEL Routine 01/27/2025 3:40 PM EDT Severe obesity (CMS/HCC V24, CMS/HCC V28) Essential (primary) hypertension Rheumatoid arthritis, involving unspecified site, unspecified whether rheumatoid factor present (CMS/HCC V24, CMS/HCC V28) Mixed hyperlipidemia XR CHEST 2 VIEWS STAT 01/07/2025 6:21 [...] LIPID PANEL Routine 09/11/2023 COLONOSCOPY Routine 06/08/2023 [facility] SCREENING DIGITAL Routine 12/07/2022 11:16 AM EDT Encounter for screening mammogram for malignant neoplasm of breast [facility] DEXA AXIAL SKELETON Routine 04/07/2022 11:05 AM EDT Encounter for screening for osteoporosis from Last 3 Months or Most Recently Relevant to Health Maintenance Results * (ABNORMAL) CBC auto differential (01/27/2025 3:40 PM EDT) Only the most recent of2 resultswithin the time period is included. WBC 6.6 4.8 - 10.8 K/mcL LAB [facility] RBC 4.00 3.80 - 4.80 M/mcL LAB HEMETOLOGY METHOD 01/27/2025 6:39 PM EDT [facility] Hemoglobin 12.0 11.5 - 16.0 g/dL LAB HEMETOLOGY METHOD 01/27[facility]2025 6[facility] Hematocrit 34.7(L) 35.0 - 47.0 % LAB HEMETOLOGY METHOD 01/27/2025 6:39 [facility] MCV 87.0 79.0 - 98.0 FL LAB HEMETOLOGY METHOD 01/27/2025 6:39 PM EDT [facility] MCH 30.1 27.0 - 32.0 pcg LAB HEMETOLOGY METHOD 01/27/2025 6:39 [facility] MCHC 34.6 32.0 - 37.0 g/dL LAB HEMETOLOGY METHOD 01/27/2025 6:39 PM [facility] RDW 14.3 11.0 - 15.0 % LAB HEMETOLOGY METHOD 01/27/2025 6:39 PM EDT [facility] Platelets 308 130 - 400 K/mcL LAB HEMETOLOGY METHOD 01/27/2025 6[facility]39 [facility] MPV 9.8 7.0 - 11.0 FL LAB HEMETOLOGY METHOD 01/27/2025 6:39 [facility] NRBC 0.0 <1.0 % LAB HEMETOLOGY METHOD 01/27/2025 6:39 PM EDT [facility] NRBC Absolute 0.00 <0.10 K/mcL LAB HEMETOLOGY METHOD 01/27/2025 6:39 PM [facility] Neutrophils Relative 55.5 % LAB HEMETOLOGY METHOD 01/27/2025 6:39 PM [facility] Lymphocytes Relative 33.7 % LAB HEMETOLOGY METHOD 01/27/2025 6:39 PM [facility] Monocytes Relative 7.7 % LAB HEMETOLOGY METHOD 01/27/2025 6:39 PM [facility] Eosinophils Relative 2.3 % LAB HEMETOLOGY METHOD 01/27/2025 6:39 PM [facility] Basophils Relative 0.6 % LAB HEMETOLOGY METHOD 01/27/2025 6:39 PM [facility] Immature Granulocytes Relative 0.2 % LAB HEMETOLOGY METHOD 01/27/2025 6:39 PM [facility] Neutrophils Absolute 3.68 1.50 - 7.00 K/mcL LAB HEMETOLOGY METHOD 01/27[facility]2025 6[facility] Lymphocytes Absolute 2.23 1.00 - 5.00 K/mcL LAB HEMETOLOGY METHOD 01/27/2025 6:39 PM [facility] Monocytes Absolute 0.51 0.20 - 1.00 K/mcL LAB HEMETOLOGY METHOD 01/27/2025 6:39 PM EDT [facility] Eosinophils Absolute 0.15 0.00 - 0.50 K/mcL LAB HEMETOLOGY METHOD 01/27/2025 6:39 PM EDT [facility] Basophils Absolute 0.04 0.00 - 0.20 K/mcL LAB HEMETOLOGY METHOD 01/27/2025 6:39 PM EDT [facility] Immature Granulocytes Absolute 0.01 0.00 - 0.03 K/[facility] LAB HEMETOLOGY METHOD 01/27/2025 6:39 PM EDT [facility] Blood Venous blood specimen / Unknown Venipuncture / Unknown 01/27/2025 3:40 PM EDT 01/27/2025 3:40 PM EDT us Heena Barnes MD LAB BLOOD ORDERABLES Final Res ult Performing Organization Address City/[facility]/ZIP Co de Phone Number [facility] [address] [place] [address], [place] [phone] * Magnesium (01/27/2025 3:40 PM EDT) Only the most recent of2 resultswithin the time period is included. [facility] Magnesium 2.1 1.9 - 2.6 mg/dL LAB CHEMISTRY METHOD 01/27/2025 7:26 PM EDT [facility] Blood Venous blood specimen / Unknown Venipuncture / Unknown 01/27/2025 3:40 PM EDT 01/27/2025 3:40 PM EDT us Heena Barnes MD LAB BLOOD ORDERABLES Final Res ult [facility] [address] [place] [address], [place] [phone] * (ABNORMAL) Comprehensive metabolic panel (01/27/2025 3:40 PM EDT) Sodium 138 133 - 145 mmol/L LAB CHEMISTRY METHOD 01/27/2025 7:28 PM [facility] Potassium 3.6 3.5 - 5.5 mmol/L LAB CHEMISTRY METHOD 01/27/2025 7:28 PM [facility] Chloride 108 96 - 110 mmol/L LAB CHEMISTRY METHOD 01/27/2025 7:28 PM [facility] CO2 28 21 - 32 mmol/L LAB CHEMISTRY METHOD 01/27/2025 7:28 PM [facility] Anion Gap 2(L) 3 - 11 LAB CHEMISTRY METHOD 01/27/2025 7:28 PM [facility] Glucose 89 70 - 100 mg/dL LAB CHEMISTRY METHOD 01/27/2025 7:28 PM [facility] BUN 10 5 - 25 mg/dL LAB CHEMISTRY METHOD 01/27/2025 7:28 PM [facility] Creatinine 0.76 0.50 - 1.10 mg/dL LAB CHEMISTRY METHOD 01/27/2025 7:28 PM [facility] eGFR 82 >=60 mL/min/1. 73m2 LAB CHEMISTRY METHOD 01/27/2025 7:28 PM [facility] Comment:Calculation based on the Chronic Kidney Disease Epidemiology Collaboration (CKD-EPI) equation refit without adjustment for race. BUN/Creatinine Ratio 13.2 LAB CHEMISTRY METHOD 01/27/2025 7:28 PM [facility] Calcium 10.1 8.5 - 10.5 mg/dL LAB CHEMISTRY METHOD 01/27/2025 7:28 PM [facility] AST (SGOT) 20 10 - 42 unit/L LAB CHEMISTRY METHOD 01/27/2025 7:28 PM [facility] ALT (SGPT) 34 10 - 60 unit/L LAB CHEMISTRY METHOD 01/27/2025 7:28 PM [facility] Alkaline Phosphatase 56 42 - 121 unit/L LAB CHEMISTRY METHOD 01/27/2025 7:28 PM EDT [facility] Total Protein 7.9 6.0 - 8.0 g/dL LAB CHEMISTRY METHOD 01/27/2025 7:28 PM EDT [facility] Albumin 4.4 3.2 - 5.0 g/dL LAB CHEMISTRY METHOD 01/27/2025 7:28 PM EDT [facility] Total Bilirubin 0.9 0.0 - 1.4 mg/dL LAB CHEMISTRY METHOD 01/27/2025 7:28 PM EDT [facility] Blood Venous blood specimen / Unknown Venipuncture / Unknown 01/27/2025 3:40 PM EDT 01/27/2025 3:40 PM EDT us Heena Barnes MD LAB BLOOD ORDERABLES Final Res ult [facility] [address] [place] [address], [place] [phone] * XR Chest 2 Views (01/07/2025 6:21 AM EDT) Only the most recent of2 resultswithin the time period is included. Anatomical Region Laterality Modality Body Radiographic Bisi ging 01/07/2025 8:00 AM EDT Impressions 01/07/2025 8:01 AM EDT Impression: Stable radiographic appearance of the chest. No active pulmonary process identified. Telerad ROSHAN ([id number]) -------- FINAL REPORT -------- Dictated By: Salima Marina Dictated Date: 01/07/2025 08:00 ET Assigned Physician: Salima Marina Reviewed and Electronically Signed By: Salima Marina Signed Date: 01/07/2025 08:01 ET Workstation ID: [id number] Transcribed By: Self Edit Transcribed Date: 01/07/2025 [...] the chest. No active pulmonary processidentified. Telerad ROSHAN ([id number]) -------- FINAL REPORT -------- Dictated By: Salima Marina Dictated Date: 01/07/2025 08:00 ET Assigned Physician: Salima Marina Reviewed and Electronically Signed By: Salima Marina Signed Date: 01/07/2025 08:01 ET Workstation ID: [id number] Transcribed By: Self Edit Transcribed Date: 01/07/2025 08:00 ET [facility] Félix Magallon MD IMG XR PROCEDURES Final Result * (ABNORMAL) Respiratory virus panel molecular study (01/07/2025 3:01 AM EDT) Adenovirus Detection by PCR Not Detected Not Detected LAB MICROBIOLOGY METHOD 01/07/2025 4:38 AM EDT [facility] Influenza A PCR Not Detected Not Detected LAB MICROBIOLOGY METHOD 01/07/2025 4:38 AM EDT [facility] Influenza B PCR Not Detected Not Detected LAB MICROBIOLOGY METHOD 01/07/2025 4:38 AM EDT [facility] Coronavirus 229E Not Detected Not Detected LAB MICROBIOLOGY METHOD 01/07/2025 4:38 AM EDT [facility] Coronavirus HKU1 Not Detected Not Detected LAB MICROBIOLOGY METHOD 01/07/2025 4:38 AM EDT [facility] Coronavirus OC43 Not Detected Not Detected LAB MICROBIOLOGY METHOD 01/07/2025 4:38 AM EDT [facility] Coronavirus NL63 Not Detected Not Detected LAB MICROBIOLOGY METHOD 01/07/2025 4:38 AM EDT [facility] Parainfluenza Virus 1 Not Detected Not Detected LAB MICROBIOLOGY METHOD 01/07/2025 4:38 AM EDT [facility] Parainfluenza Virus 2 Not Detected Not Detected LAB MICROBIOLOGY METHOD 01/07/2025 4:38 AM EDT [facility] Parainfluenza Virus 3 Not Detected Not Detected LAB MICROBIOLOGY METHOD 01/07/2025 4:38 AM EDT [facility] Parainfluenza Virus 4 Not Detected Not Detected LAB MICROBIOLOGY METHOD 01/07/2025 4:38 AM EDT [facility] RSV PCR Not Detected Not Detected LAB MICROBIOLOGY METHOD 01/07/2025 4:38 AM EDT [facility] Human Metapneumovirus A and B Not Detected Not Detected LAB MICROBIOLOGY METHOD 01/07/2025 4:38 AM EDT [facility] Rhinovirus/Entero virus Not Detected Not Detected LAB MICROBIOLOGY METHOD 01/07/2025 4:38 AM EDT [facility] Bordetella pertussis Not Detected Not Detected LAB MICROBIOLOGY METHOD 01/07/2025 4:38 AM EDT [facility] Bordetella parapertussis Not Detected Not Detected LAB MICROBIOLOGY METHOD 01/07/2025 4:38 AM EDT [facility] Mycoplasma pneumo by PCR Not Detected Not Detected LAB MICROBIOLOGY METHOD 01/07/2025 4:38 AM EDT [facility] Chlamydia pneumoniae Not Detected Not Detected LAB MICROBIOLOGY METHOD 01/07/2025 4:38 AM EDT [facility] SARS COV-2 Detected(A ) Not Detected LAB MICROBIOLOGY METHOD 01/07/2025 4:38 AM EDT [facility] Swab Both anterior nares / Unknown Non-blood Collection / Unknown 01/07/2025 3:01 AM EDT 01/07/2025 3:17 AM EDT Narrative [facility] - 01/07/2025 4:38 AM EDT Testing was performed using the [employer] Respiratory Pathogen PCR Assay. All results must [...] that are below the limit of detection. [facility] Félix Magallon MD LAB MICROBIOLOGY - [facility] Final Result [facility] [address] [place] [address], [place] [phone] * ECG-Annotated (11/15/2024) Provider Onbase ECG ORDERABLES Final Result * (ABNORMAL) Urinalysis with reflex microscopic and culture (11/14/2024 2:57 AM EDT) Specific [place] Urine 1.014 1.003 - 1.030 LAB URINALYSIS - AUTOMATED METHOD 11/14/2024 4:23 AM T [facility] pH, Urine 7.0 5.0 - 8.0 pH LAB URINALYSIS - AUTOMATED METHOD 11/14/2024 4:23 AM T [facility] Leukocytes, Urine Trace(A) Negative LAB URINALYSIS - AUTOMATED METHOD 11/14/2024 4:23 AM T [facility] Nitrite, Urine Negative Negative LAB URINALYSIS - AUTOMATED METHOD 11/14/2024 4:23 AM [facility] Protein, Urine Negative <=Trace mg/dL LAB URINALYSIS - AUTOMATED METHOD 11/14/2024 4:23 AM [facility] Glucose, Urine Negative Negative mg/dL LAB URINALYSIS - AUTOMATED METHOD 11/14/2024 4:23 AM [facility] Ketones, Urine Negative Negative mg/dL LAB URINALYSIS - AUTOMATED METHOD 11/14/2024 4:23 AM [facility] Urobilinogen, Urine 0.2 0.2 - 1.0 mg/dL LAB URINALYSIS - AUTOMATED METHOD 11/14/2024 4:23 AM [facility] Bilirubin, Urine Negative Negative LAB URINALYSIS - AUTOMATED METHOD 11/14/2024 4:23 AM [facility] Blood, Urine Negative Negative LAB URINALYSIS - AUTOMATED METHOD 11/14/2024 4:23 AM [facility] RBC, Urine 0.6 0 - 4 /HPF LAB URINALYSIS - AUTOMATED METHOD 11/14/2024 4:23 AM [facility] WBC, Urine 0.7 0 - 4 /HPF LAB URINALYSIS - AUTOMATED METHOD 11/14/2024 4:23 AM [facility] Squamous Epithelial, Urine 7 0 - 60 /LPF LAB URINALYSIS - AUTOMATED METHOD 11/14/2024 4:23 AM [facility] Bacteria, Urine Negative Negative /HPF LAB URINALYSIS - AUTOMATED METHOD 11/14/2024 4:23 AM [facility] Hyaline Casts, Urine 0.4 0 - 3 /LPF LAB URINALYSIS - AUTOMATED METHOD 11/14/2024 4:23 AM [facility] Urine Urine specimen obtained by clean catch procedure / Unknown Non-blood Collection / Unknown 11/14/2024 2:57 AM EDT 11/14/2024 3:53 AM EDT Dario ISLAS LAB URINE ORDERABLES Mariana l Result Performing Organization Address [facility]/ZIP Co de Phone Number [facility] [address] [place] [address], [place] [phone] * Garrett urine culture tube (11/14/2024 2:57 AM EDT) Extra Tube Hold for add-ons. 11/14/2024 5:01 AM EDT [facility] Comment:Auto resulted. Urine Urine specimen obtained by clean catch procedure / Unknown Non-blood Collection / Unknown 11/14/2024 2:57 AM EDT 11/14/2024 3:52 AM EDT Dario ISLAS LAB URINE ORDERABLES Mariana l Result Performing Organization Address [facility] de Phone Number [facility] [address] [place] [address], [place] [phone] * Culture urine (11/14/2024 2:57 AM EDT) [...] L ORDERABLES Final Result Performing Organization Address [facility] Co de Phone Number [facility] [address] [place] [address], [place] [phone] * ECG 12 lead (11/14/2024 12:35 AM EDT) Only the most recent of2 resultswithin the time period is included. Ventricular Rate ECG 64 BPM GEMUSE Atrial Rate 64 BPM GEMUSE P-R Interval 182 ms GEMUSE QRS Duration 68 ms GEMUSE Q-T Interval 408 ms GEMUSE QTc 420 ms GEMUSE P Wave [place] 58 degrees GEMUSE R [place] 50 degrees GEMUSE T [place] 39 degrees GEMUSE ECG Interpretation Normal sinus rhythm Normal ECG When compared with ECG of 13-NOV-2024 21:35, (unconfirmed) No significant change was found Confirmed by PETAR SEARS ([id number]) on 11/14/2024 11:19:12 AM GEMUSE 11/14/2024 12:3 5 AM EDT 11/14/2024 11:19 AM EDT Dario ISLAS ECG ORDERABLES Final Res ult Performing Organization Address [facility]/ZIP Co de Phone Number GEMUSE * Troponin I high sensitivity (NOW and then in 1 hour) (11/14/2024 12:20 AM EDT) Only the most recent of2 resultswithin the time period is included. [facility] High Sensitivity Troponin I 6 <=54 ng/L [...] ORDERABLES Mariana l Result Performing Organization Address [facility]/ZIP Co de Phone Number [facility] [address] [place] [address], [place] [phone] * CT Cervical Spine wo Contrast (11/13/2024 [...] ISLAS LAB BLOOD ORDERABLES Mariana l Result [facility] [address] [place] [address], [place] [phone] * (ABNORMAL) Basic metabolic panel (11/13/2024 10:21 PM EDT) Sodium 144 133 - 145 mmol/L LAB CHEMISTRY METHOD 11/13/2024 11:49 PM [facility] Potassium 3.6 3.5 - 5.5 mmol/L LAB CHEMISTRY METHOD 11/13/2024 11:49 PM [facility] Chloride 112(H) 96 - 110 mmol/L LAB CHEMISTRY METHOD 11/13/2024 11:49 PM [facility] CO2 27 21 - 32 mmol/L LAB CHEMISTRY METHOD 11/13/2024 11:49 PM [facility] Anion Gap 5 3 - 11 LAB CHEMISTRY METHOD 11/13/2024 11:49 PM [facility] Glucose 85 70 - 100 mg/dL LAB CHEMISTRY METHOD 11/13/2024 11:49 PM [facility] BUN 19 5 - 25 mg/dL LAB CHEMISTRY METHOD 11/13/2024 11:49 PM [facility] Creatinine 0.77 0.50 - 1.10 mg/dL LAB CHEMISTRY METHOD 11/13/2024 11:49 PM [facility] eGFR 81 >=60 mL/min/1. 73m2 LAB CHEMISTRY METHOD 11/13/2024 11:49 PM [facility] Comment:Calculation based on the Chronic Kidney Disease Epidemiology Collaboration (CKD-EPI) equation refit without adjustment for race. BUN/Creatinine Ratio 24.7 LAB CHEMISTRY METHOD 11/13/2024 11:49 PM [facility] Calcium 8.3(L) 8.5 - 10.5 mg/dL LAB CHEMISTRY METHOD 11/13/2024 11:49 PM [facility] Blood Venous blood specimen / Unknown Venipuncture / Unknown 11/13/2024 10:21 PM EDT 11/13/2024 11:10 PM EDT Michael Zayas DO LAB BLOOD ORDERABLES Final Result [facility] LAB [address] [place] [address], [place] [phone] * Lipid panel (09/11/2023) LDL/HDL Ratio 3 [...] AM EDT Narrative 12/07/2022 11:16 AM EDT [facility] Diagnostic Imaging Department [address] [place] [id number] Patient: ESSENCESIMALINDA /Age/Sex: 1950 - 72 - F Unit#: [id number] Location/Status: SPDIMAM/REG CLI Mnemonic/[facility]ing [facility] Order[facility] Physician: HEENA BARNES MD [facility] Screening Digital - 12/07/22 - 104 EXAM: [facility] Screening Digital EXAM DATE AND TIME: 12/07/2022 10:43 AM HISTORY: Screening. COMPARISON: 11/01/21, 03/25/20, 02/19/19 TECHNIQUE: CC and MLO views of both breasts were obtained using full field digital mammography. Bilateral digital breast tomosynthesis was performed in the MLO projection. Computer aided detection with PHARMAJET 7.2-H and LawKick 3D 3.1 was employed. TISSUE DENSITY: b. [...] Routine screening mammogram BILATERAL in 1 year. 47639, 93588 3342F, 7025F Dictating Physician: SALIMA MARINA MD Electronically Signed by: SALIMA MARINA MD Dic Date/Time: 12/07/22 1116 Sign date/Time: 12/07/22 111 Procedure Note Salima Marina MD - 08/04/2023 [facility] Diagnostic Imaging Department [address] [place] [address] Patient: LINDA SAGE./Age/Sex: 1950 - 72 - F Unit#: [id number] Location/Status: SPDIMAM/REG CLI Mnemonic/Ordering Site: [facility] Ordering Physician: HEENA BARNES MD [facility] Screening Digital - 12/07/22 - 1042 EXAM: [facility] Screening Digital EXAM DATE AND TIME: 12/07/2022 10:43 AM HISTORY: Screening. COMPARISON: 11/01/21, 03/25/20, 02/19/19 TECHNIQUE: CC and MLO views of both breasts were obtained using fullfield digital mammography. Bilateral digital breast tomosynthesis was performedin the MLO projection. Computer aided detection with PHARMAJET 7.2-H andLawKick 3D 3.1 was employed. TISSUE DENSITY: b. [...] Routine screening mammogram BILATERAL in 1 year. 38637, 73569 3342F, 7025F Dictating Physician: SALIMA MARINA MD Electronically Signed by: SALIMA MARINA MD Dic Date/Time: 12/07/22 1116 Sign date/Time: 12/07/22 1116 Heena Barnes MD IMG BI PROCEDURES Final Result * BUZZ DEXA AXIAL SKELETON (04/07/2022 11:05 AM EDT) Anatomical Region Laterality Modality Mammography 04/07/2022 10:1 9 AM EDT Narrative 04/07/2022 11:05 AM EDT [facility] Diagnostic Imaging Department [address] [place] [address] Patient: LINDA SAGE Kalyn SandersonB./Age/Sex: 1950 - 71 - F Unit#: [id number] [facility]/Status[facility] Ordering Physician: HEENA BARNES MD [facility] Dexa Axial Skeleton - 04/07/221056 HISTORY: [...] probability of hip fracture of 2.2%. Code 16169 Dictating Physician: DAVID PERRY MD Electronically Signed by: DAVID PERRY MD Dic Date/Time: 04/07/22 1104 Sign date/Time: 04/07/22 110 Procedure Note David Perry MD - 06/22/2022 [facility] Diagnostic Imaging Department [address] [place] [address] Patient: LINDA SAGE Kalyn Salazar/Age/Sex: 1950 - 71 - F Unit#: [id number] Location/Status: [facility] Mnemonic/Ordering [facility] Ordering Physician: HEENA BARNES MD Buzz Dexa [...] density of the femurs bilaterally is 0.964 gm/nf4suluk is 96% of that of young normals [...] probability of hip fracture of 2.2%. Code 33843 Dictating Physician: DAVID PERRY MD Electronically Signed by: DAVID PERRY MD Dic Date/Time: 04/07/22 1104 Sign date/Time: 04/07/22 1105 Heena Barnes MD IM BI PROCEDURES Final Result from Last 3 Months or Most Recently Relevant to Health Maintenance Insurance [facility] MEDICARE Member Subscriber Plan / Payer (Ef fective 2021-Present) Name:Linda Sage Relation to Subscriber:Self Name:Linda Sage Payer ID:[id number] Group ID:[id number] Type:Not on file Address: [address] [place] [id number] Advance Directives Documents on File Type Date Recorded Patient Power Barker Operator Expl feli Advance Directives and Asuncion vu Will 11/17/2024 3:48 PM PROXY * Full [...] currently active code status orders. Care Teams Photogrammetric Stereo Compiler Relationship Specialty Start Date End Date Heena Barnes MD [address] [place] [address] [phone] PCP - General Internal Medicine 12/15/21
--- OUTSIDE RECORDS SUMMARY | 2025-02-11 14:59 | XMS_ITS | Clinical Summary ---
Author Organization [facility] Address [address] [facility] [address] [place] [address] Phone Care Team Providers Care Pipelines Superintendent Name Role Phone Leslee Barnes MD Primary Care Provider [phone] Allergies Active Allergy Reactions Criticality Noted Date [...] Heart disease Sibling 2 Stroke Sibling 3 TN Relation Status Comments Father Mother Alive Sibling [...] age to complete this topic Insurance ([id number]) [facility] ([id number]) Care Teams Pipelines Superintendent Relationship Specialty Start Date End Date Leslee Barnes MD [address] [place] [phone] PCP - General Internal Medicine 04/27/22
--- OUTSIDE RECORDS SUMMARY | 2025-02-11 14:59 | XMS_ITS | Clinical Summary ---
Author Organization [facility] Address [address] [place] [address] Care Team Providers Care Rn Spine Name Role Phone Leslee Barnes MD Primary [...] PO Take by mouth. 0 Acti ve Dwjyi-7-Hjth Eth Est, Dietary, 1 g CAPS Take [...] age to complete this topic Care Teams Rn Spine Relationship Specialty Start Date End Date Leslee Barnes MD [address] [place] [phone] PCP - General Internal Medicine 01/29/24
== END 2025-02-11 15:39 | disposition home or self-care (01) ==
PROVIDERS: PCP Hospitalist; Visit Provider Nurse Practitioner Family
DX: R42 Dizziness and giddiness (principal); D64.9 Anemia, unspecified; G47.61 Periodic limb movement disorder; G20.A1 Parkinson's disease without dyskinesia, without mention of fluctuations; R35.1 Nocturia; G47.9 Sleep disorder, unspecified; R25.1 Tremor, unspecified; R47.1 Dysarthria and anarthria; G43.009 Migraine without aura, not intractable, without status migrainosus
CPT/HCPCS: 99214

== ENCOUNTER 2025-02-24 11:01 | Outpatient (REF) | payer OTHER, SELFPAY ==
--- NOTE | ~2025-02-24 | US_ITS ---
CLINICAL HISTORY: R33.9 - Retention of urine, unspecified US kidneys and bladder Comparison: None provided Findings: Right kidney 10.1 cm length. Left kidney 11.0 cm length. No significant focal abnormality. Bilateral simple cysts are noted. No bilateral hydronephrosis. Normal bilateral renal echogenicity. The urinary bladder is unremarkable. Prevoid volume 270 mL. Post void volume 25 mL. Bilateral ureteral jets visualized. Impression: No significant abnormalities. This document has been electronically signed by: Roberto King MD on 02/24/2025 19:09:25
== END 2025-02-24 11:02 | disposition home or self-care (01) ==
LOC: HO.US 11:01
PROVIDERS: PCP Internal Medicine; Visit Provider Nurse Practitioner Family
DX: R33.9 Retention of urine, unspecified (principal); R35.1 Nocturia
CPT/HCPCS: 76770

== ENCOUNTER → 2025-02-24 11:05 | Outpatient (BNV) | payer OTHER, SELFPAY | PROVIDERS: PCP Internal Medicine; Visit Provider Radiology Diagnostic Radiology | DX: R33.9 Retention of urine, unspecified (principal) | CPT/HCPCS: 76770 ==

== ENCOUNTER 2025-02-25 11:20 | Outpatient (AMB) | payer OTHER, SELFPAY ==
--- OUTSIDE RECORDS SUMMARY | 2024-04-10 16:43 | XMS_ITS | Encounter Summary ---
Author Organization [facility] [place] [address] Care Team Providers Care Telephone Station Repairer Name Role Phone Leslee Barnes MD Primary Care Provider [phone] Encounter Details Date Type Department Care Team (Late st Contact Info) Description 04/10/2024 4:43 PM EDT Hospital Encounter TH HISTORIC ENCOUNTERS EASTERN CONVERSION ONLY Leslee Barnes MD [address] [place] [address] Social History Tobacco Use Types Packs/Day Years Used Date Smoking Tobacco: Some Days Cigarettes Smokeless Tobacco: Never Alcohol Use Standard Drinks/Week Comments Not Currently 0 (1 standard drink = 0.6 oz pur e alcohol) Comments Unknown Sex and Gender Information Value Date Recorded Sex Assigned at Not on file Legal Sex Female 5:00 AM EST Gender Identity Not on file Sexual Orientation Not on file documented as of this encounter Plan of Treatment Not on file documented as of this encounter Visit Diagnoses Not on filedocumented in this encounter Additional Health Concerns Infection Onset Date Last Indicated Resolved Time Respiratory Rule-Out 01/07/2025 01/07/2025 025 4:38 AM EDT COVID-19 Rule-Out 01/07/2025 01/07/2025 01/07/2025 4:38 AM EDT COVID-19 01/07/2025 01/07/2025 02/06/2025 7:04 PM EDT documented as of this encounter Care Teams Telephone Station Repairer Relationship Specialty Start Date End Date Leslee Barnes MD [address] [id number] PCP - General Internal Medicine 12/15/21 documented as of this encounter
--- OUTSIDE RECORDS SUMMARY | 2024-04-12 12:40 | XMS_ITS | Encounter Summary ---
Author Organization [facility] [place] [address] Care Team Providers Care Medical Records Custodian Name Role Phone Leslee Barnes MD Primary Care Provider [phone] Encounter Details Date Type Department Care Team (Late st Contact Info) Description 04/12/2024 12:40 PM EDT Hospital Encounter TH HISTORIC ENCOUNTERS EASTERN CONVERSION ONLY Lisa Perez PA [address] [place] [id number] Social History Tobacco Use Types Packs/Day Years [...] on file documented as of this encounter Last Filed Vital Signs Vital Sign Reading Time Taken Comments Blood Pressure 145/68 04/12/2024 1:17 PM EDT Sitting Left arm Pulse 78 04/12/2024 1:17 PM EDT Temperature - - Respiratory Rate - - Oxygen Saturation - - Inhaled Oxygen Concentration - - Weight 75.5 kg (166 lb 6.4 oz) 04/12/2024 1:17 PM EDT Height 165.1 cm (5' 5 ) 04/12/2024 1:17 PM EDT Body Mass Index 27.69 04/12/2024 1:17 PM EDT documented in this encounter Progress Notes * ROSHAN Sims 04/12/2024 1:15 PM EDT Images from the original note were not included. Progress Notes by Lisa Perez PA-C at 04/12/2024 1:15 PM Author: Lisa Perez PA-C Service: -- Author Type: Physician Railroad Crossing Protection Maintainer Filed: 04/12/2024 2:08 PM Encounter Date: 04/12/2024 Status: Addendum Dispatcher Tow Truck: Lisa Perez PA-C (Physician Railroad Crossing Protection Maintainer) Related Notes: Original Note by Lisa Perez PA-C (Physician Railroad Crossing Protection Maintainer) filed at 04/12/2024 2:[address] Eriberto Rossi, Thank you very much for referring this patient for consultation. HPI: 73-year-old female who was referred to our hematology clinic by PCP team for further evaluation of anemia. Records indicate presence of mild anemia since 2016 with progression since then. She has normal renal, liver and thyroid functions. Iron studies were last checked in August and they were normal; however, patient was placed on oral iron supplementation approximately 4 months ago. She reports black stools since she started taking iron pills. She denies any clinical bleeding. She had a colonoscopy within this last year, based on records it was likely performed in June 2023 but I do not have access to those records. Patient is somewhat of a poor historian. She does report a vague history of taking iron for about ayear approximately 5 years ago. She denies any alcohol use. She has been experiencing hip pain since a fall that she sustained a couple weeks ago. She has history of gait imbalance. She also reports ongoing dizziness and fatigue. She has an appointment with her PCP team today. She denies unintentional weight loss, night sweats, fever or chills, headache, chest pain, shortness of breath. ROS: GENERAL: + malaise, significant weight loss or fever NECK: No lumps, goiter, pain or significant neck swelling RESPIRATORY: No cough, wheezing or shortness of breath CARDIOVASCULAR: No chest pain, leg swelling or palpitations GI: No abdominal discomfort, blood in stools or black stools MUSCULOSKELETAL: No joint pain or swelling, back pain, or muscle pain. HEMATOLOGY/LYMPHOLOGY No prolonged bleeding, easy bruisability or swollen nodes' + dizziness Other Systems review is non contributory PAST MEDICAL HISTORY: Active Ambulatory Problems Diagnosis Date Noted ? No Active Ambulatory Problems Resolved Ambulatory Problems Diagnosis Date Noted ? No Resolved Ambulatory Problems Past Medical History: Diagnosis Date ? Cervical spinal stenosis ? Hyperlipidemia ? Hypertension ? Osteopenia PAST SURGICAL HISTORY: Past Surgical History: Procedure Laterality Date ? HYSTERECTOMY SOCIAL HISTORY: Social History Tobacco Use ? Smoking status: Some Days Packs/day: .25 Types: Cigarettes ? Smokeless tobacco: Never Substance Use Topics ? Alcohol use: Not Currently She smokes 2 cigarettes a day, about twice a week. She uses a walker. She lives alone. She has 1 grown child. FAMILY HISTORY: History reviewed. No pertinent family history. MEDICATIONS: Current Outpatient Medications: ? acetaminophen (TYLENOL) 325 MG tablet, Take 2 tablets (650 mg total) by mouth every 6 (six) hoursas needed., Disp: , Rfl: ? amitriptyline (ELAVIL) tablet 25 mg, Take 1 tablet (25 mg total) by mouth every night at bedtime., Disp: , Rfl: ? ascorbic acid (VITAMIN C) 250 MG tablet, Take 1 tablet (250 mg total) by mouth daily., Disp: , Rfl: ? Calcium Carb-Cholecalciferol 600-10 MG-MCG TABS, Take by mouth., Disp: , Rfl: ? clotrimazole-betamethasone (LOTRISONE) cream, Apply topically 2 (two) times a day., Disp: , Rfl: ? Coenzyme Q10 100 MG capsule, Take 100 mg by mouth daily., Disp: , Rfl: ? Diclofenac Sodium 1 % GEL, Apply topically., Disp: , Rfl: ? ferrous sulfate 325 (65 FE) MG tablet, Take 1 tablet (325 mg total) by mouth every morning with breakfast., Disp: , Rfl: ? labetalol (NORMODYNE) 100 MG tablet, Take 1 tablet (100 mg total) by mouth 2 (two) times a day., Disp: , Rfl: ? meclizine (ANTIVERT) 12.5 MG tablet, Take 1 tablet (12.5 mg total) by mouth daily., Disp: , Rfl: ? Melatonin 10 MG TABS, Take by mouth., Disp: , Rfl: ? MULTIPLE VITAMINS-IRON PO, Take by mouth., Disp: , Rfl: ? Xhsvf-5-Hytk Eth Est, Dietary, 1 g CAPS, Take by mouth., Disp: , Rfl: ? rosuvastatin (CRESTOR) tablet 20 mg, Take 1 tablet (20 mg total) by mouth daily., Disp: , Rfl: ? sulfaSALAzine (AZULFIDINE) 500 MG tablet, Take 1 tablet (500 mg total) by mouth 2 (two) times a day., Disp: , Rfl: ? triamcinolone acetonide (KENALOG-40) 40 MG/ML injection, Inject 1 mL (40 mg total) into the articular space once., Disp: , Rfl: You are allergic to the following Date Reviewed: 04/12/2024 Allergen Reactions Aspirin Not Noted Penicillins Not Noted Shellfish Allergy Not Noted Leflunomide Rash PHYSICAL EXAM: BP 145/68 (BP Location: Left arm) Pulse 78 Temp 97.6 ??F (36.4 ??C) (Temporal) Ht 5' 5 (1.651 m) Wt 75.5 kg (166 lb 6.4 oz) SpO2 100% BMI 27.69 kg/m?? APPEARANCE: Alert and in no acute distress, wearing sunglasses, slurred speech EYES: PERRL, conjunctiva pink and sclera are Normal without icterus ORAL CAVITY: No erythema or exudates NECK: Neck supple, no adenopathy, HEART: RRR with normal S1 and S2, no murmurs, no gallops, no JVD appreciated LUNG: clear to auscultation bilaterally LYMPH NODES: No palpable superficial adenopathy ABDOMEN: Bowel sounds normoactive, no bruits, soft, non-tender, without organomegaly or palpable masses EXTREMITIES: Extremities warm and well perfused without clubbing, cyanosis, rash or edema NEURO: Oriented X 3, no focal weakness; slow gait, ambulates with a walker LABS: HGB HISTORY: Testing: Review of Lab results , interpreted Review of Imaging, interpreted Review of External Documentation Tests ordered -full anemia panel ASSESSMENT SNOMED CT(R) 1. Anemia ANEMIA PLAN: Anemia: -Chronic anemia -Slowly progressing -Normal renal, liver, and thyroid functions -On oral iron x 4 months -No clinical bleeding with black stools since she started taking iron -Colonoscopy in June 2023; records not available to me -Check full anemia panel -FOV in 2 weeks to review results *She has a follow-up with her PCP this afternoon. She was advised to discuss ongoing dizziness and hip pain since fall. *Upon further review of her records, patient has already been seen by her PCP team after she sustained this fall. She was seen on 03/13/2024. An x-ray was ordered and she was referred to PT. She also has chronic slurred speech, with supposedly negative brain imaging studies. 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 She has been referred to speech therapy. Lisa Perez PA-C Cc: Leslee Barnes MD Sign: Lisa Perez PA-C Hematology/Oncology [facility] [phone] documented in this encounter Plan of Treatment Not on file documented as of this encounter Procedures Procedure Name Priority Date/Time Associated Diagnosis Comments ..MISCELLANEOUS REFERENCE LAB TEST 04/12/2024 documented in this encounter Results * Miscellaneous reference lab test (04/12/2024) us Provider Onbase LAB BLOOD ORDERABLES Final Re sult documented in this encounter Visit Diagnoses Not on filedocumented in this encounter Additional Health Concerns Infection Onset Date Last Indicated Resolved Time Respiratory Rule-Out 01/07/2025 01/07/2025 025 4:38 AM EDT COVID-19 Rule-Out 01/07/2025 01/07/2025 01/07/2025 4:38 AM EDT COVID-19 01/07/2025 01/07/2025 02/06/2025 7:04 PM EDT documented as of this encounter Care Teams Medical Records Custodian Relationship Specialty Start Date End Date Leslee Barnes MD [address] [place] [phone] PCP - General Internal Medicine 12/15/21 documented as of this encounter
--- OUTSIDE RECORDS SUMMARY | 2024-04-26 14:00 | XMS_ITS | Encounter Summary ---
Author Organization [facility] [place] [address] Care Team Providers Care Passenger Flagman Name Role Phone Leslee Barnes MD Primary Care Provider [phone] Encounter Details Date Type Department Care Team (Late st Contact Info) Description 04/26/2024 2:00 PM EDT Hospital Encounter TH HISTORIC ENCOUNTERS EASTERN CONVERSION ONLY Lisa Perez PA [address] [place] [address] Social History Tobacco Use Types Packs/Day Years [...] documented as of this encounter Care Teams Passenger Flagman Relationship Specialty Start Date End Date Leslee Barnes MD [address] [phone] PCP - General Internal Medicine 12/15/21 documented as of this encounter
--- OUTSIDE RECORDS SUMMARY | 2024-04-26 14:02 | XMS_ITS | Encounter Summary ---
Author Organization [facility] [place] [address] Care Team Providers Care Commercial Lines Manager Name Role Phone Leslee Barnes MD Primary Care Provider [phone] Encounter Details Date Type Department Care Team (Late st Contact Info) Description 04/26/2024 2:02 PM EDT Hospital Encounter TH HISTORIC ENCOUNTERS EASTERN CONVERSION ONLY Lisa Perez PA [address] [place] [id number] Social History Tobacco Use Types Packs/Day Years [...] Sign Reading Time Taken Comments Blood Pressure 142/68 04/26/2024 2:12 PM EDT Sit ting Left arm Pulse 84 04/26/2024 2:12 PM EDT Temperature - - Respiratory Rate - - Oxygen Saturation - - Inhaled Oxygen Concentration - - Weight 74.4 kg (164 lb) 04/26/2024 2:12 PM EDT Height 165.1 cm (5' 5 ) 04/12/2024 1:1 7 PM EDT Body Mass Index 27.29 04/12/2024 2:28 PM EDT documented in this encounter Progress Notes * ROSHAN Sanchez 04/26/2024 2:00 PM EDT Images from the original note were not included. Progress Notes by Lisa Perez PA-C at 04/26/2024 2:00 PM Author: Lisa Perez PA-C Service: -- Author Type: Physician Supervisor Propellant Charge Loading Filed: 04/29/2024 11:59 AM Encounter Date: 04/26/2024 Status: Signed Ordnance Truck Installation Mechanic: Lisa Perez PA-C (Physician Supervisor Propellant Charge Loading) Cosigner: Deb Paige MD at 04/29/2024 12:[address] Eriberto Rossi, Thank you very much for referring this patient for consultation. HPI: 73-year-old female who returns to our hematology clinic for follow up of anemia. She is here to review lab results obtained at last visit. Her anemia has actually improved a littleand Hgb went up to 10.9. Otherwise anemia workup is unremarkable. She likely has anemia of chronic disease, especially in the setting of RA. I was able to review GI notes and it appears she had an incomplete colonoscopy in 06/2023 and she was asked to repeat but she wasn't ready yet at that tome that she was seen by GI, back in December. She feels ready now. She has no new medical complaints at this time. (copied from prior note for clinical reference and updated as needed) Records indicate presence of mild anemia since [...] She has 1 grown child. FAMILY HISTORY: No family history on file. MEDICATIONS: Current Outpatient Medications: ? acetaminophen (TYLENOL) [...] Take by mouth., Disp: , Rfl: ? Ijood-6-Gtkp Eth Est, Dietary, 1 g CAPS, Take [...] Not Noted Leflunomide Rash PHYSICAL EXAM: BP 142/68 (BP Location: Left arm) Pulse 84 Temp 97.7 ??F (36.5 ??C) (Temporal) Wt 74.4 kg (164 lb) SpO2 100% BMI 27.29 kg/m?? APPEARANCE: Alert and in no acute distress, wearing sunglasses, slurred speech EYES: PERRL, conjunctiva pink and sclera are Normal without icterus HEART: RRR with normal S1 and S2, no murmurs, no gallops, no JVD appreciated LUNG: clear to auscultation bilaterally EXTREMITIES: Extremities warm and well perfused without clubbing, cyanosis, rash or edema NEURO: Oriented X 3, no focal weakness; slow gait, ambulates with a walker LABS: HGB HISTORY: Testing: Review of Lab results , interpreted Review of Imaging, interpreted Review of External Documentation Tests ordered -full anemia panel ASSESSMENT SNOMED CT(R) 1. Anemia of chronic disease ANEMIA OF CHRONIC DISEASE 2. Rheumatoid arthritis with positive rheumatoid factor, involving unspecified site (HCC) SEROPOSITIVE RHEUMATOID ARTHRITIS PLAN: Anemia of chronic disease: -Chronic anemia -Slowly progressing but then recently improved -Normal renal, liver, and thyroid functions -On oral iron x 4 months -No clinical bleeding with black stools since she started taking iron -Colonoscopy in June 2023 - incomplete due to desaturation. She is ready to repeat. -She is aware that she must contact her GI team to reschedule colonoscopy -No nutritional deficiency (iron studies could be well controlled due to oral supplementation) -Hemolysis, MGUS and MM ruled out -FOV in 6 months with labs prior to ensure stability of anemia; RTO sooner prn *She has RA; [facility]. *She is followed by nephrology, Dr. Vicente, and she is followed by Neurology Meño Murillo. *Upon further review of her records, she has chronic slurred speech, with supposedly negative brainimaging studies. 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 She has been referred by PCP teamto speech therapy. Lisa Perez PA-C Cc: Leslee Barnes MD Sign: Lisa Perez PA-C Hematology/Oncology [facility] [phone] documented in this encounter Plan of Treatment Not on file documented as of this encounter Procedures Procedure Name Priority Date/Time Associated Diagnosis Comments ..MISCELLANEOUS REFERENCE LAB TEST 04/26/2024 ..MISCELLANEOUS REFERENCE LAB TEST 04/26/2024 documented in this encounter Results * Miscellaneous reference lab test (04/26/2024) us Provider Onbase LAB BLOOD ORDERABLES Final Re sult * Miscellaneous reference lab test (04/26/2024) us Provider Onbase LAB BLOOD ORDERABLES Final Re sult documented in this encounter Visit Diagnoses Not on filedocumented in this encounter Additional Health Concerns Infection Onset Date Last Indicated Resolved Time Respiratory Rule-Out 01/07/2025 01/07/2025 025 4:38 AM EDT COVID-19 Rule-Out 01/07/2025 01/07/2025 01/07/2025 4:38 AM EDT COVID-19 01/07/2025 01/07/2025 02/06/2025 7:04 PM EDT documented as of this encounter Care Teams Commercial Lines Manager Relationship Specialty Start Date End Date Leslee Barnes MD [address] [address] PCP - General Internal Medicine 12/15/21 documented as of this encounter
--- NOTE | 2025-02-25 11:20 | A.OFFVIS_ITS ---
Intake Visit Reasons: /US Intake Note: Patient is present for /US Urology Medication:NONE Antibiotic Allergy:NONE Blood Thinner:NONE Leisure Travel Agent Required: No Allergies CRAB Allergy (Intermediate, Uncoded 02/25/25 11:30) HIVES, RASH, STOMACH PAINS Medication List - Last Reconciled 02/25/25 by LINDSEY Nguyen ascorbic acid (vitamin C) (Vitamin C) PO calcium carbonate-vitamin D3 600 mg-10 mcg (400 unit) 1 tab PO BID carbidopa-levodopa 25-100 mg 0.5 - 1 tabs PO BID 30 days carvedilol (Coreg) 6.25 mg PO BID ferrous sulfate 325 mg PO DAILY fluticasone propionate 50 mcg/actuation (Children's Flonase Allergy Relief) 1 spray intranasal DAILY galcanezumab-gnlm (Emgality Pen) 120 mg subcut ONCE 30 days hydroxyzine HCl mg PO melatonin mg PO BEDTIME PRN nifedipine ER 30 mg PO .evening omega-3 acid ethyl esters 1 cap PO DAILY rosuvastatin 20 mg PO BEDTIME sulfasalazine PO DAILY ubrogepant (Ubrelvy) 50 - 100 mg (0.5 - 1 x 100 mg) PO ONCE PRN 30 days HPI Comments Details: Linda is a very pleasant 74-year-old female patient of Dr. Barnes. She has a past medical history of rheumatoid arthritis, depression, cervical spinal stenosis, and hypertension. She he is being followed up on today via telehealth. Of note, patient was seen approximately 4 months ago as a new patient for nocturia at which time a retroperitoneal ultrasound was ordered for further assessment evaluation. These results were reviewed and communicated with the patient and her son today. 02/24 bilateral kidneys with no bilateral hydronephrosis. Normal bilateral renal echogenicity. The urinary bladder is unremarkable. No significant abnormalities noted per radiology report. She denies any urinary issues throughout the day. She denies urinary urgency, urinary frequency, incontinence, hematuria, dysuria, foul smelling urine, changes to urinary stream, flank pain, fever, and or chills. We discussed potential causes of nocturia as well as further treatment options and risks and benefits with the patient options. All questions were answered. She otherwise offers no other issues or concerns at this time. COUNT INCLUDES THE [facility] Medical History Rheumatoid arthritis Cervical spinal stenosis HTN (hypertension) Depressive disorder Surgical History H/O: hysterectomy History of partial hysterectomy Family History Mother HTN (hypertension) Hyperlipidemia Father Cancer, colon Social History Alcohol intake: never Patient Tobacco Use Status: Current someday Tobacco user Review of Systems Const All systems reviewed & are unremarkable except as noted in HPI and below Physical Exam Const General: cooperative, healthy appearing, comfortable, no acute distress, well developed, alert and awake Orientation/consciousness: patient oriented x3 Limitations: ambulation with walker HEENT Head: Yes normal to inspection, Yes normocephalic and Yes atraumatic Ears: hearing grossly normal bilaterally Eyes General: appearance normal, both eyes and all related structures Neck Neck: Yes normal visual inspection and Yes trachea midline Chest Chest palpation & inspection: normal inspection of the chest Resp Effort & Inspection: normal respiratory effort and able to speak in complete sentences Cardio Rate: regular rate GI Inspection: Yes normal to inspection General: Yes no CVA tenderness Back/Spine/Pelvis Back: no CVA tenderness Skin General skin exam: no rashes or lesions noted Neuro General: patient oriented x3 Extrem General: Yes normal to inspection Psych Appearance: grossly normal and well kempt Mental Status: mental status grossly normal Speech and movement: Normal speech and movement present and Clear speech present Affect: normal affect Attitude: cooperative Thought process: Normal thought process present Thought content: Normal thought content present Insight: Fair insight present (Psych) Judgement: Fair judgement present (Psych) Telehealth Telehealth Telehealth Platform: Telephone Location of provider rendering services: practice address Location of patient: address on file Patient Identification confirmed using: Name, : Yes Telehealth method: voice only Patient verbally consented to treatment: Yes Patient verbally consented to billing insurance company: Yes Patient informed of any privacy concerns related to visit: Yes Minutes spent on Phone/Video with Pt.: 15 Results Reviewed Results Reviewed: Date of Service: 02/24/25 Procedure(s): US retroperitoneal comp Findings: Right kidney 10.1 cm length. Left kidney 11.0 cm length. No significant focal abnormality. Bilateral simple cysts are noted. No bilateral hydronephrosis. Normal bilateral renal echogenicity. The urinary bladder is unremarkable. Prevoid volume 270 mL. Post void volume 25 mL. Bilateral ureteral jets visualized. Impression: No significant abnormalities. Assessment & Plan Assessment & Plan (1) Urinary frequency: Code(s): R35.0 - Frequency of micturition Category: Medical (2) Nocturia: Code(s): R35.1 - Nocturia Category: Medical Plan Recent retroperitoneal ultrasound results reviewed with the patient today; as noted above. We did discussed potential causes of nocturia as well as further treatment options and risks and benefits of these treatment options. All questions were answered. We discussed importance of limiting fluids 2-3 hours prior to bed to decrease episodes of nocturia. We also discussed the importance of timed/scheduled voiding. We discussed bladder triggers and irritants. Follow-up in 3-6 months with [facility]; or sooner with any issues, concerns, and or questions. Patient Instructions: The patient had an opportunity to ask questions regarding the treatment plan. All questions were answered. Physical exam, labs, and imaging were discussed and reviewed in detail. As well as risks, benefits, and discussion of treatment choices. No major barriers to understanding were identified. The patient expressed understanding and agreement with the above treatment plan. The patient was made aware they should contact our office by phone for worsening of their current condition, the appearance of new symptoms, or with any questions or concerns. Compliance is encouraged with any medications and follow up testing that is ordered. It is a privilege to be allowed the opportunity to participate in? your urological care.? Again, if you have any questions or concerns If you have any questions or concerns please do not hesitate to contact me. The office is [phone]. This note is constructed using voice recognition software. While every effort has been made to ensure accuracy tree marker errors may have been included. Yours sincerely, LINDSEY Nguyen Coding Level of Care Code Tele Est Pt Level 3 (47950) Diagnoses Urinary frequency R35.0 Nocturia R35.1
--- OUTSIDE RECORDS SUMMARY | 2025-02-25 12:16 | XMS_ITS | Encounter Summary ---
Author Organization [facility] Address [address] [place] [address] Care Team Providers Care Turbine Attendant Name Role Phone Leslee Barnes MD Primary Care Provider [phone] Reason for Visit * Reason Onset Date Comments Request For Order(s) 02/21/2025 [facility] Care Cert 12/26/24-02/23/25 Plan Of Care Encounter Details Date Type Department Care Team (Late st Contact Info) Description 02/21/2025 Telephone Internal Medicine - [place] [address] [place] [address] Do Jones MA Social History Tobacco Use [...] Progress Notes * Do Jones MA - 02/24/2025 10:49 AM EDT Scanned into chart and faxed to [facility] [phone] * Do Jones MA - 02/21/2025 9:01 AM EDT [facility] 12/26/24-02/23/25 Plan Of Care Please sign & fax [phone] documented in this encounter Plan of Treatment Not on file documented as of this encounter Visit Diagnoses Not on filedocumented in this encounter Additional Health Concerns Assessment Noted Time PHQ-9 Depression Total Score: 0 01/28/20 25 3:12 PM EDT documented as of this encounter Care Teams Turbine Attendant Relationship Specialty Start Date End Date Leslee Barnes MD [address] [phone] PCP - General Internal Medicine 12/15/21 documented as of this encounter
--- OUTSIDE RECORDS SUMMARY | 2025-02-25 12:16 | XMS_ITS | Clinical Summary ---
Author Organization 175 [facility] Address [address] [place] [address] Phone Care Team Providers Care Stretching Press Operator Name Role Phone Heena Barnes MD Primary Care Provider [phone] Allergies Active Allergy Reactions Criticality Noted Date [...] 8 g 5 10/25/19 25 026 Active ascorbic acid (VITAMIN C) 250 mg [...] BY MOUTH ONCE DAILY 30 tablet 1 02/11/20 25 Active Daily-Peggy, with folic acid, 400 mcg tablet TAKE 1 TABLET BY MOUTH ONCE DAILY 30 tablet 2 08/14/20 25 Active omega-3 acid ethyl esters (LOVAZA) 1 gram capsule Take 2 capsules (2 g total) by mouth 1 (one) time each day. 90 capsule 3 07/16/19 025 Discontinued rosuvastatin (CRESTOR) 20 mg tablet Take 1 tablet (20 mg total) by mouth at bedtime. 60 tablet 1 10/10/19 025 Discontinued Daily-Peggy, with folic acid, 400 mcg tablet TAKE 1 TABLET BY MOUTH ONCE DAILY 30 tablet 2 11/13/19 025 Discontinued FeroSuL 325 mg (65 mg iron) tablet TAKE 1 TABLET BY MOUTH ONCE DAILY 30 tablet 1 12/03/19 025 Discontinued Active Problems Problem Noted Date Diagnosed Date Depression, unspecified 06/03/2024 Altered mental status, unspecified 06/03/2024 Other toxic encephalopathy 06/03/2024 Anxiety disorder, unspecified 06/03/2024 Rheumatoid arthritis, unspec ified ([facility] V24, [facility] V28) 06/03/2024 Essential (primary) hypertension 06/03/2024 Severe obesity ([facility] V24, [facility] V28) 2023 Gait instability 07/18/2023 Primary osteoarthritis of left knee 07/18/2023 Primary osteoarthritis of right knee 07/18/2023 Hyperlipidemia 07/17/2023 Osteopenia 07/17/2023 Rheumatoid arthritis ([facility] V24, [facility] V28) 07/17/2023 Cervical spinal stenosis [...] general anesthesia with risk of stroke or WI, risk for hematoma, infection, damage to the [...] Encounters Date Type Department Care Team Description 02/25/2025 Telephone Internal Medicine - [place] [facility] [address] [place] [address] Do Jones MA 02/21/2025 Telephone Internal Medicine [facility] 175 [facility] [address] [place] [phone] Do Jones MA 02/19/2025 Telephone Internal Medicine [facility] 175 [facility] [address] [place] [address] Heena Barnes MD 02/10/2025 Telephone Internal Medicine - [place] [address] [address] Heena Barnes MD 02/05/2025 Telephone Internal Medicine [facility] [address] [address] Heena Barnes MD 01/28/2025 Telephone Internal Medicine [facility] [address] [address] Heena Barnes MD 01/27/2025 3:00 PM EDT Office Visit Internal Medicine [address] [address] Heena Barnes MD Essential (primary) hypertension (Primary Dx); Severe obesity (CMS/HCC V24, CMS/HCC V28); Rheumatoid arthritis, involving unspecified site, unspecified whether rheumatoid factor present (CMS/HCC V24, CMS/HCC V28); Mixed hyperlipidemia; Hypomagnesemia; Primary osteoarthritis of right knee; Blurry vision 01/21/2025 Telephone Internal Medicine - [address] [address] Do Jones MA 01/20/2025 Telephone Internal Medicine [address] [address] Heena Barnes MD 01/07/2025 2:24 AM EDT - 01/07/2025 8:[address] [facility] Emergency [address] [place] [address] Dung Magallon MD Acute COVID-19 (Primary Dx) Discharge Disposition: Home or Self Care 12/31/2024 Telephone Internal Medicine [address] [address] Irina Mathew MA 12/25/2024 Telephone Internal Medicine [facility] [address] [address] Heena Barnes MD 12/24/2024 Telephone Internal Medicine [address] [phone] Cynthia CourtVANESSA 12/02/2024 Telephone Internal Medicine - [place] 175 [facility] [address] [place] [address] Do Jones MA from Last 3 Months Immunizations Name Administration [...] MOLECULAR STUDY STAT 01/07/2025 3:01 AM EDT LIPID PANEL Routine 09/11/2023 HM COLONOSCOPY Routine 06/08/2023 BUZZ SCREENING DIGITAL Routine 12/07/2022 11:16 AM EDT Encounter for screening mammogram for malignant neoplasm of breast [facility] DEXA AXIAL SKELETON Routine 04/07/2022 11:05 AM EDT Encounter for screening for osteoporosis from Last 3 Months or Most Recently Relevant to Health Maintenance Results * (ABNORMAL) CBC auto differential (01/27/2025 3:40 PM EDT) Pathologist [facility] WBC 6.6 4.8 - 10.8 K/mcL LAB [facility] RBC 4.00 3.80 - 4.80 M/mcL LAB HEMETOLOGY METHOD [facility] Hemoglobin 12.0 11.5 - 16.0 g/dL LAB HEMETOLOGY METHOD [facility]/27[facility]20[facility] Hematocrit 34.7(L) 35.0 - 47.0 % LAB HEMETOLOGY METHOD 01/27/2025 6:[facility] MCV 87.0 79.0 - 98.0 FL LAB HEMETOLOGY METHOD 01/27/2025 6:39 PM [facility] MCH 30.1 27.0 - 32.0 pcg LAB HEMETOLOGY METHOD 01/27/2025 6:39 PM [facility] MCHC 34.6 32.0 - 37.0 g/dL LAB HEMETOLOGY METHOD 01/27/2025 6:39 PM [facility] RDW 14.3 11.0 - 15.0 % LAB HEMETOLOGY METHOD 01/27/2025 6:39 PM [facility] Platelets 308 130 - 400 K/mcL LAB HEMETOLOGY METHOD 01/27/2025 6:39 PM [facility] MPV 9.8 7.0 - 11.0 FL LAB HEMETOLOGY METHOD 01/27/2025 6:39 PM EDT [facility] NRBC 0.0 <1.0 % LAB HEMETOLOGY METHOD 01/27/2025 6:39 PM [facility] NRBC Absolute 0.00 <0.10 K/mcL LAB HEMETOLOGY METHOD 01/27[facility]2025 6[facility] Neutrophils Relative 55.5 % LAB HEMETOLOGY METHOD 01/27/2025 6:39 PM [facility] Lymphocytes Relative 33.7 % LAB HEMETOLOGY METHOD 01/27/2025 6:39 PM [facility] Monocytes Relative 7.7 % LAB HEMETOLOGY METHOD 01/27/2025 6:39 PM [facility] Eosinophils Relative 2.3 % LAB HEMETOLOGY METHOD 01/27/2025 6:39 PM [facility] Basophils Relative 0.6 % LAB HEMETOLOGY METHOD 01/27/2025 6:39 PM [facility] Immature Granulocytes Relative 0.2 % LAB HEMETOLOGY METHOD 01/27/2025 6:39 PM [facility] Neutrophils Absolute 3.68 1.50 - 7.00 K/mcL LAB HEMETOLOGY METHOD 01/27/2025 6:39 PM [facility] Lymphocytes Absolute 2.23 1.00 - 5.00 K/mcL LAB HEMETOLOGY METHOD 01/27/2025 6:39 PM [facility] Monocytes Absolute 0.51 0.20 - 1.00 K/mcL LAB HEMETOLOGY METHOD 01/27/2025 6:39 PM [facility] Eosinophils Absolute 0.15 0.00 - 0.50 K/mcL LAB HEMETOLOGY METHOD 01/27/2025 6:39 PM EDT [facility] Basophils Absolute 0.04 0.00 - 0.20 K/mcL LAB HEMETOLOGY METHOD 01/27/2025 6:39 PM EDT [facility] Immature Granulocytes Absolute 0.01 0.00 - 0.03 K/mcL LAB HEMETOLOGY METHOD 01/27/2025 6:39 PM EDT [facility] Blood Venous blood specimen / Unknown Venipuncture / Unknown 01/27/2025 3:40 PM EDT 01/27/2025 3:40 PM EDT Heena Barnes MD LAB BLOOD ORDERABLES Final Res ult Performing Organization Address [facility]/ZIP Co de Phone Number [facility] [address] [place] [address], [place] [phone] * Magnesium (01/27/2025 3:40 PM EDT) Pathologist [facility] Magnesium 2.1 1.9 - 2.6 mg/dL LAB CHEMISTRY METHOD 01/27/2025 7:26 PM EDT [facility] Blood Venous blood specimen / Unknown Venipuncture / Unknown 01/27/2025 3:40 PM EDT 01/27/2025 3:40 PM EDT us Heena Barnes MD LAB BLOOD ORDERABLES Final Res ult [facility] [address] [place] [address], [place] [phone] * (ABNORMAL) Comprehensive metabolic panel (01/27/2025 3:40 PM EDT) Sodium 138 133 - 145 mmol/L LAB CHEMISTRY METHOD 01/27/2025 7:28 PM EDT [facility] Potassium 3.6 3.5 - 5.5 mmol/L LAB CHEMISTRY METHOD 01/27[facility]2025 7:[facility] Chloride 108 96 - 110 mmol/L LAB CHEMISTRY METHOD 01/27/2025 7:28 PM [facility] CO2 28 21 - 32 mmol/L LAB CHEMISTRY METHOD 01/27/2025 7:28 PM [facility] Anion Gap 2(L) 3 - 11 LAB CHEMISTRY METHOD 01/27/2025 7:28 PM [facility] Glucose 89 70 - 100 mg/dL LAB CHEMISTRY METHOD 01/27/2025 7:28 PM [facility] BUN 10 5 - 25 mg/dL LAB CHEMISTRY METHOD 01/27/2025 7:28 PM [facility] Creatinine 0.76 0.50 - 1.10 mg/dL LAB CHEMISTRY METHOD 01/27/2025 7:28 PM [facility] eGFR 82 >=60 mL/min/1. 73m2 LAB CHEMISTRY METHOD 01/27/2025 7:28 PM [facility] Comment:Calculation based on the Chronic Kidney Disease Epidemiology Collaboration (CKD-EPI) equation refit without adjustment for race. BUN/Creatinine Ratio 13.2 LAB CHEMISTRY METHOD 01/27/2025 7:28 PM [facility] Calcium 10.1 8.5 - 10.5 mg/dL LAB CHEMISTRY METHOD 01/27/2025 7:28 PM [facility] AST (SGOT) 20 10 - 42 unit/L LAB CHEMISTRY METHOD 01/27/2025 7:28 PM [facility] ALT (SGPT) 34 10 - 60 unit/L LAB CHEMISTRY METHOD 01/27/2025 7:28 PM [facility] Alkaline Phosphatase 56 42 - 121 unit/L LAB CHEMISTRY METHOD 01/27/2025 7:28 PM [facility] Total Protein 7.9 6.0 - 8.0 g/dL LAB CHEMISTRY METHOD 01/27/2025 7:28 PM [facility] Albumin 4.4 3.2 - 5.0 g/dL LAB CHEMISTRY METHOD 01/27/2025 7:28 PM EDT [facility] Total Bilirubin 0.9 0.0 - 1.4 mg/dL LAB CHEMISTRY METHOD 01/27/2025 7:28 PM EDT [facility] Blood Venous blood specimen / Unknown Venipuncture / Unknown 01/27/2025 3:40 PM EDT 01/27/2025 3:40 PM EDT us Heena Barnes MD LAB BLOOD ORDERABLES Final Res ult [facility]) [facility] [address] [place] [address], [place] [phone] * XR Chest 2 Views (01/07/2025 6:21 AM EDT) Anatomical Region Laterality Modality Body Radiographic Bisi ging 01/07/2025 8:00 AM EDT Impressions 01/07/2025 8:01 AM EDT Impression: Stable radiographic appearance of the chest. No active pulmonary process identified. Telerad ROSHAN ([id number]) -------- FINAL REPORT -------- Dictated By: Salima Marina Dictated Date: 01/07/2025 08:00 ET Assigned Physician: Salima Marina Reviewed and Electronically Signed By: Salima Marina Signed Date: 01/07/2025 08:01 ET Workstation ID: [id number] Transcribed By: Self Edit Transcribed Date: 01/07/2025 [...] chest. No active pulmonary processidentified. Telerad PA ([id number]) -------- FINAL REPORT -------- Dictated By: Salima Marina Dictated Date: 01/07/2025 08:00 ET Assigned Physician: Salima Marina Reviewed and Electronically Signed By: Salima Marina Signed Date: 01/07/2025 08:01 ET Workstation ID: [id number] Transcribed By: Self Edit Transcribed Date: 01/07/2025 08:00 ET Dung Magallon MD IMG XR PROCEDURES Final Result * (ABNORMAL) Respiratory virus panel molecular study (01/07/2025 3:01 AM EDT) Adenovirus Detection by PCR Not Detected Not Detected LAB MICROBIOLOGY METHOD 01/07/2025 4:38 AM EDT [facility] Influenza A PCR Not Detected Not Detected LAB MICROBIOLOGY METHOD 01/07/2025 4:38 AM EDT [facility] Influenza B PCR Not Detected Not Detected LAB MICROBIOLOGY METHOD 01/07/2025 4:38 AM EDT [facility] Coronavirus 229E Not Detected Not Detected LAB MICROBIOLOGY METHOD 01/07/2025 4:38 AM EDT [facility] Coronavirus HKU1 Not Detected Not Detected LAB MICROBIOLOGY METHOD 01/07/2025 4:38 AM EDT [facility] Coronavirus OC43 Not Detected Not Detected LAB MICROBIOLOGY METHOD 01/07/2025 4:38 AM EDT [facility] Coronavirus NL63 Not Detected Not Detected LAB MICROBIOLOGY METHOD 01/07/2025 4:38 AM EDT [facility] Parainfluenza Virus 1 Not Detected Not Detected LAB MICROBIOLOGY METHOD 01/07/2025 4:38 AM EDT [facility] Parainfluenza Virus 2 Not Detected Not Detected LAB MICROBIOLOGY METHOD 01/07/2025 4:38 AM EDT [facility] Parainfluenza Virus 3 Not Detected Not Detected LAB MICROBIOLOGY METHOD 01/07/2025 4:38 AM EDT [facility] Parainfluenza Virus 4 Not Detected Not Detected LAB MICROBIOLOGY METHOD 01/07/2025 4:38 AM EDT [facility] RSV PCR Not Detected Not Detected LAB MICROBIOLOGY METHOD 01/07/2025 4:38 AM EDT [facility] Human Metapneumovirus A and B Not Detected Not Detected LAB MICROBIOLOGY METHOD 01/07/2025 4:38 AM EDT [facility] Rhinovirus/Entero virus Not Detected Not Detected LAB MICROBIOLOGY METHOD 01/07/2025 4:38 AM EDT [facility] Bordetella pertussis Not Detected Not Detected LAB MICROBIOLOGY METHOD 01/07/2025 4:38 AM EDT [facility] Bordetella parapertussis Not Detected Not Detected LAB MICROBIOLOGY METHOD 01/07/2025 4:38 AM EDT [facility] Mycoplasma pneumo by PCR Not Detected Not Detected LAB MICROBIOLOGY METHOD 01/07/2025 4:38 AM EDT [facility] Chlamydia pneumoniae Not Detected Not Detected LAB MICROBIOLOGY METHOD 01/07/2025 4:38 AM EDT [facility] SARS COV-2 Detected(A ) Not Detected LAB MICROBIOLOGY METHOD 01/07/2025 4:38 AM EDT [facility] Swab Both anterior nares / Unknown Non-blood Collection / Unknown 01/07/2025 3:01 AM EDT 01/07/2025 3:17 AM EDT [facility]ative [facility] ([facility]) [facility] - 01/07/2025 4:38 AM EDT Testing was performed using the [employer] Respiratory Pathogen PCR Assay. All results must [...] that are below the limit of detection. Dung Magallon MD LAB MICROBIOLOGY - [facility] Final Result [facility] ([facility]) [facility] [address] [place] [address], * Lipid panel (09/11/2023) LDL/HDL Ratio 3 0 - 4 Triglycerides 88 0 - 150 mg/dL Cholesterol 137 0 - 200 mg/dL HDL 55 >=40 mg/dL LDL Cholesterol 65 0 - 100 mg/dL Blood Venous blood specimen / Unknown Historical Provider LAB BLOOD ORDERABLES Mariana l Result * Colonoscopy (06/08/2023) Pathologist [facility] Colonoscopy No Interpretation , Abstracted Anatomical Region Laterality Modality Other Historical Provider HEALTH MAINTENANCE Final Result * BUZZ SCREENING DIGITAL (12/07/2022 11:16 AM EDT) Anatomical Region Laterality Modality Mammography 12/07/2022 10:1 7 AM EDT Narrative 12/07/2022 11:16 AM EDT [facility] Diagnostic Imaging Department [address] [place], [place] [id number] Patient: LINDA SAGE /Age/Sex: 1950 - 72 - F Unit#: [id number] Location/Status: SPDIMAM/REG CLI Mnemonic/Ordering Site: [facility] Ordering Physician: HEENA BARNES MD [facility] Screening Digital - 12/07/22 - 1041 EXAM: [facility] Screening Digital EXAM DATE AND TIME: 12/07/2022 10:43 AM HISTORY: Screening. COMPARISON: 11/01/21, 03/25/20, 02/19/19 TECHNIQUE: CC and MLO views of both breasts were obtained using full field digital mammography. Bilateral digital breast tomosynthesis was performed in the MLO projection. Computer aided detection with [employer] 7.2-H and [employer] 3D 3.1 was employed. TISSUE DENSITY: b. [...] Routine screening mammogram BILATERAL in 1 year. [address], 87986 3342F, 7025F Dictating Physician: SALIMA MARINA MD Electronically Signed by: SALIMA MARINA MD Dic Date/Time: 12/07/22 1116 Sign date/Time: 12/07/22 1116 Procedure Note Salima Marina MD - 08/04/2023 [facility] Diagnostic Imaging Department [address] [place] [address] Patient: LINDA SAGE Kalyn /Age/Sex: 1950 - 72 - F Unit#: [id number] Location/Status: SPDIMAM/REG CLI Mnemonic/Ordering Site: [facility] Ordering Physician: HEENA BARNES MD [facility] Screening Digital - 12/07/22 - 1042 EXAM: [facility] Screening Digital EXAM DATE AND TIME: 12/07/2022 10:43 AM HISTORY: Screening. COMPARISON: 11/01/21, 03/25/20, 02/19/19 TECHNIQUE: CC and MLO views of both breasts were obtained using fullfield digital mammography. Bilateral digital breast tomosynthesis was performedin the MLO projection. Computer aided detection with [employer] 7.2-H and[employer] 3D 3.1 was employed. TISSUE DENSITY: b. [...] Routine screening mammogram BILATERAL in 1 year. [address]20, 31663 3342F, 7025F Dictating Physician: SALIMA MARINA MD Electronically Signed by: SALIMA MARINA MD Dic Date/Time: 12/07/22 1116 Sign date/Time: 12/07/22 111 Heena Barnes MD IMG BI PROCEDURES Final Result * [facility] DEXA AXIAL SKELETON (04/07/2022 11:05 AM EDT) Anatomical Region Laterality Modality Mammography 04/07/2022 10:1 9 AM EDT Narrative 04/07/2022 11:05 AM EDT [facility] Diagnostic Imaging Department [address] [place] [address] Patient: SHIRINLINDA L /Age/Sex: 1950 - 71 - F Unit#: [id number] [facility] Mnemonic[facility] Ordering Physician: HEENA BARNES MD [facility] Dexa Axial Skeleton - 04/07/223 HISTORY: The patient is a 71-year-old postmenopausal [...] probability of hip fracture of 2.2%. Code 06050 Dictating Physician: DAVID RANDALL MD Electronically Signed by: DAVID RANDALL MD Dic Date/Time: 04/07/22 1104 Sign date/Time: 04/07/22 1105 Procedure Note David Randall MD - 06/22/2022 [facility] Diagnostic Imaging Department [address] [place], [place] [address] Patient: LINDA SAGE Kalyn /Age/Sex: 1950 - 71 - F Unit#: [id number] [facility] Ordering Physician: HEENA BARNES MD [facility] Dexa [...] density of the femurs bilaterally is 0.964 gm/ya0kzozj is 96% of that of young normals [...] probability of hip fracture of 2.2%. Code 78133 Dictating Physician: DAVID RANDALL MD Electronically Signed by: DAVID RANDALL MD Dic Date/Time: 04/07/22 110 Sign date/Time: 04/07/221104 Heena Barnes MD IMG BI PROCEDURES Final Result from Last 3 Months or Most Recently Relevant to Health Maintenance Insurance [employer] MEDICARE Member Subscriber Plan / Payer (Ef fective 2021-Present) Name:Linda Sage Relation to Subscriber:Self Name:Linda Sage Payer ID:[id number] Group ID:[id number] Type:Not on file Address: [address] [id number] Advance Directives Documents on File Type Date Recorded Patient Student Life Advisor Expl anation Advance Directives and Livin g [...] currently active code status orders. Care Teams Stretching Press Operator Relationship Specialty Start Date End Date Heena Barnes MD [address] [place] [address] PCP - General Internal Medicine 12/15/21
--- OUTSIDE RECORDS SUMMARY | 2025-02-25 12:16 | XMS_ITS | Clinical Summary ---
Author Organization [facility] Address [address] [facility] [address] [place] [address] Phone Care Team Providers Care Retrimmer Name Role Phone Leslee Barnes MD Primary Care Provider [phone] Allergies Active Allergy Reactions Criticality Noted Date [...] Heart disease Sibling 2 Stroke Sibling 3 [place] Relation Status Comments Father Mother Alive Sibling [...] age to complete this topic Insurance ([id number]) [facility] ([id number]) Care Teams Retrimmer Relationship Specialty Start Date End Date Leslee Barnes MD [address] [place] [phone] PCP - General Internal Medicine 04/27/22
--- OUTSIDE RECORDS SUMMARY | 2025-02-25 12:16 | XMS_ITS | Clinical Summary ---
Author Organization [facility] Address [address] [place] [address] Care Team Providers Care Jelly Maker Name Role Phone Leslee Barnes MD Primary Care Provider [phone] Allergies Active Allergy Reactions Criticality Noted Date [...] PO Take by mouth. 0 Acti ve [id number] Eth Est, Dietary, 1 g CAPS Take [...] age to complete this topic Care Teams Jelly Maker Relationship Specialty Start Date End Date Leslee Barnes MD [address] [place] [address] PCP - General Internal Medicine 01/29/24
--- OUTSIDE RECORDS SUMMARY | 2025-02-25 12:16 | XMS_ITS | Encounter Summary ---
Author Organization [facility] Address [address] [place] [address] Care Team Providers Care Cardiovascular Technologist Name Role Phone Leslee Barnes MD Primary Care Provider [phone] Encounter Details Date Type Department Care Team (Late st Contact Info) Description 02/19/2025 Telephone Internal Medicine - [place] [address] [facility] [address] [place] [address] Leslee Barnes MD [address] [place] [address] Social History Tobacco Use Types Packs/Day Years [...] Progress Notes * Do Jones MA - 02/20/2025 10:33 AM EDT Have not received yet , thank you * Sandy Hodge - 02/19/2025 1:31 PM EDT Abi with [facility], Refaxing now a 485 POC Order for VN services Asked this to be under high priority Please advise, ty documented in this encounter Plan of Treatment Not on file documented as of this encounter Visit Diagnoses Not on filedocumented in this encounter Additional Health Concerns Assessment Noted Time PHQ-9 Depression Total Score: 0 01/28/20 3:12 PM EDT documented as of this encounter Care Teams Cardiovascular Technologist Relationship Specialty Start Date End Date Leslee Barnes MD [address] [address] PCP - General Internal Medicine 12/15/21 documented as of this encounter
--- OUTSIDE RECORDS SUMMARY | 2025-02-25 12:16 | XMS_ITS | Encounter Summary ---
Author Organization [facility] Address [address] [place] [address] Care Team Providers Care Adjunct Lecturer Name Role Phone Leslee Barnes MD Primary Care Provider [phone] Reason for Visit * Reason Onset Date Comments Request For Order(s) 02/25/2025 [facility] Care Cert 02/24/25-04/24/25 Plan Of Care Encounter Details Date Type Department Care Team (Late st Contact Info) Description 02/25/2025 Telephone Internal Medicine - [place] [address] [place] [address] Do Jones MA Social History [...] Progress Notes * Do Jones MA - 02/25/2025 10:37 AM EDT [facility] Care Cert 02/24/25-04/24/25 Plan Of Care Please sign & fax [phone] documented in this encounter Plan of Treatment Not on file documented as of this encounter Visit Diagnoses Not on filedocumented in this encounter Additional Health Concerns Assessment Noted Time PHQ-9 Depression Total Score: 0 01/28/20 25 3:12 PM EDT documented as of this encounter Care Teams Adjunct Lecturer Relationship Specialty Start Date End Date Leslee Barnes MD [address] [phone] PCP - General Internal Medicine 12/15/21 documented as of this encounter
--- OUTSIDE RECORDS SUMMARY | 2025-02-25 12:16 | XMS_ITS | Encounter Summary ---
Author Organization [facility] Address [address] [place] [address] Care Team Providers Care Safety Associate Name Role Phone Leslee Barnes MD Primary Care Provider [phone] Reason for Referral * Consultation (Routine) - Pending Review Specialty Diagnoses / Procedures Referred By Fei bryant Referred To Contact Physical Therapy Diagnoses Unsteady gait Leslee Barnes MD [address] [facility] [address] [place] [address] Phone: tel: fax: [facility] [address] [address] Phone: tel: fax: Referral ID Status Reason Start Date Expiration Date Visits Requested Visits Authorized [id number] Pending Review Specialty Services Required 02/07/2025 02/07/2026 1 1 Reason for Visit * Reason Onset Date Comments FYI: vna 02/05/2025 Encounter Details Date Type Department Care Team (Late st Contact Info) Description 02/05/2025 Telephone Internal Medicine - [place] [address] [phone] Leslee Barnes MD [address] [place] [phone] Social History Tobacco Use Types Packs/Day Years [...] Progress Notes * Leslee Barnes MD - 02/07/2025 6:50 AM EDT PT referral placed * Do Jones MA - 02/06/2025 11:27 AM EDT FYI please advice * Marian Dukes MA - 02/05/2025 11:34 AM EDT Please advise * Cherry Ryan - 02/05/2025 10:40 AM EDT Ronda from pending sale to [facility] called and stated that the patient was discharged fro home physical therapy and should be referred to out patient therapy. # [phone] documented in this encounter Plan of Treatment Scheduled Referrals Name Type Priority Associated Diagnoses Order Schedule Ambulatory referral to Physical Therapy and Athletic Training Outpatient Referral Routine Unsteady gait 1 Occurrences starting 02/07/2025 until 02/07/2026 documented as of this encounter Visit Diagnoses Diagnosis Unsteady gait- Primary Abnormality of gait documented in this encounter Additional Health Concerns Infection Onset Date Last Indicated Resolved Time COVID-19 01/07/2025 01/07/2025 02/06/2025 7:04 PM EDT Assessment Noted Time PHQ-9 Depression Total Score: 0 01/28/20 25 3:12 PM EDT documented as of this encounter Care Teams Safety Associate Relationship Specialty Start Date End Date Leslee Barnes MD [address] [phone] PCP - General Internal Medicine 12/15/21 documented as of this encounter
== END 2025-02-25 13:46 | disposition home or self-care (01) ==
LOC: HO.HUSH 11:20
PROVIDERS: PCP Internal Medicine; Visit Provider Nurse Practitioner Family
DX: R35.0 Frequency of micturition (principal); R35.1 Nocturia
CPT/HCPCS: 99213